=== PATIENT | male | born 1935 | race Caucasian/White ===

== ENCOUNTER → 2017-09-08 08:18 | Outpatient (CLI) | payer MEDICARE, SELFPAY ==
[2017-09-08 10:12] LABS: Anion Gap 6 (5-15); BUN 14 mg/dL (7-18); BUN/Creat Ratio 14.9 RATIO (10-20); Calcium,Total 8.8 mg/dL (8.5-10.1); Chloride 102 mmol/L (98-107); Creatinine, Serum 0.94 mg/dL (0.70-1.30); EST Glomerular Filtration Rate 82 mL/min (>60); Est Glom Filt Rate - Afr Amer 99 mL/min (>60); Glucose 92 mg/dL (74-106); Potassium 4.2 mmol/L (3.5-5.1); Sodium Level 140 mmol/L (136-145)
== END ==
PROVIDERS: Family Provider Family Medicine; PCP Family Medicine; Visit Provider Family Medicine
DX: I10 Essential (primary) hypertension (principal)
CPT/HCPCS: 36415; 80048

== ENCOUNTER → 2019-04-17 08:04 | Outpatient (CLI) | payer MEDICARE, SELFPAY ==
[2019-04-17 10:34] LABS: Anion Gap 5 (5-15); BUN 13 mg/dL (7-18); BUN/Creat Ratio 14.5 RATIO (10-20); Chloride 106 mmol/L (98-107); Cholesterol 188 mg/dL (200); EST Glomerular Filtration Rate 86 mL/min (>60); Est Glom Filt Rate - Afr Amer 104 mL/min (>60); Glucose 98 mg/dL (74-106); High Density Lipoprotein 74 mg/dL; Potassium 4.4 mmol/L (3.5-5.1); Sodium Level 140 mmol/L (136-145); Triglycerides 77 mg/dL; Very Low Density Lipoprotein 15 mg/dL (5-40); Vitamin D,25 Hydroxy 31.4 ng/mL (29.95-100.01)
== END ==
PROVIDERS: Family Provider Family Medicine; PCP Family Medicine; Referring Provider Family Medicine; Visit Provider Family Medicine
DX: E55.9 Vitamin D deficiency, unspecified (principal); I10 Essential (primary) hypertension
CPT/HCPCS: 36415; 80048; 80061; 82306

== ENCOUNTER → 2020-05-07 08:33 | Outpatient (CLI) | payer MEDICARE, SELFPAY ==
[2020-05-07 10:24] LABS: Anion Gap 3 (5-15); BUN 13 mg/dL (7-18); BUN/Creat Ratio 13.2 RATIO (10-20); Calcium,Total 9.1 mg/dL (8.5-10.1); Chloride 105 mmol/L (98-107); Cholesterol 182 mg/dL (200); Creatinine, Serum 0.99 mg/dL (0.70-1.30); EST Glomerular Filtration Rate 77 mL/min (>60); Est Glom Filt Rate - Afr Amer 93 mL/min (>60); Glucose 97 mg/dL (74-106); High Density Lipoprotein 72 mg/dL; Potassium 4.1 mmol/L (3.5-5.1); Sodium Level 139 mmol/L (136-145); Triglycerides 117 mg/dL; Very Low Density Lipoprotein 23 mg/dL (5-40)
== END ==
PROVIDERS: PCP Family Medicine; Referring Provider Family Medicine; Visit Provider Family Medicine
DX: I10 Essential (primary) hypertension (principal); E55.9 Vitamin D deficiency, unspecified
CPT/HCPCS: 36415; 80048; 80061; 82306

== ENCOUNTER → 2021-10-12 | Outpatient (CLI) | payer MEDICARE, SELFPAY | END | disposition home or self-care (01) | PROVIDERS: PCP Family Medicine; Visit Provider Family Medicine | DX: U07.1 COVID-19 (principal) | CPT/HCPCS: 87635; U0003; U0005 ==

== ENCOUNTER → 2021-11-10 | Outpatient (CLI) | payer MEDICARE, SELFPAY ==
[2021-11-10 10:21] LABS: Anion Gap 4 (5-15); BUN 17 mg/dL (7-18); BUN/Creat Ratio 17.4 RATIO (10-20); Chloride 106 mmol/L (98-107); Cholesterol 171 mg/dL (200); Creatinine, Serum 0.98 mg/dL (0.70-1.30); EST Glomerular Filtration Rate 77 mL/min (>60); Est Glom Filt Rate - Afr Amer 94 mL/min (>60); Glucose 102 mg/dL (74-106); High Density Lipoprotein 79 mg/dL; Potassium 4.1 mmol/L (3.5-5.1); Sodium Level 140 mmol/L (136-145); Triglycerides 80 mg/dL; Very Low Density Lipoprotein 16 mg/dL (5-40); Vitamin D,25 Hydroxy 43.5 ng/mL
== END | disposition home or self-care (01) ==
LOC: MTLAB 08:41
PROVIDERS: PCP Family Medicine; Referring Provider Family Medicine; Visit Provider Family Medicine
DX: I10 Essential (primary) hypertension (principal); E55.9 Vitamin D deficiency, unspecified
CPT/HCPCS: 36415; 80048; 80061; 82306

== ENCOUNTER → 2021-12-15 | Outpatient (CLI) | payer MEDICARE, SELFPAY ==
[2021-12-15 10:51] LABS: Absolute Lymphocyte Count 1.15 X10^3/uL (0.83-4.51); Absolute Neutrophil Count 3.9 X10^3/uL (2.0-7.7); Basophil# 0.05 X10^3/uL; Basophil% 0.8 % (0-1); Eosinophil# 0.68 X10^3/uL; Eosinophils% 10.5 % (0-5); Hemoglobin 14.3 g/dL (13.0-16.5); Lymphocyte # 1.15 X10^3/ul (0.83-4.51); Lymphocyte % 17.7 % (19-41); Mean Corp Hgb Conc 32.5 g/dL (32-36); Mean Corpuscular Hgb 29.5 pg (27.0-32.0); Mean Corpuscular Volume 90.9 fL (80-94); Mean Platelet Vol. 11.6 fl (6.2-12.0); Monocyte# 0.66 X10^3/uL; Monocyte% 10.2 % (0-10); NRBC Flagged by Analyzer 0 % (0-5); Neutrophil # 3.93 X10^3/uL (2.7-7.7); Neutrophil % 60.3 % (47-70); Platelet Count 212 K/mm3 (150-450); RBC Distribution Width CV 13.7 % (11.6-14.6); RBC Distribution Width SD 46.1 fl (35.1-43.9); Red Blood Count 4.84 M/mm3 (4.6-6.2); White Blood Count 6.5 K/mm3 (4.4-11.0)
[2021-12-15 10:54] LABS: Erythrocyte Sedimentation Rate 14 mm/hr (0-20)
[2021-12-15 11:04] LABS: ALB/GLOB Ratio 1.1 RATIO (0.9-2.4); AST(SGOT) 21 U/L (15-37); Alanine Aminotransfer ALT/SGPT 19 U/L (16-61); Albumin, Serum 3.6 g/dL (3.2-5.0); Alkaline Phosphatase 53 U/L (45-117); Anion Gap 5 (5-15); BUN 13 mg/dL (7-18); BUN/Creat Ratio 14.1 RATIO (10-20); Chloride 108 mmol/L (98-107); Creatinine, Serum 0.92 mg/dL (0.70-1.30); EST Glomerular Filtration Rate 83 mL/min (>60); Est Glom Filt Rate - Afr Amer 100 mL/min (>60); Globulin 3.4 g/dL (2.2-4.2); Glucose 100 mg/dL (74-106); Potassium 4.3 mmol/L (3.5-5.1); Sodium Level 138 mmol/L (136-145)
== END | disposition home or self-care (01) ==
LOC: MFPLAB 08:34
PROVIDERS: PCP Family Medicine; Referring Provider Family Medicine; Visit Provider Family Medicine
DX: R10.13 Epigastric pain (principal)
CPT/HCPCS: 36415; 80053; 85025; 85652

== ENCOUNTER → 2022-01-13 | Outpatient (CLI) | payer MEDICARE, SELFPAY ==
--- NOTE | 2022-01-13 10:32 | RAD_ITS ---
STUDY: X-RAY - ABDOMEN/PELVIS REASON FOR EXAM: Male, 86 years old. Pain. Stomach issues for years. TECHNIQUE: AP supine and upright views of the abdomen and pelvis were obtained on 4 images. COMPARISON: 12/17/2016. FINDINGS: Normal visualized lung bases. There is an unremarkable bowel gas pattern with air seen to the rectum. There is no demonstrated free abdominal air. The visualized liver, spleen and kidneys are grossly normal in size and morphology. Normal soft tissue structures. Normal visualized osseous structures. RAD/Abd Inc Decub and/or Erect IMPRESSION: No acute abnormality of the lower chest, abdomen or pelvis. Electronically Signed: Real Plata, at 11:03 EDT ,
[2022-01-13 12:14] LABS: Absolute Lymphocyte Count 1.02 X10^3/uL (0.83-4.51); Absolute Neutrophil Count 3.2 X10^3/uL (2.0-7.7); Basophil# 0.06 X10^3/uL; Basophil% 1.1 % (0-1); Eosinophil# 0.56 X10^3/uL; Eosinophils% 10.4 % (0-5); Hematocrit 46.8 % (40-54); Lymphocyte # 1.02 X10^3/ul (0.83-4.51); Mean Corp Hgb Conc 32.1 g/dL (32-36); Mean Corpuscular Hgb 29.7 pg (27.0-32.0); Mean Corpuscular Volume 92.7 fL (80-94); Mean Platelet Vol. 11.5 fl (6.2-12.0); Monocyte% 9.3 % (0-10); NRBC Flagged by Analyzer 0 % (0-5); Neutrophil # 3.21 X10^3/uL (2.7-7.7); Neutrophil % 59.8 % (47-70); Platelet Count 243 K/mm3 (150-450); RBC Distribution Width CV 13.5 % (11.6-14.6); RBC Distribution Width SD 46.2 fl (35.1-43.9); Red Blood Count 5.05 M/mm3 (4.6-6.2); White Blood Count 5.4 K/mm3 (4.4-11.0)
[2022-01-13 12:31] LABS: Vitamin B12 353 pg/mL (211-911)
[2022-01-13 12:37] LABS: Amylase 75 U/L (25-115); Lipase 137 U/L (73-393)
[2022-01-14 15:08] LABS: Endomysial Antibody IgA Negative (Negative)
[2022-01-14 16:41] LABS: Immunoglobulin A 129 mg/dL (61-437); t-Transglutaminase IgA <2 U/mL (0-3)
== END | disposition home or self-care (01) ==
PROVIDERS: PCP Family Medicine; Referring Provider Family Medicine; Visit Provider Family Medicine
DX: R19.5 Other fecal abnormalities (principal); R10.13 Epigastric pain
CPT/HCPCS: 74019; 82150; 82607; 82784; 83516; 83690; 84443; 85025; 86255

== ENCOUNTER → 2022-06-08 | Outpatient (CLI) | payer MEDICARE, SELFPAY ==
--- NOTE | 2022-06-08 10:17 | LES_PTH ---
PATIENT: ONEAL ROGERS LOC: [facility] U#:[id number] AGE/SX: 87/M ROOM: RE06/08/[address]: Dr. Jared Londono MD : 1935 BED: DIS: 06/08/2022 SPEC #: [id number] RECD: 06/08/22 12:05 STATUS: JEANE JOHN #: [id number] GARRETT: 06/08/22 10:[address]: Jared Londono DEPT: SURGICAL PATHOLOGY RECD BY: Yaquelin Wise Tissues: Skin of face, NOS Procedures: Surgery Specimen Level IV HEADER OPERATION: Shave biopsy PRE-OP DIAGNOSIS: Forehead lesion, rule out SCC TISSUE SUBMITTED: Forehead lesion MICROSCOPIC DIAGNOSIS Skin lesion, forehead, shave biopsy: Inflamed verrucous keratosis with moderate to severe atypia. Solar elastosis. See comment. EDUARDO:nay 06/09/2022 COMMENT Complete excision of the lesion is suggested if clinically indicated. Case has been reviewed in consultation with Dr. Ley who concurs with the above diagnosis. IDC:AM MICROSCOPIC DESCRIPTION Slides are reviewed. GROSS DESCRIPTION Received is one container labeled with the patient's name and not further designated. The specimen consists of a light romo shaved biopsy of skin measuring 6 x 5 x <0.1 cm. The specimen is bisected and totally submitted in one cassette. / AM:nay 06/08/2022 TC:5 CPT: 16955
== END | disposition home or self-care (01) ==
LOC: LABSPEC 11:05
PROVIDERS: PCP Family Medicine; Referring Provider Family Medicine; Visit Provider Family Medicine
DX: L98.9 Disorder of the skin and subcutaneous tissue, unspecified (principal)
CPT/HCPCS: 88305

== ENCOUNTER → 2022-07-12 | Outpatient (CLI) | payer MEDICARE, SELFPAY ==
[2022-07-12 15:32] LABS: Hematocrit 47.1 % (40-54); Hemoglobin 15.6 g/dL (13.0-16.5); Mean Corp Hgb Conc 33.1 g/dL (32-36); Mean Corpuscular Hgb 30.3 pg (27.0-32.0); Mean Corpuscular Volume 91.5 fL (80-94); Mean Platelet Vol. 11.4 fl (6.2-12.0); Platelet Count 221 K/mm3 (150-450); RBC Distribution Width CV 13.2 % (11.6-14.6); RBC Distribution Width SD 44.6 fl (35.1-43.9); Red Blood Count 5.15 M/mm3 (4.6-6.2); White Blood Count 6.4 K/mm3 (4.4-11.0)
[2022-07-12 15:35] LABS: Erythrocyte Sedimentation Rate 16 mm/hr (0-20)
[2022-07-12 16:02] LABS: Vitamin B12 418 pg/mL (211-911); Vitamin D,25 Hydroxy 54.4 ng/mL
[2022-07-12 16:05] LABS: ALB/GLOB Ratio 1.1 RATIO (0.9-2.4); AST(SGOT) 26 U/L (15-37); Alanine Aminotransfer ALT/SGPT 19 U/L (16-61); Albumin, Serum 3.8 g/dL (3.2-5.0); Alkaline Phosphatase 57 U/L (45-117); Anion Gap 8 (5-15); BUN 14 mg/dL (7-18); BUN/Creat Ratio 16.8 RATIO (10-20); Calcium,Total 9.3 mg/dL (8.5-10.1); Chloride 107 mmol/L (98-107); Creatinine, Serum 0.84 mg/dL (0.70-1.30); EST Glomerular Filtration Rate 93 mL/min (>60); Est Glom Filt Rate - Afr Amer 112 mL/min (>60); Globulin 3.5 g/dL (2.2-4.2); Glucose 79 mg/dL (74-106); Potassium 4.3 mmol/L (3.5-5.1); Protein, Total 7.3 g/dL (6.4-8.2); Sodium Level 139 mmol/L (136-145); Thyroid Stim Hormone (TSH) 1.02 uIU/mL (0.358-3.74)
== END | disposition home or self-care (01) ==
LOC: MFPLAB 11:54
PROVIDERS: PCP Family Medicine; Referring Provider Family Medicine; Visit Provider Family Medicine
DX: E55.9 Vitamin D deficiency, unspecified (principal); E53.8 Deficiency of other specified B group vitamins; G31.84 Mild cognitive impairment of uncertain or unknown etiology
CPT/HCPCS: 36415; 80053; 82306; 82607; 84443; 85027; 85652

== ENCOUNTER 2022-12-21 08:43 | Emergency (ER) | payer MEDICARE, SELFPAY ==
[2022-12-21 08:44] VITALS: BP 155/89; PULSE 48; RESP 16; TEMP 36.6; O2SAT 98; BMI 20.6
--- NOTE | 2022-12-21 09:20 | CT_ITS ---
STUDY: CT ABDOMEN AND PELVIS WITH CONTRAST - URINARY TRACT REASON FOR EXAM: Male, 87 years old. Abd Pain, Mid Epi Gastric RADIATION DOSAGE (If Supplied By Facility): CTDIvol = ( 4.92 ) mGy, DLP = ( 369.32 ) mGycm TECHNIQUE: IV 100mL Isovue-300 was administered. Transaxial images were obtained from the dome of the diaphragm to the symphysis pubis in the arterial, nephrographic and excretory phases. Multiplanar coronal and sagittal images were reformatted. Individualized Dose Optimization Techniques Were Used For This CT. COMPARISON: AP supine and upright plain film views of the abdomen and pelvis January 13, 2022 FINDINGS: The visualized lung bases are unremarkable. The visualized portions of the heart are within normal limits. Well-defined 8.5 mm hypodensity consistent with a cyst is seen in the left lobe of the liver. The patent portal vein diameter is 14.5 mm. Normal gallbladder and extrahepatic biliary system. Normal spleen. 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 The pancreatic duct measures up to 3.5 mm diameter. Normal bilateral adrenal glands. Normal visualized stomach. Normal small intestine. There is sigmoid diverticulosis. The appendix is not clearly visualized. There is atherosclerotic calcification of the aorta at the level of the celiac takeoff, as well as mild calcific plaquing of the infrarenal aorta. No retroperitoneal adenopathy. Well-defined 5.55 x 1.95 x 2.1 cm hypodensity interposed between the medial right lobe of the liver and upper pole right kidney is thought to be a simple appearing subcapsular renal cyst area just medial to the inferior aspect of this cyst is a second 9 mm diameter hypodense cortical cyst, and a 4.5 mm subcapsular cortical cyst is seen in the medial right lower pole. Normal left kidney. No hydronephrosis. Numerous calcified stones measuring up to 7 mm diameter are seen within the otherwise unremarkable urinary bladder. The prostate gland is enlarged, containing clusters of microcalcifications. The central lobe elevates and indents the floor of the bladder. Normal abdominal wall. There are multilevel degenerative changes of the lumbar spine. Incompletely defined 2.6 x 2.0 x 1.7 cm area of relative lucency with trabecular coarsening in the right side of the L1 vertebra is consistent with hemangioma. A more defined 1.4 x 0.75 x 1.55 cm lucency just deep to the inferior L2 vertebral endplate may be a second hemangioma or Schmorl''s node. CT/Abdomen/Pelvis W IV Cont ONLY IMPRESSION: 1. No clearly demonstrated source for the patient''s new epigastric pain. 2. Enlarged, partially calcified prostate gland. 3. There are calcified urinary bladder stones. No hydronephrosis. 4. Sigmoid diverticulosis without acute diverticulitis. 5. Atherosclerotic calcifications present, as described. 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 6. Benign-appearing cysts seen in the left lobe of the liver and in the right kidney, as noted. 7. Multilevel degenerative changes of the lumbar spine. Electronically Signed: Jose De Jesus Butcher MD at 11:01 EDT Reading Location ID and State: [id number] / Unknown , Service support ,
[2022-12-21] MEDS: 0.9% Normal Saline 1,000 ML 1000 ML IV (09:29)
[2022-12-21] MEDS: Ondansetron 4 MG/2 ML Vial IV (09:29)
[2022-12-21] MEDS: Dicyclomine 10 MG Capsule 20 MG PO (09:30)
[2022-12-21 09:36] LABS: Absolute Lymphocyte Count 0.92 X10^3/uL (0.83-4.51); Absolute Neutrophil Count 3.9 X10^3/uL (2.0-7.7); Basophil# 0.05 X10^3/uL; Basophil% 0.9 % (0-1); Eosinophil# 0.39 X10^3/uL; Eosinophils% 6.8 % (0-5); Hematocrit 43.9 % (40-54); Hemoglobin 14.5 g/dL (13.0-16.5); Lymphocyte # 0.92 X10^3/ul (0.83-4.51); Mean Corpuscular Hgb 30.2 pg (27.0-32.0); Mean Corpuscular Volume 91.5 fL (80-94); Mean Platelet Vol. 10.5 fl (6.2-12.0); Monocyte# 0.44 X10^3/uL; Monocyte% 7.6 % (0-10); NRBC Flagged by Analyzer 0 % (0-5); Neutrophil # 3.94 X10^3/uL (2.7-7.7); Neutrophil % 68.4 % (47-70); Platelet Count 212 K/mm3 (150-450); RBC Distribution Width CV 13.3 % (11.6-14.6); RBC Distribution Width SD 45.2 fl (35.1-43.9); White Blood Count 5.8 K/mm3 (4.4-11.0)
[2022-12-21 09:56] LABS: ALB/GLOB Ratio 0.9 RATIO (0.9-2.4); AST(SGOT) 17 U/L (15-37); Alanine Aminotransfer ALT/SGPT 17 U/L (16-61); Albumin, Serum 3.3 g/dL (3.2-5.0); Alkaline Phosphatase 54 U/L (45-117); Anion Gap 4 (5-15); BUN 10 mg/dL (7-18); BUN/Creat Ratio 10.7 RATIO (10-20); Calcium,Total 8.9 mg/dL (8.5-10.1); Chloride 107 mmol/L (98-107); Creatinine, Serum 0.93 mg/dL (0.70-1.30); EST Glomerular Filtration Rate 82 mL/min (>60); Est Glom Filt Rate - Afr Amer 99 mL/min (>60); Estimated Creatinine Clearance 54.14 ml/min; Globulin 3.5 g/dL (2.2-4.2); Glucose 109 mg/dL (74-106); Lipase 35 U/L (13-75); Potassium 4.3 mmol/L (3.5-5.1); Protein, Total 6.8 g/dL (6.4-8.2); Sodium Level 139 mmol/L (136-145); Troponin-I HS 8 pg/mL (3.0-78.0)
[2022-12-21 10:08] LABS: Bacteria 0 SEEN /hpf (None Seen); Mucous, Urine 0 SEEN /hpf (<or=2+); Red Blood Cells-Urine 0 SEEN /hpf (0-5); Squamous Epithelial Cells - UA 0 SEEN /hpf (0-5)
[2022-12-21 10:26] LABS: Color, Urine Yellow (Yellow); Glucose, Dipstick Normal (Normal); Ketone-Dipstick Negative (Negative); Leukocyte Esterase-Dipstick 500 /ul (Negative); Nitrite-Dipstick Negative (Negative); Occult Blood-Urine 25 /ul (Negative); Protein-Dipstick Negative (Negative); Specific Gravity, Urine 1.015 (1.002-1.030); Urine Bilirubin Dipstick Negative (Negative); Urine Clarity Sl. Cloudy (Clear); Urine Urobilinogen Normal (Normal)
[2022-12-21 10:35] LABS: Amorphous Sediment 1+; White Blood Cells 0-5 SEEN /hpf (0-5)
[2022-12-21 10:43] VITALS: BP 158/79; PULSE 58; RESP 14; O2SAT 97
--- NOTE | 2022-12-21 11:33 | EDS_ITS ---
HPI History of Present Illness Chief Complaint: Abd Pain Narrative Narrative: Patient is a 87-year-old male who is presenting to the ER with chronic complaints of midepigastric pain, hiccuping at nighttime, waking up at nighttime with midepigastric discomfort. Patient has multiple tests ordered as an outpatient to be done on by his PCP. Patient was home with his . Patient came into the ER today because he did not want to wait till for outpatient testing. Patient has no headache, no fever or chills. No chest pain or shortness of breath. Patient does have positive abdominal pain acute on chronic, more focused to the midepigastric area. Patient has no urinary frequency urgency or burning. No bowel or bladder changes. Patient however does state that he does have a bowel movement daily, but they are small harder balls. We had discussed the possibility of patient being constipated. Patient has no abdominal bloating. No back pain. No other acute complaints at this time. Patient has no melena, no hematochezia, no emesis. No nausea vomiting. Patient states that he wakes up in the middle the night with his gnawing midepigastric pain that has been going on for 1 to 2 weeks so he came in for evaluation today. No other acute complaints. [facility] Medical History (Updated 12/21/22 @ 11:[address] Yayo Mauro DO) Hypertension Home Medications Ranitidine [Zantac] 300 mg PO BID PRN Dyspnea ##60 09/07/14 [Rx Last Taken Unknown] lisinopril 10 mg-hydrochlorothiazide 12.5 mg tablet (Zestoretic) 10 mg PO DAILY 09/07/14 [History Last Taken Unknown] Allergy/AdvReac Type Severity Reaction Status Date / Time Sulfa (Sulfonamide Allergy Mild Rash Verified 12/21/22 08:47 Antibiotics) amoxicillin Allergy Unknown Verified 12/21/22 08:47 Social History Smoking Status: Never smoker ROS ROS ED ROS Narrative REVIEW OF SYSTEMS: Unless otherwise stated in this report the patient's positive and negative responses for review of systems for constitutional, eyes, ENT, cardiovascular, respiratory, gastrointestinal, neurological, , musculoskeletal, and integument systems and related systems to the presenting problem are either stated in the history of present illness or were not pertinent or were negative for the symptoms and/or complaints related to the presenting medical problem. EXAM Physical Exam Narrative Exam Narrative: Vital signs reviewed and patient is not hypoxic. Patient is very pleasant, drove himself to the ER. General: The patient appears well and in no apparent distress. Patient is resting comfortably on cart. Not toxic, lethargic, or listless. Skin: Warm, dry, no pallor noted. There is no rash noted. Head: Normocephalic, atraumatic Eye: Normal conjunctiva, no drainage, EOMI. PERRL. Ears, Nose, Mouth, and Throat: oral mucosa is slightly dry. Nares patent. Mouth without vesicles. Cardiovascular: Regular Rate and Rhythm, no murmurs, gallops, or rubs Respiratory: Patient is in no distress, no accessory muscle use, lungs are clear to auscultation, no wheezing, rales or rhonchi Back: non-tender, no CVA tenderness bilaterally to percussion. NO CTLS midline or paraspinal tenderness to palpation. GI: Soft, mild midepigastric tenderness palpation, patient states the pain is not present at this time like it is in the middle the night. No tenderness to palpation, no masses appreciated. No rebound, guarding, or rigidity noted. Musculoskeletal: The patient has full range of motion of all extremities and joints with no difficulty. Patient has no motor, no sensory deficits. Neurological: A&O x4, normal speech, no focal neurological deficits. Psychiatric: Cooperative Const Vital Signs: 12/21/22 08:44 12/21/22 10:43 12/21/22 11:36 Temperature 97.9 F Temperature Source Temporal Pulse Rate 48 L 58 L 61 Respiratory Rate 16 14 14 Blood Pressure 155/89 H 158/79 H 160/78 H Blood Pressure Mean 111 105 Pulse Ox 98 97 97 Oxygen Delivery Method Room Air Room Air MDM MDM MDM Narrative Medical decision making narrative: Patient's CT of the abdomen pelvis showed multiple nonspecific findings. Patient has no elevation white blood cell count, patient has no acute findings on lab work. Patient does have leuk esterase in his urine, urine culture is pending. Patient has no urinary symptoms. Patient will increase fluids at home. Patient will start taking daily antacid medication; along with using either Maalox or Mylanta at bedtime to see if that helps with his pain. Patient will continue to follow-up with PCP for additional outpatient testing. Patient will follow-up with GI physician as well if needed. Patient is aware of an EGD and what that is entailed. No questions at discharge. Patient looks well. Patient does feel better after IV fluids Lab Data Labs: Laboratory Results - last 24 hr 12/21/22 12/21/22 09:30 10:00 WBC 5.8 RBC 4.80 Hgb 14.5 Hct 43.9 MCV 91.5 MCH 30.2 MCHC 33.0 RDW Std Deviation 45.2 H RDW Coeff of Suri 13.3 Plt Count 212 MPV 10.5 Immature Gran % (Auto) 0.300 Neut % (Auto) 68.4 Lymph % (Auto) 16.0 L [place] % (Auto) 7.6 Eos % (Auto) 6.8 H Baso % (Auto) 0.9 Absolute Neuts (auto) 3.9 Absolute Lymphs (auto) 0.92 Nucleated RBC % 0 Sodium 139 Potassium 4.3 Chloride 107 Carbon Dioxide 28.0 Anion Gap 4 L BUN 10 Creatinine 0.93 Estim Creat Clear Calc 54.14 Est GFR (MDRD) Af Amer 99 Est GFR (MDRD) Non-Af 82 BUN/Creatinine Ratio 10.7 Glucose 109 H Calcium 8.9 Total Bilirubin 0.50 AST 17 ALT 17 Alkaline Phosphatase 54 Troponin I High Sens 8 Total Protein 6.8 Albumin 3.3 Globulin 3.5 Albumin/Globulin Ratio 0.9 Lipase 35 Urine Color Yellow Urine Clarity Sl. Cloudy Urine pH 8.0 Ur Specific [place] 1.015 Urine Protein Negative Urine Glucose (UA) Normal Urine Ketones Negative Urine Occult Blood 25 H Urine Nitrite Negative Urine Bilirubin Negative Urine Urobilinogen Normal Ur Leukocyte Esterase 500 H Urine RBC 0 SEEN Urine WBC 0-5 SEEN Ur Squamous Epith Cells 0 SEEN Amorphous Sediment 1+ Urine Bacteria 0 SEEN Urine Mucus 0 SEEN Radiography Diagnostic Testing: Clinical Impression(s) from Imaging Studies Abdomen/Pelvis CT 12/21/22 09:20 IMPRESSION: 1. No clearly demonstrated source for the patient''s new epigastric pain. 2. Enlarged, partially calcified prostate gland. 3. There are calcified urinary bladder stones. No hydronephrosis. 4. Sigmoid diverticulosis without acute diverticulitis. 5. Atherosclerotic calcifications present, as described. 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 6. Benign-appearing cysts seen in the left lobe of the liver and in the right kidney, as noted. 7. Multilevel degenerative changes of the lumbar spine. Electronically Signed: Jose De Jesus Butcher MD at 11:01 EDT Reading Location ID and State: [id number] / Unknown , Service support , EKG Initial EKG: Attestation: I personally reviewed and interpreted this EKG as follows: Comments: EKG interpretation. Normal sinus rhythm at 63 beats a minute. Normal axis deviation. No acute ST elevation, no acute ectopy. QTc of 409. Artifact seen. Compared to old EKG on September 07, 2014, no significant EKG changes today Treatment and Re-Evaluation :: Patient feels better after IV fluids. Patient will follow-up with PCP. No questions at discharge. See MDM. Discharge Plan Triage Chief Complaint: Abd Pain ED Provider: Yayo Muaro Dx/Rx/DC Orders Clinical Impression: GERD, Dehydration, mild, Abdominal pain, Constipation Instructions: Abdominal Pain, Treating Constipation, ED Dehydration (Adult) Prescriptions: No Action lisinopril-hydrochlorothiazide [Zestoretic] 1 TABLET tablet 10 mg PO DAILY Patient Comments: BLOOD PRESSURE Ranitidine [Zantac] 300 MG tablet 300 mg PO BID PRN (Reason: Dyspnea) Qty: 60 0RF Primary Care Provider: Jeremy Londono Referrals: Jeremy Londono MD [Primary Care Provider] - Activity Restrictions/Additional Instructions: Increase fluids at home, Gatorade, Powerade or water. Use apple juice for prune juice. Use [id number] MiraLAX to help with stool softener. Continue to follow-up with PCP for additional testing. Drink Maalox or Mylanta at bedtime to see if it would help with pain in the middle of the night. Also use antacid medication [id number] if needed like daily Pepcid, Nexium, Prilosec, or Zantac. Disposition Disposition: Home, Self Care
[2022-12-21 11:36] VITALS: BP 160/78; PULSE 61; RESP 14; O2SAT 97
--- NOTE | 2022-12-21 11:37 | CM.ED ---
Social Work SW met with patient and introduced herself and role as [facility] [place] [employer]. Patient seated on hospital bed, alert and oriented and agreeable to speak with SW. SW inquired about patient's completion of AD documents. Initially patient reports having LW and HCPOA, however, upon further education of those documents, patient reports he has not completed them. Patient declines to complete them at this time. SW encouraged patient to contact vice president of consulting services at [facility] to schedule an appointment or complete documents in the community with kacey. Patient reports understanding and voices no other needs at this time. Marcela Mac MSW, MISSAEL
== END 2022-12-21 11:41 | disposition home or self-care (01) ==
PROVIDERS: Emergency Provider Emergency Medicine; PCP Family Medicine; Visit Provider Emergency Medicine
DX: R10.9 Unspecified abdominal pain (principal); E86.0 Dehydration; I10 Essential (primary) hypertension; K21.9 Gastro-esophageal reflux disease without esophagitis; K59.00 Constipation, unspecified; Z79.899 Other long term (current) drug therapy
CPT/HCPCS: 74177; 80053; 81001; 83690; 84484; 85025; 87086; 87088; 93005; 96361; 96374; 99283; J7030; Q9967; A4216; J2405

== ENCOUNTER → 2022-12-30 | Outpatient (CLI) | payer MEDICARE, SELFPAY ==
[2022-12-30 18:42] LABS: Prealbumin 23.4 mg/dL (20.0-40.0)
[2023-01-04 10:08] LABS: Beef <0.10 kU/L (Class 0); Chocolate <0.10 kU/L (Class 0); Corn <0.10 kU/L (Class 0); Egg, Whole <0.10 kU/L (Class 0); Milk (Cow) <0.10 kU/L (Class 0); Peanut <0.10 kU/L (Class 0); Pork <0.10 kU/L (Class 0); Soybean <0.10 kU/L (Class 0); Wheat <0.10 kU/L (Class 0)
== END | disposition home or self-care (01) ==
LOC: MFPLAB 15:47
PROVIDERS: PCP Family Medicine; Visit Provider Family Medicine
DX: R19.5 Other fecal abnormalities (principal); R10.9 Unspecified abdominal pain; J30.9 Allergic rhinitis, unspecified
CPT/HCPCS: 36415; 84134; 86003; 86005

== ENCOUNTER → 2022-12-31 | Outpatient (CLI) | payer MEDICARE, SELFPAY | END | disposition home or self-care (01) | LOC: LABSPEC 11:13 | PROVIDERS: PCP Family Medicine; Visit Provider Family Medicine | DX: R19.5 Other fecal abnormalities (principal) | CPT/HCPCS: 82271; 82274 ==

== ENCOUNTER → 2023-01-28 | Outpatient (CLI) | payer MEDICARE, SELFPAY ==
--- NOTE | 2023-01-28 08:45 | RAD_ITS ---
EXAMINATION: Fluoroscopic esophagram INDICATION: DYSPHAGIA EXAMINATION/TECHNIQUE: Thick and thin barium oral contrast , barium tablet, and gas bubbles were administered to the patient. Total Fluoroscopic Time: 13 seconds AND number of Fluoroscopic Images: 6 spot images and 2 cine clips. Radiation dosage index: 13.9 mGy COMPARISON: CT abdomen and pelvis with contrast from 12/21/2022. FINDINGS: No masses or strictures are identified. There is no hiatal hernia. Normal mucosal pattern. Normal passage of the barium pill. Normal motility. Trace gastroesophageal reflux. Some pooling of contrast is noted in the vallecula and oropharynx. This is cleared normally without evidence for aspiration. RAD/Esophagus Dual Contrast IMPRESSION: 1. Trace gastroesophageal reflux. 2. Some pooling of contrast is noted in the valleculae and oropharynx. This is cleared normally without evidence for aspiration. However, patient may benefit from speech pathology fluoroscopic swallow study for further assessment. Electronically Signed: Burt Marino DO at 11:48 EDT ,
== END | disposition home or self-care (01) ==
LOC: RAD 08:32
PROVIDERS: PCP Family Medicine; Referring Provider Family Medicine; Visit Provider Family Medicine
DX: R10.9 Unspecified abdominal pain (principal)
CPT/HCPCS: 74221

== ENCOUNTER → 2023-07-04 | Outpatient (CLI) | payer MEDICARE, SELFPAY ==
--- OUTSIDE RECORDS SUMMARY | 2023-07-04 13:04 | XMS RPT_ITS | CCD ---
Author Name Unknown Address [address] [place] [address] Organization [facility] Care Team Providers Care Caustic Operator Name Role Phone Jared Londono MD Primary Care Provider Results Test Name Value Interpretation Reference Range Facil ity Encounters Encounter Date Encounter Type Care Provider Facility Start: 06-30-2022 Telephone encounter Sonia Rico Work Phone: Neurology Plan of Treatment Date Care Activity Detail Author Start: 06-06-2022 ADVANCE DIRECTIVE DISCUSSION ADVANCE DIRECTIVE DISCUSSION [facility] Start: 06-06-2022 DEPRESSION ASSESSMENT DEPRESSION ASS ESSMENT [facility] Start: 02-04-2022 Influenza vaccination INFLUENZA (#1) [facility] Start: 2001 PNEUMOCOCCAL: 65+ (1 - PCV) PNEUMOCOCCAL: 65+ (1 - PCV) [facility] Start: 1986 SHINGRIX VACCINE (1 of 2) SRINIVASAN GRIX VACCINE (1 of 2) [facility] Start: 1981 DIABETES SCREEN DIABETES SCREEN [facility] Start: 1955 Urine microalbumin profile DTAP,TDAP ,TD (1 - Tdap) [facility] Start: 1935 COVID-19 VACCINE (#1) COVID-19 VACCI NE (#1) [facility] Payers Date Payer Category Payer Unknown [employer] S AND BLUE SHIELD [employer] HMO [id number] 2021-Present [phone] [address] [place] [address] HMO [id number] Social History Date Type Detail Facility [facility] Start: 1935 Sex Assigned At Not on file C [facility] Note 06-30-2022 Telephone Encounter - Roshni Yeboah - 06/30/2022 11:44 AM EST Note Date & Type Note Facility 06-30-2022 Miscellaneous Notes Formattin g of this note might be different from the original. Received referral from patient's PCP/[facility] to get patient scheduled with Dr. Verdin for cognitive impairment. Called number on file-no answer. Left voicemail requesting a call back to our office to schedule appointment. Referral in scanned docs. Please fax cover sheet with appt information back to PCP's office after appointment is scheduled. Roshni Yeboah documented in this encounter [facility] Summary Purpose Family History No Family History Records Found Advance Directives No Advanced Directives Records Found Additional Source Comments Source Comments (unrecognize d section and content) In the event this informatio n is protected by the Federal Confidentiality of Alcohol and Drug Abuse Patient Records regulations: The Federal rules restrict any use of the information to criminally investigate or prosecute any alcohol or drug abuse patient.[facility] Reason for Visit (unrecogniz ed section and content) Care Teams (unrecognized sec tion and content) (unrecognized sect ion and content) No Status Records Found INFORMATION SOURCE (unrecogn ized section and content) FOR RECORDS PERTAINING TO PATIENTS WHO ARE OR HAVE BEEN ENROLLED IN A CHEMICAL DEPENDENCY/SUBSTANCEABUSE PROGRAM, SOME INFORMATION MAY BE OMITTED. This clinical summary was aggregated from multiple sources. Caution should be exercised in using it in the provision of clinical care. This summary normalizes information from multiple sources, and as a consequence, information in this document may materially change the coding, format and clinical context of patient data. In addition, data may be omitted in some cases. CLINICAL DECISIONS SHOULD BE BASED ON THE PRIMARY CLINICAL RECORDS. [employer] provides no warranty or guarantee of the accuracy or completeness of information in this document.
[2023-07-04 15:18] LABS: Vitamin B12 491 pg/mL (211-911)
[2023-07-04 15:40] LABS: ALB/GLOB Ratio 1.1 RATIO (0.9-2.4); AST(SGOT) 25 U/L (15-37); Alanine Aminotransfer ALT/SGPT 22 U/L (16-61); Albumin, Serum 3.9 g/dL (3.2-5.0); Alkaline Phosphatase 63 U/L (45-117); Anion Gap 5 (5-15); BUN 11 mg/dL (7-18); BUN/Creat Ratio 12.8 RATIO (10-20); Calcium,Total 9.2 mg/dL (8.5-10.1); Chloride 102 mmol/L (98-107); Creatinine, Serum 0.86 mg/dL (0.70-1.30); EST Glomerular Filtration Rate 89 mL/min (>60); Est Glom Filt Rate - Afr Amer 108 mL/min (>60); Globulin 3.4 g/dL (2.2-4.2); Glucose 93 mg/dL (74-106); Protein, Total 7.3 g/dL (6.4-8.2); Sodium Level 136 mmol/L (136-145); Thyroid Stim Hormone (TSH) 1.13 uIU/mL (0.358-3.74)
[2023-07-04 17:35] LABS: Absolute Neutrophil Count 4.1 X10^3/uL (2.0-7.7); Basophil# 0.08 X10^3/uL; Basophil% 1.3 % (0-1); Eosinophil# 0.53 X10^3/uL; Eosinophils% 8.4 % (0-5); Hematocrit 47.3 % (40-54); Lymphocyte % 15.9 % (19-41); Mean Corp Hgb Conc 31.7 g/dL (32-36); Mean Corpuscular Hgb 29.4 pg (27.0-32.0); Mean Corpuscular Volume 92.6 fL (80-94); Mean Platelet Vol. 11.4 fl (6.2-12.0); Monocyte# 0.53 X10^3/uL; Monocyte% 8.4 % (0-10); NRBC Flagged by Analyzer 0 % (0-5); Neutrophil # 4.13 X10^3/uL (2.7-7.7); Neutrophil % 65.8 % (47-70); Platelet Count 245 K/mm3 (150-450); RBC Distribution Width SD 44.5 fl (35.1-43.9); Red Blood Count 5.11 M/mm3 (4.6-6.2); White Blood Count 6.3 K/mm3 (4.4-11.0)
== END | disposition home or self-care (01) ==
LOC: MTLAB 12:38
PROVIDERS: PCP Family Medicine; Referring Provider Family Medicine; Visit Provider Family Medicine
DX: I10 Essential (primary) hypertension (principal); E53.8 Deficiency of other specified B group vitamins; G31.84 Mild cognitive impairment of uncertain or unknown etiology
CPT/HCPCS: 36415; 80053; 82607; 84443; 85025

== ENCOUNTER → 2024-03-05 | Outpatient (CLI) | payer MEDICARE, SELFPAY ==
[2024-03-05 15:49] LABS: Vitamin B12 398 pg/mL (211-911); Vitamin D,25 Hydroxy 61.6 ng/mL
[2024-03-05 15:57] LABS: Anion Gap 8 (5-15); BUN 11 mg/dL (7-18); BUN/Creat Ratio 11.5 RATIO (10-20); Calcium,Total 9.4 mg/dL (8.5-10.1); Chloride 105 mmol/L (98-107); Creatinine, Serum 0.96 mg/dL (0.70-1.30); EST Glomerular Filtration Rate 79 mL/min (>60); Est Glom Filt Rate - Afr Amer 96 mL/min (>60); Glucose 87 mg/dL (74-106); Potassium 4.2 mmol/L (3.5-5.1); Sodium Level 139 mmol/L (136-145)
== END | disposition home or self-care (01) ==
LOC: MFPLAB 11:01
PROVIDERS: PCP Family Medicine; Visit Provider Family Medicine
DX: E55.9 Vitamin D deficiency, unspecified (principal); R79.89 Other specified abnormal findings of blood chemistry; I10 Essential (primary) hypertension
CPT/HCPCS: 36415; 80048; 82306; 82607

== ENCOUNTER → 2024-04-11 | Outpatient (CLI) | payer MEDICARE, SELFPAY ==
[2024-04-11 12:09] LABS: Hematocrit 43.6 % (40-54); Mean Corp Hgb Conc 32.1 g/dL (32-36); Mean Corpuscular Hgb 29.1 pg (27.0-32.0); Mean Corpuscular Volume 90.6 fL (80-94); Mean Platelet Vol. 11.2 fl (6.2-12.0); Platelet Count 207 K/mm3 (150-450); RBC Distribution Width CV 13.1 % (11.6-14.6); RBC Distribution Width SD 43.4 fl (35.1-43.9); Red Blood Count 4.81 M/mm3 (4.6-6.2); White Blood Count 4.8 K/mm3 (4.4-11.0)
[2024-04-11 15:35] LABS: ALB/GLOB Ratio 1.2 RATIO (0.9-2.4); AST(SGOT) 23 U/L (15-37); Alanine Aminotransfer ALT/SGPT 17 U/L (16-61); Albumin, Serum 3.7 g/dL (3.2-5.0); Alkaline Phosphatase 57 U/L (45-117); Anion Gap 5 (5-15); BUN 13 mg/dL (7-18); BUN/Creat Ratio 13.1 RATIO (10-20); Calcium,Total 9.2 mg/dL (8.5-10.1); Chloride 107 mmol/L (98-107); Creatinine, Serum 0.99 mg/dL (0.70-1.30); EST Glomerular Filtration Rate 76 mL/min (>60); Est Glom Filt Rate - Afr Amer 92 mL/min (>60); Globulin 3.2 g/dL (2.2-4.2); Glucose 112 mg/dL (74-106); Lipase 33 U/L (13-75); Potassium 4.1 mmol/L (3.5-5.1); Protein, Total 6.9 g/dL (6.4-8.2); Sodium Level 140 mmol/L (136-145)
== END | disposition home or self-care (01) ==
LOC: MFPLAB 11:03
PROVIDERS: PCP Family Medicine; Referring Provider Family Medicine; Visit Provider Family Medicine
DX: R10.9 Unspecified abdominal pain (principal)
CPT/HCPCS: 36415; 80053; 83690; 85027

== ENCOUNTER → 2024-09-27 | Outpatient (CLI) | payer MEDICARE, SELFPAY ==
--- NOTE | 2024-09-27 16:19 | RAD_ITS ---
PROCEDURE: ABDOMEN SINGLE VIEW 09/27/2024 REASON FOR EXAM: ABDOMINAL PAIN TECHNIQUE: Single view abdomen. FINDINGS: Bowel gas: Bowel gas pattern is normal. No evidence of bowel obstruction. Calcifications: No suspicious calcifications. Bones: The bones are unremarkable. Other: RAD/Abdomen Single View IMPRESSION: NEGATIVE KUB. Reading Location: [id number]
[2024-09-27 17:55] LABS: Absolute Lymphocyte Count 1.08 X10^3/uL (0.83-4.51); Basophil# 0.08 X10^3/uL; Basophil% 1.3 % (0-1); Eosinophil# 0.51 X10^3/uL; Hematocrit 44.4 % (40-54); Hemoglobin 14.8 g/dL (13.0-16.5); Lymphocyte # 1.08 X10^3/ul (0.83-4.51); Mean Corp Hgb Conc 33.3 g/dL (32-36); Mean Corpuscular Hgb 30.7 pg (27.0-32.0); Mean Corpuscular Volume 92.1 fL (80-94); Mean Platelet Vol. 11.4 fl (6.2-12.0); Monocyte# 0.65 X10^3/uL; Monocyte% 10.2 % (0-10); NRBC Flagged by Analyzer 0 % (0-5); Neutrophil # 4.01 X10^3/uL (2.7-7.7); Neutrophil % 63.2 % (47-70); Platelet Count 229 K/mm3 (150-450); RBC Distribution Width CV 13.3 % (11.6-14.6); RBC Distribution Width SD 45.7 fl (35.1-43.9); Red Blood Count 4.82 M/mm3 (4.6-6.2); White Blood Count 6.4 K/mm3 (4.4-11.0)
[2024-09-27 18:14] LABS: Erythrocyte Sedimentation Rate 2 mm/hr (0-20)
[2024-09-27 18:31] LABS: ALB/GLOB Ratio 1.6 RATIO (0.9-2.4); AST(SGOT) 25 U/L (<=37); Alanine Aminotransfer ALT/SGPT 15 U/L (<=46); Albumin, Serum 4.4 g/dL (3.4-4.8); Alkaline Phosphatase 56 U/L (40-129); Anion Gap 10 (5-15); BUN 15 mg/dL (4-19); BUN/Creat Ratio 16.2 RATIO (10-20); Calcium,Total 9.7 mg/dL (7.6-11.0); Carbon Dioxide 28.9 mmol/L (21.0-32.0); Chloride 103 mmol/L (98-108); Creatinine, Serum 0.94 mg/dL (0.70-1.20); EST Glomerular Filtration Rate 78 (>60); Globulin 2.7 g/dL (2.2-4.2); Glucose 105 mg/dL (70-99); Potassium 4.6 mmol/L (3.3-5.1); Protein, Total 7.1 g/dL (5.9-8.4); Sodium Level 141 mmol/L (133-145); Total Bilirubin 0.38 mg/dL (0.00-1.30)
[2024-09-29 05:07] LABS: Prealbumin 26 mg/dL (9-32)
== END | disposition home or self-care (01) ==
LOC: MTLAB 16:17
PROVIDERS: PCP Family Medicine; Referring Provider Family Medicine; Visit Provider Family Medicine
DX: R10.9 Unspecified abdominal pain (principal); R63.4 Abnormal weight loss
CPT/HCPCS: 36415; 74018; 80053; 84134; 84443; 85025; 85652

== ENCOUNTER 2024-11-02 12:06 | Emergency (ER) | payer MEDICARE, SELFPAY ==
[2024-11-02 12:06] VITALS: BP 155/83; PULSE 51; RESP 17; TEMP 36.2; O2SAT 98; BMI 16.5
--- NOTE | 2024-11-02 12:53 | ED.VIS.GI ---
HPI HPI - GI History of Present Illness Chief Complaint: Abd Pain Informant: patient and family Narrative Narrative: 89-year-old male presenting to the emergency room with a chief complaint of abdominal pain/bloating. The symptoms have been ongoing for months if not longer. Son is at his dad has been here for about 2 weeks. He notes that they have tried cutting certain things out of his diet which has not really seem to help. Patient denies any changes in his bowel movements. He notes that he is lost weight since July of this year. He vomiting nausea. He has not visited with his primary care doctor regarding this but states that he has come to the emergency room several times for this and his doctor has seen the reports. He states has not had a colonoscopy. He denies prior abdominal surgeries but later notes an appendectomy. Son states that his dad was more doubled over holding his abdomen earlier today and that is why they came to the emergency room. [facility] Medical History Hypertension Home Medications ?Medication ?Instructions ?Recorded ?Last Taken ?Type lansoprazole 30 mg capsule,delayed 30 mg PO DAILY PRN 02/14/23 Unknown History release (Prevacid) lisinopril 10 mg tablet (Zestril) 10 mg PO QDAY 10/11/24 Unknown History dicyclomine 10 mg capsule 10 mg PO TID PRN abdominal pain 10/16/24 Unknown Rx #60 caps docusate sodium 100 mg capsule 100 mg PO DAILY #30 caps 11/02/24 Unknown Rx (Colace) Allergy/AdvReac Type Severity Reaction Status Date / Time amoxicillin Allergy Intermediate Rash Verified 11/02/24 12:09 Sulfa (Sulfonamide Allergy Mild Rash Verified 11/02/24 12:09 Antibiotics) Family History Other Colon cancer Heart disease Surgical History Hx of appendectomy Social History Smoking Status: Never smoker ROS ROS ED Constitutional Constitutional ED: Reports weight loss; Denies chills or fever(s) Eyes Eyes: Denies change in vision or diplopia ENT ENT ED: Denies ear pain, rhinorrhea or sore throat Cardiovascular Cardiovascular: Denies chest pain, orthopnea, palpitations or racing heartbeat Respiratory/Chest Respiratory/Chest: Denies cough, dyspnea or orthopnea Gastrointestinal Gastrointestinal: Reports abdominal pain; Denies constipation, diarrhea, nausea or vomiting Genitourinary Genitourinary ED: Denies dysuria, hematuria or urinary frequency Musculoskeletal Musculoskeletal: Denies arthralgias or myalgias Integumentary Denies abscess or rash Neurologic Neurologic: Denies headache(s) or weakness Psychiatric Psychiatric: Denies anxiety, depression, suicidal ideation or suicidal thoughts Endocrine Endocrinology: Denies polydipsia, polyphagia or polyuria Allergic/Immunologic Allergic/Immunologic ED: Denies mouth swelling, tongue swelling or urticaria EXAM Physical Exam Const Vital Signs: 11/02/24 12:06 11/02/24 14:06 Temperature 97.2 F L Temperature Source Temporal Pulse Rate 51 L 119 H Respiratory Rate 17 16 Blood Pressure 155/83 H 151/80 H Blood Pressure Mean 107 103 Pulse Ox 98 100 Oxygen Delivery Method Room Air Room Air Positive well nourished and well developed General Appearance ED: well developed and NAD HEENT Reports normocephalic, head/scalp atraumatic and moist mucous membranes Eyes PERRL and EOMs intact bilaterally Neck no lymphadenopathy, supple and no JVD Resp normal respiratory effort and clear to auscultation bilaterally Cardio regular rate, regular rhythm and no murmurs GI normal to inspection, nondistended, normoactive bowel sounds and non-tender Inspection: Negative for abdominal distention Auscultation: normoactive bowel sounds Palpation: soft; Negative for tender, guarding or pulsatile mass Back/Spine no CVA tenderness and normal ROM Extremity normal to inspection General Extremety ED: Negative for edema General Extremity: Negative for edema Neuro oriented x3 and CN's II-XII intact bilaterally Sensorium / Orientation: alert Motor Exam: strength 5/5 throughout Psych mental status grossly normal Mood & Affect: Negative for depressed or tearful Skin no rashes or lesions noted and no wounds MDM MDM MDM Narrative Medical decision making narrative: Differential diagnosis includes but not limited to biliary colic pancreatitis peptic ulcer disease bowel obstruction diverticulitis colitis Food allergy Basic blood work is essentially negative glucose noted to be 91 creatinine 0.95 white count of 5 normal amylase lipase and LFTs. CT of the abdomen pelvis with IV and oral contrast was ordered. Patient refuses to drink the oral contrast. The CT with IV contrast was then read by radiology reviewed by myself. This shows some moderate stool burden and gas but no obstruction no inflammatory process no obvious masses. I spoke with the patient who is anxious to leave. Hospital spoke with his son later when he came back. Things reasonable we started him on a stool softener and have him follow-up with primary care or with gastroenterology. I would encourage him to do so as this has been an ongoing issue. Son notes that he was on it appears to be a stool softener decades ago from his prior primary care doctor for similar symptoms per the patient. Patient states that while on that medicine he had less symptomology and he was able to gain weight. So this could be more of a IBS constipation picture. History & Record Review Discussion w/independent historian: Patient and Family Lab Data Attestation: I reviewed the patient's lab results. Labs: Laboratory Results - last 24 hr 11/02/24 13:00 WBC 5.0 RBC 4.99 Hgb 15.4 Hct 44.9 MCV 90.0 MCH 30.9 MCHC 34.3 RDW Std Deviation 43.7 RDW Coeff of Suri 13.2 Plt Count 189 MPV 10.7 Immature Gran % (Auto) 0.400 Neut % (Auto) 76.8 H Lymph % (Auto) 12.3 L [place] % (Auto) 8.9 Eos % (Auto) 0.8 Baso % (Auto) 0.8 Absolute Neuts (auto) 3.9 Absolute Lymphs (auto) 0.62 L Nucleated RBC % 0 Sodium 137 Potassium 4.2 Chloride 101 Carbon Dioxide 26.7 Anion Gap 10 BUN 18 Creatinine 0.95 Estim Creat Clear Calc 40.69 L Est GFR (MDRD) Non-Af 77 BUN/Creatinine Ratio 18.8 Glucose 91 Calcium 9.3 Total Bilirubin 0.80 Direct Bilirubin 0.35 H AST 27 ALT 16 Alkaline Phosphatase 40 Total Protein 6.4 Albumin 4.1 Globulin 2.3 Amylase 85 Lipase 44 Radiography Diagnostic Testing: Clinical Impression(s) from Imaging Studies Abdomen/Pelvis CT 11/02/24 13:55 IMPRESSION: 1. The prostate gland is enlarged. Correlation with PSA values may be helpful if not previously performed. 2. Hepatomegaly with fatty infiltration. 3. No obstructive uropathy. 4. Fecal retention in the colon consistent with constipation. 5. Multiple urinary bladder calculi. Reading Location: [facility] Discharge Plan Triage Chief Complaint: Abd Pain ED Provider: Guilherme Lopez Dx/Rx/DC Orders Clinical Impression: Abdominal pain Instructions: Abdominal Pain, ED Constipation (Adult) Prescriptions: New docusate sodium [Colace] 100 mg capsule 100 mg PO DAILY Qty: 30 0RF No Action lisinopril [Zestril] 10 mg tablet 10 mg PO QDAY dicyclomine 10 mg capsule 10 mg PO TID PRN (Reason: abdominal pain) Qty: 60 0RF Primary Care Provider: Jared Londono Referrals: Jared Londono MD [Primary Care Provider] - Activity Restrictions/Additional Instructions: I would strongly recommend you following up with your primary care doctor to discuss your symptoms. You may also wish to see a nursing program coordinator there is often a wait though to see them. There was a moderate amount of stool noted on your CAT scan today as well as gas. I would recommend taking a stool softener which I have prescribed Print Language: [place] Disposition Disposition: Home, Self Care
[2024-11-02 13:15] LABS: Absolute Lymphocyte Count 0.62 X10^3/uL (0.83-4.51); Absolute Neutrophil Count 3.9 X10^3/uL (2.0-7.7); Basophil# 0.04 X10^3/uL; Basophil% 0.8 % (0-1); Eosinophil# 0.04 X10^3/uL; Eosinophils% 0.8 % (0-5); Hematocrit 44.9 % (40-54); Hemoglobin 15.4 g/dL (13.0-16.5); Lymphocyte # 0.62 X10^3/ul (0.83-4.51); Lymphocyte % 12.3 % (19-41); Mean Corp Hgb Conc 34.3 g/dL (32-36); Mean Corpuscular Hgb 30.9 pg (27.0-32.0); Mean Platelet Vol. 10.7 fl (6.2-12.0); Monocyte# 0.45 X10^3/uL; Monocyte% 8.9 % (0-10); NRBC Flagged by Analyzer 0 % (0-5); Neutrophil # 3.86 X10^3/uL (2.7-7.7); Neutrophil % 76.8 % (47-70); Platelet Count 189 K/mm3 (150-450); RBC Distribution Width CV 13.2 % (11.6-14.6); RBC Distribution Width SD 43.7 fl (35.1-43.9); Red Blood Count 4.99 M/mm3 (4.6-6.2)
[2024-11-02 13:36] LABS: AST(SGOT) 27 U/L (<=37); Alanine Aminotransfer ALT/SGPT 16 U/L (<=46); Albumin, Serum 4.1 g/dL (3.4-4.8); Alkaline Phosphatase 40 U/L (40-129); Amylase 85 U/L (28-100); Anion Gap 10 (5-15); BUN 18 mg/dL (4-19); BUN/Creat Ratio 18.8 RATIO (10-20); Bilirubin, Direct 0.35 mg/dL (0.00-0.30); Calcium,Total 9.3 mg/dL (7.6-11.0); Carbon Dioxide 26.7 mmol/L (21.0-32.0); Chloride 101 mmol/L (98-108); Creatinine, Serum 0.95 mg/dL (0.70-1.20); EST Glomerular Filtration Rate 77 (>60); Estimated Creatinine Clearance 40.69 ml/min (50-250); Globulin 2.3 g/dL (2.2-4.2); Glucose 91 mg/dL (70-99); Lipase 44 U/L (13-75); Potassium 4.2 mmol/L (3.3-5.1); Protein, Total 6.4 g/dL (5.9-8.4); Sodium Level 137 mmol/L (133-145)
--- NOTE | 2024-11-02 13:55 | CT_ITS ---
EXAM: CT Abdomen and Pelvis With Intravenous Contrast CLINICAL INDICATION: ABDOMINAL PAIN AND WEIGHT LOSS TECHNIQUE: Axial computed tomography images of the abdomen and pelvis with intravenous contrast. This CT exam was performed using one or more of the following dose reduction techniques: automated exposure control, adjustment of the mA and/or kV according to patient size, and/or use of iterative reconstruction technique. COMPARISON: CT Abdomen Pelvis dated 12/21/2022 FINDINGS: ARTIFACTS: Motion artifact. LUNG BASES: Unremarkable. No mass. No consolidation. ABDOMEN: LIVER: Hepatomegaly with fatty infiltration. Stable cysts in the right hepatic lobe and in the right kidney. GALLBLADDER AND BILE DUCTS: Unremarkable. No calcified stones. No ductal dilation. PANCREAS: Unremarkable. No mass. No ductal dilation. SPLEEN: Unremarkable. No splenomegaly. ADRENALS: Unremarkable. No mass. KIDNEYS AND URETERS: No stones within either kidney. No hydronephrosis. STOMACH AND BOWEL: Fecal retention in the colon consistent with constipation. No obstruction. No mucosal thickening. PELVIS: APPENDIX: No findings to suggest acute appendicitis. BLADDER: Multiple urinary bladder calculi. REPRODUCTIVE: The prostate gland is enlarged measuring 5.9 cm in maximum dimension. ABDOMEN and PELVIS: INTRAPERITONEAL SPACE: Unremarkable. No free air. No significant fluid collection. 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 No acute fracture. No dislocation. SOFT TISSUES: Unremarkable. VASCULATURE: Unremarkable. No abdominal aortic aneurysm. LYMPH NODES: Unremarkable. No enlarged lymph nodes. CT/Abdomen/Pelvis W IV Cont ONLY IMPRESSION: 1. The prostate gland is enlarged. Correlation with PSA values may be helpful if not previously performed. 2. Hepatomegaly with fatty infiltration. 3. No obstructive uropathy. 4. Fecal retention in the colon consistent with constipation. 5. Multiple urinary bladder calculi. Reading Location: [facility]
[2024-11-02 14:06] VITALS: BP 151/80; PULSE 119; RESP 16; O2SAT 100
[2024-11-02 15:26] VITALS: BP 145/71; PULSE 80; RESP 14; TEMP 36.8; O2SAT 100
== END 2024-11-02 15:27 | disposition home or self-care (01) ==
PROVIDERS: Emergency Provider Emergency Medicine; PCP Family Medicine; Referring Provider Emergency Medicine; Visit Provider Emergency Medicine
DX: R10.9 Unspecified abdominal pain (principal); R11.2 Nausea with vomiting, unspecified; I10 Essential (primary) hypertension; Z90.79 Acquired absence of other genital organ(s)
CPT/HCPCS: 74177; 80048; 80076; 82150; 83690; 85025; 99282; Q9967

== ENCOUNTER 2024-11-08 11:08 | Emergency (ER) | payer MEDICARE, SELFPAY ==
[2024-11-08] VITALS (8 sets, daily range): BP systolic 137–175; BP diastolic 66–80; PULSE 40–70; RESP 14–19; TEMP 36.6–37.1; O2SAT 98–100; BMI 16.7
--- NOTE | 2024-11-08 11:27 | US_ITS ---
PROCEDURE: TESTICULAR WITH ARTERIAL FLOW 11/08/2024 REASON FOR EXAM: RIGHT TESTICULAR TENDERNESS TECHNIQUE: Yang scale imaging of the scrotal contents. COMPARISON: None FINDINGS: RIGHT testicle: 4.7 x 2.8 x 2.8 cm Normal homogenous echotexture. Right epididymis: 1.3 x 1.1 x 0.9 cm. 1.1 x 0.8 x 0.6 cm epididymal cyst noted. LEFT testicle: 3.8 x 2.7 x 2.3 cm Normal homogenous echotexture. Subcentimeter tiny cyst within the testicle. Left epididymis: 1.3 x 1.3 x 0.8 cm Other findings: No hydrocele or large varicocele. US/Testicular with Arterial Flow IMPRESSION: No acute testicular torsion. Reading Location: [id number]
--- NOTE | 2024-11-08 11:29 | CT_ITS ---
EXAM: CT Abdomen and Pelvis With Intravenous Contrast CLINICAL INDICATION: ABDOMINAL PAIN TECHNIQUE: Axial computed tomography images of the abdomen and pelvis with intravenous contrast. This CT exam was performed using one or more of the following dose reduction techniques: automated exposure control, adjustment of the mA and/or kV according to patient size, and/or use of iterative reconstruction technique. COMPARISON: CT Abdomen Pelvis dated 11/02/2024 FINDINGS: LUNG BASES: Unremarkable. No mass. No consolidation. ABDOMEN: LIVER: Stable hepatic cysts. Hepatomegaly with fatty infiltration. GALLBLADDER AND BILE DUCTS: Unremarkable. No calcified stones. No ductal dilation. PANCREAS: Unremarkable. No mass. No ductal dilation. SPLEEN: Unremarkable. No splenomegaly. ADRENALS: Unremarkable. No mass. KIDNEYS AND URETERS: Unremarkable. No solid mass. No hydronephrosis. STOMACH AND BOWEL: Constipation with suggestion of fecal impaction of the rectum. Colonic diverticulosis without acute diverticulitis. No obstruction. PELVIS: APPENDIX: No findings to suggest acute appendicitis. BLADDER: Bladder wall thickening which may be due to the decompressed state of the bladder or due to cystitis. Urinary bladder calculi. REPRODUCTIVE: The prostate gland is enlarged measuring 5.9 cm in maximum dimension. ABDOMEN and PELVIS: INTRAPERITONEAL SPACE: Unremarkable. No free air. No significant fluid collection. BONES/JOINTS: No acute fracture. No dislocation. SOFT TISSUES: Unremarkable. VASCULATURE: Unremarkable. No abdominal aortic aneurysm. LYMPH NODES: Unremarkable. No enlarged lymph nodes. CT/Abdomen/Pelvis WITH Contrast IMPRESSION: 1. Constipation with suggestion of fecal impaction of the rectum. 2. The prostate gland is enlarged. Correlation with PSA values may be helpful if not previously performed. 3. Bladder wall thickening which may be due to the decompressed state of the b ladder or due to cystitis. 4. Hepatomegaly with fatty infiltration. 5. Urinary bladder calculi. 6. Colonic diverticulosis without acute diverticulitis. Reading [facility]
[2024-11-08] MEDS: 0.9% Normal Saline (1000mL) 1,000 ML 1000 ML IV (11:49)
[2024-11-08 12:03] LABS: Absolute Lymphocyte Count 0.68 X10^3/uL (0.83-4.51); Absolute Neutrophil Count 3.6 X10^3/uL (2.0-7.7); Basophil# 0.04 X10^3/uL; Basophil% 0.8 % (0-1); Eosinophil# 0.06 X10^3/uL; Eosinophils% 1.2 % (0-5); Hematocrit 44.3 % (40-54); Hemoglobin 14.9 g/dL (13.0-16.5); Lymphocyte # 0.68 X10^3/ul (0.83-4.51); Lymphocyte % 13.8 % (19-41); Mean Corp Hgb Conc 33.6 g/dL (32-36); Mean Corpuscular Hgb 30.8 pg (27.0-32.0); Mean Corpuscular Volume 91.7 fL (80-94); Mean Platelet Vol. 10.9 fl (6.2-12.0); Monocyte# 0.48 X10^3/uL; Monocyte% 9.8 % (0-10); NRBC Flagged by Analyzer 0 % (0-5); Neutrophil # 3.64 X10^3/uL (2.7-7.7); Platelet Count 209 K/mm3 (150-450); RBC Distribution Width CV 13.2 % (11.6-14.6); RBC Distribution Width SD 44.7 fl (35.1-43.9); Red Blood Count 4.83 M/mm3 (4.6-6.2); White Blood Count 4.9 K/mm3 (4.4-11.0)
[2024-11-08 12:21] LABS: ALB/GLOB Ratio 1.7 RATIO (0.9-2.4); AST(SGOT) 24 U/L (<=37); Alanine Aminotransfer ALT/SGPT 17 U/L (<=46); Albumin, Serum 3.9 g/dL (3.4-4.8); Alkaline Phosphatase 39 U/L (40-129); Anion Gap 10 (5-15); BUN 17 mg/dL (4-19); BUN/Creat Ratio 16.3 RATIO (10-20); Calcium,Total 8.9 mg/dL (7.6-11.0); Carbon Dioxide 28.9 mmol/L (21.0-32.0); Chloride 101 mmol/L (98-108); Creatinine, Serum 1.02 mg/dL (0.70-1.20); EST Glomerular Filtration Rate 71 (>60); Estimated Creatinine Clearance 37.46 ml/min (50-250); Globulin 2.4 g/dL (2.2-4.2); Glucose 90 mg/dL (70-99); Lipase 34 U/L (13-75); Potassium 4.1 mmol/L (3.3-5.1); Protein, Total 6.3 g/dL (5.9-8.4); Sodium Level 140 mmol/L (133-145); Total Bilirubin 0.66 mg/dL (0.00-1.30)
--- NOTE | 2024-11-08 12:23 | EDS_ITS ---
HPI History of Present Illness Chief Complaint: Abd Pain Narrative Narrative: Chief complaint and HPI: Early satiety, weight loss, abdominal pain/bloating. 89-year-old male with past medical history of dementia presents for evaluation of early satiety, weight loss, abdominal pain/bloating. History taken by patient, son, medical record. Patient was just seen on for same complaint. At that time had laboratory workup that was unremarkable, had CT abdomen pelvis that showed prostate enlargement and constipation. Patient was discharged home on Colace and told to follow-up with PCP. Patient has not followed up with PCP. He refuses to take the Colace per son. Patient states that his symptoms have been ongoing since July. Denies any significant change. Denies any fever, chills, shortness of breath, chest pain, vomiting, diarrhea, dysuria. Does endorse to constipation but states his last bowel movement was today to states they are hard. Son is asking to speak with social work for his dementia. Review of systems: See HPI Medications: As listed on the chart Allergies: As listed on the chart PFSH: Per chart Vital signs: As listed on the chart. Reviewed. Physical exam: Gen: A&O x3, NAD Head: Normocephalic, atraumatic Eyes: No sclera icterus, conjunctiva clear ENT: Moist mucous membranes Neck: Trachea midline, No JVD CV: RRR, no murmurs, no peripheral edema Resp: Lungs CTA BL, no w/r/c GI: Abd soft, non-distended, non-tender, no r/r/g : No CVA tenderness. Uncircumcised penis. No penile tenderness or discharge. No penile or testicular swelling. Normal lie and position of the testicles. Right testicle tender to palpation without masses or skin changes. Cremasteric reflexes intact and equal bilaterally. Musc: Full ROM, no deformity Skin: Warm, dry Neuro: Alert, oriented, grossly intact, sensation intact Psych: Cooperative, appropriate mood and affect [facility] Medical History Frequent headaches Cataracts, bilateral Hearing problem Abdominal bloating Low vitamin B12 level MCI (mild cognitive impairment) Dyspepsia Prostatic hypertrophy Stomachache Vitamin D deficiency Dehydration Hypertension Home Medications ?Medication ?Instructions ?Recorded ?Last Taken ?Type lisinopril 5 mg tablet 5 mg PO DAILY 11/08/24 Unkno wn History mirtazapine 7.5 mg tablet 7.5 mg PO QHS 11/08/24 Unkno wn History polyethylene glycol 3350 17 17 g PO DAILY 30 days #510 grams 11/08/24 Unknown Rx gram/dose oral powder (Miralax) sennosides 8.6 mg-docusate sodium 1 tab-cap PO BID 14 days #28 tabs 11/08/24 Unknown Rx 50 mg tablet (Senna with Docusate Sodium) Allergy/AdvReac Type Severity Reaction Status Date / Time amoxicillin Allergy Intermediate Rash Verified 11/08/24 11:08 Sulfa (Sulfonamide Allergy Mild Rash Verified 11/08/24 11:08 Antibiotics) chlorthalidone AdvReac Severe dizziness Verified 11/08/24 11:08 and stomachache Penicillins (PCN) AdvReac Intermediate unknown Verified 11/08/24 11:08 amlodipine AdvReac Mild dizziness Verified 11/08/24 11:08 guaifenesin (From Mucinex) AdvReac Mild GI upset Verified 11/08/24 11:08 Family History Sister Hypertension Multiple sclerosis Diabetes Mother Colon cancer Father Myocardial infarction Brother Cancer prostate Other Heart disease Surgical History Hx of appendectomy Social History Smoking Status: Never smoker alcohol intake: never substance use type: does not use frequency: other details: has been inactive until recently EXAM Physical Exam Const Vital Signs: 11/08/24 11:08 11/08/24 11:08 11/08/24 11:56 Temperature 98.7 F Temperature Source Temporal Pulse Rate 52 L 40 L 70 Respiratory Rate 14 19 H Blood Pressure 137/66 H Blood Pressure Mean 89 Pulse Ox 98 98 Oxygen Delivery Method Room Air 11/08/24 12:00 11/08/24 12:30 11/08/24 13:00 Temperature Temperature Source Pulse Rate 59 L 68 63 Respiratory Rate 18 16 14 Blood Pressure 154/75 H 160/78 H 175/71 H Blood Pressure Mean 97 101 103 Pulse Ox 99 99 99 Oxygen Delivery Method 11/08/24 13:30 06/05/25 15:00 Temperature Temperature Source Pulse Rate 58 L 61 Respiratory Rate 15 18 Blood Pressure 141/80 H 138/78 H Blood Pressure Mean 98 98 Pulse Ox 100 99 Oxygen Delivery Method MDM MDM MDM Narrative Medical decision making narrative: 89-year-old male with past medical history of dementia presents for evaluation of early satiety, weight loss, abdominal pain/bloating. History taken by patient, son, medical record. Patient was just seen on 11/02 for same complaint. At that time had laboratory workup that was unremarkable, had CT abdomen pelvis that showed prostate enlargement and constipation. Patient was discharged home on Colace and told to follow-up with PCP. Patient has not followed up with PCP. He refuses to take the Colace per son. Denies any significant change as symptoms have been ongoing since July. Differential diagnosis includes but is not limited to constipation, gastritis, gastroparesis, PUD, biliary pathology, inguinal hernia, testicular mass, UTI. Suspect less likely diverticulitis or urolithiasis. Laboratory workup ordered including CT abdomen pelvis and ultrasound of the testicle. Social work was consulted as send would like to talk to them about patient's dementia. On arrival, patient is no acute distress. Mildly hypertensive. He has bradycardia however on chart review has a history of bradycardia. Not endorsing any chest pain or shortness of breath. CBC without leukocytosis or anemia. Platelets unremarkable. CMP unremarkable without JESSICA, electrolyte abnormality, transaminitis. Lipase unremarkable. Ultrasound of the testicle negative for torsion. Patient does have a right epididymal cyst and subcentimeter tiny cyst within the testicle on the left. UA is negative for UTI. However patient does have some WBCs therefore will send for culture. CT abdomen pelvis shows constipation with fecal impaction of the rectum. Patient states he still having bowel movements. States his last 1 was yesterday. Prostate gland is enlarged. He needs to follow-up with urology. Bladder wall thickening which may be due to decompressed state of bladder or due to cystitis. UA is not consistent with cystitis. Patient not endorsing any dysuria or hematuria. Hepatomegaly with fatty infiltration. Urinary bladder calculi. Colonic diverticulosis without diverticulitis. Patient's symptoms are likely secondary to his constipation. Him and his son were updated of all results. Patient agreed to have an enema. Patient was explained that he needs to take regular stool softeners at home or his symptoms will not improve until the constipation is improved. He states he confirms understanding. Soapsuds enema ordered. Patient later declined enema. Son had a discussion with me privately and would like the patient admitted. Despite patient being constipated he is passing bowel movements however this was offered to the patient and he declined. Patient will be discharged home. He was given education on constipation diet such as increasing fluids, drinking pear juice, high-fiber diet. Was educated on staying away from cheese and dairy. Will switch his stool softener to senna with docusate twice daily x 14 days. Daily MiraLAX. Follow-up with GI and PCP. They were informed that they need to follow-up with her PCP for enlarged prostate as well. They confirmed understand the plan. Patient stable to discharge home. Impression: 1. Constipation 2. Enlarged prostate Lab Data Labs: Laboratory Results - last 24 hr 11/08/24 11/08/24 11:44 12:55 WBC 4.9 RBC 4.83 Hgb 14.9 Hct 44.3 MCV 91.7 MCH 30.8 MCHC 33.6 RDW Std Deviation 44.7 H RDW Coeff of Suri 13.2 Plt Count 209 MPV 10.9 Immature Gran % (Auto) 0.400 Neut % (Auto) 74.0 H Lymph % (Auto) 13.8 L [place] % (Auto) 9.8 Eos % (Auto) 1.2 Baso % (Auto) 0.8 Absolute Neuts (auto) 3.6 Absolute Lymphs (auto) 0.68 L Nucleated RBC % 0 Sodium 140 Potassium 4.1 Chloride 101 Carbon Dioxide 28.9 Anion Gap 10 BUN 17 Creatinine 1.02 Estim Creat Clear Calc 37.46 L Est GFR (MDRD) Non-Af 71 BUN/Creatinine Ratio 16.3 Glucose 90 Calcium 8.9 Total Bilirubin 0.66 AST 24 ALT 17 Alkaline Phosphatase 39 L Total Protein 6.3 Albumin 3.9 Globulin 2.4 Albumin/Globulin Ratio 1.7 Lipase 34 Urine Color Yellow Urine Clarity Clear Urine pH 6.5 Ur Specific [place] 1.015 Urine Protein 15 H Urine Glucose (UA) Normal Urine Ketones Negative Urine Occult Blood 10 H Urine Nitrite Negative Urine Bilirubin Negative Urine Urobilinogen Normal Ur Leukocyte Esterase 500 H Urine RBC 0 SEEN Urine WBC 5-10 SEEN Ur Squamous Epith Cells 0 SEEN Urine Bacteria 0 SEEN Urine Mucus 0 SEEN Radiography Diagnostic Testing: Clinical Impression(s) from Imaging Studies Testicular Ultrasound 11/08/24 11:27 IMPRESSION: No acute testicular torsion. Reading Location: [facility] Abdomen/Pelvis CT 11/08/24 11:29 IMPRESSION: 1. Constipation with suggestion of fecal impaction of the rectum. 2. The prostate gland is enlarged. Correlation with PSA values may be helpful if not previously performed. 3. Bladder wall thickening which may be due to the decompressed state of the bladder or due to cystitis. 4. Hepatomegaly with fatty infiltration. 5. Urinary bladder calculi. 6. Colonic diverticulosis without acute diverticulitis. Reading Location: [facility] Discharge Plan Triage Chief Complaint: Abd Pain ED Provider: Kendall Bashir Dx/Rx/DC Orders Clinical Impression: Constipation Instructions: Treating Constipation, High Fiber Diet Dc, How the Colon Works, ED Constipation (Adult) Prescriptions: New polyethylene glycol 3350 [Miralax] 17 gram/dose powder 17 g PO DAILY 30 Days Qty: 510 0RF sennosides-docusate sodium [Senna with Docusate Sodium] 8.6-50 mg tablet 1 tab-cap PO BID 14 Days Qty: 28 0RF Discontinued docusate sodium 100 mg capsule 100 mg PO DAILY Patient Comments: PT TAKES SOMETIMES No Action lisinopril 5 mg tablet 5 mg PO DAILY mirtazapine 7.5 mg tablet 7.5 mg PO QHS Primary Care Provider: Jared Londono Referrals: Jared Londono MD [Primary Care Provider] - 3-5 Days Han Schmitz DO [Med Staff - Active Staff] - 3-5 Days Activity Restrictions/Additional Instructions: Drink plenty of fluids. Daily MiraLAX. I switched your stool softener, begin taking it today. Follow-up with your primary care physician and GI. Your prostate is enlarged in which you need to follow-up with your primary care p hysician. Drink plenty of fluids. Recommend pear juice. Print Language: Guamanian Disposition Disposition: Home, Self Care
[2024-11-08 13:05] LABS: Bacteria 0 SEEN /hpf (None Seen); Mucous, Urine 0 SEEN /hpf (<or=2+); Red Blood Cells-Urine 0 SEEN /hpf (0-5); Squamous Epithelial Cells - UA 0 SEEN /hpf (0-5)
[2024-11-08 13:07] LABS: Color, Urine Yellow (Yellow); Glucose, Dipstick Normal (Normal); Ketone-Dipstick Negative (Negative); Leukocyte Esterase-Dipstick 500 /ul (Negative); Nitrite-Dipstick Negative (Negative); Occult Blood-Urine 10 /ul (Negative); Protein-Dipstick 15 mg/dl (Negative); Specific Gravity, Urine 1.015 (1.002-1.030); Urine Bilirubin Dipstick Negative (Negative); Urine Clarity Clear (Clear); Urine Urobilinogen Normal (Normal); Urine pH 6.5 (5.0 - 8.0)
[2024-11-08 13:16] LABS: White Blood Cells 5-10 SEEN /hpf (0-5)
--- NOTE | 2024-11-08 16:04 | ED.RN ---
Pt adamantly refused soap suds enema
--- NOTE | 2024-11-08 17:58 | CM.ED ---
Social Work SW met with patients son per sons request. 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 Due to this, patients son has come back to [place] temporarily to stay with his father. Son states during this time, he has noticed mild decline with his dads cognition and what son describes as paranoia related to eating and medications. Son states that patient has been resistant to taking his medications and has not been feeling well, which is leading to a decrease in appetite and a weight loss. Son stated that patient is still active and is able to physically care for his own ADLs. Son states that [facility] and [facility] for 9 hours a week of in house support for patient. Emotional support provided to son and education related to dementia progression and signs to watch regarding cognitive decline that may cause patient to become unsafe. Son appreciative of conversation. No further needs identified at this time. Tierra Thacker, [employer]ICE [employer]GEANT, [employer]ING AND [employer]ER
--- OUTSIDE RECORDS SUMMARY | 2024-11-08 20:57 | XMS RPT_ITS | CCD ---
Author Organization [facility] Care Team Providers Care Director Of Integrated Marketing Name Role Phone Melodie Londono MD Primary Care Provider MINDI FERRO Attending Unavailable MINDI FERRO Referring Unavailable MELODIE LONDONO Primary Care UnavailMINDI Lindsay Attending Unavailable MELODIE LONDONO Primary Care Unavailglen Londono MD, Dr. Coleman Primary Care Provider Dr. Melodie Londono MD Attending Provider [phone] Dr. Melodie Londono MD Referring Provider [phone] Chen Cantrell Attending Provider [phone] Dr. Guilherme Lopez DO Referring Provider Dr. Guilherme Lopez DO Emergency Provider [phone] Chen Lazo Attending Unavailable Melodie Londono Referring Unavailable Bry, Melodie Primary Care Unavailable Chen Lazo Attending Unavailable Chen Lazo Referring Unavailable Melodie Londono Primary Care Unavailable Kendall Bashir Attending UnavailMelodie Martin Primary Care Unavailable Senait Kuhn Attending Unavailable Melodie Londono Referring Unavailable Bry, Christbasia Primary Care Unavailable Melodie Londono Attending Unavailable Bry, Christbasia Primary Care Unavailable Melodie Londono Attending Unavailable Melodie Londono Referring Unavailable Ranlissett, Christophevens Primary Care Unavailable Melodie Londono Attending Unavailable Bry, Melodie Referring Unavailable Bry, Christopher Primary Care Unavailable Guilherme Lopez Attending Unavailable Guilherme Lopez Referring Unavailable Melodie Londono Primary Care Unavailable Allergies Allergy Classification Reported Allergen(s) Allergy Type Date of Onset Reaction(s) Facility (11 sources) Amoxicillin Drug Allergy 5 Unknown, Rash [facility] (12 sources) Sulfonamides (Antibiotic); Translations: [Sulfa (Sulfonamide Antibiotics)] Allergy to substance 5 [facility] (1 source) amLODIPine Drug Allergy 5 [facility] (1 source) Amoxicillin Drug Allergy 5 [facility] (1 source) Chlorthalidone Drug Allergy 5 [facility] (1 source) guaiFENesin Drug Allergy 5 [facility] (1 source) Penicillins Drug allergy (disorder) 5 [facility] Medications Current Medications Medication Drug Class(es) Dates Sig (Normalized) Sig (Original) dicyclomine hydrochloride 10 mg oral capsule (2 sources) Anticholinergic Start: 10-16-2024 take 1 capsule by mouth three times daily as needed for pain Dicyclomine 10 mg capsule Active 10 mg PO THREE TIMES A DAY as needed for abdominal pain October 16, 2024 12:00am docusate sodium 100 mg oral capsule (1 source) Start: 11-02-2024 take 1 capsule by mouth once daily Docusate Sodium (Colace) 100 mg capsule Active 100 mg PO DAILY November 02, 2024 12:00am lisinopril 10 mg oral tablet (4 sources) Angiotensin Converting Enzyme Inhibitor Start: 10-11-2024 take 1 tablet by mouth once daily Lisinopril (Zestril) 10 mg tablet Active 10 mg PO daily October 11, 2024 12:00am Start: 06-29-2017 lisinopril (ZE STRIL) 10 mg tablet Take 1 tablet by mouth every 48 hours. 06/29/2017 Active Comment on above: Take 1 tablet by mitchel every 48 hours. LORazepam 0.5 mg oral tablet (1 source) Benzodiazepine Start: 4 End: 4 take 1 tablet by mouth every 30 days as needed for anxiety LORazepam (ATIVAN) 0.5 mg Indications: Memory changes Take 1 tablet by mouth as needed (for anxiety prior to MRI) for up to 30 days. 2 tablet 0 08/29/2023 09/28/2023 Active Comment on above: Take 1 tablet by mitchel th as needed (for anxiety prior to MRI) for up to 30 days. Completed/Discontinued Medications Medication Drug Class(es) Dates Sig (Normalized) Sig (Original) hydroCHLOROthiazide 12.5 mg / lisinopril 10 mg oral tablet (11 sources) Thiazide Diuretic, Angiotensin Converting Enzyme Inhibitor Start: 09-07-2014 End: 10-11-2024 take 1 tablet by mouth once daily Lisinopril-Hydroc hlorothiazide (Zestoretic) 1 TABLET tablet Discontinued 10 mg PO DAILY September 07, 2014 2:06am October 11, 2024 5:04pm lansoprazole 30 mg delayed release oral capsule (4 sources) Proton Pump Inhibitor Start: 02-14-2023 take 1 capsule by mouth once daily as needed Lansoprazole (Prevacid) 30 mg capsule,delayed release(DR/EC) Discontinued 30 mg PO DAILY as needed February 14, 2023 12:00am C-Lansoprazole 3mg per ml raNITIdine 300 mg oral tablet (11 sources) Histamine-2 Receptor Antagonist Start: 09-07-2014 take 1 tablet by mouth twice daily Ranitidine (Zantac) 300 MG tablet Active 300 MG PO TWICE A DAY 60 September 07, 2014 11:22am Start: 09-07-2014 End: 10-16-2024 take 1 tablet by mouth twice daily as needed for dyspnea Ranitidine (Zantac) 300 MG tablet Discontinued 300 mg PO TWICE A DAY as needed for Dyspnea 60 September 07, 2014 12:22pm October 16, 2024 3:32pm Problems Problem Classification Problem Date Documented Da te Episodic/Chronic Abdominal pain (9 sources) Abdominal pain; Translations: [Unspecified abdominal pain] Onset: 5 12-21-2022 Episodic Aortic; peripheral; and visceral artery aneurysms (4 sources) Aneurysm of splenic artery; 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-14-2023 Chronic Comment on above: CT- images reviewed, 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 Delirium, dementia, and amnestic and other cognitive disorders (1 source) Unspecified dementia without behavioral disturbance; Translations: [Unspecified dementia, unspecified severity, without behavioral disturbance, psychotic disturbance, mood disturbance, and anxiety] Onset: Chronic Esophageal disorders (13 sources) Gastroesophageal reflux disease 09-07-2014 Chronic Essential hypertension (11 sources) Hypertensive disorder 09-07-2014 Chronic Fluid and electrolyte disorders (6 sources) Mild dehydration; Translations: [Dehydration] 12-21-2022 Episodic Nutritional deficiencies (1 source) Vitamin D deficiency, unspecified; Translations: [Vitamin D deficiency, unspecified] Onset: 4 Chronic Other ear and sense organ disorders (1 source) Bilateral hearing loss; Translations: [Unspecified hearing loss, bilateral] 08-29-2023 Chronic Other gastrointestinal disorders (6 sources) Constipation; Translations: [Constipation, unspecified] 12-21-2022 Episodic Other gastrointestinal disorders (1 source) Constipation, unspecified; Translations: [Constipation, unspecified] Onset: 5 Episodic Other hereditary and degenerative nervous system conditions (1 source) Impaired cognition; Translations: [Mild cognitive impairment, so stated] 04-25-2024 Chronic Other nutritional; endocrine; and metabolic disorders (4 sources) Unintentional weight loss; Translations: [Abnormal weight loss] 10-16-2024 Episodic Other nutritional; endocrine; and metabolic disorders (2 sources) Abnormal weight loss; Translations: [Abnormal weight loss] Onset: 5 Episodic Residual codes; unclassified (1 source) Memory impairment; Translations: [Other amnesia] 08-29-2023 Episodic Unclassified (4 sources) Unintended weight loss; Translations: [R63.4 - Abnormal weight loss] Unclassified (2 sources) R63.4 - Abnormal weight loss Results Test Name Value Interpretation Reference Range Facility CBC W/Diff, Automatedon Absolute Lymph 0.68 X10 3/uL Low 0.83-4.51 [facility] Comment on above: Performed By: #### L 100.0100 ####[facility] [address] [facility] [place], [address] Absolute Neut 3.6 X10 3/uL Normal 2.0-7.7 [facility] Comment on above: Performed By: #### L 100.0100 ####[facility] [address] [facility] [place], [address] Basophils/100 WBC (Bld) 0.8 % Normal 0-1 [facility] Comment on above: Performed By: #### L 100.0100 ####[facility] [address] [place], [address] Eosinophils/100 WBC (Bld) 1.2 % Normal 0-5 [facility] Comment on above: Performed By: #### L 100.0100 ####[facility] [address] [place], [address] Erythrocyte distribution width (RBC) [Ratio] 13.2 % Normal 11.6-14.6 [facility] Comment on above: Performed By: #### L 100.0100 ####[facility] [address] [place], [address] Hematocrit (Bld) [Volume fraction] 44.3 % Normal 40-54 [facility] Comment on above: Performed By: #### L 100.0100 ####[facility] [address] [place], [address] Hemoglobin (Bld) [Mass/Vol] 14.9 g/dL Normal 13.0-16.5 [facility] Comment on above: Performed By: #### L 100.0100 ####[facility] [address] [place], [address] IG% 0.400 Normal 0.0-0.9 [facility] Comment on above: Result Comment: IG% - Immature Granulocytes (promyelocytes, myelocytes and metamyelocytes) > 1% indicates that a LEFT SHIFT is Present. Performed By: #### L 100.0100 ####[facility] [address] [place], [address] Lymphocytes/100 WBC (Bld) 13.8 % Low 19-41 [facility] Comment on above: Performed By: #### L 100.0100 ####[facility] [address] [place], [address] MCH (RBC) [Entitic mass] 30.8 pg Normal 27.0-32.0 [facility] Comment on above: Performed By: #### L 100.0100 ####[facility] [address] [place], [address] MCHC (RBC) [Mass/Vol] 33.6 g/dL Normal 32-36 [facility] Comment on above: Performed By: #### L 100.0100 ####[facility] [address] [place], [address] MCV (RBC) [Entitic vol] 91.7 fL Normal 80-94 [facility] Comment on above: Performed By: #### L 100.0100 ####[facility] [address] [place], [address] Monocytes/100 WBC (Bld) 9.8 % Normal 0-10 [facility] Comment on above: Performed By: #### L 100.0100 ####[facility] [address] [place], [address] Neutrophils/100 WBC (Bld) 74.0 % High 47-70 [facility] Comment on above: Performed By: #### L 100.0100 ####[facility] [address] [place], [address] Nucleated RBC (Bld) [#/Vol] 0 10*3/uL Normal 0-5 [facility] Comment on above: Performed By: #### L 100.0100 ####[facility] [address] [place], [address] Platelet mean volume (Bld) [Entitic vol] 10.9 fL Normal 6.2-12.0 [facility] Comment on above: Performed By: #### L 100.0100 ####[facility] [address] [place], [address] Platelets (Bld) [#/Vol] 209 10*3/uL Normal 150-450 [facility] Comment on above: Performed By: #### L 100.0100 ####[facility] [address] [place], [address] RBC (Bld) [#/Vol] 4.83 10*6/uL Normal 4.6-6.2 [facility] Comment on above: Performed By: #### L 100.0100 ####[facility] [address] [place], [address] RDW SD 44.7 fl High 35.1-43.9 [facility] Comment on above: Performed By: #### L 100.0100 ####[facility] [address] [place], [address] WBC (Bld) [#/Vol] 4.9 10*3/uL Normal 4.4-11.0 [facility] Comment on above: Performed By: #### L 100.0100 ####[facility] [address] [place], [address] Gastroenterology Visit Repor ton 11-07-2024 Gastroenterology Visit Report [facility] [address] [place] [address] OFFICE VISIT Date of Service: 11/07/24 MR#: [id number] Acct: [id number] Name: ONEAL PAGE Rep #: [id number] : 1935 Provider: AMBAR dominguez Age/Sex: 89/M Location: [facility] Status: Signed Intake Vital Signs 11/02/24 12:06 11/07/24 11:24 Height 5 ft 11 in 5 ft 11 in Weight: 117 lb 2 oz BMI 16.3 BP 137/68 H Respiration 18 Pulse 85 Pulse Oximetry (%) 96 Oxygen Delivery Method room air Intake Visit Reasons: ABDOMINAL PAIN WEIGHT LOSS Chief Complaint: consult Fern Gatherer Required: No Accompanied by: Son Is patient in pain?: No Allergies amoxicillin Allergy (Intermediate, Verified 11/07/24 11:25) Rash Sulfa (Sulfonamide Antibiotics) Allergy (Mild, Verified 11/07/24 11:25) Rash chlorthalidone Adverse Reaction (Severe, Verified 11/07/24 11:25) dizziness and stomachache Penicillins (PCN) Adverse Reaction (Intermediate, Verified 11/07/24 11:25) unknown amlodipine Adverse Reaction (Mild, Verified 11/07/24 11:25) dizziness guaifenesin (From Mucinex) Adverse Reaction (Mild, Verified 11/07/24 11:25) GI upset Have you fallen in the past year?: Yes Nurse's Note: Patient is in as follow up from ER visit on 11/02/24. He was last in the office and saw one of our LEAD BURNER HELPER's in 10/16/24. His son is staying with him currently while his is away and is here with him at this appointment. The son states that he is not taking any medications currently and the patient doesn't always understand questions so you have to ask the question a couple of times to know for sure if he understands. [facility] Medical History Frequent headaches Cataracts, bilateral Hearing problem Abdominal bloating Low vitamin B12 level MCI (mild cognitive impairment) Dyspepsia Prostatic hypertrophy Stomachache Vitamin D deficiency Dehydration Hypertension Surgical History Hx of appendectomy Family History Sister Hypertension Multiple sclerosis Diabetes Mother Colon cancer Father Myocardial infarction Brother Cancer prostate Other Heart disease Social History Smoking Status: Never smoker alcohol intake: never substance use type: does not use frequency: other details: has been inactive until recently HPI HPI Chief Complaint: consult Details: ONEAL PAGE, is a 89 M who presents to the office today for OV with Chen 10/17/2024 ONEAL PAGE, is a 89 M who presents to the office today for establishment with [facility] for concerns of unintended weight loss and reduced appetite. Differential diagnoses include: age-related decline and cancer. Discussed differentials with him and he feels that cancer is very unlikely, but is agreeable to imaging. I recommended protein supplemented nutrition drinks, various cheeses and leaner meats for consumption. * consult codifier for guided food selection * CT chest/abd/pelvis * dicyclomine PRN in the event of abdominal spasms from cheeses without diarrhea or constipation * office FU 1month and PRN Abdomen/Pelvis CT 11/02/24 13:55 IMPRESSION: 1. The prostate gland is enlarged. Correlation with PSA values may be helpful if not previously performed. - Discussed with patient and son this should be followed up with PCP 2. Hepatomegaly with fatty infiltration. 3. No obstructive uropathy. 4. Fecal retention in the colon consistent with constipation. 5. Multiple urinary bladder calculi. ER 11/02/2024 89-year-old male presenting to the emergency room with a chief complaint of abdominal pain/bloating. The symptoms have been ongoing for months if not longer. Son is at his dad has been here for about 2 weeks. He notes that they have tried cutting certain things out of his diet which has not really seem to help. Patient denies any changes in his bowel movements. He notes that he is lost weight since July of this year. He vomiting nausea. He has not visited with his primary care doctor regarding this but states that he has come to the emergency room several times for this and his doctor has seen the reports. He states has not had a colonoscopy. He denies prior abdominal surgeries but later notes an appendectomy. Son states that his dad was more doubled over holding his abdomen earlier today and that is why they came to the emergency room. - He is not taking any medications - weight loss of 138lbs to 117lbs - son is with patient today - reports he was getting along great for a long time and then his stomach started hurting - uneasy stomach - having a BM every day - son reports this is not the case (more content not included)... Normal [facility] Abdomen/Pelvis W IV Cont ONL Yon 11-02-2024 Abdomen/Pelvis W IV Cont ONLY [facility] Imaging Services [address] [place] [address] Abdomen/Pelvis W IV Cont ONLY MR#: [id number] Acct: [id number] Name: ONEAL PAGE Rep #: [id number] : 1935 M 89 From: Bao Malcolm MD PCP: Dr. Melodie Londono MD Status: REG ER Study: Abdomen/Pelvis W IV Cont ONLY Date of Exam: Exam# [id number] Ordering Dr: Guilherme Lopez DO EXAM: CT Abdomen and Pelvis With Intravenous Contrast CLINICAL INDICATION: ABDOMINAL PAIN AND WEIGHT LOSS TECHNIQUE: Axial computed tomography images of the abdomen and pelvis with intravenous contrast. This CT exam was performed using one or more of the following dose reduction techniques: automated exposure control, adjustment of the mA and/or kV according to patient size, and/or use of iterative reconstruction technique. COMPARISON: CT Abdomen Pelvis dated 12/21/2022 FINDINGS: ARTIFACTS: Motion artifact. LUNG BASES: Unremarkable. No mass. No consolidation. ABDOMEN: LIVER: Hepatomegaly with fatty infiltration. Stable cysts in the right hepatic lobe and in the right kidney. GALLBLADDER AND BILE DUCTS: Unremarkable. No calcified stones. No ductal dilation. PANCREAS: Unremarkable. No mass. No ductal dilation. SPLEEN: Unremarkable. No splenomegaly. ADRENALS: Unremarkable. No mass. KIDNEYS AND URETERS: No stones within either kidney. No hydronephrosis. STOMACH AND BOWEL: Fecal retention in the colon consistent with constipation. No obstruction. No mucosal thickening. PELVIS: APPENDIX: No findings to suggest acute appendicitis. BLADDER: Multiple urinary bladder calculi. REPRODUCTIVE: The prostate gland is enlarged measuring 5.9 cm in maximum dimension. ABDOMEN and PELVIS: INTRAPERITONEAL SPACE: Unremarkable. No free air. No significant fluid collection. 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 No acute fracture. No dislocation. SOFT TISSUES: Unremarkable. VASCULATURE: Unremarkable. No abdominal aortic aneurysm. LYMPH NODES: Unremarkable. No enlarged lymph nodes. CT/Abdomen/Pelvis W IV Cont ONLY IMPRESSION: 1. The prostate gland is enlarged. Correlation with PSA values may be helpful if not previously performed. 2. Hepatomegaly with fatty infiltration. 3. No obstructive uropathy. 4. Fecal retention in the colon consistent with constipation. 5. Multiple urinary bladder calculi. Reading Location: [facility] CC: Dr. Melodie Londono MD; Dr. Guilherme Lopez DO Air Intercept Controller Supervisor: Signed Normal [facility] Absolute lymphocyte countOrd ered By: Guilherme Lopez on 11-02-2024 Lymphocytes Auto (Unsp spec) [#/Vol] 0.62 10*3/uL Low 0.83-4.51 [facility] Absolute neutrophil countOrd ered By: Guilherme Jessica on 11-02-2024 Neutrophils (Bld) [#/Vol] 3.9 10*3/uL 2.0-7.7 [facility] Amylaseon 11-02-2024 MARIAM 85 U/L Normal 28-100 [facility] Comment on above: Performed By: #### L 501.2450, L500.2500, L500.3400, L501.2400, L100.0100 #### [facility] [address] [place], [place], [id number] Anion gap in Serum or Plasma Ordered By: Guilherme Lopez on 11-02-2024 Anion gap [Moles/Vol] 10 mmol/L 5-15 [facility] Automated blood erythrocyte countOrdered By: Guilherme Lopez on 11-02-2024 RBC (Bld) [#/Vol] 4.99 10*6/uL Normal 4.6-6.2 [facility] Comment on above: Performed By: #### L 501.2450, L500.2500, L500.3400, L501.2400, L100.0100 #### [facility] [address] [place], [place], [address] Automated blood hematocrit ( percentage)Ordered By: Guilherme Lopez on 11-02-2024 Hematocrit (Bld) [Volume fraction] 44.9 % Normal 40-54 [facility] Comment on above: Performed By: #### L 501.2450, L500.2500, L500.3400, L501.2400, L100.0100 #### [facility] [address] [place], [place], [id number] Automated lymphocyte count a s percentage of total leukocytesOrdered By: Guilherme Lopez on 11-02-2024 Lymphocytes/100 WBC Auto (Unsp spec) 12.3 % Low 19-41 [facility] BUN/creatinine ratioOrdered By: Guilherme Lopez on 11-02-2024 Urea nitrogen/Creatinine [Mass ratio] 18.8 mg/mg 10-20 [facility] Basic Metabolic Profile (BMP )on 11-02-2024 BUN/CRE 18.8 RATIO Normal 10-20 [facility] Comment on above: Performed By: #### L 501.2450, L500.2500, L500.3400, L501.2400, L100.0100 #### [facility] [address] [place], [address] ECRCL 40.69 ml/min Low 50-250 [facility] Comment on above: Performed By: #### L 501.2450, L500.2500, L500.3400, L501.2400, L100.0100 #### [facility] [address] [place], [address] GAP 10 Normal 5-15 [facility] Comment on above: Performed By: #### L 501.2450, L500.2500, L500.3400, L501.2400, L100.0100 #### [facility] [address] [place], [address] Potassium [Moles/Vol] 4.2 mmol/L Normal 3.3-5.1 [facility] Comment on above: Performed By: #### L 501.2450, L500.2500, L500.3400, L501.2400, L100.0100 #### [facility] [address] [place], [address] Basophil percentageOrdered B y: Guilherme Lopez on 11-02-2024 Basophils/100 WBC (Bld) 0.8 % Normal 0-1 [facility] Comment on above: Performed By: #### L 501.2450, L500.2500, L500.3400, L501.2400, L100.0100 #### [facility] [address] [place], [address] Bilirubin directOrdered By: Guilherme Lopez on 11-02-2024 Bilirubin.direct [Mass/Vol] 0.35 mg/dL High 0.00-0.30 [facility] Comment on above: Performed By: #### L 501.2450, L500.2500, L500.3400, L501.2400, L100.0100 #### [facility] [address] [place], [address] Bilirubin, totalOrdered By: Guilherme Lopez on 11-02-2024 Bilirubin [Mass/Vol] 0.80 mg/dL Normal 0.00-1.30 [facility] Comment on above: Performed By: #### L 501.2450, L500.2500, L500.3400, L501.2400, L100.0100 #### [facility] [address] [place], [address] CBC W/Diff, Automatedon 10-06 Absolute Lymph 0.62 X10 3/uL Low 0.83-4.51 [facility] Comment on above: Performed By: #### L 501.2450, L500.2500, L500.3400, L501.2400, L100.0100 #### [facility] [address] [place], [address] Absolute Neut 3.9 X10 3/uL Normal 2.0-7.7 [facility] Comment on above: Performed By: #### L 501.2450, L500.2500, L500.3400, L501.2400, L100.0100 #### [facility] [address] [place], [address] IG% 0.400 Normal 0.0-0.9 [facility] Comment on above: Result Comment: IG% - Immature Granulocytes (promyelocytes, myelocytes and metamyelocytes) > 1% indicates that a LEFT SHIFT is Present. Performed By: #### L 501.2450, L500.2500, L500.3400, L501.2400, L100.0100 #### [facility] [address] [place], [address] Lymphocytes/100 WBC (Bld) 12.3 % Low 19-41 [facility] Comment on above: Performed By: #### L 501.2450, L500.2500, L500.3400, L501.2400, L100.0100 #### [facility] [address] [place], [address] Nucleated RBC (Bld) [#/Vol] 0 10*3/uL Normal 0-5 [facility] Comment on above: Performed By: #### L 501.2450, L500.2500, L500.3400, L501.2400, L100.0100 #### [facility] [address] [place], [address] RDW SD 43.7 fl Normal 35.1-43.9 [facility] Comment on above: Performed By: #### L 501.2450, L500.2500, L500.3400, L501.2400, L100.0100 #### [facility] [address] [place], [address] Carbon dioxide, total [Moles /volume] in Central venous bloodOrdered By: Guilherme Lopez on 11-02-2024 CO2 [Moles/Vol] 26.7 mmol/L Normal 21.0-32.0 [facility] Comment on above: Performed By: #### L 501.2450, L500.2500, L500.3400, L501.2400, L100.0100 #### [facility] [address] [place], [address] Chloride assayOrdered By: Anthony Lopez on 11-02-2024 Chloride [Moles/Vol] 101 mmol/L Normal 98-108 [facility] Comment on above: Performed By: #### L 501.2450, L500.2500, L500.3400, L501.2400, L100.0100 #### [facility] [address] [place], [address] Emergency Department Summary on 11-02-2024 Emergency Department Summary [facility] Medical Records Department [address] [place] [address] Emergency Department Summary 11/02/24 MR#: [id number] Acct: [id number] Name: ONEAL PAGE Rep #: [id number] : 1935 89 From: Guilherme Lopez DO PCP: Dr. Melodie Lnodono MD Status:DEP ER Location: ED HPI HPI - GI History of Present Illness Chief Complaint: Abd Pain Informant: patient and family Narrative Narrative: 89-year-old male presenting to the emergency room with a chief complaint of abdominal pain/bloating. The symptoms have been ongoing for months if not longer. Son is at his dad has been here for about 2 weeks. He notes that they have tried cutting certain things out of his diet which has not really seem to help. Patient denies any changes in his bowel movements. He notes that he is lost weight since July of this year. He vomiting nausea. He has not visited with his primary care doctor regarding this but states that he has come to the emergency room several times for this and his doctor has seen the reports. He states has not had a colonoscopy. He denies prior abdominal surgeries but later notes an appendectomy. Son states that his dad was more doubled over holding his abdomen earlier today and that is why they came to the emergency room. [facility] Medical History Hypertension Home Medications ???Medication ???Instructions ???Recorded ???Last Taken ???Type lansoprazole 30 mg capsule,delayed 30 mg PO DAILY PRN 02/14/23 Unkn own History release (Prevacid) lisinopril 10 mg tablet (Zestril) 10 mg PO QDAY 10/11/24 Unknown Hi story dicyclomine 10 mg capsule 10 mg PO TID PRN abdominal pain Unknown Rx #60 caps docusate sodium 100 mg capsule 100 mg PO DAILY #30 caps 11/02/24 Unknown Rx (Colace) Allergy/AdvReac Type Severity Reaction Status Date / Time amoxicillin Allergy Intermediate Rash Verified 11/02/24 12:09 Sulfa (Sulfonamide Allergy Mild Rash Verified 11/02/24 12:09 Antibiotics) Family History Other Colon cancer Heart disease Surgical History Hx of appendectomy Social History Smoking Status: Never smoker ROS ROS ED Constitutional Constitutional ED: Reports weight loss; Denies chills or fever(s) Eyes Eyes: Denies change in vision or diplopia ENT ENT ED: Denies ear pain, rhinorrhea or sore throat Cardiovascular Cardiovascular: Denies chest pain, orthopnea, palpitations or racing heartbeat Respiratory/Chest Respiratory/Chest: Denies cough, dyspnea or orthopnea Gastrointestinal Gastrointestinal: Reports abdominal pain; Denies constipation, diarrhea, nausea or vomiting Genitourinary Genitourinary ED: Denies dysuria, hematuria or urinary frequency Musculoskeletal Musculoskeletal: Denies arthralgias or myalgias Integumentary Denies abscess or rash Neurologic Neurologic: Denies headache(s) or weakness Psychiatric Psychiatric: Denies anxiety, depression, suicidal ideation or suicidal thoughts Endocrine Endocrinology: Denies polydipsia, polyphagia or polyuria Allergic/Immunologic Allergic/Immunologic ED: Denies mouth swelling, tongue swelling or urticaria EXAM Physical Exam Const Vital Signs: 11/02/24 12:06 11/02/24 14:06 Temperature 97.2 F L Temperature Source Temporal Pulse Rate 51 L 119 H Respiratory Rate 17 16 Blood Pressure 155/83 H 151/80 H Blood Pressure Mean 107 103 Pulse Ox 98 100 Oxygen Delivery Method Room Air Room Air Positive well nourished and well developed General Appearance ED: well developed and NAD HEENT Reports normocephalic, head/scalp atraumatic and moist mucous membranes Eyes PERRL and EOMs intact bilaterally Neck no lymphadenopathy, supple and no JVD Resp normal respiratory effort and clear to auscultation bilaterally Cardio regular rate, regular rhythm and no murmurs GI normal to inspection, nondistended, normoactive bowel sounds and non-tender Inspection: Negative for abdominal distention Auscultation: normoactive bowel sounds Palpation: soft; Negative for tender, guarding or pulsatile mass Back/Spine no CVA tenderness and normal ROM Extremity normal to inspection General Extremety ED: Negative for edema General Extremity: Negative for edema Neuro oriented x3 and CN's II-XII intact bilaterally Sensorium / Orientation: alert Motor Exam: strength 5/5 throughout Psych mental status grossly normal Mood Affect: Negative for depressed or tearful Skin no rashes or lesions noted and no wounds MDM MDM MDM Narrative Medical decision making narrative: Differential diagnosis i (more content not included)... Normal [facility] Eosinophil percentageOrdered By: Guilherme Lopez on 11-02-2024 Eosinophils/100 WBC (Bld) 0.8 % Normal 0-5 [facility] Comment on above: Performed By: #### L 501.2450, L500.2500, L500.3400, L501.2400, L100.0100 #### [facility] [address], [place], [id number] Erythrocyte distribution wid th ratioOrdered By: Guilherme Lopez on 11-02-2024 Erythrocyte distribution width (RBC) [Ratio] 13.2 % Normal 11.6-14.6 [facility] Comment on above: Performed By: #### L 501.2450, L500.2500, L500.3400, L501.2400, L100.0100 #### [facility] [address], [place], [id number] Erythrocyte distribution wid th standard deviationOrdered By: Guilherme Lopez on 11-02-2024 Erythrocyte distribution width (RBC) [Ratio] 43.7 fl 35.1-43.9 [facility] Glomerular filtration rate ( GFR) estimation/1.73 sq m using serum, plasma, or whole bOrdered By: Guilherme Lopez on 11-02-2024 GFR/1.73 sq M.predicted among non-blacks MDRD (S/P/Bld) [Vol rate/Area] 77 mL/min/{1.73_m2} Normal >60 [facility] Comment on above: mL/min/1.73m2 CKD-EP I Creatinine Equation (2020) Result Comment: mL/m in/1.73m2 CKD-EPI Creatinine Equation (2020) Performed By: #### L 501.2450, L500.2500, L500.3400, L501.2400, L100.0100 #### [facility] [address] [place], [address] Hemoglobin measurementOrdere d By: Guilherme Lopez on 11-02-2024 Hemoglobin (Bld) [Mass/Vol] 15.4 g/dL Normal 13.0-16.5 [facility] Comment on above: Performed By: #### L 501.2450, L500.2500, L500.3400, L501.2400, L100.0100 #### [facility] [address] [place], [place], [id number] Immature granulocytes/100 WB C Auto (Bld)Ordered By: Guilherme Lopez on 11-02-2024 Immature granulocytes/100 WBC (Bld) 0.400 % 0.0-0.9 [facility] Comment on above: IG% - Immature Granu locytes (promyelocytes, myelocytes and metamyelocytes) > 1% indicates that a LEFT SHIFT is Present. Lipase measurementOrdered By : Guilherme Lopez on 11-02-2024 Lipase [Catalytic activity/Vol] 44 U/L Normal 13-75 [facility] Comment on above: Please note:LIPASE r evised reference range effective 22. New Lipase methodology. Expected to produce lower values than the previous assay method. NEW Reference Range: 13 - 75 U/L Result Comment: Plea note: LIPASE revised reference range effective 22. New Lipase methodology. Expected to produce lower values than the previous assay method. NEW Reference Range: 13 - 75 U/L Performed By: #### L 501.2450, L500.2500, L500.3400, L501.2400, L100.0100 #### [facility] [address] [place], [address] Liver Profileon 11-02-2024 ALK PHOS 40 U/L Normal 40-129 [facility] Comment on above: Performed By: #### L 501.2450, L500.2500, L500.3400, L501.2400, L100.0100 #### [facility] [address] [place], [address] T PROT 6.4 g/dL Normal 5.9-8.4 [facility] Comment on above: Performed By: #### L 501.2450, L500.2500, L500.3400, L501.2400, L100.0100 #### [facility] [address] [place], [address] Liver ProfileOrdered By: Christopher Lopez on 11-02-2024 AST [Catalytic activity/Vol] 27 U/L Normal <=37 [facility] Comment on above: Performed By: #### L 501.2450, L500.2500, L500.3400, L501.2400, L100.0100 #### [facility] [address] [place], [address] MCV (mean corpuscular volume ) determinationOrdered By: Guilherme Lopez on 11-02-2024 MCV (RBC) [Entitic vol] 90.0 fL Normal 80-94 [facility] Comment on above: Performed By: #### L 501.2450, L500.2500, L500.3400, L501.2400, L100.0100 #### [facility] [address] [place], [address] Mean corpuscular hemoglobin (MCH) determinationOrdered By: Guilherme Lopez on 11-02-2024 MCH (RBC) [Entitic mass] 30.9 pg Normal 27.0-32.0 [facility] Comment on above: Performed By: #### L 501.2450, L500.2500, L500.3400, L501.2400, L100.0100 #### [facility] [address] [place], [address] Mean corpuscular hemoglobin concentration (MCHC) determinationOrdered By: Guilherme Lopez on 11-02-2024 MCHC (RBC) [Mass/Vol] 34.3 g/dL Normal 32-36 [facility] Comment on above: Performed By: #### L 501.2450, L500.2500, L500.3400, L501.2400, L100.0100 #### [facility] [address] [place], [address] Mean platelet volume determi nationOrdered By: Guilherme Lopez on 11-02-2024 Platelet mean volume (Bld) [Entitic vol] 10.7 fL Normal 6.2-12.0 [facility] Comment on above: Performed By: #### L 501.2450, L500.2500, L500.3400, L501.2400, L100.0100 #### [facility] [address], [address] Monocyte percentageOrdered B y: Guilherme Lopez on 11-02-2024 Monocytes/100 WBC (Bld) 8.9 % Normal 0-10 [facility] Comment on above: Performed By: #### L 501.2450, L500.2500, L500.3400, L501.2400, L100.0100 #### [facility] [address] [place], [address] Neutrophil percentageOrdered By: Guilherme Lopez on 11-02-2024 Neutrophils/100 WBC (Bld) 76.8 % High 47-70 [facility] Comment on above: Performed By: #### L 501.2450, L500.2500, L500.3400, L501.2400, L100.0100 #### [facility] [address] [place], [address] Nucleated red blood cell per centageOrdered By: Guilherme Lopez on 11-02-2024 Nucleated RBC/100 WBC (Bld) [Ratio] 0 % 0-5 [facility] Platelet countOrdered By: Anthony Lopez on 11-02-2024 Platelets (Bld) [#/Vol] 189 10*3/uL Normal 150-450 [facility] Comment on above: Performed By: #### L 501.2450, L500.2500, L500.3400, L501.2400, L100.0100 #### [facility] [address] [place], [address] Potassium measurement (mass/ volume)Ordered By: Guilherme Lopez on 11-02-2024 Potassium (Unsp spec) [Mass/Vol] 4.2 mmol/L 3.3-5.1 [facility] Serum creatinine measurement (mass/volume)Ordered By: Guilherme Lopez on 11-02-2024 Creatinine [Mass/Vol] 0.95 mg/dL Normal 0.70-1.20 [facility] Comment on above: Performed By: #### L 501.2450, L500.2500, L500.3400, L501.2400, L100.0100 #### [facility] [address] [facility] [place], [address] Serum globulin measurementOr dered By: Guilherme Lopez on 11-02-2024 Globulin (S) [Mass/Vol] 2.3 g/dL Normal 2.2-4.2 [facility] Comment on above: Performed By: #### L 501.2450, L500.2500, L500.3400, L501.2400, L100.0100 #### [facility] [address] [facility] [place], [address] Serum glucose measurement (m ass/volume)Ordered By: Guilherme Lopez on 11-02-2024 Glucose [Mass/Vol] 91 mg/dL Normal 70-99 [facility] Comment on above: Performed By: #### L 501.2450, L500.2500, L500.3400, L501.2400, L100.0100 #### [facility] [address] [place], [place], [id number] Serum or plasma alanine schroeder otransferase (ALT) measurementOrdered By: Guilherme Lopez on 11-02-2024 ALT [Catalytic activity/Vol] 16 U/L Normal <=46 [facility] Comment on above: Performed By: #### L 501.2450, L500.2500, L500.3400, L501.2400, L100.0100 #### [facility] [address] [place], [address] Serum or plasma albumin dax urement (mass/volume)Ordered By: Guilherme Lopez on 11-02-2024 Albumin [Mass/Vol] 4.1 g/dL Normal 3.4-4.8 [facility] Comment on above: Performed By: #### L 501.2450, L500.2500, L500.3400, L501.2400, L100.0100 #### [facility] [address] [place], [address] Serum or plasma alkaline claribel sphatase measurementOrdered By: Guilherme Lopez on 11-02-2024 ALP [Catalytic activity/Vol] 40 U/L 40-129 [facility] Serum or plasma amylase dax urement (enzymatic activity/volume)Ordered By: Guilherme Lopez on 11-02-2024 Amylase [Catalytic activity/Vol] 85 U/L 28-100 [facility] Serum or plasma calcium dax urement (mass/volume)Ordered By: Guilherme Lopez on 11-02-2024 Calcium [Mass/Vol] 9.3 mg/dL Normal 7.6-11.0 [facility] Comment on above: Performed By: #### L 501.2450, L500.2500, L500.3400, L501.2400, L100.0100 #### [facility] [address] [place], [place], [id number] Serum or plasma urea nitroge n measurement (mass/volume)Ordered By: Guilherme Lopez on 11-02-2024 Urea nitrogen [Mass/Vol] 18 mg/dL Normal 4-19 [facility] Comment on above: Performed By: #### L 501.2450, L500.2500, L500.3400, L501.2400, L100.0100 #### [facility] [address] [place], [place], [id number] Sodium levelOrdered By: Pastor Lopez on 11-02-2024 Sodium [Moles/Vol] 137 mmol/L Normal 133-145 [facility] Comment on above: Performed By: #### L 501.2450, L500.2500, L500.3400, L501.2400, L100.0100 #### [facility] [address] [place], [place], [id number] Total proteinOrdered By: Christopher Lopez on 11-02-2024 Protein [Mass/Vol] 6.4 g/dL 5.9-8.4 [facility] White blood cell (WBC) count Ordered By: Guilherme Lopez on 11-02-2024 WBC (Bld) [#/Vol] 5.0 10*3/uL Normal 4.4-11.0 [facility] Comment on above: Performed By: #### L 501.2450, L500.2500, L500.3400, L501.2400, L100.0100 #### [facility] [address] 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-C Chen Ev ans Age/Sex: 89/M Location[facility] Status: Signed Intake Vital Signs 12/21/22 08:44 Height 5 ft 11 in Intake Visit Reasons: stomach issues Allergies amoxicillin Allergy (Intermediate, Verified 10/16/24 15:04) Rash Sulfa (Sulfonamide Antibiotics) Allergy (Mild, Verified 10/16/24 15:04) Rash Medications ???Medication ???Instructions ???Recorded ???Confirmed ???Type lansoprazole 30 mg capsule,delayed 30 mg PO DAILY PRN 02/14/2302/04 History release (Prevacid) lisinopril 10 mg tablet (Zestril) 10 mg PO QDAY 10/11/24 10/11/24 H istory dicyclomine 10 mg capsule 10 mg PO TID PRN abdominal pain 10/16/24 Rx #60 caps Have you fallen in the past year?: No PFSH Medical History Hypertension Surgical History Hx of appendectomy Family History Other Colon cancer Heart disease Social History Smoking Status: Never smoker HPI HPI Details: ONEAL PAGE, is a 89 M who presents to the office today for establishment with [facility] for concerns of unintended weight loss and reduced appetite. From records provided by PCP, Ed had an OV with them for complaints of abdominal pain that he had resolved with Pepto-Bismol. He did not report a change in bowel pattern. Ed reports [facility] 2x/[facility] at [facility], but has noticed a continual slow drop in weight and energy levels. He states, I know I'm not young, but my grandma lived until she was 89. I have longevity in my genes. He denies difficulty chewing and swallowing, heartburn, reflux, nausea, emesis, abdominal bloating, constipation, diarrhea, hematochezia, and melena. He reports having a slightly reduced appetite and just needs to know what are the best foods to eat in order to gain weight. He does report sensitivity to some dairy, like ice cream and cottage cheese, states it just tears me up repetitively when asked for symptoms. ROS Const Constitutional: Positive for weight change (loss) and change in appetite; No chills, fatigue or fever(s) Eyes Eyes: No change in vision ENT ENT: Positive for abnormal hearing; No difficulty swallowing Resp Respiratory: No cough Gastro GI: Positive for heartburn and feeling full early; No abdominal pain, belching, bloating, change in bowel habits, change in stool character, coffee ground emesis, constipation, cramping, diarrhea, difficulty swallowing, excessive flatus, incontinent of stools, Vomiting blood/hematemesis, Blood in stool, loose stools, Black,tarry stools, nausea/dyspepsia, pain with swallowing, vomiting or other Skin Skin: No yellowing of the eye or itchy eyes Neuro Neurology: Positive for abnormal hearing Psych Psychiatric: Positive for change in appetite Endo Endocrine: Positive for cold intolerance and weight change (loss); No fatigue or heat intolerance Aller/Imm Allergy/Immunologic: Positive for food intolerance (ice cream and cottage cheese); No itchy eyes Trip/Lymp Hematologic/Lymphatic: Positive for easy bruising; No easy bleeding Exam Const General: cooperative, comfortable, no acute distress, well groomed and frail appearing Nutritional Appearance: underweight Orientation: alert and oriented x3 HENMT Head: normal to inspection Ears: hearing grossly impaired bilaterally (use of hearing aids) Eyes General: appearance normal, both eyes and all related structures Sclera: sclerae normal Neck Neck: normal visual inspection and full ROM Chest Chest palpation inspection: abnormal inspection of the chest funnel chest (Pectus excavatum) Resp Effort Inspection: normal respiratory effort, able to speak in complete sentences and symmetric chest movement GI Inspection: normal to inspection Palpation: soft and no hepatosplenomegaly Skin General: ecchymosis (scattered areas noted to bruce hands and forearms) Neuro General: patient alert, patient oriented x3 and moves all extremities Cognition: normal cognition Speech: speech normal Gait: normal gait Extrem General: full ROM Psych Appearance: well kempt Mental Status: mental status grossly normal Mood: congruent mood Judgment: judgment good Assessment and Plan Assessment and Plan (1) Weight loss, non-intentional: Status: Acute (2) GERD: Status: Chronic Orders: Orders CT Chest, Abd, Pel w/Contrast Today R63.4 - Abnormal weight loss Referrals Nutriti (more content not included)... Normal [facility] Prealbumin [id number] Prealbumin [Mass/Vol] 26 mg/dL Normal [facility] Comment on above: Result Comment: Perf ormed at: CB - [facility] [address] [id number] Dry Dip Worker: Rajiv Rosales PhD, Phone: [phone] Performed By: #### L 3304.6400 ####[facility] [address] [facility] [place], [place], [address] Abdomen Single Viewon 2024 Abdomen Single View [facility] Services [address] [place], [place] [id number] Abdomen Single View MR#: [id number] Acct: [id number] Name: ONEAL PAGE Rep #: [id number] : 1935 M 89 From: Garret Means MD PCP: Dr. Melodie Londono MD Status: REG CLI Study: Abdomen Single View Date of Exam: 09/27/24 Exam# [id number] Ordering Dr: Melodie Londono PROCEDURE: ABDOMEN SINGLE VIEW 09/27/2024 REASON FOR EXAM: ABDOMINAL PAIN TECHNIQUE: Single view abdomen. FINDINGS: Bowel gas: Bowel gas pattern is normal. No evidence of bowel obstruction. Calcifications: No suspicious calcifications. Bones: The bones are unremarkable. Other: RAD/Abdomen Single View IMPRESSION: NEGATIVE KUB. Reading Location: [id number] CC: Dr. Melodie Londono MD Air Intercept Controller Supervisor: Signed Normal [facility] Absolute lymphocyte countOrd ered By: Melodie Londono on 09-27-2024 Lymphocytes Auto (Unsp spec) [#/Vol] 1.08 10*3/uL 0.83-4.51 [facility] Absolute neutrophil countOrd ered By: Melodie Londono on 09-27-2024 Neutrophils (Bld) [#/Vol] 4.0 10*3/uL 2.0-7.7 [facility] Anion gap in Serum or Plasma Ordered By: Melodie Londono on 09-27-2024 Anion gap [Moles/Vol] 10 mmol/L 5-15 [facility] Automated lymphocyte count a s percentage of total leukocytesOrdered By: Melodie Londono on 09-27-2024 Lymphocytes/100 WBC Auto (Unsp spec) 17.0 % Low 19-41 [facility] BUN/creatinine ratioOrdered By: Melodie Londono on 09-27-2024 Urea nitrogen/Creatinine [Mass ratio] 16.2 mg/mg 10-20 [facility] Basophil percentageOrdered B y: Melodie Londono on 09-27-2024 Basophils/100 WBC (Bld) 1.3 % High 0-1 [facility] Bilirubin, totalOrdered By: Melodie Londono on 09-27-2024 Bilirubin [Mass/Vol] 0.38 mg/dL 0.00-1.30 [facility] CBC W/Diff, Automatedon 09-05 Absolute Lymph 1.08 X10 3/uL Normal 0.83-4.51 [facility] Comment on above: Order Comment: Order Date: 09/27/24Order Info: [id number] - CBCDOrder Info: [id number] - SED Performed By: #### L 500.4050, L501.9520, L100.0100, L101.9900 ####[facility] [address] [place], [address] Absolute Neut 4.0 X10 3/uL Normal 2.0-7.7 [facility] Comment on above: Order Comment: Order Date: 09/27/24Order Info: [id number] - CBCDOrder Info: [id number] - SED Performed By: #### L 500.4050, L501.9520, L100.0100, L101.9900 ####[facility] [address] [place], [address] Basophils/100 WBC (Bld) 1.3 % High 0-1 [facility] Comment on above: Order Comment: Order Date: 09/27/24Order Info: 183- - CBCDOrder Info: [id number] - SED Performed By: #### L 500.4050, L501.9520, L100.0100, L101.9900 ####[facility] [address] [place], [address] Eosinophils/100 WBC (Bld) 8.0 % High 0-5 [facility] Comment on above: Order Comment: Order Date: 09/27/24Order Info: 183- - CBCDOrder Info: [id number] - SED Performed By: #### L 500.4050, L501.9520, L100.0100, L101.9900 ####[facility] [address] [place], [address] Erythrocyte distribution width (RBC) [Ratio] 13.3 % Normal 11.6-14.6 [facility] Comment on above: Order Comment: Order Date: 09/27/24Order Info: [id number] - CBCDOrder Info: [id number] - SED Performed By: #### L 500.4050, L501.9520, L100.0100, L101.9900 ####[facility] [address] [place], [address] Hematocrit (Bld) [Volume fraction] 44.4 % Normal 40-54 [facility] Comment on above: Order Comment: Order Date: 09/27/24Order Info: [id number] - CBCDOrder Info: [id number] - SED Performed By: #### L 500.4050, L501.9520, L100.0100, L101.9900 ####[facility] [address] [place], [address] Hemoglobin (Bld) [Mass/Vol] 14.8 g/dL Normal 13.0-16.5 [facility] Comment on above: Order Comment: Order Date: 09/27/24Order Info: [id number] - CBCDOrder Info: [id number] - SED Performed By: #### L 500.4050, L501.9520, L100.0100, L101.9900 ####[facility] [address] [place], [address] IG% 0.300 Normal 0.0-0.9 [facility] Comment on above: Order Comment: Order Date: 09/27/24Order Info: 183- - CBCDOrder Info: [id number] - SED Result Comment: IG% - Immature Granulocytes (promyelocytes, myelocytes and metamyelocytes) > 1% indicates that a LEFT SHIFT is Present. Performed By: #### L 500.4050, L501.9520, L100.0100, L101.9900 ####[facility] [address] [place], [address] Lymphocytes/100 WBC (Bld) 17.0 % Low 19-41 [facility] Comment on above: Order Comment: Order Date: 09/27/24Order Info: [id number] - CBCDOrder Info: [id number] - SED Performed By: #### L 500.4050, L501.9520, L100.0100, L101.9900 ####[facility] [address] [place], [address] MCH (RBC) [Entitic mass] 30.7 pg Normal 27.0-32.0 [facility] Comment on above: Order Comment: Order Date: 09/27/24Order Info: 018- - CBCDOrder Info: [id number] - SED Performed By: #### L 500.4050, L501.9520, L100.0100, L101.9900 ####[facility] [address] [place], [address] MCHC (RBC) [Mass/Vol] 33.3 g/dL Normal 32-36 [facility] Comment on above: Order Comment: Order Date: 09/27/24Order Info: 183- - CBCDOrder Info: [id number] - SED Performed By: #### L 500.4050, L501.9520, L100.0100, L101.9900 ####[facility] [address] [place], [address] MCV (RBC) [Entitic vol] 92.1 fL Normal 80-94 [facility] Comment on above: Order Comment: Order Date: 09/27/24Order Info: 183-06 - CBCDOrder Info: [id number] - SED Performed By: #### L 500.4050, L501.9520, L100.0100, L101.9900 ####[facility] [address] [place], [address] Monocytes/100 WBC (Bld) 10.2 % High 0-10 [facility] Comment on above: Order Comment: Order Date: 09/27/24Order Info: [id number] - CBCDOrder Info: [id number] - SED Performed By: #### L 500.4050, L501.9520, L100.0100, L101.9900 ####[facility] [address] [place], [address] Neutrophils/100 WBC (Bld) 63.2 % Normal 47-70 [facility] Comment on above: Order Comment: Order Date: 09/27/24Order Info: 183-06 - CBCDOrder Info: [id number] - SED Performed By: #### L 500.4050, L501.9520, L100.0100, L101.9900 ####[facility] [address] [place], [address] Nucleated RBC (Bld) [#/Vol] 0 10*3/uL Normal 0-5 [facility] Comment on above: Order Comment: Order Date: 09/27/24Order Info: 183- - CBCDOrder Info: [id number] - SED Performed By: #### L 500.4050, L501.9520, L100.0100, L101.9900 ####[facility] [address] [place], [address] Platelet mean volume (Bld) [Entitic vol] 11.4 fL Normal 6.2-12.0 [facility] Comment on above: Order Comment: Order Date: 09/27/24Order Info: 183-06 - CBCDOrder Info: [id number] - SED Performed By: #### L 500.4050, L501.9520, L100.0100, L101.9900 ####[facility] [address] [place], [address] Platelets (Bld) [#/Vol] 229 10*3/uL Normal 150-450 [facility] Comment on above: Order Comment: Order Date: 09/27/24Order Info: 183-06 - CBCDOrder Info: [id number] - SED Performed By: #### L 500.4050, L501.9520, L100.0100, L101.9900 ####[facility] [address] [place], [address] RBC (Bld) [#/Vol] 4.82 10*6/uL Normal 4.6-6.2 [facility] Comment on above: Order Comment: Order Date: 09/27/24Order Info: 183-06 - CBCDOrder Info: [id number] - SED Performed By: #### L 500.4050, L501.9520, L100.0100, L101.9900 ####[facility] [address] [place], [address] RDW SD 45.7 fl High 35.1-43.9 [facility] Comment on above: Order Comment: Order Date: 09/27/24Order Info: 183-06 - CBCDOrder Info: [id number] - SED Performed By: #### L 500.4050, L501.9520, L100.0100, L101.9900 ####[facility] [address] [place], [address] WBC (Bld) [#/Vol] 6.4 10*3/uL Normal 4.4-11.0 [facility] Comment on above: Order Comment: Order Date: 09/27/24Order Info: 0184-1 - CBCDOrder Info: [id number] - SED Performed By: #### L 500.4050, L501.9520, L100.0100, L101.9900 ####[facility] [address] [place], [address] Carbon dioxide, total [Moles /volume] in Central venous bloodOrdered By: Melodie Londono on 09-27-2024 CO2 [Moles/Vol] 28.9 mmol/L 21.0-32.0 [facility] Chloride assayOrdered By: Natasha Londono on 09-27-2024 Chloride [Moles/Vol] 103 mmol/L 98-108 [facility] Comprehensive Metabolic Prof ilon 09-27-2024 Albumin [Mass/Vol] 4.4 g/dL Normal 3.4-4.8 [facility] Comment on above: Order Comment: Order Date: 09/27/24Order Info: 0786-1 - CMPOrder Info: 3016-3 - TSH Performed By: #### L 500.4050, L501.9520, L100.0100, L101.9900 ####[facility] [address] [place], [address] Albumin/Globulin [Mass ratio] 1.6 {ratio} Normal 0.9-2.4 [facility] Comment on above: Order Comment: Order Date: 09/27/24Order Info: 0786-1 - CMPOrder Info: 3016-3 - TSH Performed By: #### L 500.4050, L501.9520, L100.0100, L101.9900 ####[facility] [address] [place], [address] ALK PHOS 56 U/L Normal 40-129 [facility] Comment on above: Order Comment: Order Date: 09/27/24Order Info: 0786-1 - CMPOrder Info: 3016-3 - TSH Performed By: #### L 500.4050, L501.9520, L100.0100, L101.9900 ####[facility] [address] [place], [address] ALT [Catalytic activity/Vol] 15 U/L Normal <=46 [facility] Comment on above: Order Comment: Order Date: 09/27/24Order Info: 0786-1 - CMPOrder Info: 6-3 - TSH Performed By: #### L 500.4050, L501.9520, L100.0100, L101.9900 ####[facility] [address] [place], [address] AST [Catalytic activity/Vol] 25 U/L Normal <=37 [facility] Comment on above: Order Comment: Order Date: 09/27/24Order Info: 0786- - CMPOrder Info: [id number] - TSH Performed By: #### L 500.4050, L501.9520, L100.0100, L101.9900 ####[facility] [address] [place], [address] Bilirubin [Mass/Vol] 0.38 mg/dL Normal 0.00-1.30 [facility] Comment on above: Order Comment: Order Date: 09/27/24Order Info: 0786- - CMPOrder Info: [id number] - TSH Performed By: #### L 500.4050, L501.9520, L100.0100, L101.9900 ####[facility] [address] [place], [address] BUN/CRE 16.2 RATIO Normal 10-20 [facility] Comment on above: Order Comment: Order Date: 09/27/24Order Info: 0786-1 - CMPOrder Info: 6-3 - TSH Performed By: #### L 500.4050, L501.9520, L100.0100, L101.9900 ####[facility] [address] [place], [address] Calcium [Mass/Vol] 9.7 mg/dL Normal 7.6-11.0 [facility] Comment on above: Order Comment: Order Date: 09/27/24Order Info: 07- - CMPOrder Info: [id number] - TSH Performed By: #### L 500.4050, L501.9520, L100.0100, L101.9900 ####[facility] [address] [place], [address] Chloride [Moles/Vol] 103 mmol/L Normal 98-108 [facility] Comment on above: Order Comment: Order Date: 09/27/24Order Info: 07 - CMPOrder Info: [id number] - TSH Performed By: #### L 500.4050, L501.9520, L100.0100, L101.9900 ####[facility] [address] [place], [address] CO2 [Moles/Vol] 28.9 mmol/L Normal 21.0-32.0 [facility] Comment on above: Order Comment: Order Date: 09/27/24Order Info: 0786 - CMPOrder Info: 3015-08 - TSH Performed By: #### L 500.4050, L501.9520, L100.0100, L101.9900 ####[facility] [address] [place], [address] Creatinine [Mass/Vol] 0.94 mg/dL Normal 0.70-1.20 [facility] Comment on above: Order Comment: Order Date: 09/27/24Order Info: 0786- - CMPOrder Info: 3015-08 - TSH Performed By: #### L 500.4050, L501.9520, L100.0100, L101.9900 ####[facility] [address] [place], [address] GAP 10 Normal 5-15 [facility] Comment on above: Order Comment: Order Date: 09/27/24Order Info: 0786-1 - CMPOrder Info: 3015-08 - TSH Performed By: #### L 500.4050, L501.9520, L100.0100, L101.9900 ####[facility] [address] [place], [address] GFR/1.73 sq M.predicted among non-blacks MDRD (S/P/Bld) [Vol rate/Area] 78 mL/min/{1.73_m2} Normal >60 [facility] Comment on above: Order Comment: Order Date: 09/27/24Order Info: 0786-1 - CMPOrder Info: 3015-08 - TSH Result Comment: mL/m in/1.73m2 CKD-EPI Creatinine Equation (2020) Performed By: #### L 500.4050, L501.9520, L100.0100, L101.9900 ####[facility] [address] [place], [address] Globulin (S) [Mass/Vol] 2.7 g/dL Normal 2.2-4.2 [facility] Comment on above: Order Comment: Order Date: 09/27/24Order Info: 0786-1 - CMPOrder Info: 3015-08 - TSH Performed By: #### L 500.4050, L501.9520, L100.0100, L101.9900 ####[facility] [address] [place], [address] Glucose [Mass/Vol] 105 mg/dL High 70-99 [facility] Comment on above: Order Comment: Order Date: 09/27/24Order Info: 0786-1 - CMPOrder Info: 3015-08 - TSH Performed By: #### L 500.4050, L501.9520, L100.0100, L101.9900 ####[facility] [address] [place], [address] Potassium [Moles/Vol] 4.6 mmol/L Normal 3.3-5.1 [facility] Comment on above: Order Comment: Order Date: 09/27/24Order Info: 0786-1 - CMPOrder Info: 3 - TSH Performed By: #### L 500.4050, L501.9520, L100.0100, L101.9900 ####[facility] [address] [place], [address] Sodium [Moles/Vol] 141 mmol/L Normal 133-145 [facility] Comment on above: Order Comment: Order Date: 09/27/24Order Info: 07 - CMPOrder Info: 3 - TSH Performed By: #### L 500.4050, L501.9520, L100.0100, L101.9900 ####[facility] [address] [place], [address] T PROT 7.1 g/dL Normal 5.9-8.4 [facility] Comment on above: Order Comment: Order Date: 09/27/24Order Info: 0786- - CMPOrder Info: 3 - TSH Performed By: #### L 500.4050, L501.9520, L100.0100, L101.9900 ####[facility] [address] [place], [address] Urea nitrogen [Mass/Vol] 15 mg/dL Normal 4-19 [facility] Comment on above: Order Comment: Order Date: 09/27/24Order Info: 0786- - CMPOrder Info: 3 - TSH Performed By: #### L 500.4050, L501.9520, L100.0100, L101.9900 ####[facility] [address] [place], [address] Eosinophil percentageOrdered By: Melodie Londono on 09-27-2024 Eosinophils/100 WBC (Bld) 8.0 % High 0-5 [facility] Erythrocyte Sed Rateon 09-27 SED RATE 2 mm/hr Normal 0-20 [facility] Comment on above: Order Comment: Order Date: 09/27/24Order Info: 0184-1 - CBCDOrder Info: [id number] - SED Performed By: #### L 500.4050, L501.9520, L100.0100, L101.9900 ####[facility] [address] [place], [address] Erythrocyte distribution wid th (RBC) [Ratio]Ordered By: Melodie Londono on 09-27-2024 Erythrocyte distribution width (RBC) [Entitic vol] 45.7 fL High 35.1-43.9 [facility] Erythrocyte distribution wid th ratioOrdered By: Melodie Londono on 09-27-2024 Erythrocyte distribution width (RBC) [Ratio] 13.3 % 11.6-14.6 [facility] Erythrocyte distribution wid th standard deviationOrdered By: Melodie Londono on 09-27-2024 Erythrocyte distribution width (RBC) [Ratio] 45.7 fl High 35.1-43.9 [facility] Erythrocyte sedimentation ra teOrdered By: Melodie Londono on 09-27-2024 ESR (Bld) [Velocity] 2 mm/h 0-20 [facility] GFR/1.73 sq M.predicted nishi g non-blacks MDRD (S/P/Bld) [Vol rate/Area]Ordered By: Melodie Londono on 09-27-2024 Estimated GFR (MDRD) Non-Af Amer 78 >60 [facility] Comment on above: mL/min/1.73m2 CKD-EP I Creatinine Equation (2020) Glomerular filtration rate ( GFR) estimation/1.73 sq m using serum, plasma, or whole bOrdered By: Melodie Londono on 09-27-2024 GFR/1.73 sq M.predicted among non-blacks MDRD (S/P/Bld) [Vol rate/Area] 78 mL/min/{1.73_m2} >60 [facility] Comment on above: mL/min/1.73m2 CKD-EP I Creatinine Equation (2020) Hematocrit Auto (Bld) [Volum e fraction]Ordered By: Melodie Londono on 09-27-2024 Hematocrit (Bld) [Volume fraction] 44.4 % 40-54 [facility] Hemoglobin measurementOrdere d By: Melodie Londono on 09-27-2024 Hemoglobin (Bld) [Mass/Vol] 14.8 g/dL 13.0-16.5 [facility] Immature granulocytes/100 WB C Auto (Bld)Ordered By: Melodie Londono on 09-27-2024 Immature granulocytes/100 WBC (Bld) 0.300 % 0.0-0.9 [facility] Comment on above: IG% - Immature Granu locytes (promyelocytes, myelocytes and metamyelocytes) > 1% indicates that a LEFT SHIFT is Present. Laboratory - Chemistry and C hemistry - challengeOrdered By: Melodie Londono on 09-27-2024 AST [Catalytic activity/Vol] 25 U/L <38 [facility] Lymphocytes Auto (Unsp spec) [#/Vol]Ordered By: [facility] Londono on 09-27-2024 Lymphocytes (Bld) [#/Vol] 1.08 10*3/uL 0.83-4.51 [facility] Lymphocytes/100 WBC Auto (Un sp spec)Ordered By: Melodie Londono on 09-27-2024 Lymphocytes/100 WBC (Bld) 17.0 % Low 19-41 [facility] MCV (mean corpuscular volume ) determinationOrdered By: Melodie Londono on 09-27-2024 MCV (RBC) [Entitic vol] 92.1 fL 80-94 [facility] Mean corpuscular hemoglobin (MCH) determinationOrdered By: Melodie Londono on 09-27-2024 MCH (RBC) [Entitic mass] 30.7 pg 27.0-32.0 [facility] Mean corpuscular hemoglobin concentration (MCHC) determinationOrdered By: Melodie Londono on 09-27-2024 MCHC (RBC) [Mass/Vol] 33.3 g/dL 32-36 [facility] Mean platelet volume determi nationOrdered By: Melodie Londono on 09-27-2024 Platelet mean volume (Bld) [Entitic vol] 11.4 fL 6.2-12.0 [facility] Monocyte percentageOrdered B y: Melodie Londono on 09-27-2024 Monocytes/100 WBC (Bld) 10.2 % High 0-10 [facility] Neutrophil percentageOrdered By: Melodie Londono on 09-27-2024 Neutrophils/100 WBC (Bld) 63.2 % 47-70 [facility] Nucleated red blood cell per centageOrdered By: Melodie Londono on 09-27-2024 Nucleated RBC/100 WBC (Bld) [Ratio] 0 % 0-5 [facility] Platelet countOrdered By: Natasha Londono on 09-27-2024 Platelets (Bld) [#/Vol] 229 10*3/uL 150-450 [facility] Potassium (Unsp spec) [Mass/ Vol]Ordered By: Melodie Londono on 09-27-2024 Potassium [Moles/Vol] 4.6 mmol/L 3.3-5.1 [facility] Potassium measurement (mass/ volume)Ordered By: Melodie Londono on 09-27-2024 Potassium (Unsp spec) [Mass/Vol] 4.6 mmol/L 3.3-5.1 [facility] RBC Auto (Bld) [#/Vol]Ordere d By: Melodie Londono on 09-27-2024 RBC (Bld) [#/Vol] 4.82 10*6/uL 4.6-6.2 [facility] Serum creatinine measurement (mass/volume)Ordered By: Melodie Londono on 09-27-2024 Creatinine [Mass/Vol] 0.94 mg/dL 0.70-1.20 [facility] Serum globulin measurementOr dered By: Melodie Londono on 09-27-2024 Globulin (S) [Mass/Vol] 2.7 g/dL 2.2-4.2 [facility] Serum glucose measurement (m ass/volume)Ordered By: Melodie Londono on 09-27-2024 Glucose [Mass/Vol] 105 mg/dL High 70-99 [facility] Serum or plasma alanine schroeder otransferase (ALT) measurementOrdered By: Melodie Londono on 09-27-2024 ALT [Catalytic activity/Vol] 15 U/L <47 [facility] Serum or plasma albumin dax urement (mass/volume)Ordered By: Melodie Londono on 09-27-2024 Albumin [Mass/Vol] 4.4 g/dL 3.4-4.8 [facility] Serum or plasma albumin/glob ulin mass ratioOrdered By: Melodie Londono on 09-27-2024 Albumin/Globulin [Mass ratio] 1.6 {ratio} 0.9-2.4 [facility] Serum or plasma alkaline claribel sphatase measurementOrdered By: Melodie Londono on 09-27-2024 ALP [Catalytic activity/Vol] 56 U/L 40-129 [facility] Serum or plasma calcium dax urement (mass/volume)Ordered By: Melodie Londono on 09-27-2024 Calcium [Mass/Vol] 9.7 mg/dL 7.6-11.0 [facility] Serum or plasma urea nitroge n measurement (mass/volume)Ordered By: Melodie Londono on 09-27-2024 Urea nitrogen [Mass/Vol] 15 mg/dL 4-19 [facility] Serum prealbumin measurement by immunoassayOrdered By: Melodie Londono on 09-27-2024 Prealbumin [Mass/Vol] 26 mg/dL 9-32 [facility] Comment on above: Performed at: [place] [id number] Director: Rajiv Rosales PhD, Phone: [phone] Sodium levelOrdered By: Dolores Londono on 09-27-2024 Sodium [Moles/Vol] 141 mmol/L 133-145 [facility] TSH DL <= 0.005 mIU/L QnOrde red By: Melodie Londono on 09-27-2024 Thyroid Stimulating Hormone (TSH) 1.590 uIU/mL 0.300-4.200 [facility] TSH Qn 1.590 uIU/mL 0.300-4.200 [facility] Thyroid Stim Hormone (TSH)on 09-27-2024 TSH 1.590 uIU/mL Normal 0.300-4.200 [facility] Comment on above: Order Comment: Order Date: 09/27/24Order Info: 0786-1 - CMPOrder Info: 3016-3 - TSH Performed By: #### L 500.4050, L501.9520, L100.0100, L101.9900 ####[facility] [address] [place], [address] Total proteinOrdered By: Yoandy Londono on 09-27-2024 Protein [Mass/Vol] 7.1 g/dL 5.9-8.4 [facility] White blood cell (WBC) count Ordered By: Melodie Londono on 09-27-2024 WBC (Bld) [#/Vol] 6.4 10*3/uL 4.4-11.0 [facility] CNOVon 04-25-2024 CNOV Office Visit (NEIND4 ) ONEAL PAGE ([id number]) 1935 M Date Time Provider Department 04/25/24 4:30 PM MINDI FERRO NEIND4 During your visit today, we recorded the following information about you: Pulse Blood pressure Weight Height 71/minute 158/69 61.1 kg 1.778 m Mindi Ferro MD 04/25/2024 5:52 PM Signed [facility] - f/u visit Date: April 25, 2024 Patient Name: Oneal Page Referring physician: Mindi Ferro [address] [facility] [address] Primary physician: Melodie Londono ([facility]) [address] [place] [address] Reason for Evaluation: memory f/u Previously seen 08/29/2023 for memory changes. MOCA but confounded by profound hearing loss. Plan for MRI brain wo and driving restriction to loca places only Accompanied by family (daughter, son-in-law, ) Interval History: Memory stable Remains physically active, recently got first place in a 5k Independent with ADLs Only driving to local places, no issues Having abdominal pain, being evaluated by PCP. Dairy seems to be a trigger. Starting some digestive enzymes from daughter OUTPATIENT MEDICATIONS Current Outpatient Medications on File Prior to Visit Medication Sig lisinopril (ZESTRIL) 10 mg tablet Take 1 tablet by mouth every 48 hours. No current facility-administered medications on file prior to visit. MEDICAL HISTORY No past medical history on file. SURGICAL HISTORY No past surgical history on file. SOCIAL HISTORY Social History Tobacco Use Smoking status: Never Smokeless tobacco: Never FAMILY HISTORY FAMILY HISTORY Problem Relation Age of Onset Colon Cancer Mother Heart disease Father Multiple Sclerosis Sister Hypertension Sister Diabetes Sister Prostate Cancer Brother ALLERGIES ALLERGIES No Known Allergies REVIEW OF SYSTEMS: No fevers, chills No CP No SOB +abdominal pain, see HPI No insomnia No imbalance No falls PHYSICAL EXAM: BP 158/69 Pulse 71 Ht 177.8 cm (5' 10) Wt 61.1 kg (134 lb 11.2 oz) BMI 19.33 kg/m? General appearance: Well appearing, alert, in no acute distress Neurological exam: Mental Status: MOCA: 917+1) Visuospastial/executiv e: 3/5 (correct clock) Namin/3 Attention: 5/6 Language: 1/3 (12 words) Abstraction: 0/2 Delayed recall: 0/5 (recalled 4 with choices) Orientation: 6 (missed month, stated Oct) 18-25 =mild cognitive impairment, 10-17 = moderate cognitive impairment, <10 = severe cognitive impairment Cranial Nerves: visual costa intact to confrontation, extraocular movements intact, facial sensation intact, face symmetric, no facial droop or ptosis, hearing intact to finger rub bilaterally, no dysarthria, palate elevate symmetrically, tongue protrudes midline, and shoulder shrug intact and symmetric. Motor: Right Upper: Left Upper: Deltoid: 5 Deltoid: 5 Triceps: 5 Triceps: 5 Biceps: 5 Biceps: 5 Dry Kiln Burner: 5 Dry Kiln Burner: 5 Right Lower: Left Lower: Iliopsoas: 5 Iliopsoas: 5 Knee flexor: 5 Knee flexor: 5 Knee extensor: 5 Knee extensor: 5 Motor Tone: Right Upper: Normal tone Left Upper: Normal tone Reflexes: 2/4 biceps, brachioradialis, patellars Sensation: intact BUE to touch, proprioception, vibration Coordination: Finger-to- nose-finger intact bilaterally and Ztxk-vj-abvc intact bilaterally. Gait: normal-based ASSESSMENT: 88 year old male with a history of HTN, GERD, hearing loss who presents for follow-up of cognitive changes. MOCA mild range abnormality, no worsening. Suspect MCI, continue monitoring given clinical stabliity PLAN: - trial probiotic with digestive enzymes - review OSH labs when available - f/u 6mo I spent a total of 40 minutes on the date of the service which included preparing to see the patient, [id number]-[id number] patient care, completing clinical documentation, obtaining and/or reviewing separately obtained history, performing a medically appropriate examination, counseling and educating the patient/family/caregiv er, ordering medications, tests, or procedures, independently interpreting results (not separately reported), communicating results to the patient/family/caregiv er, and care coordination (not separately reported). Mindi Ferro MD Staff, General Neurology Pager: [phone] CC: Referring Physician: Mindi Ferro [address] [facility] [address] PCP: Melodie Londono ([facility]) [address] [place] [address] Mindi Ferro MD 04/25/2024 5:21 PM Signed You're going to; - eat smaller meals, more often - stay away from spicy food, fatty food, fried food - see if any of your medicines might contain lactose - try probiotic in addition to digestive enzymes - see if we can figure out what the stomach pill you take is Keep up the (more content not included)... Normal [facility] CBC-Complete Blood Cnt No Di ffon 04-11-2024 Erythrocyte distribution width (RBC) [Ratio] 13.1 % Normal 11.6-14.6 [facility] Comment on above: Performed By: #### L 501.4210, L100.0500, L500.4050 ####[facility] [address] [place], [address] Hematocrit (Bld) [Volume fraction] 43.6 % Normal 40-54 [facility] Comment on above: Performed By: #### L 501.2450, L100.0500, L500.4050 ####[facility] [address] [place], [address] Hemoglobin (Bld) [Mass/Vol] 14.0 g/dL Normal 13.0-16.5 [facility] Comment on above: Performed By: #### L 501.2450, L100.0500, L500.4050 ####[facility] [address] [place], [address] MCH (RBC) [Entitic mass] 29.1 pg Normal 27.0-32.0 [facility] Comment on above: Performed By: #### L 501.2450, L100.0500, L500.4050 ####[facility] [address] [place], [address] MCHC (RBC) [Mass/Vol] 32.1 g/dL Normal 32-36 [facility] Comment on above: Performed By: #### L 501.2450, L100.0500, L500.4050 ####[facility] [address] [place], [address] MCV (RBC) [Entitic vol] 90.6 fL Normal 80-94 [facility] Comment on above: Performed By: #### L 501.2450, L100.0500, L500.4050 ####[facility] [address] [place], [address] Platelet mean volume (Bld) [Entitic vol] 11.2 fL Normal 6.2-12.0 [facility] Comment on above: Performed By: #### L 501.2450, L100.0500, L500.4050 ####[facility] [address] [place], [address] Platelets (Bld) [#/Vol] 207 10*3/uL Normal 150-450 [facility] Comment on above: Performed By: #### L 501.2450, L100.0500, L500.4050 ####[facility] [address] [place], [address] RBC (Bld) [#/Vol] 4.81 10*6/uL Normal 4.6-6.2 [facility] Comment on above: Performed By: #### L 501.2450, L100.0500, L500.4050 ####[facility] [address] [place], [address] RDW SD 43.4 fl Normal 35.1-43.9 [facility] Comment on above: Performed By: #### L 501.2450, L100.0500, L500.4050 ####[facility] [address] [place], [address] WBC (Bld) [#/Vol] 4.8 10*3/uL Normal 4.4-11.0 [facility] Comment on above: Performed By: #### L 501.2450, L100.0500, L500.4050 ####[facility] [address] [place], [address] Comprehensive Metabolic Prof [facility] 04-11-2024 Albumin [Mass/Vol] 3.7 g/dL Normal 3.2-5.0 [facility] Comment on above: Performed By: #### L 501.2450, L100.0500, L500.4050 ####[facility] [address] [place], [address] Albumin/Globulin [Mass ratio] 1.2 {ratio} Normal 0.9-2.4 [facility] Comment on above: Performed By: #### L 501.2450, L100.0500, L500.4050 ####[facility] [address] [place], [address] ALK P 57 U/L Normal 45-117 [facility] Comment on above: Performed By: #### L 501.2450, L100.0500, L500.4050 ####[facility] [address] [place], [address] ALT [Catalytic activity/Vol] 17 U/L Normal 16-61 [facility] Comment on above: Performed By: #### L 501.2450, L100.0500, L500.4050 ####[facility] [address] [place], [address] AST [Catalytic activity/Vol] 23 U/L Normal 15-37 [facility] Comment on above: Performed By: #### L 501.2450, L100.0500, L500.4050 ####[facility] [address] [place], [address] Bilirubin [Mass/Vol] 0.50 mg/dL Normal 0.20-1.00 [facility] Comment on above: Result Comment: For patients on eltrombopag therapy, use of Dimension Sunshine TBIL is not recommended. Performed By: #### L 501.2450, L100.0500, L500.4050 ####[facility] [address] [place], [address] BUN/CRE 13.1 RATIO Normal 10-20 [facility] Comment on above: Performed By: #### L 501.2450, L100.0500, L500.4050 ####[facility] [address] [place], [address] CA,Total 9.2 mg/dL Normal 8.5-10.1 [facility] Comment on above: Performed By: #### L 501.2450, L100.0500, L500.4050 ####[facility] [address] [place], [address] Chloride [Moles/Vol] 107 mmol/L Normal 98-107 [facility] Comment on above: Performed By: #### L 501.2450, L100.0500, L500.4050 ####[facility] [address] [place], [address] CO2 [Moles/Vol] 28.0 mmol/L Normal 21.0-32.0 [facility] Comment on above: Performed By: #### L 501.2450, L100.0500, L500.4050 ####[facility] [address] [place], [address] Creatinine [Mass/Vol] 0.99 mg/dL Normal 0.70-1.30 [facility] Comment on above: Result Comment: The validity of the calculated GFR GFRAA in patients over 70 years has not been determined. Clinical correlation is essential. Performed By: #### L 501.2450, L100.0500, L500.4050 ####[facility] [address] [place], [address] EST GFR - AA 92 mL/min Normal >60 [facility] Comment on above: Result Comment: Afri can [place] GFR Calc Performed By: #### L 501.2450, L100.0500, L500.4050 ####[facility] [address] [place], [address] GAP 5 Normal 5-15 [facility] Comment on above: Performed By: #### L 501.2450, L100.0500, L500.4050 ####[facility] [address] [place], [address] GFR/1.73 sq M.predicted among non-blacks MDRD (S/P/Bld) [Vol rate/Area] 76 mL/min/{1.73_m2} Normal >60 [facility] Comment on above: Result Comment: Non- GFR Calc Performed By: #### L 501.2450, L100.0500, L500.4050 ####[facility] [address] [place], [address] Globulin (S) [Mass/Vol] 3.2 g/dL Normal 2.2-4.2 [facility] Comment on above: Performed By: #### L 501.2450, L100.0500, L500.4050 ####[facility] [address] [place], [address] Glucose [Mass/Vol] 112 mg/dL High 74-106 [facility] Comment on above: Result Comment: Fast ing Glucose result from 100 to 125 mg/dL suggests IMPAIRED HOMEOSTASIS per A.D.A. criteria. Performed By: #### L 501.2450, L100.0500, L500.4050 ####[facility] [address] [place], [address] Potassium [Moles/Vol] 4.1 mmol/L Normal 3.5-5.1 [facility] Comment on above: Performed By: #### L 501.2450, L100.0500, L500.4050 ####[facility] [address] [place], [address] Sodium [Moles/Vol] 140 mmol/L Normal 136-145 [facility] Comment on above: Performed By: #### L 501.2450, L100.0500, L500.4050 ####[facility] [address] [place], [address] T PROT 6.9 g/dL Normal 6.4-8.2 [facility] Comment on above: Performed By: #### L 501.2450, L100.0500, L500.4050 ####[facility] [address] [place], [address] Urea nitrogen [Mass/Vol] 13 mg/dL Normal 7-18 [facility] Comment on above: Performed By: #### L 501.2450, L100.0500, L500.4050 ####[facility] [address] [place], [address] Lipaseon 04-11-2024 Lipase [Catalytic activity/Vol] 33 U/L Normal 13-75 [facility] Comment on above: Result Comment: Nancy garcia note: LIPASE revised reference range effective 22. New Lipase methodology. Expected to produce lower values than the previous assay method. NEW Reference Range: 13 - 75 U/L Performed By: #### L 501.2450, L100.0500, L500.4050 ####[facility] [address] [place], [address] Basic Metabolic Profile (BMP )on 03-05-2024 BUN/CRE 11.5 RATIO Normal 10-20 [facility] Comment on above: Order Comment: Order Date: 01/09/24Order Info: 0667-1 - BMP Performed By: #### L 500.2500, L503.0105, L506.1000 ####[facility] [address] [place], [address] CA,Total 9.4 mg/dL Normal 8.5-10.1 [facility] Comment on above: Order Comment: Order Date: 01/09/24Order Info: 0667-1 - BMP Performed By: #### L 500.2500, L503.0105, L506.1000 ####[facility] [address] [place], [address] Chloride [Moles/Vol] 105 mmol/L Normal 98-107 [facility] Comment on above: Order Comment: Order Date: 01/09/24Order Info: 0667-1 - BMP Performed By: #### L 500.2500, L503.0105, L506.1000 ####[facility] [address] [place], [address] CO2 [Moles/Vol] 27.0 mmol/L Normal 21.0-32.0 [facility] Comment on above: Order Comment: Order Date: 01/09/24Order Info: 0667- - BMP Performed By: #### L 500.2500, L503.0105, L506.1000 ####[facility] [address] [place], [address] Creatinine [Mass/Vol] 0.96 mg/dL Normal 0.70-1.30 [facility] Comment on above: Order Comment: Order Date: 01/09/24Order Info: 0667- - BMP Result Comment: The validity of the calculated GFR GFRAA in patients over 70 years has not been determined. Clinical correlation is essential. Performed By: #### L 500.2500, L503.0105, L506.1000 ####[facility] [address] [place], [address] EST GFR - AA 96 mL/min Normal >60 [facility] Comment on above: Order Comment: Order Date: 01/09/24Order Info: 0667- - BMP Result Comment: Afri can [place] GFR Calc Performed By: #### L 500.2500, L503.0105, L506.1000 ####[facility] [address] [place], [address] GAP 8 Normal 5-15 [facility] Comment on above: Order Comment: Order Date: 01/09/24Order Info: 0667- - BMP Performed By: #### L 500.2500, L503.0105, L506.1000 ####[facility] [address] [place], [address] GFR/1.73 sq M.predicted among non-blacks MDRD (S/P/Bld) [Vol rate/Area] 79 mL/min/{1.73_m2} Normal >60 [facility] Comment on above: Order Comment: Order Date: 01/09/24Order Info: 0667- - BMP Result Comment: Non- GFR Calc Performed By: #### L 500.2500, L503.0105, L506.1000 ####[facility] [address] [place], [address] Glucose [Mass/Vol] 87 mg/dL Normal 74-106 [facility] Comment on above: Order Comment: Order Date: 01/09/24Order Info: 06-1 - BMP Performed By: #### L 500.2500, L503.0105, L506.1000 ####[facility] [address] [place], [address] Potassium [Moles/Vol] 4.2 mmol/L Normal 3.5-5.1 [facility] Comment on above: Order Comment: Order Date: 01/09/24Order Info: 06- - BMP Performed By: #### L 500.2500, L503.0105, L506.1000 ####[facility] [address] [place], [address] Sodium [Moles/Vol] 139 mmol/L Normal 136-145 [facility] Comment on above: Order Comment: Order Date: 01/09/24Order Info: 06- - BMP Performed By: #### L 500.2500, L503.0105, L506.1000 ####[facility] [address] [place], [address] Urea nitrogen [Mass/Vol] 11 mg/dL Normal 7-18 [facility] Comment on above: Order Comment: Order Date: 01/09/24Order Info: 0667-1 - BMP Performed By: #### L 500.2500, L503.0105, L506.1000 ####[facility] [address] [place], [address] Vitamin B12on 03-05-2024 Cobalamin (Vitamin B12) [Mass/Vol] 398 pg/mL Normal 211-911 [facility] Comment on above: Order Comment: Order Date: 01/09/24Order Info: 2132-9 - X06Kfuie Info: 28051-1 - VITD25 Performed By: #### L 500.2500, L503.0105, L506.1000 ####[facility] [address] [place], [address] Vitamin D,25 Hydroxyon 03-05 Vitamin D 25-OH 61.6 ng/mL Normal [facility] Comment on above: Order Comment: Order Date: 01/09/24Order Info: 2132-9 - G69Nkxdf Info: 65353-3 - VITD25 Result Comment: Malinda min D 25(OH) Status Range Deficiency <20 ng/mL (50nmol/L) Insufficiency 20 - 30 ng/mL (50 - 75 nmol/L) Sufficiency 30 - 100 ng/mL (75 - 250 nmol/L) Toxicity >100 ng/mL (>250 nmol/L) Performed By: #### L 500.2500, L503.0105, L506.1000 ####[facility] [address] [place], [address] CNOVon 08-29-2023 CNOV Office Visit (NEURMM ) KENONEAL Velarde ([id number]) 1935 M Date Time Provider Department 08/29/23 1:00 PM MINDI FERRO NEURMM During your visit today, we recorded the following information about you: Pulse Respiration Blood pressure Weight 68/minute 18/minute 147/101 65.2 kg Mindi Ferro MD 08/29/2023 3:59 PM Signed [facility] - new patient evaluation Date: August 29, 2023 Patient Name: Oneal Page Referring physician: No referring provider defined for this encounter. Primary physician: Melodie Londono (Lorene) [address] [place] [id number] Reason for Evaluation: memory HPI The pt is a 88yo Left handed male with hx of - HTN - GERD - hearing loss Referred by PCP at [facility] for neurological consultation regarding MCI. My opinions and recommendations will be shared with consulting team via electronic medical record Accompanied by his , daughter, and son-in-law. Per EMR (scanned docs): patient saw PCP 07/04/2023. Does wear hearing aid. For MCI, plan for CMP, TSH, MRI brain wo. Per patient, he feels his memory is doing well overall. He completed high school and then served in the [employer]. He came back and started working. He has had hearing loss for many years and does wear his hearing aids regularly except at night. He is independent with ADLs. He denies making mistakes with medicines or finances. He still drives, now mostly locally, and denies getting lost or getting into accidents. He's not concerned about his memory. There is no personal hx of learning disorder nor family hx of dementia. He keeps physically active and works out 2x/week in addition to walking regularly Per family, patient did get lost about a year ago driving somewhere he wasn't familiar. 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 They never got the basket and the patient spent about 2 hours wandering in the car. They also notice some more repetitions in speech but it's uncertain how much is related to extreme hearing loss. They agree that patient is overall independent with ADLs otherwise. He did have to have MRI for something else years ago and had a lot of anxiety with it and couldn't complete it. OUTPATIENT MEDICATIONS Current Outpatient Medications on File Prior to Visit Medication Sig lisinopril (ZESTRIL) 10 mg tablet Take 1 tablet by mouth every 48 hours. No current facility-administered medications on file prior to visit. MEDICAL HISTORY No past medical history on file. SURGICAL HISTORY No past surgical history on file. SOCIAL HISTORY FAMILY HISTORY FAMILY HISTORY Problem Relation Age of Onset Colon Cancer Mother Heart disease Father Multiple Sclerosis Sister Hypertension Sister Diabetes Sister Prostate Cancer Brother ALLERGIES ALLERGIES No Known Allergies REVIEW OF SYSTEMS: No fevers, chills No chest pain No SOB +hearing loss No abdominal pain PHYSICAL EXAM: BP 147/101 (BP Site: Left Arm, BP Position: Sitting, BP Cuff Size: Regular Adult) Pulse 68 Resp 18 Wt 65.2 kg (143 lb 11.8 oz) SpO2 96% General appearance: Well appearing, alert, in no acute distress Neurological exam: Mental Status: MOCA: 15 (14 +1 for HS education) Visuospastial/executiv e: 2/5 (correct clock contour and numbers) Namin/3 (stated hippo instead of rhino) Attention: 2/6 (unable to perform serial 7s, but able to spell 4/6 letters correct for world backwards) Language: 0/3 (7 words) Abstraction: 2/2 Delayed recall: 0/5 (recalled 3 with choices) Orientation: 4/6 (missed date and city) 18-25 =mild cognitive impairment, 10-17 = moderate cognitive impairment, <10 = severe cognitive impairment Cranial Nerves: visual costa intact to confrontation, extraocular movements intact, facial sensation intact, face symmetric, no facial droop or ptosis, reduced hearing bilaterally, no dysarthria, palate elevate symmetrically, tongue protrudes midline, and shoulder shrug intact and symmetric. Motor: Right Upper: Left Upper: Deltoid: 5 Deltoid: 5 Triceps: 5 Triceps: 5 Biceps: 5 Biceps: 5 Dry Kiln Burner: 5 Dry Kiln Burner: 5 Right Lower: Left Lower: Iliopsoas: 5 Iliopsoas: 5 Knee flexor: 5 Knee flexor: 5 Knee extensor: 5 Knee extensor: 5 Motor Tone: Right Upper: Normal tone Left Upper: Normal tone Reflexes: 2/4 biceps, brachioradialis, patellars Sensation: intact BUE to touch, proprioception, vibration Coordination: Finger-to- nose-finger intact bilaterally and Ygrq-pd-ofgr intact bilaterally. Gait: normal-based. LABS/DATA: 07/04/2023 OSH labs Hemoglobin 15 LFTs wnl SCr 0.86 GFR >60 TSH 1.13 Vit B12 491 ASSESSMENT: The pt is a 88 year old male with a history of HTN, GERD, hearing loss who presents with some cognitive changes. His neurologic (more content not included)... Normal [facility] [place] 08-29-2023 [facility] Telephone ([facility]) ONEAL PAGE ([id number]) 1935 M Date Time Provider Department 08/29/23 MINDI FERRO During your visit today, we recorded the following information about you: Senait Sunshine MA 08/29/2023 1:07 PM Signed Called pt name in waiting room, no answer Allergies As of Date: 08/29/2023 (No Known Allergies) Date Reviewed: Never Reviewed Reason for Visit: Appointment [186] Prescriptions as of 08/31/2023 - lisinopril (ZESTRIL) 10 mg tablet Take 1 tablet by mouth every 48 hours. - LORazepam (ATIVAN) 0.5 mg Take 1 tablet by mouth as needed (for anxiety prior to MRI) for up to 30 days. Problem List As Of Date: 08/29/2023 (None) Encounter Status:Closed by SENAIT SUNSHINE on 08/31/23 [facility] [place] 07-20-2023 CNPN Telephone (NEURMM) ONEAL PAGE ([id number]) 1935 M Date Time Provider Department 07/20/23 MINDI FERRO During your visit today, we recorded the following information about you: Roshni Yeboah 07/20/2023 2:31 PM Signed PCP's office faxed over referral again. Face sheet now specifies to contact the patient's daughter, Mariya, to schedule this appointment. Called Mariya- no answer. Left voicemail requesting [facility]. Roshni Watson 07/21/2023 4:17 PM Signed Per appt desk, Patient is scheduled for 08/29/2023 Roshni Yeboah Allergies As of Date: 07/20/2023 (Not on File) Date Reviewed: Never Reviewed Reason for Visit: Appointment [186] Cmt: Referral to Neurology Problem List As Of Date: 07/20/2023 (None) Encounter Status:Closed by ROSHNI YEBOAH on 07/21/23 Normal [facility] Absolute lymphocyte countOrd ered By: Jeremy Ranney on 07-04-2023 Lymphocytes Auto (Unsp spec) [#/Vol] 1.00 10*3/uL 0.83-4.51 [facility] Automated lymphocyte count a s percentage of total leukocytesOrdered By: Jeremy Londono on 07-04-2023 Lymphocytes/100 WBC Auto (Unsp spec) 15.9 % 19-41 [facility] Basophil percentageOrdered B y: Jeremy Londono on 07-04-2023 Basophils/100 WBC (Bld) 1.3 % 0-1 [facility] Bilirubin [Mass/Vol] 0.60 mg/dL 0.20-1.00 [facility] Comment on above: For patients on eltr ombopag therapy, use of Dimension Sunshine TBIL is not recommended. Chloride [Moles/Vol] 102 mmol/L 98-107 [facility] Eosinophils/100 WBC (Bld) 8.4 % 0-5 [facility] Glucose [Mass/Vol] 93 mg/dL 74-106 [facility] Hemoglobin (Bld) [Mass/Vol] 15.0 g/dL 13.0-16.5 [facility] Monocytes/100 WBC (Bld) 8.4 % 0-10 [facility] Neutrophils (Bld) [#/Vol] 4.1 10*3/uL 2.0-7.7 [facility] Neutrophils/100 WBC (Bld) 65.8 % 47-70 [facility] Potassium [Moles/Vol] 4.0 mmol/L 3.5-5.1 [facility] Protein [Mass/Vol] 7.3 g/dL 6.4-8.2 [facility] Sodium [Moles/Vol] 136 mmol/L 136-145 [facility] WBC (Bld) [#/Vol] 6.3 10*3/uL 4.4-11.0 [facility] Determination of erythrocyte mean corpuscular volume (MCV)Ordered By: Jeremy Londono on 07-04-2023 MCV (RBC) [Entitic vol] 92.6 fL 80-94 [facility] Erythrocyte distribution wid th ratioOrdered By: Jeremy Londono on 07-04-2023 Erythrocyte distribution width (RBC) [Ratio] 13.0 % 11.6-14.6 [facility] Erythrocyte distribution wid th standard deviationOrdered By: Jeremy Londono on 07-04-2023 Erythrocyte distribution width (RBC) [Entitic vol] 44.5 fL 35.1-43.9 [facility] Hematocrit Auto (Bld) [Volum e fraction]Ordered By: Jeremy Londono on 07-04-2023 Hematocrit (Bld) [Volume fraction] 47.3 % 40-54 [facility] Immature granulocytes/100 WB C Auto (Bld)Ordered By: Jeremy Londono on 07-04-2023 Immature granulocytes/100 WBC (Bld) 0.200 % 0.0-0.9 [facility] Comment on above: IG% - Immature Granu locytes (promyelocytes, myelocytes and metamyelocytes) > 1% indicates that a LEFT SHIFT is Present. Laboratory - Chemistry and C hemistry - challengeOrdered By: Jeremy Londono on 07-04-2023 Albumin/Globulin [Mass ratio] 1.1 {ratio} 0.9-2.4 [facility] ALP [Catalytic activity/Vol] 63 U/L 45-117 [facility] ALT [Catalytic activity/Vol] 22 U/L 16-61 [facility] CO2 [Moles/Vol] 29.0 mmol/L 21.0-32.0 [facility] Cobalamin (Vitamin B12) [Mass/Vol] 491 pg/mL 211-911 [facility] Globulin (S) [Mass/Vol] 3.4 g/dL 2.2-4.2 [facility] Urea nitrogen/Creatinine [Mass ratio] 12.8 mg/mg 10-20 [facility] Laboratory - Hematology and Cell countsOrdered By: Jeremy Londono on 07-04-2023 MCH (RBC) [Entitic mass] 29.4 pg 27.0-32.0 [facility] MCHC (RBC) [Mass/Vol] 31.7 g/dL 32-36 [facility] Nucleated RBC/100 WBC (Bld) [Ratio] 0 % 0-5 [facility] Platelets (Bld) [#/Vol] 245 10*3/uL 150-450 [facility] No Panel InformationOrdered By: Jeremy Londono on 07-04-2023 Estimated GFR (MDRD) Amer 108 mL/min >60 [facility] Comment on above: GFR Calc Estimated GFR (MDRD) Non-Af Amer 89 mL/min >60 [facility] Comment on above: Non- GFR Calc Platelet mean volume Ben-Ec ker (Bld) [Entitic vol]Ordered By: Jeremy Londono on 07-04-2023 Platelet mean volume (Bld) [Entitic vol] 11.4 fL 6.2-12.0 [facility] RBC Auto (Bld) [#/Vol]Ordere d By: Jeremy Londono on 07-04-2023 RBC (Bld) [#/Vol] 5.11 10*6/uL 4.6-6.2 [facility] Serum or plasma calcium dax urement (mass/volume)Ordered By: Jeremy Londono on 07-04-2023 Calcium [Mass/Vol] 9.2 mg/dL 8.5-10.1 [facility] Serum or plasma creatinine m easurement (mass/volume)Ordered By: Jeremy Londono on 07-04-2023 Creatinine [Mass/Vol] 0.86 mg/dL 0.70-1.30 [facility] Comment on above: The validity of the calculated GFR & GFRAA in patients over 70 years has not been determined. Clinical correlation is essential. Serum or plasma thyroid stim ulating hormone (TSH) measurement (units/volume)Ordered By: Jeremy Londono on 07-04-2023 TSH Qn 1.13 uIU/mL 0.358-3.74 [facility] Serum or plasma urea nitroge n measurement (mass/volume)Ordered By: Jeremy Londono on 07-04-2023 Urea nitrogen [Mass/Vol] 11 mg/dL 7-18 [facility] Thin prep Papanicolaou smear with manual screeningOrdered By: Jeremy Londono on 07-04-2023 Thin prep Papanicolaou smear with manual screening 3.9 g/dL 3.2-5.0 [facility] Thin prep Papanicolaou smear with manual screening 25 U/L 15-37 [facility] Thin prep Papanicolaou smear with manual screening 5 5-15 [facility] Stool gastrointestinal hemog lobin detection by immunologic methodOrdered By: Jeremy Londono on 12-31-2022 Lower GI hemoglobin IA Ql (Stl) [facility] Chocolate RASTOrdered By: Natasha Londono on 12-30-2022 Chocolate IgE Qn (S) <0.10 kU/L Class 0 [facility] Comment on above: Performed at: [address] [id number] Director: Margie Huynh MD, Phone: [phone] Laboratory - Miscellaneous t estsOrdered By: Jeremy Londono on 12-30-2022 Service comment (Unsp spec) [Interp] Comment . [facility] Comment on above: Levels of Specific I gE Class Description of Class ----- < 0.10 0 Negative 0.10 - 0.31 0/I Equivocal/Low 0.32 - 0.55 I Low 0.56 - 1.40 II Moderate 1.41 - 3.90 III High 3.91 - 19.00 IV Very High 19.01 - 100.00 V Very High >100.00 Very High No Panel InformationOrdered By: Jeremy Londono on 12-30-2022 [employer] Allergens (RAST) Negative . [facility] Comment on above: Allergens in this mi x are: Blue mussel Fish [place] Shrimp Tuna Serum beef IgE antibody assa y (units/volume)Ordered By: Jeremy Londono on 12-30-2022 Beef IgE Qn (S) <0.10 kU/L Class 0 [facility] Serum corn IgE antibody assa y (units/volume)Ordered By: Jeremy Londono on 12-30-2022 Stanton IgE Qn (S) <0.10 kU/L Class 0 [facility] Serum cow milk IgE antibody assay (units/volume)Ordered By: Jeremy Londono on 12-30-2022 Cow milk IgE Qn (S) <0.10 kU/L Class 0 [facility] Serum or plasma transthyreti n measurement (mass/volume)Ordered By: Jeremy Londono on 12-30-2022 Prealbumin [Mass/Vol] 23.4 mg/dL 20.0-40.0 [facility] Serum peanut IgE antibody as say (units/volume)Ordered By: Jeremy Londono on 12-30-2022 Peanut IgE Qn (S) <0.10 kU/L Class 0 [facility] Serum pork IgE antibody assa y (units/volume)Ordered By: Jeremy Londono on 12-30-2022 Pork IgE Qn (S) <0.10 kU/L Class 0 [facility] Serum soybean IgE antibody a ssay (units/volume)Ordered By: Jeremy Londono on 12-30-2022 Soybean IgE Qn (S) <0.10 kU/L Class 0 [facility] Serum wheat IgE antibody ass ay (units/volume)Ordered By: Jeremy Londono on 12-30-2022 Wheat IgE Qn (S) <0.10 kU/L Class 0 [facility] Serum whole egg IgE antibody assay (units/volume)Ordered By: Jeremy Londono on 12-30-2022 Whole Egg IgE Qn (S) <0.10 kU/L Class 0 [facility] Absolute lymphocyte countOrd ered By: Yayo Mauro on 12-21-2022 Lymphocytes Auto (Unsp spec) [#/Vol] 0.92 10*3/uL 0.83-4.51 [facility] Amorphous sediment detection in urine sediment by light microscopyOrdered By: Yayo Mauro on 12-21-2022 Amorphous sediment LM Ql (Urine sed) 1+ [facility] Basophil percentageOrdered B y: Yayo Mauro on 12-21-2022 Basophil percentage 0-5 SEEN /hpf 0-5 [facility] Basophils/100 WBC (Bld) 0.9 % 0-1 [facility] Bilirubin [Mass/Vol] 0.50 mg/dL 0.20-1.00 [facility] Comment on above: For patients on eltr ombopag therapy, use of Dimension Sunshine TBIL is not recommended. Chloride [Moles/Vol] 107 mmol/L 98-107 [facility] Eosinophils/100 WBC (Bld) 6.8 % 0-5 [facility] Glucose [Mass/Vol] 109 mg/dL 74-106 [facility] Comment on above: Fasting Glucose resu lt from 100 to 125 mg/dL suggests IMPAIRED HOMEOSTASIS per A.D.A. criteria. Neutrophils (Bld) [#/Vol] 3.9 10*3/uL 2.0-7.7 [facility] Neutrophils/100 WBC (Bld) 68.4 % 47-70 [facility] Potassium [Moles/Vol] 4.3 mmol/L 3.5-5.1 [facility] Protein [Mass/Vol] 6.8 g/dL 6.4-8.2 [facility] Sodium [Moles/Vol] 139 mmol/L 136-145 [facility] WBC (Bld) [#/Vol] 5.8 10*3/uL 4.4-11.0 [facility] Bilirubin Test strip Ql (U)O rdered By: Yayo Mauro on 12-21-2022 Bilirubin Ql (U) Negative Negative [facility] Blood erythrocytes count (nu mber/volume)Ordered By: Yayo Mauro on 12-21-2022 RBC (Bld) [#/Vol] 4.80 10*6/uL 4.6-6.2 [facility] Blood hemoglobin measurement (mass/volume)Ordered By: Yayo Mauro on 12-21-2022 Hemoglobin (Bld) [Mass/Vol] 14.5 g/dL 13.0-16.5 [facility] Blood lymphocytes/100 leukoc ytesOrdered By: Yayo Mauro on 12-21-2022 Lymphocytes/100 WBC (Bld) 16.0 % 19-41 [facility] Blood monocytes/100 leukocyt esOrdered By: Yayo Mauro on 12-21-2022 Monocytes/100 WBC (Bld) 7.6 % 0-10 [facility] Blood platelet mean volumeOr dered By: Yayo Mauro on 12-21-2022 Platelet mean volume (Bld) [Entitic vol] 10.5 fL 6.2-12.0 [facility] Culture, urineOrdered By: Tuan Mauro on 12-21-2022 Bacteria identified Cx Nom (U) Mixed Gram Pos & Gram Neg Org [facility] Determination of erythrocyte mean corpuscular volume (MCV)Ordered By: Yayo Mauro on 12-21-2022 MCV (RBC) [Entitic vol] 91.5 fL 80-94 [facility] Hematocrit Auto (Bld) [Volum e fraction]Ordered By: Yayo Mauro on 12-21-2022 Hematocrit (Bld) [Volume fraction] 43.9 % 40-54 [facility] Ketones Test strip Ql (U)Ord ered By: Yayo Mauro on 12-21-2022 Ketones Ql (U) Negative Negative [facility] Laboratory - Chemistry and C hemistry - challengeOrdered By: Yayo Mauro on 12-21-2022 ALP [Catalytic activity/Vol] 54 U/L 45-117 [facility] ALT [Catalytic activity/Vol] 17 U/L 16-61 [facility] CO2 [Moles/Vol] 28.0 mmol/L 21.0-32.0 [facility] Globulin (S) [Mass/Vol] 3.5 g/dL 2.2-4.2 [facility] Lipase [Catalytic activity/Vol] 35 U/L 13-75 [facility] Comment on above: Please note:LIPASE r evised reference range effective 22. New Lipase methodology. Expected to produce lower values than the previous assay method. NEW Reference Range: 13 - 75 U/L Urea nitrogen/Creatinine [Mass ratio] 10.7 mg/mg 10-20 [facility] Laboratory - Hematology and Cell countsOrdered By: Yayo Mauro on 12-21-2022 Erythrocyte distribution width (RBC) [Entitic vol] 45.2 fL 35.1-43.9 [facility] Erythrocyte distribution width (RBC) [Ratio] 13.3 % 11.6-14.6 [facility] Immature granulocytes/100 WBC (Bld) 0.300 % 0.0-0.9 [facility] Comment on above: IG% - Immature Granu locytes (promyelocytes, myelocytes and metamyelocytes) > 1% indicates that a LEFT SHIFT is Present. MCH (RBC) [Entitic mass] 30.2 pg 27.0-32.0 [facility] Nucleated RBC/100 WBC (Bld) [Ratio] 0 % 0-5 [facility] MCHC Auto (RBC) [Mass/Vol]Or dered By: Yayo Mauro on 12-21-2022 MCHC (RBC) [Mass/Vol] 33.0 g/dL 32-36 [facility] Mucus LM Ql (Urine sed)Order ed By: Yayo Mauro on 12-21-2022 Mucus Ql (Urine sed) 0 SEEN /hpf [facility] Nitrite Test strip Ql (U)Ord ered By: Yayo Mauro on 12-21-2022 Nitrite Ql (U) Negative Negative [facility] No Panel InformationOrdered By: Yayo Mauro on 12-21-2022 Estimated Creatinine Clearance Calc 54.14 ml/min [facility] Estimated GFR (MDRD) Amer 99 mL/min >60 [facility] Comment on above: GFR Calc Estimated GFR (MDRD) Non-Af Amer 82 mL/min >60 [facility] Comment on above: Non- GFR Calc Troponin I High Sensitivity 8 pg/mL 3.0-78.0 [facility] Comment on above: Please Note: New Delmi t Units and Gender Specific Reference Ranges. For more information see Policy Stat Procedure Sunshine High Sensitivity Troponin (TNIH) and attachments. Platelets bldOrdered By: Chaitanya Mauro on 12-21-2022 Platelets (Bld) [#/Vol] 212 10*3/uL 150-450 [facility] Protein Test strip Ql (U)Ord ered By: Yayo Mauro on 12-21-2022 Protein Ql (U) Negative Negative [facility] Serum or plasma albumin dax urement (mass/volume)Ordered By: Yayo Mauro on 12-21-2022 Albumin [Mass/Vol] 3.3 g/dL 3.2-5.0 [facility] Serum or plasma albumin/glob ulin mass ratioOrdered By: Yayo Mauro on 12-21-2022 Albumin/Globulin [Mass ratio] 0.9 {ratio} 0.9-2.4 [facility] Serum or plasma calcium dax urement (mass/volume)Ordered By: Yayo Mauro on 12-21-2022 Calcium [Mass/Vol] 8.9 mg/dL 8.5-10.1 [facility] Serum or plasma creatinine m easurement (mass/volume)Ordered By: Yayo Mauro on 12-21-2022 Creatinine [Mass/Vol] 0.93 mg/dL 0.70-1.30 [facility] Comment on above: The validity of the calculated GFR & GFRAA in patients over 70 years has not been determined. Clinical correlation is essential. Serum or plasma urea nitroge n measurement (mass/volume)Ordered By: Yayo Mauro on 12-21-2022 Urea nitrogen [Mass/Vol] 10 mg/dL 7- [facility] Squamous epithelial cells de tection in urine sediment by light microscopyOrdered By: Yayo Mauro on 12-21-2022 Epithelial cells.squamous LM Ql (Urine sed) 0 SEEN /hpf 0-5 [facility] Thin prep Papanicolaou smear with manual screeningOrdered By: Yayo Mauro on 12-21-2022 Thin prep Papanicolaou smear with manual screening 17 U/L 15-37 [facility] Thin prep Papanicolaou smear with manual screening 4 5-15 [facility] Urine blood detectionOrdered By: Yayo Mauro on 12-21-2022 RBC Ql (U) 25 /ul Negative [facility] RBC Ql (U) 0 SEEN /hpf 0-5 [facility] Urine clarityOrdered By: Chaitanya Mauro on 12-21-2022 Clarity (U) Sl. Cloudy Clear [facility] Urine color determinationOrd ered By: Yayo Mauro on 12-21-2022 Color (U) Yellow Yellow [facility] Urine glucose detectionOrder ed By: Yayo Mauro on 12-21-2022 Glucose Ql (U) Normal mg/dl Normal [facility] Urine leukocyte esterase det ection by dipstickOrdered By: Yayo Mauro on 12-21-2022 Leukocyte esterase Test strip Ql (U) 500 /ul Negative [facility] Urine pHOrdered By: Yayo Mauro on 12-21-2022 pH (U) 8.0 [pH] 5.0 - 8.0 [facility] Urine sediment bacteria coun t by microscopy (number/high power field)Ordered By: Yayo Mauro on 12-21-2022 Bacteria LM.HPF (Urine sed) [#/Area] 0 /[HPF] None Seen [facility] Urine specific gravity measu rementOrdered By: Yayo Mauro on 12-21-2022 Specific gravity (U) [Rel density] 1.015 1.002-1.030 [facility] Urobilinogen Auto test strip Ql (U)Ordered By: Yayo Mauro on 12-21-2022 Urobilinogen Ql (U) Normal mg/dl Normal [facility] Basophil percentageOrdered B y: Dr. Londono on 07-12-2022 Bilirubin [Mass/Vol] 0.60 mg/dL 0.20-1.00 [facility] Comment on above: For patients on eltr ombopag therapy, use of Dimension Sunshine TBIL is not recommended. Chloride [Moles/Vol] 107 mmol/L 98-107 [facility] Glucose [Mass/Vol] 79 mg/dL 74-106 [facility] Potassium [Moles/Vol] 4.3 mmol/L 3.5-5.1 [facility] Protein [Mass/Vol] 7.3 g/dL 6.4-8.2 [facility] Sodium [Moles/Vol] 139 mmol/L 136-145 [facility] WBC (Bld) [#/Vol] 6.4 10*3/uL 4.4-11.0 [facility] Blood erythrocytes count (nu mber/volume)Ordered By: Dr. Londono on 07-12-2022 RBC (Bld) [#/Vol] 5.15 10*6/uL 4.6-6.2 [facility] Blood hemoglobin measurement (mass/volume)Ordered By: Dr. Londono on 07-12-2022 Hemoglobin (Bld) [Mass/Vol] 15.6 g/dL 13.0-16.5 [facility] Blood platelet mean volumeOr dered By: Dr. Londono on 07-12-2022 Platelet mean volume (Bld) [Entitic vol] 11.4 fL 6.2-12.0 [facility] Determination of erythrocyte mean corpuscular volume (MCV)Ordered By: Dr. Lonodno on 07-12-2022 MCV (RBC) [Entitic vol] 91.5 fL 80-94 [facility] Erythrocyte sedimentation ra teOrdered By: Dr. Londono on 07-12-2022 ESR (Bld) [Velocity] 16 mm/h 0-20 [facility] Hematocrit Auto (Bld) [Volum e fraction]Ordered By: Dr. Londono on 07-12-2022 Hematocrit (Bld) [Volume fraction] 47.1 % 40-54 [facility] Laboratory - Chemistry and C hemistry - challengeOrdered By: Dr. Londono on 07-12-2022 ALP [Catalytic activity/Vol] 57 U/L 45-117 [facility] ALT [Catalytic activity/Vol] 19 U/L 16-61 [facility] CO2 [Moles/Vol] 24.0 mmol/L 21.0-32.0 [facility] Cobalamin (Vitamin B12) [Mass/Vol] 418 pg/mL 211-911 [facility] Globulin (S) [Mass/Vol] 3.5 g/dL 2.2-4.2 [facility] Urea nitrogen/Creatinine [Mass ratio] 16.8 mg/mg 10-20 [facility] Laboratory - Hematology and Cell countsOrdered By: Dr. Londono on 07-12-2022 Erythrocyte distribution width (RBC) [Entitic vol] 44.6 fL 35.1-43.9 [facility] Erythrocyte distribution width (RBC) [Ratio] 13.2 % 11.6-14.6 [facility] MCH (RBC) [Entitic mass] 30.3 pg 27.0-32.0 [facility] MCHC Auto (RBC) [Mass/Vol]Or dered By: Dr. Londono on 07-12-2022 MCHC (RBC) [Mass/Vol] 33.1 g/dL 32-36 [facility] No Panel InformationOrdered By: Dr. Londono on 07-12-2022 Estimated GFR (MDRD) Amer 112 mL/min >60 [facility] Comment on above: GFR Calc Estimated GFR (MDRD) Non-Af Amer 93 mL/min >60 [facility] Comment on above: Non- GFR Calc Thyroid Stimulating Hormone (TSH) 1.02 uIU/mL 0.358-3.74 [facility] Vitamin D 25-Hydroxy 54.4 ng/mL [facility] Comment on above: Vitamin D 25(OH) Sta tus Range Deficiency <20 ng/mL (50nmol/L) Insufficiency 20 - 30 ng/mL (50 - 75 nmol/L) Sufficiency 30 - 100 ng/mL (75 - 250 nmol/L) Toxicity >100 ng/mL (>250 nmol/L) Platelets bldOrdered By: Dr. Londono on 07-12-2022 Platelets (Bld) [#/Vol] 221 10*3/uL 150-450 [facility] Serum or plasma albumin dax urement (mass/volume)Ordered By: Dr. Londono on 07-12-2022 Albumin [Mass/Vol] 3.8 g/dL 3.2-5.0 [facility] Serum or plasma albumin/glob ulin mass ratioOrdered By: Dr. Londono on 07-12-2022 Albumin/Globulin [Mass ratio] 1.1 {ratio} 0.9-2.4 [facility] Serum or plasma calcium dax urement (mass/volume)Ordered By: Dr. Londono on 07-12-2022 Calcium [Mass/Vol] 9.3 mg/dL 8.5-10.1 [facility] Serum or plasma creatinine m easurement (mass/volume)Ordered By: Dr. Londono on 07-12-2022 Creatinine [Mass/Vol] 0.84 mg/dL 0.70-1.30 [facility] Comment on above: The validity of the calculated GFR & GFRAA in patients over 70 years has not been determined. Clinical correlation is essential. Serum or plasma urea nitroge n measurement (mass/volume)Ordered By: Dr. Londono on 07-12-2022 Urea nitrogen [Mass/Vol] 14 mg/dL 7-18 [facility] Thin prep Papanicolaou smear with manual screeningOrdered By: Dr. Londono on 07-12-2022 Thin prep Papanicolaou smear with manual screening 26 U/L 15-37 [facility] Thin prep Papanicolaou smear with manual screening 8 5-15 [facility] Absolute lymphocyte counton 01-13-2022 Lymphocytes Auto (Unsp spec) [#/Vol] 1.02 10*3/uL 0.83-4.51 [facility] Work Phone: Basophil percentageon 2021 Amylase [Catalytic activity/Vol] 75 U/L 25-115 [facility] Work Phone: Basophils/100 WBC (Bld) 1.1 % 0-1 [facility] Work Phone: Eosinophils/100 WBC (Bld) 10.4 % 0-5 [facility] Work Phone: Neutrophils (Bld) [#/Vol] 3.2 10*3/uL 2.0-7.7 [facility] Work Phone: Neutrophils/100 WBC (Bld) 59.8 % 47-70 [facility] Work Phone: WBC (Bld) [#/Vol] 5.4 10*3/uL 4.4-11.0 [facility] Work Phone: Blood erythrocytes count (nu mber/volume)on 01-13-2022 RBC (Bld) [#/Vol] 5.05 10*6/uL 4.6-6.2 [facility] Work Phone: Blood hemoglobin measurement (mass/volume)on 01-13-2022 Hemoglobin (Bld) [Mass/Vol] 15.0 g/dL 13.0-16.5 [facility] Work Phone: Blood lymphocytes/100 leukoc yteson 01-13-2022 Lymphocytes/100 WBC (Bld) 19.0 % 19-41 [facility] Work Phone: Blood monocytes/100 leukocyt eson 01-13-2022 Monocytes/100 WBC (Bld) 9.3 % 0-10 [facility] Work Phone: Blood platelet mean volumeon 01-13-2022 Platelet mean volume (Bld) [Entitic vol] 11.5 fL 6.2-12.0 [facility] Work Phone: [phone] Determination of erythrocyte mean corpuscular volume (MCV)on 01-13-2022 MCV (RBC) [Entitic vol] 92.7 fL 80-94 [facility] Work Phone: [phone] Hematocrit Auto (Bld) [Volum e fraction]on 01-13-2022 Hematocrit (Bld) [Volume fraction] 46.8 % 40-54 [facility] Work Phone: [phone] Laboratory - Chemistry and C hemistry - challengeon 01-13-2022 Lipase [Catalytic activity/Vol] 137 U/L 73-393 [facility] Work Phone: [phone] Cobalamin (Vitamin B12) [Mass/Vol] 353 pg/mL 211-911 [facility] Work Phone: [phone] Laboratory - Hematology and Cell countson 01-13-2022 Erythrocyte distribution width (RBC) [Entitic vol] 46.2 fL 35.1-43.9 [facility] Work Phone: [phone] Erythrocyte distribution width (RBC) [Ratio] 13.5 % 11.6-14.6 [facility] Work Phone: [phone] Immature granulocytes/100 WBC (Bld) 0.400 % 0.0-0.9 [facility] Work Phone: [phone] Comment on above: IG% - Immature Granu locytes (promyelocytes, myelocytes and metamyelocytes) > 1% indicates that a LEFT SHIFT is Present. MCH (RBC) [Entitic mass] 29.7 pg 27.0-32.0 [facility] Work Phone: [phone] Nucleated RBC/100 WBC (Bld) [Ratio] 0 % 0-5 [facility] Work Phone: [phone] MCHC Auto (RBC) [Mass/Vol]on 01-13-2022 MCHC (RBC) [Mass/Vol] 32.1 g/dL 32-36 [facility] Work Phone: [phone] No Panel Informationon 01-13 Endomysial IgA Antibody Negative Negative [facility] Work Phone: [phone] Thyroid Stimulating Hormone (TSH) 1.00 uIU/mL 0.358-3.74 [facility] Work Phone: [phone] Platelets bldon 01-13-2022 Platelets (Bld) [#/Vol] 243 10*3/uL 150-450 [facility] Work Phone: [phone] Serum IgA measurement (units /volume)on 01-13-2022 IgA Qn (S) 129 mg/dL 61-437 [facility] Work Phone: [phone] Comment on above: Performed at: [place] [id number] Director: Rajiv Rosales PhD, Phone: [phone] Serum tissue transglutaminas e IgA antibody assay (units/volume)on 01-13-2022 tTG IgA Qn (S) <2 U/mL 0-3 [facility] Work Phone: [phone] Comment on above: Negative 0 - 3 Weak Positive 4 - 10 Positive >10 Tissue Transglutaminase (tTG) has been identified as the endomysial antigen. Studies have demonstr- ated that endomysial IgA antibodies have over 99% specificity for gluten sensitive enteropathy. Absolute lymphocyte counton 12-15-2021 Lymphocytes Auto (Unsp spec) [#/Vol] 1.15 10*3/uL 0.83-4.51 [facility] Work Phone: [phone] Basophil percentageon 2021 Basophils/100 WBC (Bld) 0.8 % 0-1 [facility] Work Phone: [phone] Bilirubin [Mass/Vol] 0.50 mg/dL 0.20-1.00 [facility] Work Phone: [phone] Comment on above: For patients on eltr ombopag therapy, use of Dimension Sunshine TBIL is not recommended. Chloride [Moles/Vol] 108 mmol/L 98-107 [facility] Work Phone: [phone] Eosinophils/100 WBC (Bld) 10.5 % 0-5 [facility] Work Phone: Glucose [Mass/Vol] 100 mg/dL 74-106 [facility] Work Phone: Comment on above: Fasting Glucose resu lt from 100 to 125 mg/dL suggests IMPAIRED HOMEOSTASIS per A.D.A. criteria. Neutrophils (Bld) [#/Vol] 3.9 10*3/uL 2.0-7.7 [facility] Work Phone: Neutrophils/100 WBC (Bld) 60.3 % 47-70 [facility] Work Phone: Potassium [Moles/Vol] 4.3 mmol/L 3.5-5.1 [facility] Work Phone: Protein [Mass/Vol] 7.0 g/dL 6.4-8.2 [facility] Work Phone: Sodium [Moles/Vol] 138 mmol/L 136-145 [facility] Work Phone: WBC (Bld) [#/Vol] 6.5 10*3/uL 4.4-11.0 [facility] Work Phone: Blood erythrocytes count (nu mber/volume)on 12-15-2021 RBC (Bld) [#/Vol] 4.84 10*6/uL 4.6-6.2 [facility] Work Phone: Blood hemoglobin measurement (mass/volume)on 12-15-2021 Hemoglobin (Bld) [Mass/Vol] 14.3 g/dL 13.0-16.5 [facility] Work Phone: Blood lymphocytes/100 leukoc yteson 12-15-2021 Lymphocytes/100 WBC (Bld) 17.7 % 19-41 [facility] Work Phone: Blood monocytes/100 leukocyt eson 12-15-2021 Monocytes/100 WBC (Bld) 10.2 % 0-10 [facility] Work Phone: Blood platelet mean volumeon 12-15-2021 Platelet mean volume (Bld) [Entitic vol] 11.6 fL 6.2-12.0 [facility] Work Phone: Determination of erythrocyte mean corpuscular volume (MCV)on 12-15-2021 MCV (RBC) [Entitic vol] 90.9 fL 80-94 [facility] Work Phone: [phone] Erythrocyte sedimentation ra sybil 12-15-2021 ESR (Bld) [Velocity] 14 mm[facility]h [facility]: Hematocrit Auto (Bld) [Volum e fraction]on 12-15-2021 Hematocrit (Bld) [Volume fraction] 44.0 % 40-54 [facility] Work Phone: Laboratory - Chemistry and C hemistry - challengeon 12-15-2021 ALP [Catalytic activity/Vol] 53 U/L 45-117 [facility] Work Phone: ALT [Catalytic activity/Vol] 19 U/L 16-61 [facility] Work Phone: [phone] CO2 [Moles/Vol] 25.0 mmol/L 21.0-32.0 [facility] Work Phone: [phone] Globulin (S) [Mass/Vol] 3.4 g/dL 2.2-4.2 [facility] Work Phone: [phone] Urea nitrogen/Creatinine [Mass ratio] 14.1 mg/mg 10-20 [facility] Work Phone: [phone] Laboratory - Hematology and Cell countson 12-15-2021 Erythrocyte distribution width (RBC) [Entitic vol] 46.1 fL 35.1-43.9 [facility] Work Phone: [phone] Erythrocyte distribution width (RBC) [Ratio] 13.7 % 11.6-14.6 [facility] Work Phone: [phone] Immature granulocytes/100 WBC (Bld) 0.500 % 0.0-0.9 [facility] Work Phone: Comment on above: IG% - Immature Granu locytes (promyelocytes, myelocytes and metamyelocytes) > 1% indicates that a LEFT SHIFT is Present. MCH (RBC) [Entitic mass] 29.5 pg 27.0-32.0 [facility] Work Phone: Nucleated RBC/100 WBC (Bld) [Ratio] 0 % 0-5 [facility] Work Phone: MCHC Auto (RBC) [Mass/Vol]on 12-15-2021 MCHC (RBC) [Mass/Vol] 32.5 g/dL 32-36 [facility] Work Phone: No Panel Informationon 12-15 Estimated GFR (MDRD) Amer 100 mL/min >60 [facility] Work Phone: Comment on above: GFR Calc Estimated GFR (MDRD) Non-Af Amer 83 mL/min >60 [facility] Work Phone: Comment on above: Non- GFR Calc Platelets bldon 12-15-2021 Platelets (Bld) [#/Vol] 212 10*3/uL 150-450 [facility] Work Phone: Serum or plasma albumin dax urement (mass/volume)on 12-15-2021 Albumin [Mass/Vol] 3.6 g/dL 3.2-5.0 [facility] Work Phone: Serum or plasma albumin/glob ulin mass ratioon 12-15-2021 Albumin/Globulin [Mass ratio] 1.1 {ratio} 0.9-2.4 [facility] Work Phone: [phone] Serum or plasma calcium dax urement (mass/volume)on 12-15-2021 Calcium [Mass/Vol] 9.0 mg/dL 8.5-10.1 [facility] Work Phone: [phone] Serum or plasma creatinine m easurement (mass/volume)on 12-15-2021 Creatinine [Mass/Vol] 0.92 mg/dL 0.70-1.30 [facility] Work Phone: Comment on above: The validity of the calculated GFR & GFRAA in patients over 70 years has not been determined. Clinical correlation is essential. Serum or plasma urea nitroge n measurement (mass/volume)on 12-15-2021 Urea nitrogen [Mass/Vol] 13 mg/dL 7-18 [facility] Work Phone: Thin prep Papanicolaou smear with manual screeningon 12-15-2021 Thin prep Papanicolaou smear with manual screening 21 U/L 15-37 [facility] Work Phone: Thin prep Papanicolaou smear with manual screening 5 5-15 [facility] Work Phone: Basophil percentageon 2021 Chloride [Moles/Vol] 106 mmol/L 98-107 [facility] Work Phone: Cholesterol [Mass/Vol] 171 mg/dL <200 [facility] Work Phone: Comment on above: <200 mg/dL Desirable 200-240 mg/dL Borderline >240 mg/dL High Risk Glucose [Mass/Vol] 102 mg/dL 74-106 [facility] Work Phone: Comment on above: Fasting Glucose resu lt from 100 to 125 mg/dL suggests IMPAIRED HOMEOSTASIS per A.D.A. criteria. Potassium [Moles/Vol] 4.1 mmol/L 3.5-5.1 [facility] Work Phone: Sodium [Moles/Vol] 140 mmol/L 136-145 [facility] Work Phone: Triglyceride [Mass/Vol] 80 mg/dL <199 [facility] Work Phone: Comment on above: The drugs N-Acetylcy steine and Metamizole may falsely depress this assay.Serum Triglycerides Reference Interval Normal <150 mg/dL Borderline high 150 - 199 mg/dL High 200 - 499 mg/dL Very High > or = 500 mg/dL Laboratory - Chemistry and C hemistry - challengeon 11-10-2021 CO2 [Moles/Vol] 30.0 mmol/L 21.0-32.0 [facility] Work Phone: Urea nitrogen/Creatinine [Mass ratio] 17.4 mg/mg 10-20 [facility] Work Phone: No Panel Informationon 11-10 Estimated GFR (MDRD) Amer 94 mL/min >60 [facility] Work Phone: Comment on above: GFR Calc Estimated GFR (MDRD) Non-Af Amer 77 mL/min >60 [facility] Work Phone: Comment on above: Non- GFR Calc Vitamin D 25-Hydroxy 43.5 ng/mL [facility] Work Phone: Comment on above: Vitamin D 25(OH) Sta tus Range Deficiency <20 ng/mL (50nmol/L) Insufficiency 20 - 30 ng/mL (50 - 75 nmol/L) Sufficiency 30 - 100 ng/mL (75 - 250 nmol/L) Toxicity >100 ng/mL (>250 nmol/L) Serum or plasma calcium dax urement (mass/volume)on 11-10-2021 Calcium [Mass/Vol] 9.0 mg/dL 8.5-10.1 [facility] Work Phone: Serum or plasma cholesterol in HDL measurement (mass/volume)on 11-10-2021 Cholesterol in HDL [Mass/Vol] 79 mg/dL >40 [facility] Work Phone: Comment on above: The drugs N-Acetylcy steine and Metamizole may falsely depress this assay. Reference Range HDL <40 mg/dL Low HDL Cholesterol HDL >or= 60 mg/dL High HDL Cholesterol Serum or plasma cholesterol in VLDL measurement (mass/volume)on 11-10-2021 Cholesterol in VLDL [Mass/Vol] 16 mg/dL 5-40 [facility] Work Phone: Serum or plasma creatinine m easurement (mass/volume)on 11-10-2021 Creatinine [Mass/Vol] 0.98 mg/dL 0.70-1.30 [facility] Work Phone: Comment on above: The validity of the calculated GFR & GFRAA in patients over 70 years has not been determined. Clinical correlation is essential. Serum or plasma low density lipoprotein (LDL) cholesterol measurement (mass/volume)on 11-10-2021 Cholesterol in LDL [Mass/Vol] 76 mg/dL 0-130 [facility] Work Phone: Serum or plasma urea nitroge n measurement (mass/volume)on 11-10-2021 Urea nitrogen [Mass/Vol] 17 mg/dL 7-18 [facility] Work Phone: Thin prep Papanicolaou smear with manual screeningon 11-10-2021 Thin prep Papanicolaou smear with manual screening 4 5-15 [facility] Work Phone: Laboratory - Microbiology an d Antimicrobial susceptibilityon 10-12-2021 SARS-CoV-2 (COVID-19) RNA AURY+probe Ql (Unsp spec) Detected Not Detect [facility] Work Phone: Comment on above: Normal Reference Ran ge: Not DetectedMethod:(RT-PCR) real-time reverse transcriptase PCRLuminex Platfora Instrument*The Food and Drug Administration (FDA) has issued an Emergency Use Authorization (EAU) for the Platfora SARS-CoV-2 Assay for the rapid detection of the virus that causes COVID-19. This test has been validated, but the FDAs independent review of this validation is pending.*Negative results do not preclude infection and should not be used as the sole basis for treatment or patient management. Optimum specimen types and timing for peak viral levels during infections caused by SARS-CoV-2 have not been determined. Collection of multiple specimens from the same patient may be necessary to detect the virus. The possibility of a false negative result should be considered if the patient has clinical presentation or has had recent exposure. Vital Signs Date Time Vital Sign Value Performing Clinician Ivani aleena 11-02-2024 15:26-0400 Body temperature 98.2 [degF] Dr. Melodie Londono MD Work Phone: [facility] 11-02-2024 15:26-0400 Diastolic blood pressure 71 mm[Hg] Dr. Melodie Londono MD Work Phone: [facility] 11-02-2024 15:26-0400 Heart rate 80 /min Dr. Melodie Londono MD Work Phone: [facility] 11-02-2024 15:26-0400 Respiratory rate 14 /min Dr. Melodie Londono MD Work Phone: [facility] 11-02-2024 15:26-0400 SaO2% (BldA) [Mass fraction] 100 % Dr. Melodie Londono MD Work Phone: [facility] 11-02-2024 15:26-0400 Systolic blood pressure 145 mm[Hg] Dr. Melodie Londono MD Work Phone: [facility] 11-02-2024 12:06-0400 Body height 180.[address] Melodie Londono MD Work Phone: [facility] 11-02-2024 12:06-0400 Body mass index (BMI) [Ratio] 16.5 kg/m2 Dr. Melodie Londono MD Work Phone: [facility] 11-02-2024 12:06-0400 Body weight 53.[address] Melodie Londono MD Work Phone: [facility] 04-25-2024 15:56-0500 Body height 177.8 cm Mindi Ferro MD Work Phone: [facility] 04-25-2024 15:56-0500 Body mass index (BMI) [Ratio] 19.33 kg/m2 Mindi Ferro MD Work Phone: [facility] 04-25-2024 15:56-0500 Body weight 61.1 kg Mindi Ferro MD Work Phone: [facility] 04-25-2024 15:56-0500 Diastolic blood pressure 69 mm[Hg] Mindi Ferro MD Work Phone: [facility] 04-25-2024 15:56-0500 Heart rate 71 /min Mindi Ferro MD Work Phone: [facility] 04-25-2024 15:56-0500 Systolic blood pressure 158 mm[Hg] Mindi Ferro MD Work Phone: [facility] 08-29-2023 13:36-0400 Body weight 65.2 kg Mindi Ferro MD Work Phone: [facility] 08-29-2023 13:36-0400 Diastolic blood pressure 101 mm[Hg] Mindi Ferro MD Work Phone: [facility] 08-29-2023 13:36-0400 Heart rate 68 /min Mindi Ferro MD Work Phone: [facility] 08-29-2023 13:36-0400 Respiratory rate 18 /min Mindi Ferro MD Work Phone: [facility] 08-29-2023 13:36-0400 SaO2% (BldA) [Mass fraction] 96 % Mindi Ferro MD Work Phone: [facility] 08-29-2023 13:36-0400 Systolic blood pressure 147 mm[Hg] Mindi Ferro MD Work Phone: [facility] 12-21-2022 11:36-0400 Diastolic blood pressure 78 mm[Hg] [facility] 12-21-2022 11:36-0400 Heart rate 61 /min [facility] 12-21-2022 11:36-0400 Respiratory rate 14 /min [facility] 12-21-2022 11:36-0400 SaO2% (BldA) [Mass fraction] 97 % [facility] 12-21-2022 11:36-0400 Systolic blood pressure 160 mm[Hg] [facility] 12-21-2022 08:44-0400 Body height 180.34 cm [facility] 12-21-2022 08:44-0400 Body mass index (BMI) [Ratio] 20.6 kg/m2 [facility] 12-21-2022 08:44-0400 Body temperature 97.9 [degF] [facility] 12-21-2022 08:44-0400 Body weight 67.13 kg [facility] Encounters Encounter Date Encounter Type Care Provider Facility Start: 11-08-2024 Emergency department patient visit Kendall Bashir Facility:[facility] Start: 11-07-2024 End: 11-07-2024 ambulatory Senait Kuhn [facility] Start: 11-02-2024 End: 11-02-2024 Emergency department patient visit Dr. 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 Melodie Londono MD Work Phone: [facility] Work Phone: Start: 09-27-2024 End: 09-27-[address] Melodie Londono MD Work Phone: [facility] Work Phone: Start: 09-27-2024 End: 09-27-[address] Melodie Londono MD -[facility] Work Phone: Start: 09-27-2024 End: 09-27-2024 ambulatory Melodie Londono Facility:[facility] Start: 04-25-2024 End: 04-25-2024 ambulatory MINDI FERRO Facility:[facility] Start: 04-25-2024 End: 04-25-2024 Patient encounter procedure Mindi Ferro MD Work Phone: Neurology Comment on above: MCI (mild cognitive impairment) (Primary Dx) Start: 04-11-2024 End: 04-11-2024 ambulatory [facility] Facility:[facility] Start: 03-05-2024 End: 03-05-2024 ambulatory [facility] Facility:[facility] Start: 08-29-2023 End: 08-29-2023 ambulatory MINDI FERRO Facility:[facility] Start: 08-29-2023 End: 08-29-2023 Patient encounter procedure Mindi Ferro MD Work Phone: Neurology Comment on above: Memory changes (Prim dariana Dx); Bilateral hearing loss, unspecified hearing loss type Start: 07-20-2023 Telephone encounter Scott Lambert M D Work Phone: Neurology Comment on above: Appointment (Referra l to Neurology ) Start: 07-04-2023 End: 07-04-2023 ambulatory [facility] Work Phone: Start: 07-04-2023 End: 07-04-[address] [facility] Work Phone: Start: 12-31-2022 End: 12-31-2022 ambulatory [facility] Work Phone: Start: 12-31-2022 End: 12-31-2022 Patient encounter procedure [facility], Specimen Work Phone: Start: 12-30-2022 End: 12-30-2022 Patient encounter procedure [facility] Start: 12-21-2022 End: 12-21-2022 Emergency department patient visit [facility]-Emergency Department Work Phone: Start: 07-12-2022 End: 07-12-2022 ambulatory [facility] Work Phone: Start: 07-12-2022 End: 07-12-2022 Patient encounter procedure [facility] Start: 06-30-2022 Telephone encounter Mindi Rico Work Phone: Neurology Comment on above: Appointment (Referra l to Neurology ) Start: 06-08-2022 End: 06-08-2022 Patient encounter procedure [facility], Specimen Start: 01-13-2022 End: 01-13-[address] [facility] Start: 12-15-2021 End: 12-15-2021 Patient encounter procedure [facility] Start: 11-10-2021 End: 11-10-[address] [facility] Start: 10-12-2021 End: 10-12-2021 [facility] Date Procedure Procedure Detail Performing Clinician Start: 11-02-2024 Computed tomography of abdomen and pelvis with intravenous contrast Dr. Melodie Londono MD Work Phone: Start: 11-02-[address] Melodie Londono MD Work Phone: Start: 09-27-2024 Plain X-ray abdomen Dr. Melodie Londono MD Work Phone: Start: 12-31-2022 Gastric Occult Blood Start: 12-31-2022 Measurement of occul t blood in stool specimen using immunoassay Start: 12-21-2022 Urine culture Start: 12-21-2022 Computed tomography of abdomen and pelvis with intravenous contrast Start: 01-13-2022 Diagnostic radiograp hy of abdomen, decubitus and erect Plan of Treatment Date Care Activity Detail Author Start: 07-04-2033 Urine microalbumin profile DTaP,Tdap,Td Vaccine (3 - Td or Tdap) [facility] Start: 11-02-2024 [facility] Start: 10-31-2024 End: 10-31-2024 Patient encounter procedure 10/31/2024 4:30 PM EDT Office Visit Neurology [address] [id number] Mindi Ferro MD [address] [place], [place] [id number] MCI f/u Neurology Comment on above: MCI f/u Start: 10-16-2024 Patient referral [facility] Work Phone: Start: 02-05-2024 Covid-19 Vaccine ( season) Covid-19 Vaccine ( season) [facility] Start: 06-06-2023 Advance Directive Discussion Advance Directive Discussion [facility] Start: 06-06-2023 Depression Assessment Depression Ass essment [facility] Start: 02-04-2023 Covid-19 Vaccine ( season) Covid-19 Vaccine ( season) [facility] Start: 02-04-2023 Influenza vaccination Influenza Vacc ine (#1) [facility] Start: 12-21-2022 Bacteria identified in Urine by Culture Urine Culture [facility] Start: 12-21-2022 [facility] Start: 06-06-2022 ADVANCE DIRECTIVE DISCUSSION ADVANCE DIRECTIVE DISCUSSION [facility] Start: 06-06-2022 DEPRESSION ASSESSMENT DEPRESSION ASS ESSMENT [facility] Start: 02-04-2022 Influenza vaccination INFLUENZA (#1) [facility] Start: 08-28-2019 Shingrix Vaccine (2 of 2) Shingrix Vaccine (2 of 2) [facility] Start: 2011 RSV Vaccine (1 - 1-d ose 75+ series) RSV Vaccine (1 - 1-dose 75+ series) [facility] Start: 2001 Pneumococcal Vaccine : 65+ (1 of 1 - PCV) Pneumococcal Vaccine: 65+ (1 of 1 - PCV) [facility] Start: 2001 PNEUMOCOCCAL: 65+ (1 - PCV) PNEUMOCOCCAL: 65+ (1 - PCV) [facility] Start: 1996 RSV Vaccine (1 - 1-d ose 60+ series) RSV Vaccine (1 - 1-dose 60+ series) [facility] Start: 1986 SHINGRIX VACCINE (1 of 2) SHINGRIX VACCINE (1 of 2) [facility] Start: 1981 DIABETES SCREEN DIABETES SCREEN [facility] Start: 1981 Diabetes Screening Diabetes Screenin g [facility] Start: 1955 Urine microalbumin profile [facility] Start: 1954 Anxiety Screening Anxiety Screening [facility] Start: 1954 Depression Screening Depression Scre ening [facility] Start: 1936 COVID-19 VACCINE (#1) COVID-19 VACCI NE (#1) [facility] CT Abdomen and Pelvi s W contrast IV [facility] End: 09-27-2024 MR Brain WO contrast MRI BRAIN WO IVCON Radiology Routine Memory changes 1 Occurrences starting 08/29/2023 until 09/27/2024 [facility] Work Phone: Comment on above: 1 Occurrences starti ng 08/29/2023 until 09/27/2024 End: 09-27-2024 MR Unspecified body region 3D post processing MRI 3D POST PROCESSING Radiology Routine Memory changes 1 Occurrences starting 08/29/2023 until 09/27/2024 [facility] Work Phone: Comment on above: 1 Occurrences starti ng 08/29/2023 until 09/27/2024 [facility] Work [facility]: [facility] Immunizations Immunization Date Immunization Notes Care Provider Fa cili 03-09-2019 influenza virus vaccine, unspecified formulation Mindi Ferro MD Work Phone: [facility] 03-15-2014 Pneumococcal Vaccine [facility] Work Phone: 03-15-2014 pneumococcal vaccine , unspecified formulation [facility] Payers Date Payer Category Payer Self-pay [id number] 2021 Unknown [id number] 2012 Medicare [id number] Medicare [id number] Self-pay SELF PAY BY PATIENT REQUEST [id number] Unknown [id number] Unknown [id number] Unknown [id number] Unknown [id number] Unknown [id number] Unknown [id number] Unknown [id number] Unknown [id number] Social History Date Type Detail Facility Tobacco smoking status NHIS Unknown if ever smoked [facility] Work Phone: Start: 1935 Sex Assigned At Male [facility] Start: 09-07-2014 End: 02-14-2023 Tobacco smoking status NHIS Unknown if ever smoked [facility] Start: 09-07-2014 None [facility] Start: 05-23-2013 Spouse/ Signif icant Other [facility] Start: 1935 Sex Assigned At Not on file [facility] Start: 08-29-2023 End: 04-25-2024 Gender identity Not on file [facility] Start: 08-29-2023 End: 04-25-2024 History of Social function [facility] National Score (1-100), lower number is lower risk 80 [facility] Start: 04-25-2024 End: 11-02-2024 Tobacco smoking status NHIS Never smoked tobacco [facility] Start: 04-25-2024 Tobacco use and exposure Smokeless tobacco non-user [facility] Start: 10-02-2024 Sex Male (finding) [facility] Clinical Notes 06-30-2022 to 11-02-2024 Note Date & Type Note Facility 11-02-2024 Radiology Diagnostic study note [facility] Imaging Services [address] [place] [address] Abdomen/Pelvis W IV Cont ONLY MR#: [id number] Acct: [id number] Name: ONEAL PAGE Rep #: [id number] : 1935 M 89 From: Kim Malcolm MD PCP: Dr. Melodie Londono MD Status: REG ER Study:Abdomen/Pelvis W IV Cont ONLY Date of E xam: 11/02/24 Exam# [id number] Ordering Dr: Trisha Lopez DO EXAM: CT Abdomen and Pelvis With Intravenous Contrast CLINICAL INDICATION: ABDOMINAL PAIN AND WEIGHT LOSS TECHNIQUE: Axial computed tomography images of the abdomen and pelvis with intravenous contrast. This CT exam was performed using one or more of the following dose reduction techniques: automated exposure control, adjustment of the mA and/or kV according to patient size, and/or use of iterative reconstruction technique. COMPARISON: CT Abdomen Pelvis dated 12/21/2022 FINDINGS: ARTIFACTS: Motion artifact. LUNG BASES: Unremarkable. No mass. No consolidation. ABDOMEN: LIVER: Hepatomegaly with fatty infiltration. Stable cysts in the right hepaticlobe and in the right kidney. GALLBLADDER AND BILE DUCTS: Unremarkable. No calcified stones. No ductal dilation. PANCREAS: Unremarkable. No mass. No ductal dilation. SPLEEN: Unremarkable. No splenomegaly. ADRENALS: Unremarkable. No mass. KIDNEYS AND URETERS: No stones within either kidney. No hydronephrosis. STOMACH AND BOWEL: Fecal retention in the colon consistent with constipation. No obstruction. No mucosal thickening. PELVIS: APPENDIX: No findings to suggest acute appendicitis. BLADDER: Multiple urinary bladder calculi. REPRODUCTIVE: The prostate gland is enlarged measuring 5.9 cm in maximum dimension. ABDOMEN and PELVIS: INTRAPERITONEAL SPACE: Unremarkable. No free air. No significant fluid collection. 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 No acute fracture. No dislocation. SOFT TISSUES: Unremarkable. VASCULATURE: Unremarkable. No abdominal aortic aneurysm. LYMPH NODES: Unremarkable. No enlarged lymph nodes. CT/Abdomen/Pelvis W IV Cont ONLY IMPRESSION: 1. The prostate gland is enlarged. Correlation with PSA values may be helpful if not previously performed. 2. Hepatomegaly with fatty infiltration. 3. No obstructive uropathy. 4. Fecal retention in the colon consistent with constipation. 5. Multiple urinary bladder calculi. Reading [facility] CC: Dr. Melodie Londono MD; Dr. Guilherme Lopez DO ~ Air Intercept Controller Supervisor: Signed [facility] 10-16-2024 Evaluation note Diagnosis Onset Date Resolution Weight loss, non-intentional acute October 16, 2024 2 :42pm GERD chronic October 16, 2024 2:42pm [facility] Work Phone: 1(126) 988-356504-24-2025 Radiology Diagnostic study note [facility] Imaging Services [address] [place] [address] Abdomen Single View MR#: [id number] Acct: [id number] Name: ONEAL PAGE Rep #: [id number] : 1935 M 89 From: Ian Means MD PCP: Dr. Melodie Londono MD Status: REG CLI Study:Abdomen Single View Date of Exam: 09/27/24 Exam# [id number] Ordering Dr: Lorene Londono MD PROCEDURE: ABDOMEN SINGLE VIEW 09/27/2024 REASON FOR EXAM: ABDOMINAL PAIN TECHNIQUE: Single view abdomen. FINDINGS: Bowel gas: Bowel gas pattern is normal. No evidence of bowel obstruction. Calcifications: No suspicious calcifications. Bones: The bones are unremarkable. Other: RAD/Abdomen Single View IMPRESSION: NEGATIVE KUB. Reading Location: [id number] CC: Dr. Melodie Londono MD ~ Air Intercept Controller Supervisor: Signed [facility]11-20-2024 Instructions* Patient Instructions* Mindi Ferro MD - 04/25/2024 5:21 PM EST You're going to; - eat smaller meals, more often - stay away from spicy food, fatty food, fried food - see if any of your medicines might contain lactose - try probiotic in addition to digestive enzymes - see if we can figure out what the stomach pill you take is Keep up the exercise ONLY drive in places you've already been. Do NOT drive to new places [facility] History of Present illness Narrative* Mindi Ferro MD - 04/25/2024 4:30 PM EST Images from the original note were not included. General Neurology Outpatient Clinic - f/u visit Date: April 25, 2024 Patient Name: Oneal Page Referring physician: Mindi Ferro [address] [facility] [address] Primary physician: Melodie Londono (Lorene) [address] [place] [address] Reason for Evaluation: memory f/u Previously seen 08/29/2023 for memory changes. MOCA but confounded by profound hearing loss. Plan for MRI brain wo and driving restriction to loca places only Accompanied by family (daughter, son-in-law, ) Interval History: Memory stable Remains physically active, recently got first place in a 5k Independent with ADLs Only driving to local places, no issues Having abdominal pain, being evaluated by PCP. Dairy seems to be a trigger. Starting some digestiveenzymes from daughter OUTPATIENT MEDICATIONS Current Outpatient Medications on File Prior to Visit Medication Sig lisinopril (ZESTRIL) 10 mg tablet Take 1 tablet by mouth every 48 hours. No current facility-administered medications on file prior to visit. MEDICAL HISTORY No past medical history on file. SURGICAL HISTORY No past surgical history on file. SOCIAL HISTORY Social History Tobacco Use Smoking status: Never Smokeless tobacco: Never FAMILY HISTORY FAMILY HISTORY Problem Relation Age of Onset Colon Cancer Mother Heart disease Father Multiple Sclerosis Sister Hypertension Sister Diabetes Sister Prostate Cancer Brother ALLERGIES ALLERGIES No Known Allergies REVIEW OF SYSTEMS: No fevers, chills No CP No SOB +abdominal pain, see HPI No insomnia No imbalance No falls PHYSICAL EXAM: BP 158/69 Pulse 71 Ht 177.8 cm (5' 10) Wt 61.1 kg (134 lb 11.2 oz) BMI 19.33 kg/m General appearance: Well appearing, alert, in no acute distress Neurological exam: Mental Status: MOCA: 917+1) Visuospastial/executive: 3/5 (correct clock) Namin/3 Attention: 5/6 Language: 1/3 (12 words) Abstraction: 0/2 Delayed recall: 0/5 (recalled 4 with choices) Orientation: 5/6 (missed month, stated Oct) 18-25 =mild cognitive impairment, 10-17 = moderate cognitive impairment, <10 = severe cognitive impairment Cranial Nerves: visual costa intact to confrontation, extraocular movements intact, facial sensation intact, face symmetric, no facial droop or ptosis, hearing intact to finger rub bilaterally, no dysarthria, palate elevate symmetrically, tongue protrudes midline, and shoulder shrug intact and symm etric. Motor: Right Upper: Left Upper: Deltoid: 5 Deltoid: 5 Triceps: 5 Triceps: 5 Biceps: 5 Biceps: 5 Dry Kiln Burner: 5 Dry Kiln Burner: 5 Right Lower: Left Lower: Iliopsoas: 5 Iliopsoas: 5 Knee flexor: 5 Knee flexor: 5 Knee extensor: 5 Knee extensor: 5 Motor Tone: Right Upper: Normal tone Left Upper: Normal tone Reflexes: 2/4 biceps, brachioradialis, patellars Sensation: intact BUE to touch, proprioception, vibration Coordination: Finger-to- nose-finger intact bilaterally and Keag-ux-aebm intact bilaterally. Gait: normal-based ASSESSMENT: 88 year old male with a history of HTN, GERD, hearing loss who presents for follow-up of cognitive changes. MOCA mild range abnormality, no worsening. Suspect MCI, continue monitoring given clinical stabliity PLAN: - trial probiotic with digestive enzymes - review OSH labs when available - f/u 6mo I spent a total of 40 minutes on the date of the service which included preparing to see the patient, [id number] patient care, completing clinical documentation, obtaining and/or reviewing separately obtained history, performing a medically appropriate examination, counseling and educating the pat ient/family/caregiver, ordering medications, tests, or procedures, independently interpreting results (not separately reported), communicating results to the patient/family/caregiver, and care coordination (not separately reported). Mindi Ferro MD Staff, General Neurology Pager: [phone] CC: Referring Physician: Mindi Steele[address] [place] [address] PCP: Melodie Londono (Raul) [address] [place] [address] documented in [facility] NoteHNO ID: [id number] Author: MINDI FERRO MD Service: ? Author Type: Physician Type: Progress Notes Filed: 04/25/2024 17:52 Note Text: General Neurology Outpatient Clinic - f/u visit Date: April 25, 2024 Patient Name: Oneal Page Referring physician: Mindi [address] [address] Primary physician: Melodie Londono ([place]) [address] [place] [address] Reason for Evaluation: memory f/u Previously seen 08/29/2023 for memory changes. MOCA but confounded by profound hearing loss. Plan for MRI brain wo and driving restriction to loca places only Accompanied by family (daughter, son-in-law, ) Interval History: Memory stable Remains physically active, recently got first place in a 5k Independent with ADLs Only driving to local places, no issues Having abdominal pain, being evaluated by PCP. Dairy seems to be a trigger. Starting some digestive enzymes from daughter OUTPATIENT MEDICATIONS Current Outpatient Medications on File Prior to Visit Medication Sig lisinopril (ZESTRIL) 10 mg tablet Take 1 tablet by mouth every 48 hours. No current facility-administered medications on file prior to visit. MEDICAL HISTORY No past medical history on file. SURGICAL HISTORY No past surgical history on file. SOCIAL HISTORY Social History Tobacco Use Smoking status: Never Smokeless tobacco: Never FAMILY HISTORY FAMILY HISTORY Problem Relation Age of Onset Colon Cancer Mother Heart disease Father Multiple Sclerosis Sister Hypertension Sister Diabetes Sister Prostate Cancer Brother ALLERGIES ALLERGIES No Known Allergies REVIEW OF SYSTEMS: No fevers, chills No CP No SOB +abdominal pain, see HPI No insomnia No imbalance No falls PHYSICAL EXAM: BP 158/69 Pulse 71 Ht 177.8 cm (5' 10) Wt 61.1 kg (134 lb 11.2 oz) BMI 19.33 kg/m? General appearance: Well appearing, alert, in no acute distress Neurological exam: Mental Status: MOCA: 917+1) Visuospastial/executive: 3/5 (correct clock) Namin/3 Attention: 5/6 Language: 1/3 (12 words) Abstraction: 0/2 Delayed recall: 0/5 (recalled 4 with choices) Orientation: 5/6 (missed month, stated Oct) 18-25 =mild cognitive impairment, 10-17 = moderate cognitive impairment, <10 = severe cognitive impairment Cranial Nerves: visual costa intact to confrontation, extraocular movements intact, facial sensation intact, face symmetric, no facial droop or ptosis, hearing intact to finger rub bilaterally, no dysarthria, palate elevate symmetrically, tongue protrudes midline, and shoulder shrug intact and symmetric. Motor: Right Upper: Left Upper: Deltoid: 5 Deltoid: 5 Triceps: 5 Triceps: 5 Biceps: 5 Biceps: 5 Dry Kiln Burner: 5 Dry Kiln Burner: 5 Right Lower: Left Lower: Iliopsoas: 5 Iliopsoas: 5 Knee flexor: 5 Knee flexor: 5 Knee extensor: 5 Knee extensor: 5 Motor Tone: Right Upper: Normal tone Left Upper: Normal tone Reflexes: 2/4 biceps, brachioradialis, patellars Sensation: intact BUE to touch, proprioception, vibration Coordination: Finger-to- nose-finger intact bilaterally and Itle-ub-lgck intact bilaterally. Gait: normal-based ASSESSMENT: 88 year old male with a history of HTN, GERD, hearing loss who presents for follow-up of cognitive changes. MOCA mild range abnormality, no worsening. Suspect MCI, continue monitoring given clinical stabliity PLAN: - trial probiotic with digestive enzymes - review OSH labs when available - f/u 6mo I spent a total of 40 minutes on the date of the service which included preparing to see the patient, [id number] patient care, completing clinical documentation, obtaining and/or reviewing separately obtained history, performing a medically appropriate examination, counseling and educating the patient/family/caregiver, ordering medications, tests, or procedures, independently interpreting results (not separately reported), communicating results to the patient/family/caregiver, and care coordination (not separately reported). Mindi Ferro MD Staff, General Neurology Pager: [phone] CC: Referring Physician: Mindi Ferro [id number] [facility] [id number] PCP: Melodie Londono ([facility]) [address] [id number] [facility] Instructions* Patient Instructions* Mindi Ferro MD - 08/29/2023 2:51 PM EDT Your memory test is moderately abnormal but I do think the hearing loss is playing a role. We're going to try to get a MRI to get more information about how worried we should be about your memory. Because your memory is NOT normal on the test today, please only drive locally for now. Don't drivenew places by yourself. documented in this encounterAultman [facility]03-25-[facility] History of Present illness Narrative* Mindi Ferro MD - 08/29/2023 1:00 PM EDT Images from the original note were not included. General Neurology Outpatient Clinic - new patient evaluation Date: August 29, 2023 Patient Name: Oneal Page Referring physician: No referring provider defined for this encounter. Primary physician: Melodie Londono ([facility]) [address] [place] [address] Reason for Evaluation: memory HPI The pt is a 88yo Left handed male with hx of - HTN - GERD - hearing loss Referred by PCP at [facility] for neurological consultation regarding MCI. My opinions and recommendations will be shared with consulting team via electronic medical record Accompanied by his , daughter, and son-in-law. Per EMR (scanned docs): patient saw PCP 07/04/2023. Does wear hearing aid. For MCI, plan for CMP, TSH, MRI brain wo. Per patient, he feels his memory is doing well overall. He completed high school and then [employer]. He came back and started working. He has had hearing loss for many years and does wear his hearing aids regularly except at night. He is independent with ADLs. He denies making mistakes with medicines or finances. He still drives, now mostly locally, and denies getting lost or gettin g into accidents. He's not concerned about his memory. There is no personal hx of learning disordernor family hx of dementia. He keeps physically active and works out 2x/week in addition to walking regularly Per family, patient did get lost about a year ago driving somewhere he wasn't familiar. 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 They never got the basket and the patient spent about 2 hours wandering in the car. They also notice some more repetitions in speech but it's uncertain how much is related to extreme hearing loss. They agree that patient is overall independentwith ADLs otherwise. He did have to have MRI for something else years ago and had a lot of anxiety with it and couldn't complete it. OUTPATIENT MEDICATIONS Current Outpatient Medications on File Prior to Visit Medication Sig lisinopril (ZESTRIL) 10 mg tablet Take 1 tablet by mouth every 48 hours. No current facility-administered medications on file prior to visit. MEDICAL HISTORY No past medical history on file. SURGICAL HISTORY No past surgical history on file. SOCIAL HISTORY FAMILY HISTORY FAMILY HISTORY Problem Relation Age of Onset Colon Cancer Mother Heart disease Father Multiple Sclerosis Sister Hypertension Sister Diabetes Sister Prostate Cancer Brother ALLERGIES ALLERGIES No Known Allergies REVIEW OF SYSTEMS: No fevers, chills No chest pain No SOB +hearing loss No abdominal pain PHYSICAL EXAM: BP 147/101 (BP Site: Left Arm, BP Position: Sitting, BP Cuff Size: Regular Adult) Pulse 68 Resp18 Wt 65.2 kg (143 lb 11.8 oz) SpO2 96% General appearance: Well appearing, alert, in no acute distress Neurological exam: Mental Status: MOCA: 15 (14 +1 for HS education) Visuospastial/executive: 2/5 (correct clock contour and numbers) Namin/3 (stated hippo instead of rhino) Attention: 2/6 (unable to perform serial 7s, but able to spell 4/6 letters correct for world backwards) Language: 0/3 (7 words) Abstraction: 2/2 Delayed recall: 0/5 (recalled 3 with choices) Orientation: 4/6 (missed date and city) 18-25 =mild cognitive impairment, 10-17 = moderate cognitive impairment, <10 = severe cognitive impairment Cranial Nerves: visual costa intact to confrontation, extraocular movements intact, facial sensation intact, face symmetric, no facial droop or ptosis, reduced hearing bilaterally, no dysarthria, palate elevate symmetrically, tongue protrudes midline, and shoulder shrug intact and symmetric. Motor: Right Upper: Left Upper: Deltoid: 5 Deltoid: 5 Triceps: 5 Triceps: 5 Biceps: 5 Biceps: 5 Dry Kiln Burner: 5 Dry Kiln Burner: 5 Right Lower: Left Lower: Iliopsoas: 5 Iliopsoas: 5 Knee flexor: 5 Knee flexor: 5 Knee extensor: 5 Knee extensor: 5 Motor Tone: Right Upper: Normal tone Left Upper: Normal tone Reflexes: 2/4 biceps, brachioradialis, patellars Sensation: intact BUE to touch, proprioception, vibration Coordination: Finger-to- nose-finger intact bilaterally and Ekqf-gw-qjnb intact bilaterally. Gait: normal-based. LABS/DATA: 07/04/2023 OSH labs Hemoglobin 15 LFTs wnl SCr 0.86 GFR >60 TSH 1.13 Vit B12 491 ASSESSMENT: The pt is a 88 year old male with a history of HTN, GERD, hearing loss who presents with some cognitive changes. His neurological examination shows moderate range cognitive impairment but is severelyconfounded by hearing loss. Nonetheless, would like to r/o neurodegenerative process. Recent labs with normal B12 and TSH PLAN: - MRI brain wo, volumetry with ativan prior to scan (family will drive him) - recommend only driving locally - continue physical activity - f/u 3mo to review results I spent a total of 50 minutes on the date of the service which included preparing to see the patient, jfjr-or-olvt patient care, completing clinical documentation, obtaining and/or reviewing separately obtained history, performing a medically appropriate examination, counseling and educating the pat ient/family/caregiver, ordering medications, tests, or procedures, independently interpreting results (not separately reported), and communicating results to the patient/family/caregiver. Mindi Ferro MD Staff, General Neurology Pager: [phone] CC: Referring Physician: No referring provider defined for this encounter. PCP: Melodie Londono ([facility]) [address] [place] [address] documented in this encounterAultman [facility]rville [facility]03-25-2024 NoteHNO ID: [id number] Author: MINDI FERRO MD Service: ? Author Type: Physician Type: Progress Notes Filed: 08/29/2023 15:59 Note Text: General Neurology Outpatient Clinic - new patient evaluation Date: August 29, 2023 Patient Name: Oneal Page Referring physician: No referring provider defined for this encounter. Primary physician: Melodie Londono ([facility]) [address] [place] [address] Reason for Evaluation: memory HPI The pt is a 88yo Left handed male with hx of - HTN - GERD - hearing loss Referred by PCP at [facility] for neurological consultation regarding MCI. My opinions and recommendations will be shared with consulting team via electronic medical record Accompanied by his , daughter, and son-in-law. Per EMR (scanned docs): patient saw PCP 07/04/2023. Does wear hearing aid. For MCI, plan for CMP, TSH, MRI brain wo. Per patient, he feels his memory is doing well overall. He completed high school and then served in the [email or web address]. He came back and started working. He has had hearing loss for many years and does wear his hearing aids regularly except at night. He is independent with ADLs. He denies making mistakes with medicines or finances. He still drives, now mostly locally, and denies getting lost or getting into accidents. He's not concerned about his memory. There is no personal hx of learning disorder nor family hx of dementia. He keeps physically active and works out 2x/week in addition to walking regularly Per family, patient did get lost about a year ago driving somewhere he wasn't familiar. 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 They never got the basket and the patient spent about 2 hours wandering in the car. They also notice some more repetitions in speech but it's uncertain how much is related to extreme hearing loss. They agree that patient is overall independent with ADLs otherwise. He did have to have MRI for something else years ago and had a lot of anxiety with it and couldn't complete it. OUTPATIENT MEDICATIONS Current Outpatient Medications on File Prior to Visit Medication Sig lisinopril (ZESTRIL) 10 mg tablet Take 1 tablet by mouth every 48 hours. No current facility-administered medications on file prior to visit. MEDICAL HISTORY No past medical history on file. SURGICAL HISTORY No past surgical history on file. SOCIAL HISTORY FAMILY HISTORY FAMILY HISTORY Problem Relation Age of Onset Colon Cancer Mother Heart disease Father Multiple Sclerosis Sister Hypertension Sister Diabetes Sister Prostate Cancer Brother ALLERGIES ALLERGIES No Known Allergies REVIEW OF SYSTEMS: No fevers, chills No chest pain No SOB +hearing loss No abdominal pain PHYSICAL EXAM: BP 147/101 (BP Site: Left Arm, BP Position: Sitting, BP Cuff Size: Regular Adult) Pulse 68 Resp 18 Wt 65.2 kg (143 lb 11.8 oz) SpO2 96% General appearance: Well appearing, alert, in no acute distress Neurological exam: Mental Status: MOCA: 15/30 (14 +1 for HS education) Visuospastial/executive: 2/5 (correct clock contour and numbers) Namin/3 (stated hippo instead of rhino) Attention: 2/6 (unable to perform serial 7s, but able to spell 4/6 letters correct for world backwards) Language: 0/3 (7 words) Abstraction: 2/2 Delayed recall: 0/5 (recalled 3 with choices) Orientation: 4/6 (missed date and city) 18-25 =mild cognitive impairment, 10-17 = moderate cognitive impairment, <10 = severe cognitive impairment Cranial Nerves: visual cotsa intact to confrontation, extraocular movements intact, facial sensation intact, face symmetric, no facial droop or ptosis, reduced hearing bilaterally, no dysarthria, palate elevate symmetrically, tongue protrudes midline, and shoulder shrug intact and symmetric. Motor: Right Upper: Left Upper: Deltoid: 5 Deltoid: 5 Triceps: 5 Triceps: 5 Biceps: 5 Biceps: 5 Dry Kiln Burner: 5 Dry Kiln Burner: 5 Right Lower: Left Lower: Iliopsoas: 5 Iliopsoas: 5 Knee flexor: 5 Knee flexor: 5 Knee extensor: 5 Knee extensor: 5 Motor Tone: Right Upper: Normal tone Left Upper: Normal tone Reflexes: 2/4 biceps, brachioradialis, patellars Sensation: intact BUE to touch, proprioception, vibration Coordination: Finger-to- nose-finger intact bilaterally and Ojsr-li-omay intact bilaterally. Gait: normal-based. LABS/DATA: 07/04/2023 OSH labs Hemoglobin 15 LFTs wnl SCr 0.86 GFR >60 TSH 1.13 Vit B12 491 ASSESSMENT: The pt is a 88 year old male with a history of HTN, GERD, hearing loss who presents with some cognitive changes. His neurological examination shows moderate range cognitive impairment but is severely confounded by hearing loss. Nonetheless, would like to r/o neurodegenerative process. Recent labs with normal B12 and TSH PLAN: - MRI brain wo, volumetry with ativan prior to scan (fami (more content not included)...[facility]02-15-[facility] Miscellaneous Notes* Telephone Encounter - Roshni Yeboah - 07/21/2023 4:17 PM EST Per appt desk, Patient is scheduled for 08/29/2023 Roshni Yeboah * Telephone Encounter - Roshni Yeboah - 07/20/2023 2:29 PM EST PCP's office faxed over referral again. Face sheet now specifies to contact the patient's daughter,Mariya, to schedule this appointment. Called Mariya- no answer. Left voicemail requesting [facility]. Roshni Yeboah documented in this encounterAultman [facility]01-25-2023 Miscellaneous Notes* Telephone Encounter - Roshni Yeboah - 06/30/2022 11:44 AM EST Received referral from patient's PCP/[facility] to get patient scheduled with Dr. Ferro for cognitive impairment. Called number on file-no answer. Left voicemail requesting a call back to our office to schedule appointment. Referral in scanned docs. Please fax cover sheet with appt information back to PCP's office after appointment is scheduled. Roshni Yeboah documented in this encounterAultman Orrville HospitalDischarge summary Author Yayo Mauro [facility] December 21, 2022 11:40am Note Date/Time December 21, 2022 11:4 0am [facility] Medical Records Department [address] [place] [address] Emergency Department Summary 12/21/22 MR#: [id number] Acct: [id number] Name: ONEAL PAGE Rep #:[id number] : [id number] From: Yayo Maruo DO PCP: Dr. Jeremy Londono MD Status: REG ER Location: ED HPI History of Present Illness Chief Complaint: Abd Pain Narrative Narrative: Patient is a 87-year-old male who is presenting to the ER with chronic complaints of midepigastric pain, hiccuping at nighttime, waking up at nighttimewith midepigastric discomfort. Patient has multiple tests ordered as an outpatient to be done on by his PCP. Patient was home with his . Patient came into the ER today because he did not want to wait till foroutpatient testing. Patient has no headache, no fever or chills. No chest painor shortness of breath. Patient does have positive abdominal pain acute on chronic, more focused to the midepigastric area. Patient has no urinary frequency urgency or burning. No bowel or bladder changes. Patient however does state that he does have a bowel movement daily, but they are small harder balls. We had discussed the possibility of patient being constipated. Patient has no abdominal bloating. No back pain. No other acute complaints at this time. Patient has no melena, no hematochezia, no emesis. No nausea vomiting. Patient states that he wakes up in the middle the night with his gnawing midepigastric pain that has been going on for 1 to 2 weeks so he came in for evaluation today. No other acute complaints. [facility] Medical History (Updated 12/21/22 @ 11:[address] Yayo Mauro, DO) Hypertension Home Medications Ranitidine [Zantac] 300 mg PO BID PRN Dyspnea ##60 09/07/14 [Rx Last Taken Unknown] lisinopril 10 mg-hydrochlorothiazide 12.5 mg tablet (Zestoretic) 10 mg PO DAILY 09/07/14 [History Last Taken Unknown] Allergy/AdvReac Type Severity Reaction Status Date / Time Sulfa (Sulfonamide Allergy Mild Rash Verified 12/21/22 08:47 Antibiotics) amoxicillin Allergy Unknown Verified 12/21/22 08:47 Social History Smoking Status: Never smoker ROS ROS ED ROS Narrative REVIEW OF SYSTEMS: Unless otherwise stated in this report the patient's positiveand negative responses for review of systems for constitutional, eyes, ENT, cardiovascular, respiratory, gastrointestinal, neurological, , musculoskeletal, and integument systems and related systems to the presenting problem are either stated in the history of present illness or were not pertinent or were negative for the symptoms and/or complaints related to the presenting medical problem. EXAM Physical Exam Narrative Exam Narrative: Vital signs reviewed and patient is not hypoxic. Patient is very pleasant, drove himself to the ER. General: The patient appears well and in no apparent distress. Patient is resting comfortably on cart. Not toxic, lethargic, or listless. Skin: Warm, dry, no pallor noted. There is no rash noted. Head: Normocephalic, atraumatic Eye: Normal conjunctiva, no drainage, EOMI. PERRL. Ears, Nose, Mouth, and Throat: oral mucosa is slightly dry. Nares patent. Mouth without vesicles. Cardiovascular: Regular Rate and Rhythm, no murmurs, gallops, or rubs Respiratory: Patient is in no distress, no accessory muscle use, lungs are clearto auscultation, no wheezing, rales or rhonchi Back: non-tender, no CVA tenderness bilaterally to percussion. NO CTLS midline or paraspinal tenderness to palpation. GI: Soft, mild midepigastric tenderness palpation, patient states the pain is not present at this time like it is in the middle the night. No tenderness topalpation, no masses appreciated. No rebound, guarding, or rigidity noted. Musculoskeletal: The patient has full range of motion of all extremities and joints with no difficulty. Patient has no motor, no sensory deficits. Neurological: A&O x4, normal speech, no focal neurological deficits. Psychiatric: Cooperative Const Vital Signs: 12/21/22 08:44 12/21/22 10:43 12/21/22 11:36 Temperature 97.9 F Temperature Source Temporal Pulse Rate 48 L 58 L 61 Respiratory Rate 16 14 14 Blood Pressure 155/89 H 158/79 H 160/78 H Blood Pressure Mean 111 105 Pulse Ox 98 97 97 Oxygen Delivery Method Room Air Room Air MDM MDM MDM Narrative Medical decision making narrative: Patient's CT of the abdomen pelvis showed multiple nonspecific findings. Patient has no elevation white blood cell count, patient has no acute findings on lab work. Patient does have leuk esterase in his urine, urine culture is pending. Patient has no urinary symptoms. Patient will increase fluids at home. Patient will start taking daily antacid medication; along with using either Maalox or Mylanta at bedtime to see if that helps with his pain. Patientwill continue to follow-up with PCP for additional outpatient testing. Patient will follow-up with GI physician as well if needed. Patient is aware of an EGD and what that is entailed. No questions at discharge. Patient looks well. Patient does feel better after IV fluids Lab Data Labs: Laboratory Results - last 24 hr 12/21/22 12/21/22 09:30 10:00 WBC 5.8 RBC 4.80 Hgb 14.5 Hct 43.9 MCV 91.5 MCH 30.2 MCHC 33.0 RDW Std Deviation 45.2 H RDW Coeff of Suri 13.3 Plt Count 212 MPV 10.5 Immature Gran % (Auto) 0.300 Neut % (Auto) 68.4 Lymph % (Auto) 16.0 L [place] % (Auto) 7.6 Eos % (Auto) 6.8 H Baso % (Auto) 0.9 Absolute Neuts (auto) 3.9 Absolute Lymphs (auto) 0.92 Nucleated RBC % 0 Sodium 139 Potassium 4.3 Chloride 107 Carbon Dioxide 28.0 Anion Gap 4 L BUN 10 Creatinine 0.93 Estim Creat Clear Calc 54.14 Est GFR (MDRD) Af Amer 99 Est GFR (MDRD) Non-Af 82 BUN/Creatinine Ratio 10.7 Glucose 109 H Calcium 8.9 Total Bilirubin 0.50 AST 17 ALT 17 Alkaline Phosphatase 54 Troponin I High Sens 8 Total Protein 6.8 Albumin 3.3 Globulin 3.5 Albumin/Globulin Ratio 0.9 Lipase 35 Urine Color Yellow Urine Clarity Sl. Cloudy Urine pH 8.0 Ur Specific [place] 1.015 Urine Protein Negative Urine Glucose (UA) Normal Urine Ketones Negative Urine Occult Blood 25 H Urine Nitrite Negative Urine Bilirubin Negative Urine Urobilinogen Normal Ur Leukocyte Esterase 500 H Urine RBC 0 SEEN Urine WBC 0-5 SEEN Ur Squamous Epith Cells 0 SEEN Amorphous Sediment 1+ Urine Bacteria 0 SEEN Urine Mucus 0 SEEN Radiography Diagnostic Testing: Clinical Impression(s) from Imaging Studies Abdomen/Pelvis CT 12/21/22 09:20 IMPRESSION: 1. No clearly demonstrated source for the patient''s new epigastric pain. 2. Enlarged, partially calcified prostate gland. 3. There are calcified urinary bladder stones. No hydronephrosis. 4. Sigmoid diverticulosis without acute diverticulitis. 5. Atherosclerotic calcifications present, as described. 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 6. Benign-appearing cysts seen in the left lobe of the liver and in the right kidney, as noted. 7. Multilevel degenerative changes of the lumbar spine. Electronically Signed: Jose De Jesus Butcher MD at 11:01 EDT Reading Location ID and State: [id number] / Unknown , Service support , EKG Initial EKG: Attestation: I personally reviewed and interpreted this EKG as follows: Comments: EKG interpretation. Normal sinus rhythm at 63 beats a minute. Normal axis deviation. No acute ST elevation, no acute ectopy. QTc of 409. Artifact seen. Compared to old EKG on September 07, 2014, no significant EKG changestoday Treatment and Re-Evaluation :: Patient feels better after IV fluids. Patient will follow-up with PCP. No questions at discharge. See MDM. Discharge Plan Triage Chief Complaint: Abd Pain ED Provider: Yayo Mauro Dx/Rx/DC Orders Clinical Impression: GERD, Dehydration, mild, Abdominal pain, Constipation Instructions: Abdominal Pain, Treating Constipation, ED Dehydration (Adult) Prescriptions: No Action lisinopril-hydrochlorothiazide [Zestoretic] 1 TABLET tablet 10 mg PO DAILY Patient Comments: BLOOD PRESSURE Ranitidine [Zantac] 300 MG tablet 300 mg PO BID PRN (Reason: Dyspnea) Qty: 60 0RF Primary Care Provider: Jeremy Londono Referrals: Jeremy Londono MD [Primary Care Provider] - Activity Restrictions/Additional Instructions: Increase fluids at home, Gatorade, Powerade or water. Use apple juice for prunejuice. Use qzio-zcf-wrjcscx MiraLAX to help with stool softener. Continue to follow-up with PCP for additional testing. Drink Maalox or Mylanta at bedtime to see if it would help with pain in the middle of the night. Also use antacid medication [id number]-[id number] if needed like daily Pepcid, Nexium, Prilosec, or Zantac. Disposition Disposition: Home, Self Care What to do if you have Problems For any increased pain, shortness of breath, bleeding, nausea or vomiting, chestpain, or any unexpected problems, contact your Primary Care Provider. Call [facility] ([phone]) or report to the closest Emergency Room. Call 911 if necessary. 12/21/22 1140 <Electronically signed by Yayo Mauro DO> Cosigner Signature (if applicable): CC: Dr. Jeremy Londono MD ~ Signed [facility] Work Phone: Evaluation noteNo assessment information available [facility] Work Phone: Evaluation note* Diagnosis Memory changes- Primary Memory loss Bilateral hearing loss, unspecified hearing loss type documented in this encounter [facility] Diagnosis MCI (mild cognitive impairment)- Primary Mild cognitive impairment, so stated documented in this encounter [facility] note* Diagnosis Onset Date Resolution Status Admit Date Weight loss, non-intentional acute October 16, 2024 2:42pm GERD chronic October 16, 2024 2:42pm [facility] Work Phone: Hospital Discharge instructions Additional Instructions Increase fluids at home, Gatorade, Powerade or water. Use apple juice for prune juice. Use xvtc-dar-bwuvbft MiraLAX to help with stool softener. Continue to follow-up with PCP for additional testing. Drink Maalox or Mylanta at bedtime to see if it would help with pain in the middle of the night. Also use antacid medication uoif-jof-xlwocwb if needed like daily Pepcid, Nexium, Prilosec, or Zantac.[facility] Work Phone: Hospital Discharge instructionsAmbulatory Orders* Nutrition Referral Location: None Selected [facility] Work Phone: Hospital Discharge instructions Additional Instructions I would strongly recommend you following up with your primary care doctor to discuss your symptoms. You may also wish to see a dietary assistant there is often a wait though to see them. There was a moderate amount of stool noted on your CAT scan today as well as gas. I would recommend taking a stool softener which I have [facility]WS[facility] Work Phone: Reason for referral (narrative)No reason for referral information availableWSumma Health Work Phone: Chief Complaint and Reason for Visit Chief Complaint EORDER Chief Complaint ABD PAIN Chief Complaint NEED ORDER Chief Complaint Admit Date E-ORDER September 27, 2024 4:1 6pm Chief Complaint Admit Date E-ORDER September 27, 2024 4:1 6pm stomach issues October 16, 2024 2:42p m Reason for Visit Admit Date Weight loss, non-intentional October 16, 2 025 2:42pm GERD October 16, 2024 2:42p m Chief Complaint Admit Date E-ORDER September 27, 2024 4:1 6pm stomach issues October 16, 2024 2:42p m ABD PAIN November 02, 2024 12:06 pm Family History No Family History Records Found Relationship Condition Age at Onset Recorded Date/T matt Unknown Family History?No pertinent history Unkno wn September 07, 2014 3:45am Family History?No pertinent history Unkno wn September 07, 2014 3:45am Relationship Condition Age at Onset Recorded Date/T matt Unknown Family History?No pertinent history Unkno wn September 07, 2014 2:45am Family History?No pertinent history Unkno wn September 07, 2014 2:45am Relationship Condition Age at Onset Recorded Date/T matt Not Specified Malignant neoplasm of colon Unknown Cardiac disease Unknown Advance Directives No Advanced Directives Records Found Advance Directive Response Recorded Date/ Time Advance Directives Yes September 07 3:36am Living Will Yes September 07, 2014 3:36am Power of Silk Trimmer Yes September 07 3:36am Advance Directive Response Recorded Date/ Time Advance Directives Yes September 07 2:36am Living Will Yes September 07, 2014 2:36am Power of Silk Trimmer Yes September 07 2:36am Advance Directive Response Recorded Date/ Time Advance Directives Yes September 07 3:36am Living Will Yes December 21, 2022 8:54am Power of Silk Trimmer Yes December 21 8:54am Name of Medical Power of Silk Trimmer ? December 21, 2022 8:54am Advance Directive Response Recorded Date/ Time Advance Directives Yes September 07 2:36am Living Will Yes December 21, 2022 7:54am Power of Silk Trimmer Yes December 21 7:54am Advance Directive Response Recorded Date/ Time Advance Directives Yes September 07 3:36am Reason for Referral Specialty Diagnoses / Procedures Referred By Sylvia butt Referred To Contact MR IMAGING Diagnoses Memory changes Procedures MRI 3D POST PROCESSING 3D RENDERING W/INTERP&POSTPROC DIFF WORK STATION Mindi Ferro MD [address] [place] [id number] [place] [address] Referral ID Status Reason Start Date Expiration Date Visits Requested Visits Authorized [id number] Authorized Auto-Generat ed Referral 08/29/2023 09/27/2024 1 1 Specialty Diagnoses / Procedures Referred By Sylvia butt Referred To Contact MR IMAGING Diagnoses Memory changes Procedures MRI BRAIN WO IVCON MRI BRAIN BRAIN STEM W/O CONTRAST MATERIAL Mindi Ferro MD [address] [place] [address] [place] [address] Referral ID Status Reason Start Date Expiration Date Visits Requested Visits Authorized [id number] Authorized Auto-Generat ed Referral 08/29/2023 09/27/2024 1 1 Specialty Diagnoses / Procedures Referred By Sylvia butt Referred To Contact Diagnoses MCI (mild cognitive impairment) Procedures PROVIDER ORDERED FOLLOW UP OFFICE/OUTPATIENT [facility] 60 MINUTES Mindi Ferro MD [address] [place] [address] Referral ID Status Reason Start Date Expiration Date Visits Requested Visits Authorized [id number] Authorized PCP Requested Referral 10/23/2024 04/25/2025 1 1 Summary Purpose Additional Source Comments Goals (unrecognized section and content) Goals may be documented in a n alternate sectionGoals may be documented in an alternate sectionGoals may be documented in an alternate sectionGoals may be documented in an alternate sectionGoals may be documented in an alternate sectionGoals may be documented in an alternate sectionGoals may be documented in an alternate sectionGoals may be documented in an alternate sectionGoals may be documented in an alternate sectionGoals may be documented in an alternate sectionGoals may be documented in an alternate section Source Comments (unrecognize d section and content) In the event this informatio n is protected by the Federal Confidentiality of Alcohol and Drug Abuse Patient Records regulations: The Federal rules restrict any use of the information to criminally investigate or prosecute any alcohol or drug abuse patient.[facility] the event this information is protected by the Federal Confidentiality of Alcohol and Drug Abuse Patient Records regulations: The Federal rules restrict any use of the information to criminally investigate or prosecute any alcohol or drug abuse patient.[facility] the event this information is protected by the Federal Confidentiality of Alcohol and Drug Abuse Patient Records regulations: The Federal rules restrict any use of the information to criminally investigate or prosecute any alcohol or drug abuse patient.[facility] the event this information is protected by the Federal Confidentiality of Alcohol and Drug Abuse Patient Records regulations: The Federal rules restrict any use of the information to criminally investigate or prosecute any alcohol or drug abuse patient.[facility] Reason for Visit (unrecogniz ed section and content) Reason Comments Appointment Referral to Neurolog y Reason Comments Consult Reason Comments Established Patient Follow Up Care Teams (unrecognized sec tion and content) Director Of Integrated Marketing Relationship Specialty Start Date End Date Melodie Londono MD [address] [place] [id number] PCP - General Family Medicine 09/14/10 Team Status: Active Member Role Status Dates Dr. Jeremy Londono MD Family Provider Active Dr. Jeremy Londono MD Primary Care Provider Activ e Team Status: Inactive Member Role Status Dates Dr. Jeremy Londono MD Primary Care Provider, Attending Provider, Referring Provider Active Team Status: Inactive Member Role Status Dates Dr. Jeremy Londono MD Primary Care Provider Activ e Dr. Yayo Mauro DO Emergency Provider Active Team Status: Inactive Member Role Status Dates Dr. Jeremy Londono MD Primary Care Provider Activ e Dr. Yayo Mauro DO Attending Provider, Emergency Pro vider Active Team Status: Inactive Member Role Status Dates Dr. eJremy Londono MD Primary Care Provider, Atte nding Provider Active Director Of Integrated Marketing Relationship Specialty Start Date End Date Melodie Londono MD [address] [place] [address] PCP - General Family Medicine 09/14/10 Director Of Integrated Marketing Relationship Specialty Start Date End Date Melodie Londono MD [address] [place] [address] PCP - General Family Medicine 09/14/10 Director Of Integrated Marketing Relationship Specialty Start Date End Date Melodie Londono MD [address] [place] [address] PCP - General Family Medicine 09/14/10 Team Status: Active Member Role Status Dates Dr. Melodie Londono MD Family Provider Active Dr. Melodie Londono MD Primary Care Provider Acti ve Team Status: Inactive Member Role Status Dates Dr. Melodie Londono MD Primary Care Provider Acti ve Start: September 27, 2024 End: September 27, 2024 Dr. Melodie Londono MD Attending Provider Active Start: September 27, 2024 End: September 27, 2024 Dr. Melodie Londono MD Referring Provider Active Start: September 27, 2024 End: September 27, 2024 Team Status: Inactive Member Role Status Dates Dr. Melodie Londono MD Primary Care Provider Acti ve Start: October 16, 2024 End: October 16, 2024 Dr. Melodie Londono MD Referring Provider Active Start: October 16, 2024 End: October 16, 2024 AMBAR Duke Attending Provider Active S tart: October 16, 2024 End: October 16, 2024 Team Status: Active Member Role Status Dates Dr. Melodie Londono MD Primary Care Provider Acti ve Team Status: Inactive Member Role Status Dates Dr. Melodie Londono MD Primary Care Provider Acti ve Start: November 02, 2024 End: November 02, 2024 Dr. Guilherme Lopez DO Referring Provider Active Start: November 02, 2024 End: November 02, 2024 Dr. Guilherme Lopez DO Emergency Provider Active Start: November 02, 2024 End: November 02, 2024 (unrecognized sect ion and content) No Status Records FoundNo Status Records Found INFORMATION SOURCE (unrecogn ized section and content) DATE CREATED AUTHOR 04/28/2024 [facility] DATE CREATED AUTHOR AUTHOR'S ORGANIZ ATION 11/08/2024 [facility] FOR RECORDS PERTAINING TO PATIENTS WHO ARE [...] BE BASED ON THE PRIMARY CLINICAL RECORDS. [facility]. provides no warranty or guarantee of the accuracy or completeness of information in this document.
== END 2024-11-08 16:07 | disposition home or self-care (01) ==
PROVIDERS: Emergency Provider Surgery; PCP Family Medicine; Visit Provider Surgery
DX: K59.00 Constipation, unspecified (principal); F03.90 Unspecified dementia, unspecified severity, without behavioral disturbance, psychotic disturbance, mood disturbance, and anxiety; N40.0 Benign prostatic hyperplasia without lower urinary tract symptoms; R10.9 Unspecified abdominal pain; I10 Essential (primary) hypertension
CPT/HCPCS: 74177; 76870; 80053; 81001; 83690; 85025; 87086; 87088; 93976; 96360; 96361; 99284; Q9967; A4216

== ENCOUNTER → 2024-11-15 | Outpatient (CLI) | payer MEDICARE, SELFPAY ==
--- NOTE | 2024-11-15 12:46 | RAD_ITS ---
PROCEDURE: ABD INC DECUB AND/OR ERECT 11/15/2024 REASON FOR EXAM: CONSTIPATION, DISCOMFORT TECHNIQUE: Single view abdomen. COMPARISON: KUB, 09/23/2024. FINDINGS: There is a nonobstructive bowel gas pattern. There are vascular calcifications. Calcifications within the seminal vesicles and prostate gland. 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 RAD/Abd Inc Decub and/or Erect IMPRESSION: No evidence of acute abdominal pathology. Reading Location: [place] [address]
== END | disposition home or self-care (01) ==
LOC: MTRAD 12:45
PROVIDERS: PCP Family Medicine; Referring Provider Family Medicine; Visit Provider Family Medicine
DX: K59.00 Constipation, unspecified (principal)
CPT/HCPCS: 74019

== ENCOUNTER 2024-11-16 09:10 | Emergency (ER) | payer MEDICARE, SELFPAY ==
[2024-11-16 09:10] VITALS: BP 116/87; PULSE 74; RESP 18; TEMP 36.3; O2SAT 96; BMI 16.3
--- NOTE | 2024-11-16 09:26 | ED.RN ---
PT DESCRIBES HE HAS ABD PAIN. HAS BEEN SEEN HERE AT THE ED WELL HIS PCP. PT BROUGHT ALONG NEW RX OF MIRTAZAPINE AND SENNA. PT STATES HE HAS NOT TAKING THESE NEW MEDS REASON BEING IS HE DOESN'T WANT TO END UP HERE! IN REFERENCE TO THE ED. ALTHOUGH PT BROUGHT HIMSELF HERE TODAY.
--- NOTE | 2024-11-16 09:33 | RAD_ITS ---
EXAM: XR Abdomen, 1 View CLINICAL INDICATION: PAIN TECHNIQUE: Frontal supine view of the abdomen/pelvis. COMPARISON: No relevant prior studies available. FINDINGS: GASTROINTESTINAL TRACT: Fecal retention in the colon consistent with constipation. No dilation. BONES/JOINTS: Unremarkable. No acute fracture. RAD/Acute Abdomen Inc Chest IMPRESSION: Fecal retention in the colon consistent with constipation. Reading [facility]
--- NOTE | 2024-11-16 09:43 | EX.ED.DYSGE1 ---
HPI History of Present Illness Chief Complaint: Nausea/Vomiting Informant: patient Narrative Narrative: Patient is an 89-year-old male with history of dementia, hypertension and recent issues with epigastric abdominal discomfort and diagnosed with constipation. Patient states he is continue to have the symptoms. He states he gets a severe discomfort in his epigastric region. He describes it more as a stomach is upset. Denies any associated vomiting. Does have associated nausea. Denies any associated chest pain or difficulty breathing. Denies any other abdominal pains and states he has had good bowel movements. He states he does not have abdominal this morning which is unusual for him since he usually goes every day quite regularly. He went yesterday and states it was normal. Denies any black in the stool. When asked specifics about stool such as volume and consistency he just states that it is normal. He denies any radiation of the symptoms. States his symptoms are worse at night. Does not report any change with eating or drinking. Notes that he has been prescribed medications but is afraid to take them because he is afraid he will get diarrhea so he came to the ER instead. Chart review shows the patient has had 2 ER visits, PCP follow-up and a GI visit in the last 2 weeks for the same symptom. He has had blood work on both 11/02 and 11/08 including CBC, CMP and lipase which have all been normal. He had a CT on both 11/02 and 11/08 which were most consistent with constipation with suggestions of fecal impaction of the rectum and enlarged prostate/bladder wall thickening. He had an abdominal x-ray on 11/15/2024 which did not show any acute abnormalities. GI note on 11/28 reviewed which gives of roughly the same HPI. He was started on pantoprazole 40 mg daily and MiraLAX daily. Patient did not bring these medications in and actually brought in mirtazapine and docusate. Does not seem that he started any of these medications. There are concerns about 20 pound unintentional weight loss this year however patient has poor oral intake. [facility] Medical History Frequent headaches Cataracts, bilateral Hearing problem Abdominal bloating Low vitamin B12 level MCI (mild cognitive impairment) Dyspepsia Prostatic hypertrophy Stomachache Vitamin D deficiency Dehydration Hypertension Home Medications ?Medication ?Instructions ?Recorded ?Last Taken ?Type lisinopril 5 mg tablet 5 mg PO DAILY 11/08/24 Unknown History mirtazapine 7.5 mg tablet 7.5 mg PO QHS 11/08/24 Unknown History sennosides 8.6 mg-docusate sodium 1 tab-cap PO BID 14 days #28 tabs 11/08/24 Unknown Rx 50 mg tablet (Senna with Docusate Sodium) polyethylene glycol 3350 17 17 g PO DAILY 30 days #510 grams 11/16/24 Unknown Rx gram/dose oral powder (Miralax) Allergy/AdvReac Type Severity Reaction Status Date / Time amoxicillin Allergy Intermediate Rash Verified 11/16/24 09:14 Sulfa (Sulfonamide Allergy Mild Rash Verified 11/16/24 09:14 Antibiotics) chlorthalidone AdvReac Severe dizziness Verified 11/16/24 09:14 and stomachache Penicillins (PCN) AdvReac Intermediate unknown Verified 11/16/24 09:14 amlodipine AdvReac Mild dizziness Verified 11/16/24 09:14 guaifenesin (From Mucinex) AdvReac Mild GI upset Verified 11/16/24 09:14 Family History Sister Hypertension Multiple sclerosis Diabetes Mother Colon cancer Father Myocardial infarction Brother Cancer prostate Other Heart disease Surgical History Hx of appendectomy Social History Smoking Status: Never smoker alcohol intake: never substance use type: does not use frequency: other details: has been inactive until recently ROS ROS ED Constitutional Constitutional ED: Denies chills or fever(s) Cardiovascular Cardiovascular: Denies chest pain Respiratory/Chest Respiratory/Chest: Denies cough or dyspnea Gastrointestinal Gastrointestinal: Reports abdominal pain and nausea; Denies constipation, diarrhea, melena or vomiting Genitourinary Genitourinary ED: Denies dysuria or urinary frequency Musculoskeletal Musculoskeletal: Denies arthralgias or myalgias Neurologic Neurologic: Denies weakness Psychiatric Psychiatric: Denies anxiety Hematologic/Lymphatic Hematologic/Lymphatic: Denies easy bleeding or easy bruising EXAM Physical Exam Const Vital Signs: 11/16/24 09:10 11/16/24 12:09 Temperature 97.4 F L 98 F Temperature Source Oral Pulse Rate 74 78 Respiratory Rate 18 16 Blood Pressure 116/87 H 154/92 H Blood Pressure Mean 96 112 Pulse Ox 96 96 Oxygen Delivery Method Room Air Positive well developed Constitutional Narrative: Thin General Appearance ED: well developed and NAD; Negative for pallor Eyes PERRL General Eye ED: Negative for scleral icterus Neck supple Chest Wall inspection of chest normal and palpation of chest normal Resp normal respiratory effort and clear to auscultation bilaterally Cardio regular rate, regular rhythm and no murmurs GI non-tender and non-distended GI Narrative: Patient points to his epigastric region as his area of pain however palpation does not reproduce any discomfort. Negative Null sign. Palpation: soft; Negative for tender, guarding, mass or rebound tenderness present Extremity normal to inspection General Extremety ED: Negative for edema General Extremity: Negative for edema Neuro Neuro Narrative: Patient does seem to have difficulty recalling specifics of his last few ER visits. Does have a history of dementia and interaction with the patient is consistent with someone with dementia. Sensorium / Orientation: alert Motor Exam: Negative for general weakness Skin no rashes or lesions noted and no wounds General Skin Exam: Negative for jaundice or pallor MDM MDM MDM Narrative Medical decision making narrative: Patient evaluated for ongoing epigastric abdominal discomfort. He has been seen multiple times in the ER and by GI as well as his primary care doctor for this. Is been diagnosed with constipation and started on medications but has been too nervous to take any of them. He is quite well-appearing today. Vital signs are normal. Abdominal exam is benign. Differential includes continued constipation, gastritis, GERD, colon mass, small bowel obstruction, diverticulitis. Workup including CBC and CMP as well as lipase is obtained which is largely normal. No findings of JESSICA, electrolyte abnormality, transaminitis, pancreatitis or acute anemia. White blood cell count is normal low suspicion for acute intra-abdominal infection. Abdominal series shows fecal retention of the colon consistent with constipation?this is reviewed by myself as well as radiology. Given that his epigastric abdominal pain did obtain EKG to ensure this is not referred cardiac pain. EKG is normal I do not think he requires troponins. I do not think this is cardiac. Patient is given an enema in the ER with some results. Counseled extensively that he needs to take the bowel medicine to have regular bowel movements in order to start to feel better. He did verbalize understanding of this. I did have case management evaluate the patient as well to ensure that he has appropriate outpatient resources. She also spoke to the patient's son. Patient is amatory in the ER and is actually able to drive himself home. Lab Data Attestation: I reviewed the patient's lab results. Labs: Laboratory Results - last 24 hr 11/16/24 09:40 WBC 5.1 RBC 5.00 Hgb 15.1 Hct 45.0 MCV 90.0 MCH 30.2 MCHC 33.6 RDW Std Deviation 44.0 H RDW Coeff of Suri 13.3 Plt Count 216 MPV 11.0 Immature Gran % (Auto) 0.400 Neut % (Auto) 76.2 H Lymph % (Auto) 10.4 L Randolph % (Auto) 10.2 H Eos % (Auto) 1.8 Baso % (Auto) 1.0 Absolute Neuts (auto) 3.9 Absolute Lymphs (auto) 0.53 L Nucleated RBC % 0 Sodium 137 Potassium 3.9 Chloride 100 Carbon Dioxide 24.8 Anion Gap 12 BUN 20 H Creatinine 1.10 Estim Creat Clear Calc 33.99 L Est GFR (MDRD) Non-Af 65 BUN/Creatinine Ratio 18.5 Glucose 109 H Calcium 9.4 Total Bilirubin 0.95 Direct Bilirubin 0.42 H AST 28 ALT 17 Alkaline Phosphatase 43 Total Protein 6.5 Albumin 4.1 Globulin 2.4 Lipase 46 Radiography Diagnostic Testing: Clinical Impression(s) from Imaging Studies Acute Abdomen Series 11/16/24 09:33 IMPRESSION: Fecal retention in the colon consistent with constipation. 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 (Spoke with son, ensure that [facility] Discharge Plan Triage Chief Complaint: Nausea/Vomiting ED Provider: Lashon Ly Dx/Rx/DC Orders Clinical Impression: Epigastric pain, Constipation Instructions: ED Constipation (Adult), ED Epigastric Pain Uncertain Cause Prescriptions: Continued polyethylene glycol 3350 [Miralax] 17 gram/dose powder 17 g PO DAILY 30 Days Qty: 510 0RF No Action lisinopril 5 mg tablet 5 mg PO DAILY mirtazapine 7.5 mg tablet 7.5 mg PO QHS sennosides-docusate sodium [Senna with Docusate Sodium] 8.6-50 mg tablet 1 tab-cap PO BID 14 Days Qty: 28 0RF Primary Care Provider: Jared Londono Referrals: Jared Londono MD [Primary Care Provider] - Activity Restrictions/Additional Instructions: Please continue to follow-up with gastroenterology as well as your family doctor. Your x-ray does show significant constipation. You are given an enema. It is very important that you take either daily stool softener or MiraLAX. I have represcribed the MiraLAX that GI recommended you take. Take a spoonful of this mixed in 4 to 8 ounces of any beverage every morning. In addition you are also sent in an antiacid. The antacid will not worsen your constipation or cause diarrhea and I do recommend you start to take it. Print Language: Danish Disposition Disposition: Home, Self Care Discharge Date/Time: 11/16/24 12:10
[2024-11-16 09:54] LABS: Absolute Lymphocyte Count 0.53 X10^3/uL (0.83-4.51); Absolute Neutrophil Count 3.9 X10^3/uL (2.0-7.7); Basophil# 0.05 X10^3/uL; Eosinophil# 0.09 X10^3/uL; Eosinophils% 1.8 % (0-5); Hemoglobin 15.1 g/dL (13.0-16.5); Lymphocyte # 0.53 X10^3/ul (0.83-4.51); Lymphocyte % 10.4 % (19-41); Mean Corp Hgb Conc 33.6 g/dL (32-36); Mean Corpuscular Hgb 30.2 pg (27.0-32.0); Monocyte# 0.52 X10^3/uL; Monocyte% 10.2 % (0-10); NRBC Flagged by Analyzer 0 % (0-5); Neutrophil # 3.89 X10^3/uL (2.7-7.7); Neutrophil % 76.2 % (47-70); POSITIVE DIFFERENTIAL YES; Platelet Count 216 K/mm3 (150-450); RBC Distribution Width CV 13.3 % (11.6-14.6); White Blood Count 5.1 K/mm3 (4.4-11.0)
[2024-11-16 10:07] LABS: AST(SGOT) 28 U/L (<=37); Alanine Aminotransfer ALT/SGPT 17 U/L (<=46); Albumin, Serum 4.1 g/dL (3.4-4.8); Alkaline Phosphatase 43 U/L (40-129); Anion Gap 12 (5-15); BUN 20 mg/dL (4-19); BUN/Creat Ratio 18.5 RATIO (10-20); Bilirubin, Direct 0.42 mg/dL (0.00-0.30); Calcium,Total 9.4 mg/dL (7.6-11.0); Carbon Dioxide 24.8 mmol/L (21.0-32.0); Chloride 100 mmol/L (98-108); EST Glomerular Filtration Rate 65 (>60); Estimated Creatinine Clearance 33.99 ml/min (50-250); Globulin 2.4 g/dL (2.2-4.2); Glucose 109 mg/dL (70-99); Lipase 46 U/L (13-75); Potassium 3.9 mmol/L (3.3-5.1); Protein, Total 6.5 g/dL (5.9-8.4); Sodium Level 137 mmol/L (133-145); Total Bilirubin 0.95 mg/dL (0.00-1.30)
[2024-11-16 12:09] VITALS: BP 154/92; PULSE 78; RESP 16; TEMP 36.6; O2SAT 96
--- NOTE | 2024-11-16 12:18 | CM.ED ---
Social Work SW spoke with patient this morning. Patient told SW that he is living alone because his has gone to live in a snf. Patient was unable to recall name of the facility. Patient states he brought himself to the ER because he had stomach pains in the middle of the night. Patient states he had been feeling better and had not been taking his medications. Patient stated he was worried about taking the medications that have been prescribed to him because he is concerned they will make him feel bad. SW encouraged patient to follow doctors recommendations. Patient gave SW permission to call son. SW spoke with son who stated that he has taken his father to several doctors and now feels that his fathers complaints are more attention seeking or behavioral. Son told SW that he has HH through [facility] starting today, that they will be coming out 5 days a week, 2 hours a day. Son stated that he is hopeful they can assist in ensuring patient takes his medications. Patient is also receiving meals 5 days a week. Son stated he is planning to stay in town for another week or two to make sure that his father has enough support with the HH aides. No further needs identified at this time. Tierra Thacker, STOCK CONTROLLER, DETAIL SUPERVISOR
== END 2024-11-16 12:10 | disposition home or self-care (01) ==
PROVIDERS: Emergency Provider Emergency Medicine; PCP Family Medicine; Visit Provider Emergency Medicine
DX: R10.13 Epigastric pain (principal); F03.90 Unspecified dementia, unspecified severity, without behavioral disturbance, psychotic disturbance, mood disturbance, and anxiety; K59.00 Constipation, unspecified; I10 Essential (primary) hypertension; Z79.899 Other long term (current) drug therapy
CPT/HCPCS: 74022; 80048; 80076; 83690; 85025; 93005; 99285; A4216

== ENCOUNTER 2024-11-25 12:21 | Emergency (ER) | payer MEDICARE, SELFPAY ==
[2024-11-25 12:22] VITALS: BP 132/101; PULSE 86; RESP 16; TEMP 36.5; O2SAT 98; BMI 15.9
--- OUTSIDE RECORDS SUMMARY | 2024-11-25 13:07 | XMS RPT_ITS | CCD ---
Author Organization [facility] Care Team Providers Care Retail And Restaurant Associate Name Role Phone Melodie Londono MD Primary Care Provider MINDI FERRO Attending Unavailable MINDI FERRO Referring Unavailable MELODIE LONDONO Primary Care UnavailMINDI Lindsay Attending Unavailable MELODIE LONDONO Primary Care Unavailglen Londono MD, Dr. Coleman Primary Care Provider Dr. Melodie Londono MD Attending Provider Dr. Melodie Londono MD Referring Provider Chen Cantrell Attending Provider Dr. Guilherme Lopez DO Referring Provider Dr. Guilherme Lopez DO Emergency Provider Dr. Guilherme Lopez DO Attending Provider Bam SKATESMANSenait Bauman Attending Provider Dr. Kendall Bashir DO Emergency Provider Melodie Londono MD Primary Care Provider Dr. Kendall Bashir DO Attending Provider Dr. Lashon Ly DO Emergency Provider Dr. Lashon Ly DO Attending Provider Chen Lazo Attending Unavailable Chen Lazo Referring Unavailable Melodie Londono Primary Care Unavailable Melodie Londono Primary Care Unavailable Melodie Londono Attending Unavailable Melodie Londono Referring Unavailable Bry, Melodie Primary Care Unavailable Melodie Londono Attending Unavailable Melodie Londono Referring Unavailable [facility] Primary Care Unavailable TirsodudleyMelodie Attending Unavailable Kendall Bashir [facility] Unavailable [facility] Primary [facility] Unavailable Lashon Ly Attending Unavailable [facility] Unavailable Guilherme Lopez Attending Unavailable Guilherme Lopez Referring Unavailable [facility] Primary Care Unavailable Melodie Londono [facility]erring Unavailable [facility] Referring Unavailable Chen Lazo Attending Unavailable [facility] Primary Care Unavailable [facility] Referring Unavailable Senait Kuhn Attending Unavailable [facility] Unavailable Allergies Allergy Classification Reported Allergen(s) Allergy Type Date of Onset Reaction(s) Facility (15 sources) Amoxicillin Drug Allergy 09-08-19 15 Unknown, [facility] (16 sources) Sulfonamides (Antibiotic); Translations: [Sulfa (Sulfonamide Antibiotics)] Allergy to substance 09-08-19 15 Rash [facility] (4 sources) amLODIPine Drug Allergy 11-08-19 25 dizziness [facility] (4 sources) Chlorthalidone Drug Allergy 11-08-19 25 dizziness and stomachache [facility] (4 sources) guaiFENesin Drug Allergy 11-08-19 25 GI upset [facility] (4 sources) Penicillins Propensity to adverse reactions 11-08-19 25 unknown [facility] (1 source) amLODIPine Drug Allergy 11-17-19 25 [facility]ository (1 source) Amoxicillin Drug Allergy 11-17-19 25 [facility] (1 source) Chlorthalidone Drug Allergy 11-17-19 25 [facility] (1 source) guaiFENesin Drug Allergy 11-17-19 25 [facility] (1 source) Penicillins Drug allergy (disorder) 11-17-19 25 [facility] Medications Current Medications Medication Drug Class(es) Dates Sig (Normalized) Sig (Original) docusate sodium 50 mg / sennosides, [facility] 8.6 mg oral tablet (3 sources) Start: 11-08-2024 Sennosides-Docusa te Sodium (Senna With Docusate Sodium) 8.6-50 mg tablet Active 1 NMA PO TWICE A DAY November 08, 2024 3:45pm lisinopril 5 mg oral tablet (16 sources) Angiotensin Converting Enzyme Inhibitor Start: 11-08-2024 take 1 tablet by mouth once daily Lisinopril 5 mg tablet Active 5 mg PO DAILY November 08, 2024 12:00am Start: 11-06-2024 End: 11-07-2024 take 5 mg by mouth every other day Lisinopril (Zestril) 10 mg tablet Discontinued 5 mg PO .QOD November 06, 2024 12:56pm November 07, 2024 11:26am Start: 10-11-2024 End: 11-06-2024 take 1 tablet by mouth once daily Lisinopril (Zestril) 10 mg tablet Discontinued 10 mg PO daily October 11, 2024 12:00am November 06, 2024 1:00pm Start: 06-29-2017 lisinopril (ZE STRIL) 10 mg tablet Take 1 tablet by mouth every 48 hours. 06/29/2017 Active Comment on above: Take 1 tablet by mitchel th every 48 hours. LORazepam 0.5 mg oral tablet (1 source) Benzodiazepine Start: 08-29-19 End: 09-28-19 take 1 tablet by mouth every 30 days as needed for anxiety LORazepam (ATIVAN) 0.5 mg Indications: Memory changes Take 1 tablet by mouth as needed (for anxiety prior to MRI) for up to 30 days. 2 tablet 0 08/29/2023 09/28/2023 Active Comment on above: Take 1 tablet by mitchel th as needed (for anxiety prior to MRI) for up to 30 days. mirtazapine 7.5 mg oral tablet (3 sources) Start: 11-09-19 take 1 tablet by mouth at bedtime Mirtazapine 7.5 mg tablet Active 7.5 mg PO AT BEDTIME November 08, 2024 12:00am polyethylene glycol 3350 65198 mg powder for oral solution (5 sources) Osmotic Laxative Start: 11-09-19 End: 11-17-19 Polyethylene Glycol 3350 (Miralax) 17 gram/dose powder Active 17 g PO DAILY 510 November 16, 2024 11:15am Completed/Discontinued Medications Medication Drug Class(es) Dates Sig (Normalized) Sig (Original) dicyclomine hydrochloride 10 mg oral capsule (6 sources) Anticholinergic Start: 10-16-2024 End: 11-06-2024 take 1 capsule by mouth three times daily as needed for pain Dicyclomine 10 mg capsule Discontinued 10 mg PO THREE TIMES A DAY as needed for abdominal pain October 16, 2024 12:00am November 06, 2024 12:59pm docusate sodium 100 mg oral capsule (8 sources) Start: 11-08-2024 End: 11-08-2024 take 1 capsule by mouth once daily Docusate Sodium 100 mg capsule Discontinued 100 mg PO DAILY November 08, 2024 12:00am November 08, 2024 3:43pm Start: 11-02-2024 End: 11-06-2024 take 1 capsule by mouth once daily Docusate Sodium (Colace) 100 mg capsule Discontinued 100 mg PO DAILY November 02, 2024 12:00am November 06, 2024 12:59pm hydroCHLOROthiazide 12.5 mg / lisinopril 10 mg oral tablet (15 sources) Thiazide Diuretic, Angiotensin Converting Enzyme Inhibitor Start: 09-07-2014 End: 10-11-2024 take 1 tablet by mouth once daily Lisinopril-Hydrochlorothiazide (Zestoretic) 1 TABLET tablet Discontinued 10 mg PO DAILY September 07, 2014 2:06am October 11, 2024 5:04pm lansoprazole 30 mg delayed release oral capsule (8 sources) Proton Pump Inhibitor Start: 02-14-2023 End: 11-07-2024 take 1 capsule by mouth once daily as needed Lansoprazole (Prevacid) 30 mg capsule,delayed release(DR/EC) Discontinued 30 mg PO DAILY as needed February 14, 2023 12:00am November 07, 2024 11:26am C-Lansoprazole 3mg per ml mecobalamin 1 mg chewable tablet (4 sources) Start: 11-06-2024 End: 11-07-2024 take 1 tablet by mouth once daily Mecobalamin (Vitamin B12) 1,000 mcg tablet,chewable Discontinued 1000 ug PO daily November 06, 2024 12:00am November 07, 2024 11:26am Multivitamin tablet (4 sources) Start: 11-06-2024 End: 11-07-2024 Multivitamin tablet Discontinued 1 {tbl} PO daily November 06, 2024 12:00am November 07, 2024 11:27am pantoprazole 40 mg delayed release oral tablet (4 sources) Proton Pump Inhibitor Start: 11-06-2024 End: 11-07-2024 take 1 tablet by mouth once daily Pantoprazole 40 mg tablet,delayed release (DR/EC) Discontinued 40 mg PO daily November 06, 2024 12:00am November 07, 2024 11:27am raNITIdine 300 mg oral tablet (15 sources) Histamine-2 Receptor Antagonist Start: 09-07-2014 take [...] Date Documented Da te Episodic/Chronic Abdominal pain (20 sources) Abdominal pain; Translations: [Unspecified abdominal pain] Onset: 5 12-21-2022 Episodic Aortic; peripheral; and visceral artery aneurysms (8 sources) Aneurysm of splenic artery; 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-14-2023 Chronic Comment on above: CT- images reviewed, 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 Delirium, dementia, and amnestic and other cognitive disorders (9 sources) Dementia; Translations: [Unspecified dementia without behavioral disturbance] Onset: 5 11-07-2024 Chronic Comment on above: concerning for impai red decision-making capacity Esophageal disorders (20 sources) Gastroesophageal reflux disease 09-07-2014 Chronic Essential hypertension (15 sources) Hypertensive disorder 09-07-2014 Chronic Fluid and electrolyte disorders (10 sources) Mild dehydration; Translations: [Dehydration] 12-21-2022 Episodic Nutritional deficiencies (1 source) Vitamin D deficiency, unspecified; Translations: [Vitamin D deficiency, unspecified] Onset: Chronic Other ear and sense organ disorders (1 source) Bilateral hearing loss; Translations: [Unspecified hearing loss, bilateral] 08-29-2023 Chronic Other gastrointestinal disorders (19 sources) Constipation; Translations: [Constipation, unspecified] 12-21-2022 Episodic Other gastrointestinal disorders (1 source) Constipation, unspecified; Translations: [Constipation, unspecified] Onset: Episodic Other hereditary and degenerative nervous system conditions (1 source) Impaired cognition; Translations: [Mild cognitive impairment, so stated] 04-25-2024 Chronic Other nutritional; endocrine; and metabolic disorders (18 sources) Unintentional weight loss; Translations: [Abnormal weight loss] 10-16-2024 Episodic Other nutritional; endocrine; and metabolic disorders (8 sources) Failure to thrive 11-07-2024 Episodic Comment on above: likely multifactoria l: dementia, poor oral intake, nonadherence Other nutritional; endocrine; and metabolic disorders (2 sources) Adult failure to thrive syndrome; Translations: [Adult failure to thrive] 11-12-2024 Episodic Other nutritional; endocrine; and metabolic disorders (2 sources) Abnormal weight loss; Translations: [Abnormal weight loss] Onset: Episodic Residual codes; unclassified (1 source) Memory impairment; Translations: [Other amnesia] 08-29-2023 Episodic Residual codes; unclassified (4 sources) Insomnia; Translations: [Insomnia, unspecified] 11-06-2024 Episodic Unclassified (8 sources) Unintended weight loss; Translations: [R63.4 - Abnormal weight loss] Unclassified (2 sources) R63.4 - Abnormal weight loss Unclassified (4 sources) F03.90 - Unspecified dementia, unspecified severity, without behavioral disturbance, psychotic disturbance, mood disturbance, and anxiety,R10.13 - Epigastric pain,R63.4 - Abnormal weight loss Unclassified (4 sources) for gastroenterology Results Test Name Value Interpretation Reference Range Facility Absolute lymphocyte countOrd ered By: Lashon Ly on 11-16-2024 Lymphocytes Auto (Unsp spec) [#/Vol] 0.53 10*3/uL Low 0.83-4.51 [facility] Absolute neutrophil countOrd ered By: Lashon Ly on 11-16-2024 Neutrophils (Bld) [#/Vol] 3.9 10*3/uL 2.0-7.7 [facility] Acute Abdomen Inc [facility]on Acute Abdomen Inc [facility] [address] [place] [address] [id number] Acute Abdomen Inc Chest MR#: [id number] Acct: [id number] Name: ONEAL PAGE Rep #: [id number] : 1935 M 89 From: Bao Malcolm MD PCP: Dr. Melodie Londono MD Status: REG ER Study: Acute Abdomen Inc Chest Date of Exam: 11/16/24 Exam# [id number] Ordering Dr: Lashon Ly DO EXAM: XR Abdomen, 1 View CLINICAL INDICATION: PAIN TECHNIQUE: Frontal supine view of the abdomen/pelvis. COMPARISON: No relevant prior studies available. FINDINGS: GASTROINTESTINAL TRACT: Fecal retention in the colon consistent with constipation. No dilation. BONES/JOINTS: Unremarkable. No acute fracture. RAD/Acute Abdomen Inc Chest IMPRESSION: Fecal retention in the colon consistent with constipation. Reading Location: [facility] CC: Dr. Melodie Londono MD; Dr. Lashon Ly DO Drying Machine Operator: Signed Normal [facility] Anion gap in Serum or Plasma Ordered By: Lashon Ly on 11-16-2024 Anion gap [Moles/Vol] 12 mmol/L 5-15 [facility] Automated lymphocyte count a s percentage of total leukocytesOrdered By: Lashon Ly on 11-16-2024 Lymphocytes/100 WBC Auto (Unsp spec) 10.4 % Low 19-41 [facility] BUN/creatinine ratioOrdered By: Lashon Ly on 11-16-2024 Urea nitrogen/Creatinine [Mass ratio] 18.5 mg/mg 10- [facility] Basic Metabolic Profile (BMP )on 11-16-2024 BUN/CRE 18.5 RATIO Normal - [facility] Comment on above: Performed By: #### L 501.2450, L500.3400, L500.2500 #### [facility] [address] [place], [place], [address] Calcium [Mass/Vol] 9.4 mg/dL Normal 7.6-11.0 [facility] Comment on above: Performed By: #### L 501.2450, L500.3400, L500.2500 #### [facility] [address] [place], [address] Chloride [Moles/Vol] 100 mmol/L Normal 98-108 [facility] Comment on above: Performed By: #### L 501.2450, L500.3400, L500.2500 #### [facility] [address] [place], [address] CO2 [Moles/Vol] 24.8 mmol/L Normal 21.0-32.0 [facility] Comment on above: Performed By: #### L 501.2450, L500.3400, L500.2500 #### [facility] [address] [place], [address] Creatinine [Mass/Vol] 1.10 mg/dL Normal 0.70-1.20 [facility] Comment on above: Performed By: #### L 501.2450, L500.3400, L500.2500 #### [facility] [address] [place], [address] ECRCL 33.99 ml/min Low 50-250 [facility] Comment on above: Performed By: #### L 501.2450, L500.3400, L500.2500 #### [facility] [address] [place], [address] GAP 12 Normal 5-15 [facility] Comment on above: Performed By: #### L 501.2450, L500.3400, L500.2500 #### [facility] [address] [place], [address] GFR/1.73 sq M.predicted among non-blacks MDRD (S/P/Bld) [Vol rate/Area] 65 mL/min/{1.73_m2} Normal >60 [facility] Comment on above: Result Comment: mL/m in/1.73m2 CKD-EPI Creatinine Equation (2020) Performed By: #### L 501.2450, L500.3400, L500.2500 #### [facility] [address] [place], [address] Glucose [Mass/Vol] 109 mg/dL High 70-99 [facility] Comment on above: Performed By: #### L 501.2450, L500.3400, L500.2500 #### [facility] [address] [place], [address] Potassium [Moles/Vol] 3.9 mmol/L Normal 3.3-5.1 [facility] Comment on above: Performed By: #### L 501.2450, L500.3400, L500.2500 #### [facility] [address] [place], [address] Sodium [Moles/Vol] 137 mmol/L Normal 133-145 [facility] Comment on above: Performed By: #### L 501.2450, L500.3400, L500.2500 #### [facility] [address] [place], [address] Urea nitrogen [Mass/Vol] 20 mg/dL High 4-19 [facility] Comment on above: Performed By: #### L 501.2450, L500.3400, L500.2500 #### [facility] [address] [place], [address] Basophil percentageOrdered B y: Lashon Ly on 11-16-2024 Basophils/100 WBC (Bld) 1.0 % 0-1 [facility] Bilirubin directOrdered By: Lashon Ly on 11-16-2024 Bilirubin.direct [Mass/Vol] 0.42 mg/dL High 0.00-0.30 [facility] Bilirubin, totalOrdered By: Lashon Ly on 11-16-2024 Bilirubin [Mass/Vol] 0.95 mg/dL 0.00-1.30 [facility] CBC W/Diff, Automatedon 11-045 Absolute Lymph 0.53 X10 3/uL Low 0.83-4.51 [facility] Comment on above: Performed By: #### L 100.0100 #### [facility] [address] [place], [address] Absolute Neut 3.9 X10 3/uL Normal 2.0-7.7 [facility] Comment on above: Performed By: #### L 100.0100 #### [facility] [address] [place], [address] Basophils/100 WBC (Bld) 1.0 % Normal 0-1 [facility] Comment on above: Performed By: #### L 100.0100 #### [facility] [address] [place], [address] Eosinophils/100 WBC (Bld) 1.8 % Normal 0-5 [facility] Comment on above: Performed By: #### L 100.0100 #### [facility] [address] [place], [address] Erythrocyte distribution width (RBC) [Ratio] 13.3 % Normal 11.6-14.6 [facility] Comment on above: Performed By: #### L 100.0100 #### [facility] [address] [place], [address] Hematocrit (Bld) [Volume fraction] 45.0 % Normal 40-54 [facility] Comment on above: Performed By: #### L 100.0100 #### [facility] [address] [place], [address] Hemoglobin (Bld) [Mass/Vol] 15.1 g/dL Normal 13.0-16.5 [facility] Comment on above: Performed By: #### L 100.0100 #### [facility] [address] [place], [address] IG% 0.400 Normal 0.0-0.9 [facility] Comment on above: Result Comment: IG% - Immature Granulocytes (promyelocytes, myelocytes and metamyelocytes) > 1% indicates that a LEFT SHIFT is Present. Performed By: #### L 100.0100 #### [facility] [address] [place], [address] Lymphocytes/100 WBC (Bld) 10.4 % Low 19-41 [facility] Comment on above: Performed By: #### L 100.0100 #### [facility] [address] [place], [address] MCH (RBC) [Entitic mass] 30.2 pg Normal 27.0-32.0 [facility] Comment on above: Performed By: #### L 100.0100 #### [facility] [address] [place], [address] MCHC (RBC) [Mass/Vol] 33.6 g/dL Normal 32-36 [facility] Comment on above: Performed By: #### L 100.0100 #### [facility] [address] [place], [address] MCV (RBC) [Entitic vol] 90.0 fL Normal 80-94 [facility] Comment on above: Performed By: #### L 100.0100 #### [facility] [address] [place], [address] Monocytes/100 WBC (Bld) 10.2 % High 0-10 [facility] Comment on above: Performed By: #### L 100.0100 #### [facility] [address] [place], [address] Neutrophils/100 WBC (Bld) 76.2 % High 47-70 [facility] Comment on above: Performed By: #### L 100.0100 #### [facility] [address] [place], [address] Nucleated RBC (Bld) [#/Vol] 0 10*3/uL Normal 0-5 [facility] Comment on above: Performed By: #### L 100.0100 #### [facility] [address] [place], [id number] Platelet mean volume (Bld) [Entitic vol] 11.0 fL Normal 6.2-12.0 [facility] Comment on above: Performed By: #### L 100.0100 #### [facility] [address] [place], [id number] Platelets (Bld) [#/Vol] 216 10*3/uL Normal 150-450 [facility] Comment on above: Performed By: #### L 100.0100 #### [facility] [address] [place], [id number] RBC (Bld) [#/Vol] 5.00 10*6/uL Normal 4.6-6.2 [facility] Comment on above: Performed By: #### L 100.0100 #### [facility] [address] [place], [id number] RDW SD 44.0 fl High 35.1-43.9 [facility] Comment on above: Performed By: #### L 100.0100 #### [facility] [address] [place], [id number] WBC (Bld) [#/Vol] 5.1 10*3/uL Normal 4.4-11.0 [facility] Comment on above: Performed By: #### L 100.0100 #### [facility] [address] [place], [id number] Carbon dioxide, total [Moles /volume] in Central venous bloodOrdered By: Lashon Ly on 11-16-2024 CO2 [Moles/Vol] 24.8 mmol/L 21.0-32.0 [facility] Chloride assayOrdered By: Raciel Ly on 11-16-2024 Chloride [Moles/Vol] 100 mmol/L 98-108 [facility] Emergency Department Summary on 11-16-2024 Emergency Department Summary [facility] Medical Records Department [address] [place] [address] Emergency Department Summary 11/16/24 MR#: [id number] Acct: [id number] Name: ONEAL PAGE Rep #: [id number] : 1935 [id number] From: Lashon Ly DO PCP: Dr. Melodie Londono MD Status:DEP ER Location: ED HPI History of Present Illness Chief Complaint: Nausea/Vomiting Informant: patient Narrative Narrative: Patient is an 89-year-old male with history of dementia, hypertension and recent issues with epigastric abdominal discomfort and diagnosed with constipation. Patient states he is continue to have the symptoms. He states he gets a severe discomfort in his epigastric region. He describes it more as a stomach is upset. Denies any associated vomiting. Does have associated nausea. Denies any associated chest pain or difficulty breathing. Denies any other abdominal pains and states he has had good bowel movements. He states he does not have abdominal this morning which is unusual for him since he usually goes every day quite regularly. He went yesterday and states it was normal. Denies any black in the stool. When asked specifics about stool such as volume and consistency he just states that it is normal. He denies any radiation of the symptoms. States his symptoms are worse at night. Does not report any change with eating or drinking. Notes that he has been prescribed medications but is afraid to take them because he is afraid he will get diarrhea so he came to the ER instead. Chart review shows the patient has had 2 ER visits, PCP follow-up and a GI visit in the last 2 weeks for the same symptom. He has had blood work on both 11/02 and 11/08 including CBC, CMP and lipase which have all been normal. He had a CT on both 11/02 and 11/08 which were most consistent with constipation with suggestions of fecal impaction of the rectum and enlarged prostate/bladder wall thickening. He had an abdominal x-ray on 11/15/2024 which did not show any acute abnormalities. GI note on 11/28 reviewed which gives of roughly the same HPI. He was started on pantoprazole 40 mg daily and MiraLAX daily. Patient did not bring these medications in and actually brought in mirtazapine and docusate. Does not seem that he started any of these medications. There are concerns about 20 pound unintentional weight loss this year however patient has poor oral intake. [facility] Medical History Frequent headaches Cataracts, bilateral Hearing problem Abdominal bloating Low vitamin B12 level MCI (mild cognitive impairment) Dyspepsia Prostatic hypertrophy Stomachache Vitamin D deficiency Dehydration Hypertension Home Medications ???Medication ???Instructions ???Recorded ???Last Taken ???Type lisinopril 5 mg tablet 5 mg PO DAILY 11/08/24 Unknown His tory mirtazapine 7.5 mg tablet 7.5 mg PO QHS 11/08/24 Unknown His tory sennosides 8.6 mg-docusate sodium 1 tab-cap PO BID 14 days #28 tabs 11/08/24 Unknown Rx 50 mg tablet (Senna with Docusate Sodium) polyethylene glycol 3350 17 17 g PO DAILY 30 days #510 grams 0 11/16/24 Unknown Rx gram/dose oral powder (Miralax) Allergy/AdvReac Type Severity Reaction Status Date / Time amoxicillin Allergy Intermediate Rash Verified 11/16/24 09:14 Sulfa (Sulfonamide Allergy Mild Rash Verified 11/16/24 09:14 Antibiotics) chlorthalidone AdvReac Severe dizziness Verified 11/16/24 09:14 and stomachache Penicillins (PCN) AdvReac Intermediate unknown Verified 11/16/24 09:14 amlodipine AdvReac Mild dizziness Verified 11/16/24 09:14 guaifenesin (From Mucinex) AdvReac Mild GI upset Verified 11/16/24 09:14 Family History Sister Hypertension Multiple sclerosis Diabetes Mother Colon cancer Father Myocardial infarction Brother Cancer prostate Other Heart disease Surgical History Hx of appendectomy Social History Smoking Status: Never smoker alcohol intake: never substance use type: does not use frequency: other details: has been inactive until recently ROS ROS ED Constitutional Constitutional ED: Denies chills or fever(s) Cardiovascular Cardiovascular: Denies chest pain Respiratory/Chest Respiratory/Chest: Denies cough or dyspnea Gastrointestinal Gastrointestinal: Reports abdominal pain and nausea; Denies constipation, diarrhea, melena or vomiting Genitourinary Genitourinary ED: Denies dysuria or urinary frequency Musculoskeletal Musculoskeletal: Denies arthralgias or myalgias Neurologic Neurologic: Denies weakness Psychiatric Psychiatric: Denies anxiety Hematologic/Lymphatic Hematologic/Lymphatic: Waqar (more content not included)... Normal [facility] Eosinophil percentageOrdered By: Lashon Ly on 11-16-2024 Eosinophils/100 WBC (Bld) 1.8 % 0-5 [facility] Erythrocyte distribution wid th ratioOrdered By: Lashon Ly on 11-16-2024 Erythrocyte distribution width (RBC) [Ratio] 13.3 % 11.6-14.6 [facility] Erythrocyte distribution wid th standard deviationOrdered By: Lashon Ly on 11-16-2024 Erythrocyte distribution width (RBC) [Ratio] 44.0 fl High 35.1-43.9 [facility] Glomerular filtration rate ( GFR) estimation/1.73 sq m using serum, plasma, or whole bOrdered By: Lashon Ly on 11-16-2024 GFR/1.73 sq M.predicted among non-blacks MDRD (S/P/Bld) [Vol rate/Area] 65 mL/min/{1.73_m2} >60 [facility] Comment on above: mL/min/1.73m2 CKD-EP I Creatinine Equation (2020) Hematocrit Auto (Bld) [Volum e fraction]Ordered By: Lashon Ly on 11-16-2024 Hematocrit (Bld) [Volume fraction] 45.0 % 40-54 [facility] Hemoglobin measurementOrdere d By: Lashon Ly on 11-16-2024 Hemoglobin (Bld) [Mass/Vol] 15.1 g/dL 13.0-16.5 [facility] Immature granulocytes/100 WB C Auto (Bld)Ordered By: Lashon Ly on 11-16-2024 Immature granulocytes/100 WBC (Bld) 0.400 % 0.0-0.9 [facility] Comment on above: IG% - Immature Granu locytes (promyelocytes, myelocytes and metamyelocytes) > 1% indicates that a LEFT SHIFT is Present. Laboratory - Chemistry and C hemistry - challengeOrdered By: Lashon Ly on 11-16-2024 AST [Catalytic activity/Vol] 28 U/L <38 [facility] Lipaseon 11-16-2024 Lipase [Catalytic activity/Vol] 46 U/L Normal 13-75 [facility] Comment on above: Result Comment: Nancy garcia note: LIPASE revised reference range effective 22. New Lipase methodology. Expected to produce lower values than the previous assay method. NEW Reference Range: 13 - 75 U/L Performed By: #### L 501.2450, L500.3400, L500.2500 #### [facility] [address] [place], [address] Lipase measurementOrdered By : Lashon Ly on 11-16-2024 Lipase [Catalytic activity/Vol] 46 U/L 13-75 [facility] Comment on above: Please note:LIPASE r evised reference range effective 22. New Lipase methodology. Expected to produce lower values than the previous assay method. NEW Reference Range: 13 - 75 U/L Liver Profileon 11-16-2024 Albumin [Mass/Vol] 4.1 g/dL Normal 3.4-4.8 [facility] Comment on above: Performed By: #### L 501.2450, L500.3400, L500.2500 #### [facility] [address] [place], [address] ALK PHOS 43 U/L Normal 40-129 [facility] Comment on above: Performed By: #### L 501.2450, L500.3400, L500.2500 #### [facility] [address] [place], [address] ALT [Catalytic activity/Vol] 17 U/L Normal <=46 [facility] Comment on above: Performed By: #### L 501.2450, L500.3400, L500.2500 #### [facility] [address] [place], [address] AST [Catalytic activity/Vol] 28 U/L Normal <=37 [facility] Comment on above: Performed By: #### L 501.2450, L500.3400, L500.2500 #### [facility] [address] [place], [address] Bilirubin [Mass/Vol] 0.95 mg/dL Normal 0.00-1.30 [facility] Comment on above: Performed By: #### L 501.2450, L500.3400, L500.2500 #### [facility] [address] [place], [address] Bilirubin.direct [Mass/Vol] 0.42 mg/dL High 0.00-0.30 [facility] Comment on above: Performed By: #### L 501.2450, L500.3400, L500.2500 #### [facility] [address] [place], [address] Globulin (S) [Mass/Vol] 2.4 g/dL Normal 2.2-4.2 [facility] Comment on above: Performed By: #### L 501.2450, L500.3400, L500.2500 #### [facility] [address] [place], [address] T PROT 6.5 g/dL Normal 5.9-8.4 [facility] Comment on above: Performed By: #### L 501.2450, L500.3400, L500.2500 #### [facility] [address] [place], [address] MCV (mean corpuscular volume ) determinationOrdered By: Lashon Ly on 11-16-2024 MCV (RBC) [Entitic vol] 90.0 fL 80-94 [facility] Mean corpuscular hemoglobin (MCH) determinationOrdered By: Lashon Ly on 11-16-2024 MCH (RBC) [Entitic mass] 30.2 pg 27.0-32.0 [facility] Mean corpuscular hemoglobin concentration (MCHC) determinationOrdered By: Lashon Ly on 11-16-2024 MCHC (RBC) [Mass/Vol] 33.6 g/dL 32-36 [facility] Mean platelet volume determi nationOrdered By: Lashon Ly on 11-16-2024 Platelet mean volume (Bld) [Entitic vol] 11.0 fL 6.2-12.0 [facility] Monocyte percentageOrdered B y: Lashon Ly on 11-16-2024 Monocytes/100 WBC (Bld) 10.2 % High 0-10 [facility] Neutrophil percentageOrdered By: Lashon Ly on 11-16-2024 Neutrophils/100 WBC (Bld) 76.2 % High 47-70 [facility] Nucleated red blood cell per centageOrdered By: Lashon Ly on 11-16-2024 Nucleated RBC/100 WBC (Bld) [Ratio] 0 % 0-5 [facility] Platelet countOrdered By: Raciel Ly on 11-16-2024 Platelets (Bld) [#/Vol] 216 10*3/uL 150-450 [facility] Potassium measurement (mass/ volume)Ordered By: Lashon Ly on 11-16-2024 Potassium (Unsp spec) [Mass/Vol] 3.9 mmol/L 3.3-5.1 [facility] RBC Auto (Bld) [#/Vol]Ordere d By: Lashon Ly on 11-16-2024 RBC (Bld) [#/Vol] 5.00 10*6/uL 4.6-6.2 [facility] Serum creatinine measurement (mass/volume)Ordered By: Lashon Ly on 11-16-2024 Creatinine [Mass/Vol] 1.10 mg/dL 0.70-1.20 [facility] Serum globulin measurementOr dered By: Lashon Ly on 11-16-2024 Globulin (S) [Mass/Vol] 2.4 g/dL 2.2-4.2 [facility] Serum glucose measurement (m ass/volume)Ordered By: Lashon Ly on 11-16-2024 Glucose [Mass/Vol] 109 mg/dL High 70-99 [facility] Serum or plasma alanine schroeder otransferase (ALT) measurementOrdered By: Lashon Ly on 11-16-2024 ALT [Catalytic activity/Vol] 17 U/L <47 [facility] Serum or plasma albumin dax urement (mass/volume)Ordered By: Lashon Ly on 11-16-2024 Albumin [Mass/Vol] 4.1 g/dL 3.4-4.8 [facility] Serum or plasma alkaline claribel sphatase measurementOrdered By: Lashon Ly on 11-16-2024 ALP [Catalytic activity/Vol] 43 U/L 40-129 [facility] Serum or plasma calcium dax urement (mass/volume)Ordered By: Lashon Ly on 11-16-2024 Calcium [Mass/Vol] 9.4 mg/dL 7.6-11.0 [facility] Serum or plasma urea nitroge n measurement (mass/volume)Ordered By: Lashon Ly on 11-16-2024 Urea nitrogen [Mass/Vol] 20 mg/dL High 4-19 [facility] Sodium levelOrdered By: Raj Ly on 11-16-2024 Sodium [Moles/Vol] 137 mmol/L 133-145 [facility] Total proteinOrdered By: Jana Ly on 11-16-2024 Protein [Mass/Vol] 6.5 g/dL 5.9-8.4 [facility] White blood cell (WBC) count Ordered By: Lashon Ly on 11-16-2024 WBC (Bld) [#/Vol] 5.1 10*3/uL 4.4-11.0 [facility] Abd Inc Decub and/or Erecton 11-15-2024 Abd Inc Decub and/or Erect [facility] [address] [place], [place] [address] Abd Inc Decub and/or Erect MR#: [id number] Acct: [id number] Name: ONEAL PAGE Rep #: [id number] : 1935 M 89 From: Barrett Lorenzo MD PCP: Dr. Melodie Londono MD Status: REG CLI Study: Abd Inc Decub and/or Erect Date of Exam: 11/15 Exam# [id number] Ordering Dr: Meldoie Londono PROCEDURE: ABD INC DECUB AND/OR ERECT 11/15/2024 REASON FOR EXAM: CONSTIPATION, DISCOMFORT TECHNIQUE: Single view abdomen. COMPARISON: KUB, 09/23/2024. FINDINGS: There is a nonobstructive bowel gas pattern. There are vascular calcifications. Calcifications within the seminal vesicles and prostate gland. 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 RAD/Abd Inc Decub and/or Erect IMPRESSION: No evidence of acute abdominal pathology. Reading Location: [place] [address] CC: Dr. Melodie Londono MD Drying Machine Operator: Signed Normal [facility] Urine Cultureon 11-10-2024 URC Below infection leve l. GNR Poss Pseudomonas sp [place] Count 1000-10,000 Normal [facility] Comment on above: Performed By: #### L 501.2450, L500.3400, L500.2500 #### [facility] [address] [place], [address] Abdomen/Pelvis WITH Contrast on 11-08-2024 Abdomen/Pelvis WITH Contrast [facility] [address] [place] [address] Abdomen/Pelvis WITH Contrast MR#: [id number] Acct: [id number] Name: ONEAL PAGE Rep #: [id number] : 1935 M 89 From: Bao Malcolm MD PCP: Dr. Melodie Londono MD Status: REG ER Study: Abdomen/Pelvis WITH Contrast Date of Exam: 10/28 Exam# [id number] Ordering Dr: Kendall Bashir DO EXAM: CT Abdomen and Pelvis With Intravenous Contrast CLINICAL INDICATION: ABDOMINAL PAIN TECHNIQUE: Axial computed tomography images of the abdomen and pelvis with intravenous contrast. This CT exam was performed using one or more of the following dose reduction techniques: automated exposure control, adjustment of the mA and/or kV according to patient size, and/or use of iterative reconstruction technique. COMPARISON: CT Abdomen Pelvis dated 11/02/2024 FINDINGS: LUNG BASES: Unremarkable. No mass. No consolidation. ABDOMEN: LIVER: Stable hepatic cysts. Hepatomegaly with fatty infiltration. GALLBLADDER AND BILE DUCTS: Unremarkable. No calcified stones. No ductal dilation. PANCREAS: Unremarkable. No mass. No ductal dilation. SPLEEN: Unremarkable. No splenomegaly. ADRENALS: Unremarkable. No mass. KIDNEYS AND URETERS: Unremarkable. No solid mass. No hydronephrosis. STOMACH AND BOWEL: Constipation with suggestion of fecal impaction of the rectum. Colonic diverticulosis without acute diverticulitis. No obstruction. PELVIS: APPENDIX: No findings to suggest acute appendicitis. BLADDER: Bladder wall thickening which may be due to the decompressed state of the bladder or due to cystitis. Urinary bladder calculi. REPRODUCTIVE: The prostate gland is enlarged measuring 5.9 cm in maximum dimension. ABDOMEN and PELVIS: INTRAPERITONEAL SPACE: Unremarkable. No free air. No significant fluid collection. BONES/JOINTS: No acute fracture. No dislocation. SOFT TISSUES: Unremarkable. VASCULATURE: Unremarkable. No abdominal aortic aneurysm. LYMPH NODES: Unremarkable. No enlarged lymph nodes. CT/Abdomen/Pelvis WITH Contrast IMPRESSION: 1. Constipation with suggestion of fecal impaction of the rectum. 2. The prostate gland is enlarged. Correlation with PSA values may be helpful if not previously performed. 3. Bladder wall thickening which may be due to the decompressed state of the bladder or due to cystitis. 4. Hepatomegaly with fatty infiltration. 5. Urinary bladder calculi. 6. Colonic diverticulosis without acute diverticulitis. Reading Location: [facility] CC: Dr. Kendall Bashir DO; Dr. Melodie Londono MD Drying Machine Operator: Signed Normal [facility] Absolute lymphocyte countOrd ered By: Kendall Bashir on 11-08-2024 Lymphocytes Auto (Unsp spec) [#/Vol] 0.68 10*3/uL Low 0.83-4.51 [facility] Absolute neutrophil countOrd ered By: Kendall Bashir on 11-08-2024 Neutrophils (Bld) [#/Vol] 3.6 10*3/uL 2.0-7.7 [facility] Anion gap in Serum or Plasma Ordered By: Kendalldiana Bashir on 11-08-2024 Anion gap [Moles/Vol] 10 mmol/L 5-15 [facility] Automated lymphocyte count a s percentage of total leukocytesOrdered By: [place] Krysten on 11-08-2024 Lymphocytes/100 WBC Auto (Unsp spec) 13.8 % Low 19-41 [facility] BUN/creatinine ratioOrdered By: [facility]hel[facility] AngelDonavan on 11-08-2024 Urea nitrogen/Creatinine [Mass ratio] 16.3 mg/mg 10-20 [facility] Basophil percentageOrdered B y: Kendall Bashir on 11-08-2024 Basophils/100 WBC (Bld) 0.8 % 0-1 [facility] Bilirubin Test strip Ql (U)O rdered By: [place] NadiaDonavan on 11-08-2024 Bilirubin Ql (U) Negative Negative [facility] Bilirubin, totalOrdered By: [facility] Health[facility]iguel AngelDonavan on 11-08-2024 Bilirubin [Mass/Vol] 0.66 mg/dL 0.00-1.30 [facility] CBC W/Diff, Automatedon Absolute Lymph 0.68 X10 3/uL Low 0.83-4.51 [facility] Comment on above: Performed By: #### L 500.4050, L100.0100, L501.2450 #### [facility] [address] [place], [address] Absolute Neut 3.6 X10 3/uL Normal 2.0-7.7 [facility] Comment on above: Performed By: #### L 500.4050, L100.0100, L501.2450 #### [facility] [address] [place], [address] Basophils/100 WBC (Bld) 0.8 % Normal 0-1 [facility] Comment on above: Performed By: #### L 500.4050, L100.0100, L501.2450 #### [facility] [address] [place], [address] Eosinophils/100 WBC (Bld) 1.2 % Normal 0-5 [facility] Comment on above: Performed By: #### L 500.4050, L100.0100, L501.2450 #### [facility] [address] [place], [address] Erythrocyte distribution width (RBC) [Ratio] 13.2 % Normal 11.6-14.6 [facility] Comment on above: Performed By: #### L 500.4050, L100.0100, L501.2450 #### [facility] [address] [place], [address] Hematocrit (Bld) [Volume fraction] 44.3 % Normal 40-54 [facility] Comment on above: Performed By: #### L 500.4050, L100.0100, L501.2450 #### [facility] [address] [place], [address] Hemoglobin (Bld) [Mass/Vol] 14.9 g/dL Normal 13.0-16.5 [facility] Comment on above: Performed By: #### L 500.4050, L100.0100, L501.2450 #### [facility] [address] [place], [address] IG% 0.400 Normal 0.0-0.9 [facility] Comment on above: Result Comment: IG% - Immature Granulocytes (promyelocytes, myelocytes and metamyelocytes) > 1% indicates that a LEFT SHIFT is Present. Performed By: #### L 500.4050, L100.0100, L501.2450 #### [facility] [address] [place], [id number] Lymphocytes/100 WBC (Bld) 13.8 % Low 19-41 [facility] Comment on above: Performed By: #### L 500.4050, L100.0100, L501.2450 #### [facility] [address] [place], [id number] MCH (RBC) [Entitic mass] 30.8 pg Normal 27.0-32.0 [facility] Comment on above: Performed By: #### L 500.4050, L100.0100, L501.2450 #### [facility] [address] [place], [address] MCHC (RBC) [Mass/Vol] 33.6 g/dL Normal 32-36 [facility] Comment on above: Performed By: #### L 500.4050, L100.0100, L501.2450 #### [facility] [address] [place], [address] MCV (RBC) [Entitic vol] 91.7 fL Normal 80-94 [facility] Comment on above: Performed By: #### L 500.4050, L100.0100, L501.2450 #### [facility] [address] [place], [address] Monocytes/100 WBC (Bld) 9.8 % Normal 0-10 [facility] Comment on above: Performed By: #### L 500.4050, L100.0100, L501.2450 #### [facility] [address] [place], [address] Neutrophils/100 WBC (Bld) 74.0 % High 47-70 [facility] Comment on above: Performed By: #### L 500.4050, L100.0100, L501.2450 #### [facility] [address] [place], [address] Nucleated RBC (Bld) [#/Vol] 0 10*3/uL Normal 0-5 [facility] Comment on above: Performed By: #### L 500.4050, L100.0100, L501.2450 #### [facility] [address] [place], [address] Platelet mean volume (Bld) [Entitic vol] 10.9 fL Normal 6.2-12.0 [facility] Comment on above: Performed By: #### L 500.4050, L100.0100, L501.2450 #### [facility] [address] [place], [id number] Platelets (Bld) [#/Vol] 209 10*3/uL Normal 150-450 [facility] Comment on above: Performed By: #### L 500.4050, L100.0100, L501.2450 #### [facility] [address] [place], [address] RBC (Bld) [#/Vol] 4.83 10*6/uL Normal 4.6-6.2 [facility] Comment on above: Performed By: #### L 500.4050, L100.0100, L501.2450 #### [facility] [address] [place], [address] RDW SD 44.7 fl High 35.1-43.9 [facility] Comment on above: Performed By: #### L 500.4050, L100.0100, L501.2450 #### [facility] [address] [place], [address] WBC (Bld) [#/Vol] 4.9 10*3/uL Normal 4.4-11.0 [facility] Comment on above: Performed By: #### L 500.4050, L100.0100, L501.2450 #### [facility] [address] [place], [address] Carbon dioxide, total [Moles /volume] in Central venous bloodOrdered By: Kendall Bashir on 11-08-2024 CO2 [Moles/Vol] 28.9 mmol/L 21.0-32.0 [facility] Chloride assayOrdered By: Reed Bashir on 11-08-2024 Chloride [Moles/Vol] 101 mmol/L 98-108 [facility] Comprehensive Metabolic Prof ilon 11-08-2024 Albumin [Mass/Vol] 3.9 g/dL Normal 3.4-4.8 [facility] Comment on above: Performed By: #### L 500.4050, L100.0100, L501.2450 #### [facility] [address] [place], [address] Albumin/Globulin [Mass ratio] 1.7 {ratio} Normal 0.9-2.4 [facility] Comment on above: Performed By: #### L 500.4050, L100.0100, L501.2450 #### [facility] [address] [place], [address] ALK PHOS 39 U/L Low 40-129 [facility] Comment on above: Performed By: #### L 500.4050, L100.0100, L501.2450 #### [facility] [address] [place], [address] ALT [Catalytic activity/Vol] 17 U/L Normal <=46 [facility] Comment on above: Performed By: #### L 500.4050, L100.0100, L501.2450 #### [facility] [address] [place], [address] AST [Catalytic activity/Vol] 24 U/L Normal <=37 [facility] Comment on above: Performed By: #### L 500.4050, L100.0100, L501.2450 #### [facility] [address] [place], [address] Bilirubin [Mass/Vol] 0.66 mg/dL Normal 0.00-1.30 [facility] Comment on above: Performed By: #### L 500.4050, L100.0100, L501.2450 #### [facility] [address] [place], [address] BUN/CRE 16.3 RATIO Normal 10-20 [facility] Comment on above: Performed By: #### L 500.4050, L100.0100, L501.2450 #### [facility] [address] [place], [address] Calcium [Mass/Vol] 8.9 mg/dL Normal 7.6-11.0 [facility] Comment on above: Performed By: #### L 500.4050, L100.0100, L501.2450 #### [facility] [address] [place], [address] Chloride [Moles/Vol] 101 mmol/L Normal 98-108 [facility] Comment on above: Performed By: #### L 500.4050, L100.0100, L501.2450 #### [facility] [address] [place], [address] CO2 [Moles/Vol] 28.9 mmol/L Normal 21.0-32.0 [facility] Comment on above: Performed By: #### L 500.4050, L100.0100, L501.2450 #### [facility] [address] [place], [address] Creatinine [Mass/Vol] 1.02 mg/dL Normal 0.70-1.20 [facility] Comment on above: Performed By: #### L 500.4050, L100.0100, L501.2450 #### [facility] [address] [place], [address] ECRCL 37.46 ml/min Low 50-250 [facility] Comment on above: Performed By: #### L 500.4050, L100.0100, L501.2450 #### [facility] [address] [place], [address] GAP 10 Normal 5-15 [facility] Comment on above: Performed By: #### L 500.4050, L100.0100, L501.2450 #### [facility] [address] [place], [address] GFR/1.73 sq M.predicted among non-blacks MDRD (S/P/Bld) [Vol rate/Area] 71 mL/min/{1.73_m2} Normal >60 [facility] Comment on above: Result Comment: mL/m in/1.73m2 CKD-EPI Creatinine Equation (2020) Performed By: #### L 500.4050, L100.0100, L501.2450 #### [facility] [address] [place], [address] Globulin (S) [Mass/Vol] 2.4 g/dL Normal 2.2-4.2 [facility] Comment on above: Performed By: #### L 500.4050, L100.0100, L501.2450 #### [facility] [address] [place], [address] Glucose [Mass/Vol] 90 mg/dL Normal 70-99 [facility] Comment on above: Performed By: #### L 500.4050, L100.0100, L501.2450 #### [facility] [address] [place], [address] Potassium [Moles/Vol] 4.1 mmol/L Normal 3.3-5.1 [facility] Comment on above: Performed By: #### L 500.4050, L100.0100, L501.2450 #### [facility] [address] [place] [place], [address] Sodium [Moles/Vol] 140 mmol/L Normal 133-145 [facility] Comment on above: Performed By: #### L 500.4050, L100.0100, L501.2450 #### [facility] [address] [place] [place], [address] T PROT 6.3 g/dL Normal 5.9-8.4 [facility] Comment on above: Performed By: #### L 500.4050, L100.0100, L501.2450 #### [facility] [address] [place], [address] Urea nitrogen [Mass/Vol] 17 mg/dL Normal 4-19 [facility] Comment on above: Performed By: #### L 500.4050, L100.0100, L501.2450 #### [facility] [address] [place] [place], [address] Emergency Department Summary on 11-08-2024 Emergency Department Summary [facility] Medical Records Department [address] [place] [address] Emergency Department Summary 11/08/24 MR#: [id number] Acct: [id number] Name: ONEAL PAGE Rep #: [id number] : 1935 89 From: Kendall Bashir DO PCP: Dr. Melodie Londono MD Status:REG ER Location: ED HPI History of Present Illness Chief Complaint: Abd Pain Narrative Narrative: Chief complaint and HPI: Early satiety, weight loss, abdominal pain/bloating. 89-year-old male with past medical history of dementia presents for evaluation of early satiety, weight loss, abdominal pain/bloating. History taken by patient, son, medical record. Patient was just seen on for same complaint. At that time had laboratory workup that was unremarkable, had CT abdomen pelvis that showed prostate enlargement and constipation. Patient was discharged home on Colace and told to follow-up with PCP. Patient has not followed up with PCP. He refuses to take the Colace per son. Patient states that his symptoms have been ongoing since July. Denies any significant change. Denies any fever, chills, shortness of breath, chest pain, vomiting, diarrhea, dysuria. Does endorse to constipation but states his last bowel movement was today to states they are hard. Son is asking to speak with social work for his dementia. Review of systems: See HPI Medications: As listed on the chart Allergies: As listed on the chart PFSH: Per chart Vital signs: As listed on the chart. Reviewed. Physical exam: Gen: A O x3, NAD Head: Normocephalic, atraumatic Eyes: No sclera icterus, conjunctiva clear ENT: Moist mucous membranes Neck: Trachea midline, No JVD CV: RRR, no murmurs, no peripheral edema Resp: Lungs CTA BL, no w/r/c GI: Abd soft, non-distended, non-tender, no r/r/g : No CVA tenderness. Uncircumcised penis. No penile tenderness or discharge. No penile or testicular swelling. Normal lie and position of the testicles. Right testicle tender to palpation without masses or skin changes. Cremasteric reflexes intact and equal bilaterally. Musc: Full ROM, no deformity Skin: Warm, dry Neuro: Alert, oriented, grossly intact, sensation intact Psych: Cooperative, appropriate mood and affect [facility] Medical History Frequent headaches Cataracts, bilateral Hearing problem Abdominal bloating Low vitamin B12 level MCI (mild cognitive impairment) Dyspepsia Prostatic hypertrophy Stomachache Vitamin D deficiency Dehydration Hypertension Home Medications ???Medication ???Instructions ???Recorded ???Last Taken ???Type lisinopril 5 mg tablet 5 mg PO DAILY 11/08/24 Unknown His tory mirtazapine 7.5 mg tablet 7.5 mg PO QHS 11/08/24 Unknown His tory polyethylene glycol 3350 17 17 g PO DAILY 30 days #510 grams 0 11/08/24 Unknown Rx gram/dose oral powder (Miralax) sennosides 8.6 mg-docusate sodium 1 tab-cap PO BID 14 days #28 tabs 11/08/24 Unknown Rx 50 mg tablet (Senna with Docusate Sodium) Allergy/AdvReac Type Severity Reaction Status Date / Time amoxicillin Allergy Intermediate Rash Verified 11/08/24 11:08 Sulfa (Sulfonamide Allergy Mild Rash Verified 11/08/24 11:08 Antibiotics) chlorthalidone AdvReac Severe dizziness Verified 11/08/24 11:08 and stomachache Penicillins (PCN) AdvReac Intermediate unknown Verified 11/08/24 11:08 amlodipine AdvReac Mild dizziness Verified 11/08/24 11:08 guaifenesin (From Mucinex) AdvReac Mild GI upset Verified 11/08/24 11:08 Family History Sister Hypertension Multiple sclerosis Diabetes Mother Colon cancer Father Myocardial infarction Brother Cancer prostate Other Heart disease Surgical History Hx of appendectomy Social History Smoking Status: Never smoker alcohol intake: never substance use type: does not use frequency: other details: has been inactive until recently EXAM Physical Exam Const Vital Signs: 11/08/24 11:08 11/08/24 11:08 11/08/24 11:56 Temperature 98.7 F Temperature Source Temporal Pulse Rate 52 L 40 L 70 Respiratory Rate 14 19 H Blood Pressure 137/66 H Blood Pressure Mean 89 Pulse Ox 98 98 Oxygen Delivery Method Room Air 11/08/24 12:00 11/08/24 12:30 11/08/24 13:00 Temperature Temperature Source Pulse Rate 59 L 68 63 Respiratory Rate 18 16 14 Blood Pressure 154/75 H 160/78 H 175/71 H Blood Pressure Mean 97 101 103 Pulse Ox 99 99 99 Oxygen Delivery Method 11/08/24 13:30 11/08/24 15:00 Temperature Temperature Source Pulse Rate 58 L 61 Respiratory Rate 15 18 (more content not included)... Normal [facility] Eosinophil percentageOrdered By: Kendall Bashir on 11-08-2024 Eosinophils/100 WBC (Bld) 1.2 % 0-5 [facility] Erythrocyte distribution wid th ratioOrdered By: Kendall Bashir on 11-08-2024 Erythrocyte distribution width (RBC) [Ratio] 13.2 % 11.6-14.6 [facility] Erythrocyte distribution wid th standard deviationOrdered By: Kendall Go on 11-08-2024 Erythrocyte distribution width (RBC) [Ratio] 44.7 fl High 35.1-43.9 [facility] Glomerular filtration rate ( GFR) estimation/1.73 sq m using serum, plasma, or whole bOrdered By: Kendall Bashir on 11-08-2024 GFR/1.73 sq M.predicted among non-blacks MDRD (S/P/Bld) [Vol rate/Area] 71 mL/min/{1.73_m2} >60 [facility] Comment on above: mL/min/1.73m2 CKD-EP I Creatinine Equation (2020) Hematocrit Auto (Bld) [Volum e fraction]Ordered By: Kendall Bashir on 11-08-2024 Hematocrit (Bld) [Volume fraction] 44.3 % 40-54 [facility] Hemoglobin measurementOrdere d By: Kendall Bashir on 11-08-2024 Hemoglobin (Bld) [Mass/Vol] 14.9 g/dL 13.0-16.5 [facility] Immature granulocytes/100 WB C Auto (Bld)Ordered By: Kendall Bashir on 11-08-2024 Immature granulocytes/100 WBC (Bld) 0.400 % 0.0-0.9 [facility] Comment on above: IG% - Immature Granu locytes (promyelocytes, myelocytes and metamyelocytes) > 1% indicates that a LEFT SHIFT is Present. Ketones Test strip Ql (U)Ord ered By: Kendall Bashir on 11-08-2024 Ketones Ql (U) Negative Negative [facility] - Chemistry and C hemistry - challengeOrdered By: Kendall Bashir on 11-08-2024 AST [Catalytic activity/Vol] 24 U/L <38 [facility] Lipaseon 11-08-2024 Lipase [Catalytic activity/Vol] 34 U/L Normal 13-75 [facility] Comment on above: Result Comment: Nancy garcia note: LIPASE revised reference range effective 22. New Lipase methodology. Expected to produce lower values than the previous assay method. NEW Reference Range: 13 - 75 U/L Performed By: #### L 500.4050, L100.0100, L501.2450 #### [facility] [place], [address] Lipase measurementOrdered By : Kendall Bashir on 11-08-2024 Lipase [Catalytic activity/Vol] 34 U/L 13-75 [facility] Comment on above: Please note:LIPASE r evised reference range effective 22. New Lipase methodology. Expected to produce lower values than the previous assay method. NEW Reference Range: 13 - 75 U/L MCV (mean corpuscular volume ) determinationOrdered By: Kendall Bashir on 11-08-2024 MCV (RBC) [Entitic vol] 91.7 fL 80-94 [facility] Mean corpuscular hemoglobin (MCH) determinationOrdered By: Kendall Bashir on 11-08-2024 MCH (RBC) [Entitic mass] 30.8 pg 27.0-32.0 [facility] Mean corpuscular hemoglobin concentration (MCHC) determinationOrdered By: Kendall Bashir on 11-08-2024 MCHC (RBC) [Mass/Vol] 33.6 g/dL 32-36 [facility] Mean platelet volume determi nationOrdered By: Kendall Bashir on 11-08-2024 Platelet mean volume (Bld) [Entitic vol] 10.9 fL 6.2-12.0 [facility] Microscopic analysis of urin e for red blood cells (RBC)Ordered By: Kendall Bashir on 11-08-2024 Microscopic analysis of urine for red blood cells (RBC) 0 SEEN /hpf 0-5 [facility] Monocyte percentageOrdered B y: Kendall Bashir on 11-08-2024 Monocytes/100 WBC (Bld) 9.8 % 0-10 [facility] Mucus LM Ql (Urine sed)Order ed By: Kendall Bashir on 11-08-2024 Mucus Ql (Urine sed) 0 SEEN /hpf [facility] Neutrophil percentageOrdered By: Kendall Bashir on 11-08-2024 Neutrophils/100 WBC (Bld) 74.0 % High 47-70 [facility] Nitrite Test strip Ql (U)Ord ered By: Kendall Bashir on 11-08-2024 Nitrite Ql (U) Negative Negative [facility] Nucleated red blood cell per centageOrdered By: Kendall Bashir on 11-08-2024 Nucleated RBC/100 WBC (Bld) [Ratio] 0 % 0-5 [facility] Platelet countOrdered By: Reed Bashir on 11-08-2024 Platelets (Bld) [#/Vol] 209 10*3/uL 150-450 [facility] Potassium measurement (mass/ volume)Ordered By: Kendall Bashir on 11-08-2024 Potassium (Unsp spec) [Mass/Vol] 4.1 mmol/L 3.3-5.1 [facility] Protein Test strip Ql (U)Ord ered By: Kendall Bashir on 11-08-2024 Protein Ql (U) 15 mg/dl High Negative [facility] RBC Auto (Bld) [#/Vol]Ordere d By: Kendall Basihr on 11-08-2024 RBC (Bld) [#/Vol] 4.83 10*6/uL 4.6-6.2 [facility] Serum creatinine measurement (mass/volume)Ordered By: Kendall Bashir on 11-08-2024 Creatinine [Mass/Vol] 1.02 mg/dL 0.70-1.20 [facility] Serum globulin measurementOr dered By: Kendall Bashir on 11-08-2024 Globulin (S) [Mass/Vol] 2.4 g/dL 2.2-4.2 [facility] Serum glucose measurement (m ass/volume)Ordered By: Kendall Bashir on 11-08-2024 Glucose [Mass/Vol] 90 mg/dL 70-99 [facility] Serum or plasma alanine schroeder otransferase (ALT) measurementOrdered By: Kendall Bashir on 11-08-2024 ALT [Catalytic activity/Vol] 17 U/L <47 [facility] Serum or plasma albumin dax urement (mass/volume)Ordered By: Kendall Go on 11-08-2024 Albumin [Mass/Vol] 3.9 g/dL 3.4-4.8 [facility] Serum or plasma albumin/glob ulin mass ratioOrdered By: Kendall Bashir on 11-08-2024 Albumin/Globulin [Mass ratio] 1.7 {ratio} 0.9-2.4 [facility] Serum or plasma alkaline claribel sphatase measurementOrdered By: Kendall Bashir on 11-08-2024 ALP [Catalytic activity/Vol] 39 U/L Low 40-129 [facility] Serum or plasma calcium dax urement (mass/volume)Ordered By: Kendall Go on 11-08-2024 Calcium [Mass/Vol] 8.9 mg/dL 7.6-11.0 [facility] Serum or plasma urea nitroge n measurement (mass/volume)Ordered By: Kendall Bashir on 11-08-2024 Urea nitrogen [Mass/Vol] 17 mg/dL 4-19 [facility] Sodium levelOrdered By: Shiv Bashir on 11-08-2024 Sodium [Moles/Vol] 140 mmol/L 133-145 [facility] Squamous epithelial cells de tection in urine sediment by light microscopyOrdered By: Kendall Bashir on 11-08-2024 Epithelial cells.squamous LM Ql (Urine sed) 0 SEEN /hpf 0-5 [facility] Testicular with Arterial Oni won 11-08-2024 [address] with Ar[address]ial Flow [facility] [address] [place], [place] [id number] Testicular with Arterial Flow MR#: [id number] Acct: [id number] Name: ONEAL PAGE Rep #: [id number] : 1935 M 89 From: Melanie Rico PCP: Dr. Melodie Londono MD Status: REG ER Study: Testicular with Arterial Flow Date of Exam: Exam# [id number] Ordering Dr: Kendall Bashir DO PROCEDURE: TESTICULAR WITH ARTERIAL FLOW 11/08/2024 REASON FOR EXAM: RIGHT TESTICULAR TENDERNESS TECHNIQUE: Yang scale imaging of the scrotal contents. COMPARISON: None FINDINGS: RIGHT testicle: 4.7 x 2.8 x 2.8 cm Normal homogenous echotexture. Right epididymis: 1.3 x 1.1 x 0.9 cm. 1.1 x 0.8 x 0.6 cm epididymal cyst noted. LEFT testicle: 3.8 x 2.7 x 2.3 cm Normal homogenous echotexture. Subcentimeter tiny cyst within the testicle. Left epididymis: 1.3 x 1.3 x 0.8 cm Other findings: No hydrocele or large varicocele. US/Testicular with Arterial Flow IMPRESSION: No acute testicular torsion. Reading Location: [facility] CC: Dr. Kendall Bashir DO; Dr. Melodie Londono MD Drying Machine Operator: Signed Normal [facility] Total proteinOrdered By: Kel Bashir on 11-08-2024 Protein [Mass/Vol] 6.3 g/dL 5.9-8.4 [facility] Urinalysis, Completeon 11-08 WBC 5-10 SEEN Normal 0-5 [facility] Comment on above: Order Comment: CLEAN CATCH Performed By: #### L 400.0001 ####[facility] [address] [place], [place], [phone] BACTERIA 0 SEEN Normal None Seen [facility] Comment on above: Order Comment: CLEAN CATCH Performed By: #### L 400.0001 ####[facility] [address] [place], [place], [id number] EPI,SQUAMOUS 0 SEEN Normal 0-5 [facility] Comment on above: Order Comment: CLEAN CATCH Performed By: #### L 400.0001 ####[facility] [address] [place], [place], [phone] Mucus Ql (Urine sed) 0 SEEN Normal [facility] Comment on above: Order Comment: CLEAN CATCH Performed By: #### L 400.0001 ####[facility] [address] [place], [address] RBC 0 SEEN Normal 0-5 [facility] Comment on above: Order Comment: CLEAN CATCH Performed By: #### L 400.0001 ####[facility] [address] [place], [place], [phone] Urine clarityOrdered By: Kel Bashir on 11-08-2024 Clarity (U) Clear Clear [facility] Urine color determinationOrd ered By: Kendall Bashir on 11-08-2024 Color (U) Yellow Yellow [facility] Urine cultureOrdered By: Kel Bashir on 11-08-2024 Bacteria identified Cx Nom (U) GNR Poss Pseudomonas sp Abnormal [facility] Urine glucose detectionOrder ed By: Kendall Bashir on 11-08-2024 Glucose Ql (U) Normal mg/dl Normal [facility] Urine leukocyte esterase det ection by dipstickOrdered By: Kendall Bashir on 11-08-2024 Leukocyte esterase Test strip Ql (U) 500 /ul High Negative [facility] Urine pHOrdered By: Kendall Bush on 11-08-2024 pH (U) 6.5 [pH] 5.0 - 8.0 [facility] Urine sediment bacteria coun t by microscopy (number/high power field)Ordered By: Kendall Bashir on 11-08-2024 Bacteria LM.HPF (Urine sed) [#/Area] 0 /[HPF] None Seen [facility] Urine specific gravity measu rementOrdered By: Kendall Bashir on 11-08-2024 Specific gravity (U) [Rel density] 1.015 1.002-1.030 [facility] Urine urobilinogen measureme ntOrdered By: Kendall Bashir on 11-08-2024 Urobilinogen Ql (U) Normal mg/dl Normal [facility] White blood cell (WBC) count Ordered By: Kendall Bashir on 11-08-2024 WBC (Bld) [#/Vol] 4.9 10*3/uL 4.4-11.0 [facility] White blood cell countOrdere d By: Kendall Bashir on 11-08-2024 White blood cell count 5-10 SEEN /hpf 0-5 [facility] Gastroenterology Visit Repor ton 11-07-2024 Gastroenterology Visit Report [facility]astroenter[facility] [address] [place] [address] OFFICE VISIT Date of Service: 11/07/24 MR#: [id number] Acct: [id number] Name: ONEAL PAGE Rep #: [id number] : 1935 Provider: AMBAR dominguez Age/Sex: 89/M Location: [facility] [place] Status: Signed Intake Vital Signs 11/02/24 12:06 11/07/24 11:24 Height 5 ft 11 in 5 ft 11 in Weight: 117 lb 2 oz BMI 16.3 BP 137/68 H Respiration 18 Pulse 85 Pulse Oximetry (%) 96 Oxygen Delivery Method room air Intake Visit Reasons: ABDOMINAL PAIN WEIGHT LOSS Chief Complaint: consult Physical Therapy Technician Required: No Accompanied by: Son Is patient [...] the office and saw one of our OUTSIDE ENERGY SALES REPRESENTATIVES's in 10/16/24. His son is staying with him currently while his is away and is here with him at this appointment. The son states that he is not taking any medications currently and the patient doesn't always understand questions so you have to ask the question a couple of times to know for sure if he understands. [facility] Medical History Frequent headaches Cataracts, bilateral Hearing [...] to the office today for establishment with [facility] for concerns of unintended weight loss and reduced appetite. Differential diagnoses include: age-related decline and cancer. Discussed differentials with him and he feels that cancer is very unlikely, but is agreeable to imaging. I recommended protein supplemented nutrition drinks, various cheeses and leaner meats for consumption. * consult graphic arts instructor for guided food selection * CT chest/abd/pelvis [...] the case (more content not included)... Normal [facility] Abdomen/Pelvis W IV Cont ONL Yon 11-02-2024 Abdomen/Pelvis W IV Cont ONLY [facility] Imaging Services [address] [place] [id number] Abdomen/Pelvis W IV Cont ONLY MR#: [id number] Acct: [id number] Name: ONEAL PAGE Rep #: [id number] : 1935 M 89 From: Bao Malcolm MD PCP: Dr. Melodie Londono MD Status: REG ER Study: Abdomen/Pelvis W IV Cont ONLY Date of Exam: Exam# [id number] Ordering Dr: Guilherme Lopez DO EXAM: CT [...] 5. Multiple urinary bladder calculi. Reading Location: [facility] CC: Dr. Melodie Londono MD; Dr. Guilherme Lopez DO Drying Machine Operator: Signed Normal [facility] Absolute lymphocyte countOrd ered By: Guilherme Lopez on 11-02-2024 Lymphocytes Auto (Unsp spec) [#/Vol] 0.62 10*3/uL Low 0.83-4.51 [facility] Absolute neutrophil countOrd ered By: Guilherme Lopez on 11-02-2024 Neutrophils (Bld) [#/Vol] 3.9 10*3/uL 2.0-7.7 [facility] Amylaseon 11-02-2024 MARIAM 85 U/L Normal 28-100 [facility] Comment on above: Performed By: #### L 501.2450, L500.3400, L500.2500 #### [facility] [address] [place], [place], [phone] Anion gap in Serum or Plasma Ordered By: Guilherme Lopez on 11-02-2024 Anion gap [Moles/Vol] 10 mmol/L 5-15 [facility] Automated blood erythrocyte countOrdered By: Guilherme Lopez on 11-02-2024 RBC (Bld) [#/Vol] 4.99 10*6/uL Normal 4.6-6.2 [facility] Comment on above: Performed By: #### L 100.0100, L501.2450, L500.2500, L500.3400, L501.2400 ####[facility] [address] [place], [place], [phone] Automated blood hematocrit ( percentage)Ordered By: Guilherme Lopez on 11-02-2024 Hematocrit (Bld) [Volume fraction] 44.9 % Normal 40-54 [facility] Comment on above: Performed By: #### L 100.0100, L501.2450, L500.2500, L500.3400, L501.2400 ####[facility] [address] [place], [place], [id number] Automated lymphocyte count a s percentage of total leukocytesOrdered By: Guilherme Lopez on 11-02-2024 Lymphocytes/100 WBC Auto (Unsp spec) 12.3 % Low 19-41 [facility] BUN/creatinine ratioOrdered By: Guilherme Lopez on 11-02-2024 Urea nitrogen/Creatinine [Mass ratio] 18.8 mg/mg 10- [facility] Basic Metabolic Profile (BMP )on 11-02-2024 BUN/CRE 18.8 RATIO Normal -20 [facility] Comment on above: Performed By: #### L 100.0100, L501.2450, L500.2500, L500.3400, L501.2400 ####[facility] [address] [place], [address] ECRCL 40.69 ml/min Low 50-250 [facility] Comment on above: Performed By: #### L 100.0100, L501.2450, L500.2500, L500.3400, L501.2400 ####[facility] [address] [place], [address] GAP 10 Normal 5-15 [facility] Comment on above: Performed By: #### L 100.0100, L501.2450, L500.2500, L500.3400, L501.2400 ####[facility] [address] [place], [address] Potassium [Moles/Vol] 4.2 mmol/L Normal 3.3-5.1 [facility] Comment on above: Performed By: #### L 100.0100, L501.2450, L500.2500, L500.3400, L501.2400 ####[facility] [address] [place], [address] Basophil percentageOrdered B y: Guilherme Lopez on 11-02-2024 Basophils/100 WBC (Bld) 0.8 % Normal 0-1 [facility] Comment on above: Performed By: #### L 100.0100, L501.2450, L500.2500, L500.3400, L501.2400 ####[facility] [address] [place], [address] Bilirubin directOrdered By: Guilherme Lopez on 11-02-2024 Bilirubin.direct [Mass/Vol] 0.35 mg/dL High 0.00-0.30 [facility] Comment on above: Performed By: #### L 100.0100, L501.2450, L500.2500, L500.3400, L501.2400 ####[facility] [address] [place], [address] Bilirubin, totalOrdered By: Guilherme Lopez on 11-02-2024 Bilirubin [Mass/Vol] 0.80 mg/dL Normal 0.00-1.30 [facility] Comment on above: Performed By: #### L 100.0100, L501.2450, L500.2500, L500.3400, L501.2400 ####[facility] [address] [place], [address] CBC W/Diff, Automatedon 10-06 Absolute Lymph 0.62 X10 3/uL Low 0.83-4.51 [facility] Comment on above: Performed By: #### L 100.0100, L501.2450, L500.2500, L500.3400, L501.2400 ####[facility] [address] [place], [address] Absolute Neut 3.9 X10 3/uL Normal 2.0-7.7 [facility] Comment on above: Performed By: #### L 100.0100, L501.2450, L500.2500, L500.3400, L501.2400 ####[facility] [address] [place], [address] IG% 0.400 Normal 0.0-0.9 [facility] Comment on above: Result Comment: IG% - Immature Granulocytes (promyelocytes, myelocytes and metamyelocytes) > 1% indicates that a LEFT SHIFT is Present. Performed By: #### L 100.0100, L501.2450, L500.2500, L500.3400, L501.2400 ####[facility] [address] [place], [address] Lymphocytes/100 WBC (Bld) 12.3 % Low 19-41 [facility] Comment on above: Performed By: #### L 100.0100, L501.2450, L500.2500, L500.3400, L501.2400 ####[facility] [address] [place], [address] Nucleated RBC (Bld) [#/Vol] 0 10*3/uL Normal 0-5 [facility] Comment on above: Performed By: #### L 100.0100, L501.2450, L500.2500, L500.3400, L501.2400 ####[facility] [address] [place], [address] RDW SD 43.7 fl Normal 35.1-43.9 [facility] Comment on above: Performed By: #### L 100.0100, L501.2450, L500.2500, L500.3400, L501.2400 ####[facility] [address] [place], [address] Carbon dioxide, total [Moles /volume] in Central venous bloodOrdered By: Guilherme Lopez on 11-02-2024 CO2 [Moles/Vol] 26.7 mmol/L Normal 21.0-32.0 [facility] Comment on above: Performed By: #### L 100.0100, L501.2450, L500.2500, L500.3400, L501.2400 ####[facility] [address] [place], [address] Chloride assayOrdered By: Anthony Lopez on 11-02-2024 Chloride [Moles/Vol] 101 mmol/L Normal 98-108 [facility] Comment on above: Performed By: #### L 100.0100, L501.2450, L500.2500, L500.3400, L501.2400 ####[facility] [address] [place], [address] Emergency Department Summary on 11-02-2024 Emergency Department Summary [facility] Medical Records Department [address] [place] [address] Emergency Department Summary 11/02/24 MR#: [id number] Acct: [id number] Name: ONEAL PAGE Rep #: [id number] : 1935 89 From: Guilherme Lopez DO PCP: Dr. Melodie Londono MD Status:DEP ER Location: ED HPI HPI [...] why they came to the emergency room. [facility] Medical History Hypertension Home Medications ???Medication ???Instructions [...] diagnosis i (more content not included)... Normal [facility] Eosinophil percentageOrdered By: Guilherme Lopez on 11-02-2024 Eosinophils/100 WBC (Bld) 0.8 % Normal 0-5 [facility] Comment on above: Performed By: #### L 100.0100, L501.2450, L500.2500, L500.3400, L501.2400 ####[facility] [address] [place], [place], [phone] Erythrocyte distribution wid th ratioOrdered By: Guilherme Lopez on 11-02-2024 Erythrocyte distribution width (RBC) [Ratio] 13.2 % Normal 11.6-14.6 [facility] Comment on above: Performed By: #### L 100.0100, L501.2450, L500.2500, L500.3400, L501.2400 ####[facility] [address] [place], [place], [phone] Erythrocyte distribution wid th standard deviationOrdered By: Guilherme Lopez on 11-02-2024 Erythrocyte distribution width (RBC) [Ratio] 43.7 fl 35.1-43.9 [facility] Glomerular filtration rate ( GFR) estimation/1.73 sq m using serum, plasma, or whole bOrdered By: Guilherme Lopez on 11-02-2024 GFR/1.73 sq M.predicted among non-blacks MDRD (S/P/Bld) [Vol rate/Area] 77 mL/min/{1.73_m2} Normal >60 [facility] Comment on above: mL/min/1.73m2 CKD-EP I Creatinine Equation (2020) Result Comment: mL/m in/1.73m2 CKD-EPI Creatinine Equation (2020) Performed By: #### L 100.0100, L501.2450, L500.2500, L500.3400, L501.2400 ####[facility] [address] [place], [place], [phone] Hemoglobin measurementOrdere d By: Guilherme Lopez on 11-02-2024 Hemoglobin (Bld) [Mass/Vol] 15.4 g/dL Normal 13.0-16.5 [facility] Comment on above: Performed By: #### L 100.0100, L501.2450, L500.2500, L500.3400, L501.2400 ####[facility] [address] [place], [address] Immature granulocytes/100 WB C Auto (Bld)Ordered By: Guilherme Lopez on 11-02-2024 Immature granulocytes/100 WBC (Bld) 0.400 % 0.0-0.9 [facility] Comment on above: IG% - Immature Granu locytes (promyelocytes, myelocytes and metamyelocytes) > 1% indicates that a LEFT SHIFT is Present. Lipase measurementOrdered By : Guilherme Lopez on 11-02-2024 Lipase [Catalytic activity/Vol] 44 U/L Normal 13-75 [facility] Comment on above: Please note:LIPASE r evised reference range effective 22. New Lipase methodology. Expected to produce lower values than the previous assay method. NEW Reference Range: 13 - 75 U/L Result Comment: Nancy garcia note: LIPASE revised reference range effective 22. New Lipase methodology. Expected to produce lower values than the previous assay method. NEW Reference Range: 13 - 75 U/L Performed By: #### L 501.2450, L500.3400, L500.2500 #### [facility] [address] [place], [address] Liver Profileon 11-02-2024 ALK PHOS 40 U/L Normal 40-129 [facility] Comment on above: Performed By: #### L 100.0100, L501.2450, L500.2500, L500.3400, L501.2400 ####[facility] [address] [place], [address] T PROT 6.4 g/dL Normal 5.9-8.4 [facility] Comment on above: Performed By: #### L 100.0100, L501.2450, L500.2500, L500.3400, L501.2400 ####[facility] [address] [place], [address] Liver ProfileOrdered By: Christopher Lopez on 11-02-2024 AST [Catalytic activity/Vol] 27 U/L Normal <=37 [facility] Comment on above: Performed By: #### L 100.0100, L501.2450, L500.2500, L500.3400, L501.2400 ####[facility] [address] [place], [address] MCV (mean corpuscular volume ) determinationOrdered By: Guilherme Lopez on 11-02-2024 MCV (RBC) [Entitic vol] 90.0 fL Normal 80-94 [facility] Comment on above: Performed By: #### L 100.0100, L501.2450, L500.2500, L500.3400, L501.2400 ####[facility] [address] [place] [place], [address] Mean corpuscular hemoglobin (MCH) determinationOrdered By: Guilherme Lopez on 11-02-2024 MCH (RBC) [Entitic mass] 30.9 pg Normal 27.0-32.0 [facility] Comment on above: Performed By: #### L 100.0100, L501.2450, L500.2500, L500.3400, L501.2400 ####[facility] [address] [place], [address] Mean corpuscular hemoglobin concentration (MCHC) determinationOrdered By: Guilherme Lopez on 11-02-2024 MCHC (RBC) [Mass/Vol] 34.3 g/dL Normal 32-36 [facility] Comment on above: Performed By: #### L 100.0100, L501.2450, L500.2500, L500.3400, L501.2400 ####[facility] [address] [place], [address] Mean platelet volume determi nationOrdered By: Guilherme Lopez on 11-02-2024 Platelet mean volume (Bld) [Entitic vol] 10.7 fL Normal 6.2-12.0 [facility] Comment on above: Performed By: #### L 100.0100, L501.2450, L500.2500, L500.3400, L501.2400 ####[facility] [address] [place], [address] Monocyte percentageOrdered B y: Guilherme Lopez on 11-02-2024 Monocytes/100 WBC (Bld) 8.9 % Normal 0-10 [facility] Comment on above: Performed By: #### L 100.0100, L501.2450, L500.2500, L500.3400, L501.2400 ####[facility] [address] [place], [place], [address] Neutrophil percentageOrdered By: Guilherme Lopez on 11-02-2024 Neutrophils/100 WBC (Bld) 76.8 % High 47-70 [facility] Comment on above: Performed By: #### L 100.0100, L501.2450, L500.2500, L500.3400, L501.2400 ####[facility] [address] [place], [place], [address] Nucleated red blood cell per centageOrdered By: Guilherme Lopez on 11-02-2024 Nucleated RBC/100 WBC (Bld) [Ratio] 0 % 0-5 [facility] Platelet countOrdered By: Anthony Lopez on 11-02-2024 Platelets (Bld) [#/Vol] 189 10*3/uL Normal 150-450 [facility] Comment on above: Performed By: #### L 100.0100, L501.2450, L500.2500, L500.3400, L501.2400 ####[facility] [address] [place], [address] Potassium measurement (mass/ volume)Ordered By: Guilherme Lopez on 11-02-2024 Potassium (Unsp spec) [Mass/Vol] 4.2 mmol/L 3.3-5.1 [facility] Serum creatinine measurement (mass/volume)Ordered By: Guilherme Lopez on 11-02-2024 Creatinine [Mass/Vol] 0.95 mg/dL Normal 0.70-1.20 [facility] Comment on above: Performed By: #### L 100.0100, L501.2450, L500.2500, L500.3400, L501.2400 ####[facility] [address] [place], [address] Serum globulin measurementOr dered By: Guilherme Lopez on 11-02-2024 Globulin (S) [Mass/Vol] 2.3 g/dL Normal 2.2-4.2 [facility] Comment on above: Performed By: #### L 100.0100, L501.2450, L500.2500, L500.3400, L501.2400 ####[facility] [address] [place], [address] Serum glucose measurement (m ass/volume)Ordered By: Guilherme Lopez on 11-02-2024 Glucose [Mass/Vol] 91 mg/dL Normal 70-99 [facility] Comment on above: Performed By: #### L 100.0100, L501.2450, L500.2500, L500.3400, L501.2400 ####[facility] [address] [place], [address] Serum or plasma alanine schroeder otransferase (ALT) measurementOrdered By: Guilherme Lopez on 11-02-2024 ALT [Catalytic activity/Vol] 16 U/L Normal <=46 [facility] Comment on above: Performed By: #### L 100.0100, L501.2450, L500.2500, L500.3400, L501.2400 ####[facility] [address] [place], [place], [id number] Serum or plasma albumin dax urement (mass/volume)Ordered By: Guilherme Lopez on 11-02-2024 Albumin [Mass/Vol] 4.1 g/dL Normal 3.4-4.8 [facility] Comment on above: Performed By: #### L 100.0100, L501.2450, L500.2500, L500.3400, L501.2400 ####[facility] [address] [place], [address] Serum or plasma alkaline claribel sphatase measurementOrdered By: Guilherme Lopez on 11-02-2024 ALP [Catalytic activity/Vol] 40 U/L 40-129 [facility] Serum or plasma amylase dax urement (enzymatic activity/volume)Ordered By: Guilherme Lopez on 11-02-2024 Amylase [Catalytic activity/Vol] 85 U/L 28-100 [facility] Serum or plasma calcium dax urement (mass/volume)Ordered By: Guilherme Lopez on 11-02-2024 Calcium [Mass/Vol] 9.3 mg/dL Normal 7.6-11.0 [facility] Comment on above: Performed By: #### L 100.0100, L501.2450, L500.2500, L500.3400, L501.2400 ####[facility] [address] [place], [place], [phone] Serum or plasma urea nitroge n measurement (mass/volume)Ordered By: Guilherme Lopez on 11-02-2024 Urea nitrogen [Mass/Vol] 18 mg/dL Normal 4-19 [facility] Comment on above: Performed By: #### L 100.0100, L501.2450, L500.2500, L500.3400, L501.2400 ####[facility] [address] [place], [place], [id number] Sodium levelOrdered By: Pastor Lopez on 11-02-2024 Sodium [Moles/Vol] 137 mmol/L Normal 133-145 [facility] Comment on above: Performed By: #### L 100.0100, L501.2450, L500.2500, L500.3400, L501.2400 ####[facility] [address] [place], [address] Total proteinOrdered By: Christopher Lopez on 11-02-2024 Protein [Mass/Vol] 6.4 g/dL 5.9-8.4 [facility] White blood cell (WBC) count Ordered By: Guilherme Lopez on 11-02-2024 WBC (Bld) [#/Vol] 5.0 10*3/uL Normal 4.4-11.0 [facility] Comment on above: Performed By: #### L 100.0100, L501.2450, L500.2500, L500.3400, L501.2400 ####[facility] [address] [place], [address] Gastroenterology Visit Repor ton 10-16-2024 Gastroenterology Visit Report [facility] [address] [place] [address] OFFICE VISIT Date of Service: 10/16/24 MR#: [id number] Acct: [id number] Name: ONEAL PAGE Rep #: [id number] : 1935 Provider: AMBAR coleman Age/Sex: 89/M [place] [facility] [place]: Signed Intake Vital Signs 12/21/22 08:44 [...] to the office today for establishment with [facility] for concerns of unintended weight loss and reduced appetite. From records provided by PCP, Ed had an OV with them for complaints of abdominal pain that he had resolved with Pepto-Bismol. He did not report a change in bowel pattern. Ed reports exercising 2x/week at [facility], but has noticed a continual slow drop [...] Referrals Nutriti (more content not included)... Normal [facility] Prealbumin [id number] Prealbumin [Mass/Vol] 26 mg/dL Normal [facility] Comment on above: Result Comment: Perf ormed at: CB - [facility] [address] [id number] Computer Aided Design Designer: Rajiv Rosales PhD, Phone: [phone] Performed By: #### L 5148.0737 #### [facility] [address] [place], [address] Abdomen Single Viewon [address] [facility] [address] [place] [address] Abdomen Single View MR#: [id number] Acct: [id number] Name: ONEAL PAGE Rep #: [id number] : 1935 M 89 From: Garret Means MD PCP: Dr. Melodie Londono MD Status: REG CLI Study: Abdomen Single View Date of Exam: 09/27/24 Exam# [id number] Ordering Dr: Melodie Londono PROCEDURE: ABDOMEN SINGLE VIEW 09/27/2024 REASON FOR EXAM: ABDOMINAL PAIN TECHNIQUE: Single view abdomen. FINDINGS: Bowel gas: Bowel gas pattern is normal. No evidence of bowel obstruction. Calcifications: No suspicious calcifications. Bones: The bones are unremarkable. Other: RAD/Abdomen Single View IMPRESSION: NEGATIVE KUB. Reading Location: [facility] CC: Dr. Melodie Londono MD Drying Machine Operator: Signed Normal [facility] Absolute lymphocyte countOrd ered By: Melodie Londono on 09-27-2024 Lymphocytes Auto (Unsp spec) [#/Vol] 1.08 10*3/uL 0.83-4.51 [facility] Absolute neutrophil countOrd ered By: Melodie Londono on 09-27-2024 Neutrophils (Bld) [#/Vol] 4.0 10*3/uL 2.0-7.7 [facility] Anion gap in Serum or Plasma Ordered By: Melodie Londoon on 09-27-2024 Anion gap [Moles/Vol] 10 mmol/L 5-15 [facility] Automated lymphocyte count a s percentage of total leukocytesOrdered By: Melodie Londono on 09-27-2024 Lymphocytes/100 WBC Auto (Unsp spec) 17.0 % Low 19-41 [facility] BUN/creatinine ratioOrdered By: Melodie Londono on 09-27-2024 Urea nitrogen/Creatinine [Mass ratio] 16.2 mg/mg 10-20 [facility] Basophil percentageOrdered B y: Melodie Londono on 09-27-2024 Basophils/100 WBC (Bld) 1.3 % High 0-1 [facility] Bilirubin, totalOrdered By: Melodie Lonodno on 09-27-2024 Bilirubin [Mass/Vol] 0.38 mg/dL 0.00-1.30 [facility] CBC W/Diff, Automatedon 09-05 Absolute Lymph 1.08 X10 3/uL Normal 0.83-4.51 [facility] Comment on above: Order Comment: Order Date: 09/27/24Order Info: 018-1 - CBCDOrder Info: [id number] - SED Performed By: #### L 501.2450, L500.3400, L500.2500 #### [facility] [address] [place], [address] Absolute Neut 4.0 X10 3/uL Normal 2.0-7.7 [facility] Comment on above: Order Comment: Order Date: 09/27/24Order Info: 183- - CBCDOrder Info: [id number] - SED Performed By: #### L 501.2450, L500.3400, L500.2500 #### [facility] [address] [place], [address] Basophils/100 WBC (Bld) 1.3 % High 0-1 [facility] Comment on above: Order Comment: Order Date: 09/27/24Order Info: 018- - CBCDOrder Info: [id number] - SED Performed By: #### L 501.2450, L500.3400, L500.2500 #### [facility] [address] [place], [address] Eosinophils/100 WBC (Bld) 8.0 % High 0-5 [facility] Comment on above: Order Comment: Order Date: 09/27/24Order Info: 018-1 - CBCDOrder Info: [id number] - SED Performed By: #### L 501.2450, L500.3400, L500.2500 #### [facility] [address] [place], [address] Erythrocyte distribution width (RBC) [Ratio] 13.3 % Normal 11.6-14.6 [facility] Comment on above: Order Comment: Order Date: 09/27/24Order Info: 018- - CBCDOrder Info: [id number] - SED Performed By: #### L 501.2450, L500.3400, L500.2500 #### [facility] [address] [place], [address] Hematocrit (Bld) [Volume fraction] 44.4 % Normal 40-54 [facility] Comment on above: Order Comment: Order Date: 09/27/24Order Info: 183-06 - CBCDOrder Info: [id number] - SED Performed By: #### L 501.2450, L500.3400, L500.2500 #### [facility] [address] [place], [address] Hemoglobin (Bld) [Mass/Vol] 14.8 g/dL Normal 13.0-16.5 [facility] Comment on above: Order Comment: Order Date: 09/27/24Order Info: 01809-04 - CBCDOrder Info: 10326-0 - SED Performed By: #### L 501.2450, L500.3400, L500.2500 #### [facility] [address] [place], [address] IG% 0.300 Normal 0.0-0.9 [facility] Comment on above: Order Comment: Order Date: 09/27/24Order Info: 018- - CBCDOrder Info: [id number] - SED Result Comment: IG% - Immature Granulocytes (promyelocytes, myelocytes and metamyelocytes) > 1% indicates that a LEFT SHIFT is Present. Performed By: #### L 501.2450, L500.3400, L500.2500 #### [facility] [address] [place], [address] Lymphocytes/100 WBC (Bld) 17.0 % Low 19-41 [facility] Comment on above: Order Comment: Order Date: 09/27/24Order Info: 018- - CBCDOrder Info: [id number] - SED Performed By: #### L 501.2450, L500.3400, L500.2500 #### [facility] [address] [place], [address] MCH (RBC) [Entitic mass] 30.7 pg Normal 27.0-32.0 [facility] Comment on above: Order Comment: Order Date: 09/27/24Order Info: 183-06 - CBCDOrder Info: [id number] - SED Performed By: #### L 501.2450, L500.3400, L500.2500 #### [facility] [address] [place], [address] MCHC (RBC) [Mass/Vol] 33.3 g/dL Normal 32-36 [facility] Comment on above: Order Comment: Order Date: 09/27/24Order Info: 183-06 - CBCDOrder Info: [id number] - SED Performed By: #### L 501.2450, L500.3400, L500.2500 #### [facility] [address] [place], [address] MCV (RBC) [Entitic vol] 92.1 fL Normal 80-94 [facility] Comment on above: Order Comment: Order Date: 09/27/24Order Info: 01809-04 - CBCDOrder Info: [id number] - SED Performed By: #### L 501.2450, L500.3400, L500.2500 #### [facility] [address] [place], [address] Monocytes/100 WBC (Bld) 10.2 % High 0-10 [facility] Comment on above: Order Comment: Order Date: 09/27/24Order Info: 018- - CBCDOrder Info: [id number] - SED Performed By: #### L 501.2450, L500.3400, L500.2500 #### [facility] [address] [place], [address] Neutrophils/100 WBC (Bld) 63.2 % Normal 47-70 [facility] Comment on above: Order Comment: Order Date: 09/27/24Order Info: 183- - CBCDOrder Info: [id number] - SED Performed By: #### L 501.2450, L500.3400, L500.2500 #### [facility] [address] [place], [address] Nucleated RBC (Bld) [#/Vol] 0 10*3/uL Normal 0-5 [facility] Comment on above: Order Comment: Order Date: 09/27/24Order Info: 183-06 - CBCDOrder Info: [id number] - SED Performed By: #### L 501.2450, L500.3400, L500.2500 #### [facility] [address] [place], [address] Platelet mean volume (Bld) [Entitic vol] 11.4 fL Normal 6.2-12.0 [facility] Comment on above: Order Comment: Order Date: 09/27/24Order Info: 183-06 - CBCDOrder Info: [id number] - SED Performed By: #### L 501.2450, L500.3400, L500.2500 #### [facility] [address] [place], [address] Platelets (Bld) [#/Vol] 229 10*3/uL Normal 150-450 [facility] Comment on above: Order Comment: Order Date: 09/27/24Order Info: 183-06 - CBCDOrder Info: [id number] - SED Performed By: #### L 501.2450, L500.3400, L500.2500 #### [facility] [address] [place], [address] RBC (Bld) [#/Vol] 4.82 10*6/uL Normal 4.6-6.2 [facility] Comment on above: Order Comment: Order Date: 09/27/24Order Info: 018-1 - CBCDOrder Info: [id number] - SED Performed By: #### L 501.2450, L500.3400, L500.2500 #### [facility] [address] [place], [address] RDW SD 45.7 fl High 35.1-43.9 [facility] Comment on above: Order Comment: Order Date: 09/27/24Order Info: 018- - CBCDOrder Info: [id number] - SED Performed By: #### L 501.2450, L500.3400, L500.2500 #### [facility] [address] [place], [address] WBC (Bld) [#/Vol] 6.4 10*3/uL Normal 4.4-11.0 [facility] Comment on above: Order Comment: Order Date: 09/27/24Order Info: 0184- - CBCDOrder Info: [id number] - SED Performed By: #### L 501.2450, L500.3400, L500.2500 #### [facility] [address] [place], [address] Carbon dioxide, total [Moles /volume] in Central venous bloodOrdered By: Melodie Londono on 09-27-2024 CO2 [Moles/Vol] 28.9 mmol/L 21.0-32.0 [facility] Chloride assayOrdered By: Natasha Londono on 09-27-2024 Chloride [Moles/Vol] 103 mmol/L 98-108 [facility] Comprehensive Metabolic Prof ilon 09-27-2024 Albumin [Mass/Vol] 4.4 g/dL Normal 3.4-4.8 [facility] Comment on above: Order Comment: Order Date: 09/27/24Order Info: 0786-1 - CMPOrder Info: 3016-3 - TSH Performed By: #### L 501.2450, L500.3400, L500.2500 #### [facility] [address] [place], [address] Albumin/Globulin [Mass ratio] 1.6 {ratio} Normal 0.9-2.4 [facility] Comment on above: Order Comment: Order Date: 09/27/24Order Info: 0786- - CMPOrder Info: 3015-3 - TSH Performed By: #### L 501.2450, L500.3400, L500.2500 #### [facility] [address] [place], [address] ALK PHOS 56 U/L Normal 40-129 [facility] Comment on above: Order Comment: Order Date: 09/27/24Order Info: 0786- - CMPOrder Info: [id number] - TSH Performed By: #### L 501.2450, L500.3400, L500.2500 #### [facility] [address] [place], [address] ALT [Catalytic activity/Vol] 15 U/L Normal <=46 [facility] Comment on above: Order Comment: Order Date: 09/27/24Order Info: 0786-1 - CMPOrder Info: 3015-3 - TSH Performed By: #### L 501.2450, L500.3400, L500.2500 #### [facility] [address] [place], [address] AST [Catalytic activity/Vol] 25 U/L Normal <=37 [facility] Comment on above: Order Comment: Order Date: 09/27/24Order Info: 0786-1 - CMPOrder Info: 3016-3 - TSH Performed By: #### L 501.2450, L500.3400, L500.2500 #### [facility] [address] [place], [address] Bilirubin [Mass/Vol] 0.38 mg/dL Normal 0.00-1.30 [facility] Comment on above: Order Comment: Order Date: 09/27/24Order Info: 0786-1 - CMPOrder Info: 3016-3 - TSH Performed By: #### L 501.2450, L500.3400, L500.2500 #### [facility] [address] [place], [address] BUN/CRE 16.2 RATIO Normal 10-20 [facility] Comment on above: Order Comment: Order Date: 09/27/24Order Info: 0786-1 - CMPOrder Info: 3016-3 - TSH Performed By: #### L 501.2450, L500.3400, L500.2500 #### [facility] [address] [place], [address] Calcium [Mass/Vol] 9.7 mg/dL Normal 7.6-11.0 [facility] Comment on above: Order Comment: Order Date: 09/27/24Order Info: 0786-1 - CMPOrder Info: 3016-3 - TSH Performed By: #### L 501.2450, L500.3400, L500.2500 #### [facility] [address] [place], [address] Chloride [Moles/Vol] 103 mmol/L Normal 98-108 [facility] Comment on above: Order Comment: Order Date: 09/27/24Order Info: 0786-1 - CMPOrder Info: 3016-3 - TSH Performed By: #### L 501.2450, L500.3400, L500.2500 #### [facility] [address] [place], [address] CO2 [Moles/Vol] 28.9 mmol/L Normal 21.0-32.0 [facility] Comment on above: Order Comment: Order Date: 09/27/24Order Info: 0786-1 - CMPOrder Info: 6-3 - TSH Performed By: #### L 501.2450, L500.3400, L500.2500 #### [facility] [address] [place], [address] Creatinine [Mass/Vol] 0.94 mg/dL Normal 0.70-1.20 [facility] Comment on above: Order Comment: Order Date: 09/27/24Order Info: 0786-1 - CMPOrder Info: 3 - TSH Performed By: #### L 501.2450, L500.3400, L500.2500 #### [facility] [address] [place], [address] GAP 10 Normal 5-15 [facility] Comment on above: Order Comment: Order Date: 09/27/24Order Info: 0786 - CMPOrder Info: 3 - TSH Performed By: #### L 501.2450, L500.3400, L500.2500 #### [facility] [address] [place], [address] GFR/1.73 sq M.predicted among non-blacks MDRD (S/P/Bld) [Vol rate/Area] 78 mL/min/{1.73_m2} Normal >60 [facility] Comment on above: Order Comment: Order Date: 09/27/24Order Info: 0786 - CMPOrder Info: 3015-3 - TSH Result Comment: mL/m in/1.73m2 CKD-EPI Creatinine Equation (2020) Performed By: #### L 501.2450, L500.3400, L500.2500 #### [facility] [address] [place], [address] Globulin (S) [Mass/Vol] 2.7 g/dL Normal 2.2-4.2 [facility] Comment on above: Order Comment: Order Date: 09/27/24Order Info: 0786-1 - CMPOrder Info: 3 - TSH Performed By: #### L 501.2450, L500.3400, L500.2500 #### [facility] [address] [place], [address] Glucose [Mass/Vol] 105 mg/dL High 70-99 [facility] Comment on above: Order Comment: Order Date: 09/27/24Order Info: 0786-1 - CMPOrder Info: 3 - TSH Performed By: #### L 501.2450, L500.3400, L500.2500 #### [facility] [address] [place], [address] Potassium [Moles/Vol] 4.6 mmol/L Normal 3.3-5.1 [facility] Comment on above: Order Comment: Order Date: 09/27/24Order Info: 0786- - CMPOrder Info: 3 - TSH Performed By: #### L 501.2450, L500.3400, L500.2500 #### [facility] [address] [place], [address] Sodium [Moles/Vol] 141 mmol/L Normal 133-145 [facility] Comment on above: Order Comment: Order Date: 09/27/24Order Info: 0786- - CMPOrder Info: 3 - TSH Performed By: #### L 501.2450, L500.3400, L500.2500 #### [facility] [address] [place], [address] T PROT 7.1 g/dL Normal 5.9-8.4 [facility] Comment on above: Order Comment: Order Date: 09/27/24Order Info: 0786-1 - CMPOrder Info: 3015-3 - TSH Performed By: #### L 501.2450, L500.3400, L500.2500 #### [facility] [address] [place], [address] Urea nitrogen [Mass/Vol] 15 mg/dL Normal 4-19 [facility] Comment on above: Order Comment: Order Date: 09/27/24Order Info: 0786-1 - CMPOrder Info: 3016-3 - TSH Performed By: #### L 501.2450, L500.3400, L500.2500 #### [facility] [address] [place], [place], [address] Eosinophil percentageOrdered By: Melodie Londono on 09-27-2024 Eosinophils/100 WBC (Bld) 8.0 % High 0-5 [facility] Erythrocyte Sed Rateon 09-27 SED RATE 2 mm/hr Normal 0-20 [facility] Comment on above: Order Comment: Order Date: 09/27/24Order Info: 0184-1 - CBCDOrder Info: 30261-6 - SED Performed By: #### L 501.2450, L500.3400, L500.2500 #### [facility] [address] [place], [place], [address] Erythrocyte distribution wid th (RBC) [Ratio]Ordered By: Melodie Londono on 09-27-2024 Erythrocyte distribution width (RBC) [Entitic vol] 45.7 fL High 35.1-43.9 [facility] Erythrocyte distribution wid th ratioOrdered By: Melodie Londono on 09-27-2024 Erythrocyte distribution width (RBC) [Ratio] 13.3 % 11.6-14.6 [facility] Erythrocyte distribution wid th standard deviationOrdered By: Melodie Londono on 09-27-2024 Erythrocyte distribution width (RBC) [Ratio] 45.7 fl High 35.1-43.9 [facility] Erythrocyte sedimentation ra teOrdered By: Melodie Londono on 09-27-2024 ESR (Bld) [Velocity] 2 mm/h 0-20 [facility] GFR/1.73 sq M.predicted nishi g non-blacks MDRD (S/P/Bld) [Vol rate/Area]Ordered By: Melodie Londono on 09-27-2024 Estimated GFR (MDRD) Non-Af Amer 78 >60 [facility] Comment on above: mL/min/1.73m2 CKD-EP I Creatinine Equation (2020) Glomerular filtration rate ( GFR) estimation/1.73 sq m using serum, plasma, or whole bOrdered By: Melodie Londono on 09-27-2024 GFR/1.73 sq M.predicted among non-blacks MDRD (S/P/Bld) [Vol rate/Area] 78 mL/min/{1.73_m2} >60 [facility] Comment on above: mL/min/1.73m2 CKD-EP I Creatinine Equation (2020) Hematocrit Auto (Bld) [Volum e fraction]Ordered By: Melodie Londono on 09-27-2024 Hematocrit (Bld) [Volume fraction] 44.4 % 40-54 [facility] Hemoglobin measurementOrdere d By: Melodie Londono on 09-27-2024 Hemoglobin (Bld) [Mass/Vol] 14.8 g/dL 13.0-16.5 [facility] Immature granulocytes/100 WB C Auto (Bld)Ordered By: Melodie Londono on 09-27-2024 Immature granulocytes/100 WBC (Bld) 0.300 % 0.0-0.9 [facility] Comment on above: IG% - Immature Granu locytes (promyelocytes, myelocytes and metamyelocytes) > 1% indicates that a LEFT SHIFT is Present. Laboratory - Chemistry and C hemistry - challengeOrdered By: Melodie Londono on 09-27-2024 AST [Catalytic activity/Vol] 25 U/L <38 [facility] Lymphocytes Auto (Unsp spec) [#/Vol]Ordered By: Melodie Londono on 09-27-2024 Lymphocytes (Bld) [#/Vol] 1.08 10*3/uL 0.83-4.51 [facility] Lymphocytes/100 WBC Auto (Un sp spec)Ordered By: Melodie Londono on 09-27-2024 Lymphocytes/100 WBC (Bld) 17.0 % Low 19-41 [facility] MCV (mean corpuscular volume ) determinationOrdered By: Melodie Londono on 09-27-2024 MCV (RBC) [Entitic vol] 92.1 fL 80-94 [facility] Mean corpuscular hemoglobin (MCH) determinationOrdered By: Melodie Londono on 09-27-2024 MCH (RBC) [Entitic mass] 30.7 pg 27.0-32.0 [facility] Mean corpuscular hemoglobin concentration (MCHC) determinationOrdered By: Melodie Londono on 09-27-2024 MCHC (RBC) [Mass/Vol] 33.3 g/dL 32-36 [facility] Mean platelet volume determi nationOrdered By: Melodie Londono on 09-27-2024 Platelet mean volume (Bld) [Entitic vol] 11.4 fL 6.2-12.0 [facility] Monocyte percentageOrdered B y: Melodie Londono on 09-27-2024 Monocytes/100 WBC (Bld) 10.2 % High 0-10 [facility] Neutrophil percentageOrdered By: Melodie Londono on 09-27-2024 Neutrophils/100 WBC (Bld) 63.2 % 47-70 [facility] Nucleated red blood cell per centageOrdered By: Melodie Londono on 09-27-2024 Nucleated RBC/100 WBC (Bld) [Ratio] 0 % 0-5 [facility] Platelet countOrdered By: Natasha Londono on 09-27-2024 Platelets (Bld) [#/Vol] 229 10*3/uL 150-450 [facility] Potassium (Unsp spec) [Mass/ Vol]Ordered By: Melodie Londono on 09-27-2024 Potassium [Moles/Vol] 4.6 mmol/L 3.3-5.1 [facility] Potassium measurement (mass/ volume)Ordered By: Melodie Londono on 09-27-2024 Potassium (Unsp spec) [Mass/Vol] 4.6 mmol/L 3.3-5.1 [facility] RBC Auto (Bld) [#/Vol]Ordere d By: Melodie Londono on 09-27-2024 RBC (Bld) [#/Vol] 4.82 10*6/uL 4.6-6.2 [facility] Serum creatinine measurement (mass/volume)Ordered By: Melodie Londono on 09-27-2024 Creatinine [Mass/Vol] 0.94 mg/dL 0.70-1.20 [facility] Serum globulin measurementOr dered By: Melodie Londono on 09-27-2024 Globulin (S) [Mass/Vol] 2.7 g/dL 2.2-4.2 [facility] Serum glucose measurement (m ass/volume)Ordered By: Melodie Londono on 09-27-2024 Glucose [Mass/Vol] 105 mg/dL High 70-99 [facility] Serum or plasma alanine schroeder otransferase (ALT) measurementOrdered By: Melodie Londono on 09-27-2024 ALT [Catalytic activity/Vol] 15 U/L <47 [facility] Serum or plasma albumin dax urement (mass/volume)Ordered By: Melodie Londono on 09-27-2024 Albumin [Mass/Vol] 4.4 g/dL 3.4-4.8 [facility] Serum or plasma albumin/glob ulin mass ratioOrdered By: Melodie Londono on 09-27-2024 Albumin/Globulin [Mass ratio] 1.6 {ratio} 0.9-2.4 [facility] Serum or plasma alkaline claribel sphatase measurementOrdered By: Melodie Londono on 09-27-2024 ALP [Catalytic activity/Vol] 56 U/L 40-129 [facility] Serum or plasma calcium dax urement (mass/volume)Ordered By: Melodie Londono on 09-27-2024 Calcium [Mass/Vol] 9.7 mg/dL 7.6-11.0 [facility] Serum or plasma urea nitroge n measurement (mass/volume)Ordered By: Melodie Londono on 09-27-2024 Urea nitrogen [Mass/Vol] 15 mg/dL 4-19 [facility] Serum prealbumin measurement by immunoassayOrdered By: Melodie Londono on 09-27-2024 Prealbumin [Mass/Vol] 26 mg/dL 9-32 [facility] Comment on above: Performed at: [facility] [address] [id number] Director: Rajiv Rosales PhD, Phone: [phone] Sodium levelOrdered By: Dolores Londono on 09-27-2024 Sodium [Moles/Vol] 141 mmol/L 133-145 [facility] TSH DL <= 0.005 mIU/L QnOrde red By: Melodie Londono on 09-27-2024 Thyroid Stimulating Hormone (TSH) 1.590 uIU/mL 0.300-4.200 [facility] TSH Qn 1.590 uIU/mL 0.300-4.200 [facility] Thyroid Stim Hormone (TSH)on 09-27-2024 TSH 1.590 uIU/mL Normal 0.300-4.200 [facility] Comment on above: Order Comment: Order Date: 09/27/24Order Info: [id number] - CMPOrder Info: 3016-3 - TSH Performed By: #### L 501.2450, L500.3400, L500.2500 #### [facility] [address] [place], [address] Total proteinOrdered By: Yoandy Londono on 09-27-2024 Protein [Mass/Vol] 7.1 g/dL 5.9-8.4 [facility] White blood cell (WBC) count Ordered By: Melodie Londono on 09-27-2024 WBC (Bld) [#/Vol] 6.4 10*3/uL 4.4-11.0 [facility] CNOVon 04-25-2024 CNOV Office Visit (NEIND4 ) ONEAL PAGE ([id number]) 1935 M Date Time Provider Department 04/25/24 4:30 PM MINDI FERROIND4 During your visit today, we recorded the following information about you: Pulse Blood pressure Weight Height 71/minute 158/69 61.1 kg 1.778 m Mindi Ferro MD 04/25/2024 5:52 PM Signed General Neurology Outpatient Clinic - f/u visit Date: April 25, 2024 Patient Name: Oneal Page Referring physician: Mindi Ferro [address] [facility] [address] Primary physician: Melodie Londono ([facility]) [address] [place] [address] Reason for Evaluation: memory f/u Previously seen [...] with choices) Orientation: 5/6 (missed month, stated Mar) 18-25 =mild cognitive impairment, 10-17 = moderate [...] 5 Triceps: 5 Biceps: 5 Biceps: 5 Lining Finisher: 5 Lining Finisher: 5 Right Lower: Left Lower: Iliopsoas: 5 Iliopsoas: 5 Knee flexor: 5 Knee flexor: 5 Knee extensor: 5 Knee extensor: 5 Motor Tone: Right Upper: Normal tone Left Upper: Normal tone Reflexes: 2/4 biceps, brachioradialis, patellars Sensation: intact BUE to touch, proprioception, vibration Coordination: Finger-to- nose-finger intact bilaterally and Trwk-nz-cstv intact bilaterally. Gait: normal-based ASSESSMENT: 88 year [...] which included preparing to see the patient, dsym-dj-eizl patient care, completing clinical documentation, obtaining and/or reviewing separately obtained history, performing a medically appropriate examination, counseling and educating the patient/family/caregiv er, ordering medications, tests, or procedures, independently interpreting results (not separately reported), communicating results to the patient/family/caregiv er, and care coordination (not separately reported). Mindi Ferro MD Staff, General Neurology Pager: [phone] CC: Referring Physician: Mindi Ferro [address] [facility] [address] PCP: Melodie Londono ([facility]) [address] [place] [address] Mindi Ferro MD 04/25/2024 5:21 PM Signed [...] up the (more content not included)... [facility]-Complete Blood Cnt No Di ffon 04-11-2024 Erythrocyte distribution width (RBC) [Ratio] 13.1 % Normal 11.6-14.6 [facility] Comment on above: Performed By: #### L 500.4050, L501.2450, L100.0500 ####[facility] [address] [place], [address] Hematocrit (Bld) [Volume fraction] 43.6 % Normal 40-54 [facility] Comment on above: Performed By: #### L 500.4050, L501.2450, L100.0500 ####[facility] [address] [place], [address] Hemoglobin (Bld) [Mass/Vol] 14.0 g/dL Normal 13.0-16.5 [facility] Comment on above: Performed By: #### L 500.4050, L501.2450, L100.0500 ####[facility] [address] [place], [address] MCH (RBC) [Entitic mass] 29.1 pg Normal 27.0-32.0 [facility] Comment on above: Performed By: #### L 500.4050, L501.2450, L100.0500 ####[facility] [address] [place], [address] MCHC (RBC) [Mass/Vol] 32.1 g/dL Normal 32-36 [facility] Comment on above: Performed By: #### L 500.4050, L501.2450, L100.0500 ####[facility] [address] [place], [address] MCV (RBC) [Entitic vol] 90.6 fL Normal 80-94 [facility] Comment on above: Performed By: #### L 500.4050, L501.2450, L100.0500 ####[facility] [address] [place], [address] Platelet mean volume (Bld) [Entitic vol] 11.2 fL Normal 6.2-12.0 [facility] Comment on above: Performed By: #### L 500.4050, L501.2450, L100.0500 ####[facility] [address] [place], [id number] Platelets (Bld) [#/Vol] 207 10*3/uL Normal 150-450 [facility] Comment on above: Performed By: #### L 500.4050, L501.2450, L100.0500 ####[facility] [address] [place], [id number] RBC (Bld) [#/Vol] 4.81 10*6/uL Normal 4.6-6.2 [facility] Comment on above: Performed By: #### L 500.4050, L501.2450, L100.0500 ####[facility] [address] [place], [address] RDW SD 43.4 fl Normal 35.1-43.9 [facility] Comment on above: Performed By: #### L 500.4050, L501.2450, L100.0500 ####[facility] [address] [place], [address] WBC (Bld) [#/Vol] 4.8 10*3/uL Normal 4.4-11.0 [facility] Comment on above: Performed By: #### L 500.4050, L501.2450, L100.0500 ####[facility] [address] [place], [id number] Comprehensive Metabolic Prof ilon 04-11-2024 Albumin [Mass/Vol] 3.7 g/dL Normal 3.2-5.0 [facility] Comment on above: Performed By: #### L 500.4050, L501.2450, L100.0500 ####[facility] [address] [place], [address] Albumin/Globulin [Mass ratio] 1.2 {ratio} Normal 0.9-2.4 [facility] Comment on above: Performed By: #### L 500.4050, L501.2450, L100.0500 ####[facility] [address] [place], [address] ALK P 57 U/L Normal 45-117 [facility] Comment on above: Performed By: #### L 500.4050, L501.2450, L100.0500 ####[facility] [address] [place], [address] ALT [Catalytic activity/Vol] 17 U/L Normal 16-61 [facility] Comment on above: Performed By: #### L 500.4050, L501.2450, L100.0500 ####[facility] [address] [place], [address] AST [Catalytic activity/Vol] 23 U/L Normal 15-37 [facility] Comment on above: Performed By: #### L 500.4050, L501.2450, L100.0500 ####[facility] [address] [place], [address] Bilirubin [Mass/Vol] 0.50 mg/dL Normal 0.20-1.00 [facility] Comment on above: Result Comment: For patients on eltrombopag therapy, use of Dimension [place] TBIL is not recommended. Performed By: #### L 500.4050, L501.2450, L100.0500 ####[facility] [address] [place], [address] BUN/CRE 13.1 RATIO Normal 10-20 [facility] Comment on above: Performed By: #### L 500.4050, L501.2450, L100.0500 ####[facility] [address] [place], [address] CA,Total 9.2 mg/dL Normal 8.5-10.1 [facility] Comment on above: Performed By: #### L 500.4050, L501.2450, L100.0500 ####[facility] [address] [place], [address] Chloride [Moles/Vol] 107 mmol/L Normal 98-107 [facility] Comment on above: Performed By: #### L 500.4050, L501.2450, L100.0500 ####[facility] [address] [place], [address] CO2 [Moles/Vol] 28.0 mmol/L Normal 21.0-32.0 [facility] Comment on above: Performed By: #### L 500.4050, L501.2450, L100.0500 ####[facility] [address] [place], [address] Creatinine [Mass/Vol] 0.99 mg/dL Normal 0.70-1.30 [facility] Comment on above: Result Comment: The validity of the calculated GFR GFRAA in patients over 70 years has not been determined. Clinical correlation is essential. Performed By: #### L 500.4050, L501.2450, L100.0500 ####[facility] [address] [place], [address] EST GFR - AA 92 mL/min Normal >60 [facility] Comment on above: Result Comment: Afri can [place] GFR Calc Performed By: #### L 500.4050, L501.2450, L100.0500 ####[facility] [address] [place], [address] GAP 5 Normal 5-15 [facility] Comment on above: Performed By: #### L 500.4050, L501.2450, L100.0500 ####[facility] [address] [place], [address] GFR/1.73 sq M.predicted among non-blacks MDRD (S/P/Bld) [Vol rate/Area] 76 mL/min/{1.73_m2} Normal >60 [facility] Comment on above: Result Comment: Non- GFR Calc Performed By: #### L 500.4050, L501.2450, L100.0500 ####[facility] [address] [place], [address] Globulin (S) [Mass/Vol] 3.2 g/dL Normal 2.2-4.2 [facility] Comment on above: Performed By: #### L 500.4050, L501.2450, L100.0500 ####[facility] [address] [place], [address] Glucose [Mass/Vol] 112 mg/dL High 74-106 [facility] Comment on above: Result Comment: Fast ing Glucose result from 100 to 125 mg/dL suggests IMPAIRED HOMEOSTASIS per A.D.A. criteria. Performed By: #### L 500.4050, L501.2450, L100.0500 ####[facility] [address] [place], [address] Potassium [Moles/Vol] 4.1 mmol/L Normal 3.5-5.1 [facility] Comment on above: Performed By: #### L 500.4050, L501.2450, L100.0500 ####[facility] [address] [place], [address] Sodium [Moles/Vol] 140 mmol/L Normal 136-145 [facility] Comment on above: Performed By: #### L 500.4050, L501.2450, L100.0500 ####[facility] [address] [place], [address] T PROT 6.9 g/dL Normal 6.4-8.2 [facility] Comment on above: Performed By: #### L 500.4050, L501.2450, L100.0500 ####[facility] [address] [place], [id number] Urea nitrogen [Mass/Vol] 13 mg/dL Normal 7-18 [facility] Comment on above: Performed By: #### L 500.4050, L501.2450, L100.0500 ####[facility] [address] [place], [address] Lipaseon 04-11-2024 Lipase [Catalytic activity/Vol] 33 U/L Normal 13-75 [facility] Comment on above: Result Comment: Nancy garcia note: LIPASE revised reference range effective 22. New Lipase methodology. Expected to produce lower values than the previous assay method. NEW Reference Range: 13 - 75 U/L Performed By: #### L 500.4050, L501.2450, L100.0500 ####[facility] [address] [place], [address] Basic Metabolic Profile (BMP )on 03-05-2024 BUN/CRE 11.5 RATIO Normal 10-20 [facility] Comment on above: Order Comment: Order Date: 01/09/24Order Info: 0667-1 - BMP Performed By: #### L 500.2500, L503.0105, L506.1000 ####[facility] [address] [place], [address] CA,Total 9.4 mg/dL Normal 8.5-10.1 [facility] Comment on above: Order Comment: Order Date: 01/09/24Order Info: 0667-1 - BMP Performed By: #### L 500.2500, L503.0105, L506.1000 ####[facility] [address] [place], [id number] Chloride [Moles/Vol] 105 mmol/L Normal 98-107 [facility] Comment on above: Order Comment: Order Date: 01/09/24Order Info: 666-06 - BMP Performed By: #### L 500.2500, L503.0105, L506.1000 ####[facility] [address] [place], [address] CO2 [Moles/Vol] 27.0 mmol/L Normal 21.0-32.0 [facility] Comment on above: Order Comment: Order Date: 01/09/24Order Info: 666-06 - BMP Performed By: #### L 500.2500, L503.0105, L506.1000 ####[facility] [address] [place], [address] Creatinine [Mass/Vol] 0.96 mg/dL Normal 0.70-1.30 [facility] Comment on above: Order Comment: Order Date: 01/09/24Order Info: 666-06 - BMP Result Comment: The validity of the calculated GFR GFRAA in patients over 70 years has not been determined. Clinical correlation is essential. Performed By: #### L 500.2500, L503.0105, L506.1000 ####[facility] [address] [place], [address] EST GFR - AA 96 mL/min Normal >60 [facility] Comment on above: Order Comment: Order Date: 01/09/24Order Info: 666-06 - BMP Result Comment: Afri can [place] GFR Calc Performed By: #### L 500.2500, L503.0105, L506.1000 ####[facility] [address] [place], [address] GAP 8 Normal 5-15 [facility] Comment on above: Order Comment: Order Date: 01/09/24Order Info: 06 - BMP Performed By: #### L 500.2500, L503.0105, L506.1000 ####[facility] [address] [place], [address] GFR/1.73 sq M.predicted among non-blacks MDRD (S/P/Bld) [Vol rate/Area] 79 mL/min/{1.73_m2} Normal >60 [facility] Comment on above: Order Comment: Order Date: 01/09/24Order Info: 06- - BMP Result Comment: Non- GFR Calc Performed By: #### L 500.2500, L503.0105, L506.1000 ####[facility] [address] [place], [address] Glucose [Mass/Vol] 87 mg/dL Normal 74-106 [facility] Comment on above: Order Comment: Order Date: 01/09/24Order Info: 666- - BMP Performed By: #### L 500.2500, L503.0105, L506.1000 ####[facility] [address] [place], [address] Potassium [Moles/Vol] 4.2 mmol/L Normal 3.5-5.1 [facility] Comment on above: Order Comment: Order Date: 01/09/24Order Info: 06- - BMP Performed By: #### L 500.2500, L503.0105, L506.1000 ####[facility] [address] [place], [address] Sodium [Moles/Vol] 139 mmol/L Normal 136-145 [facility] Comment on above: Order Comment: Order Date: 01/09/24Order Info: 06- - BMP Performed By: #### L 500.2500, L503.0105, L506.1000 ####[facility] [address] [place], [address] Urea nitrogen [Mass/Vol] 11 mg/dL Normal 7-18 [facility] Comment on above: Order Comment: Order Date: 01/09/24Order Info: 06- - BMP Performed By: #### L 500.2500, L503.0105, L506.1000 ####[facility] [address] [place], [id number] Vitamin B12on 03-05-2024 Cobalamin (Vitamin B12) [Mass/Vol] 398 pg/mL Normal 211-911 [facility] Comment on above: Order Comment: Order Date: 01/09/24Order Info: 213-9 - Z25Jrhgq Info: 15006-7 - VITD25 Performed By: #### L 500.2500, L503.0105, L506.1000 ####[facility] [address] [place], [id number] Vitamin D,25 Hydroxyon 03-05 Vitamin D 25-OH 61.6 ng/mL Normal [facility] Comment on above: Order Comment: Order Date: 01/09/24Order Info: 9 - S95Pikqh Info: [id number] - VITD25 Result Comment: Malinda min D 25(OH) Status Range Deficiency <20 ng/mL (50nmol/L) Insufficiency 20 - 30 ng/mL (50 - 75 nmol/L) Sufficiency 30 - 100 ng/mL (75 - 250 nmol/L) Toxicity >100 ng/mL (>250 nmol/L) Performed By: #### L 500.2500, L503.0105, L506.1000 ####[facility] [address] [place], [id number] CNOVon 08-29-2023 CNOV Office Visit (NEURMM ) ONEAL PAGE ([id number]) 1935 M Date Time Provider Department 08/29/23 1:00 PM MINDI FERRO During your visit today, we recorded the following information about you: Pulse Respiration Blood pressure Weight 68/minute 18/minute 147/101 65.2 kg Mindi Ferro MD 08/29/2023 3:59 PM Signed General Neurology Outpatient Clinic - new patient evaluation Date: August 29, 2023 Patient Name: Oneal Page Referring physician: No referring provider defined for this encounter. Primary physician: Melodie Londono ([facility]) [address] [place] [address] Reason for Evaluation: memory HPI The pt is a 88yo Left handed male with hx of - HTN - GERD - hearing loss Referred by PCP at [facility], [facility] for neurological consultation regarding MCI. My [...] high school and then served in the [employer] He came back and started working. 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 They never got [...] 5 Triceps: 5 Biceps: 5 Biceps: 5 Lining Finisher: 5 Lining Finisher: 5 Right Lower: Left Lower: Iliopsoas: 5 Iliopsoas: 5 Knee flexor: 5 Knee flexor: 5 Knee extensor: 5 Knee extensor: 5 Motor Tone: Right Upper: Normal tone Left Upper: Normal tone Reflexes: 2/4 biceps, brachioradialis, patellars Sensation: intact BUE to touch, proprioception, vibration Coordination: Finger-to- nose-finger intact bilaterally and Xdog-fb-pldc intact bilaterally. Gait: normal-based. LABS/DATA: 07/04/2023 OSH labs Hemoglobin 15 LFTs wnl SCr 0.86 GFR >60 TSH 1.13 Vit B12 491 ASSESSMENT: The pt is a 88 year old male with a history of HTN, GERD, hearing loss who presents with some cognitive changes. His neurologic (more content not included)... Normal [facility] 08-29-2023 [facility] Telephone (NEUR) ONEAL PAGE ([id number]) 1935 M Date Time Provider Department 08/29/23 [...] Encounter Status:Closed by SENAIT SUNSHINE [facility] Telephone (NEUR) ONEAL PAGE ([id number]) 1935 M Date Time Provider Department 07/20/23 [...] Status:Closed by ROSHNI YEBOAH on 07/21/23 Normal [facility] Absolute lymphocyte countOrd ered By: Jeremy Londono on 07-04-2023 Lymphocytes Auto (Unsp spec) [#/Vol] 1.00 10*3/uL 0.83-4.51 [facility] Automated lymphocyte count a s percentage of total leukocytesOrdered By: Jeremy Londono on 07-04-2023 Lymphocytes/100 WBC Auto (Unsp spec) 15.9 % 19-41 [facility] Basophil percentageOrdered B y: Jeremy Londono on 07-04-2023 Basophils/100 WBC (Bld) 1.3 % 0-1 [facility] Bilirubin [Mass/Vol] 0.60 mg/dL 0.20-1.00 [facility] Comment on above: For patients on eltr ombopag therapy, use of Dimension [place] TBIL is not recommended. Chloride [Moles/Vol] 102 mmol/L 98-107 [facility] Eosinophils/100 WBC (Bld) 8.4 % 0-5 [facility] Glucose [Mass/Vol] 93 mg/dL 74-106 [facility] Hemoglobin (Bld) [Mass/Vol] 15.0 g/dL 13.0-16.5 [facility] Monocytes/100 WBC (Bld) 8.4 % 0-10 [facility] Neutrophils (Bld) [#/Vol] 4.1 10*3/uL 2.0-7.7 [facility] Neutrophils/100 WBC (Bld) 65.8 % 47-70 [facility] Potassium [Moles/Vol] 4.0 mmol/L 3.5-5.1 [facility] Protein [Mass/Vol] 7.3 g/dL 6.4-8.2 [facility] Sodium [Moles/Vol] 136 mmol/L 136-145 [facility] WBC (Bld) [#/Vol] 6.3 10*3/uL 4.4-11.0 [facility] Determination of erythrocyte mean corpuscular volume (MCV)Ordered By: Jeremy Londono on 07-04-2023 MCV (RBC) [Entitic vol] 92.6 fL 80-94 [facility] Erythrocyte distribution wid th ratioOrdered By: Jeremy Londono on 07-04-2023 Erythrocyte distribution width (RBC) [Ratio] 13.0 % 11.6-14.6 [facility] Erythrocyte distribution wid th standard deviationOrdered By: Jeremy Londono on 07-04-2023 Erythrocyte distribution width (RBC) [Entitic vol] 44.5 fL 35.1-43.9 [facility] Hematocrit Auto (Bld) [Volum e fraction]Ordered By: Jeremy Londono on 07-04-2023 Hematocrit (Bld) [Volume fraction] 47.3 % 40-54 [facility] Immature granulocytes/100 WB C Auto (Bld)Ordered By: Jeremy Londono on 07-04-2023 Immature granulocytes/100 WBC (Bld) 0.200 % 0.0-0.9 [facility] Comment on above: IG% - Immature Granu locytes (promyelocytes, myelocytes and metamyelocytes) > 1% indicates that a LEFT SHIFT is Present. Laboratory - Chemistry and C hemistry - challengeOrdered By: Jeremy Londono on 07-04-2023 Albumin/Globulin [Mass ratio] 1.1 {ratio} 0.9-2.4 [facility] ALP [Catalytic activity/Vol] 63 U/L 45-117 [facility] ALT [Catalytic activity/Vol] 22 U/L 16-61 [facility] CO2 [Moles/Vol] 29.0 mmol/L 21.0-32.0 [facility] Cobalamin (Vitamin B12) [Mass/Vol] 491 pg/mL 211-911 [facility] Globulin (S) [Mass/Vol] 3.4 g/dL 2.2-4.2 [facility] Urea nitrogen/Creatinine [Mass ratio] 12.8 mg/mg 10-20 [facility] Laboratory - Hematology and Cell countsOrdered By: Jeremy Londono on 07-04-2023 MCH (RBC) [Entitic mass] 29.4 pg 27.0-32.0 [facility] MCHC (RBC) [Mass/Vol] 31.7 g/dL 32-36 [facility] Nucleated RBC/100 WBC (Bld) [Ratio] 0 % 0-5 [facility] Platelets (Bld) [#/Vol] 245 10*3/uL 150-450 [facility] No Panel InformationOrdered By: Jeremy Londono on 07-04-2023 Estimated GFR (MDRD) Amer 108 mL/min >60 [facility] Comment on above: GFR Calc Estimated GFR (MDRD) Non-Af Amer 89 mL/min >60 [facility] Comment on above: Non- GFR Calc Platelet mean volume Ben-Ec ker (Bld) [Entitic vol]Ordered By: Jeremy Londono on 07-04-2023 Platelet mean volume (Bld) [Entitic vol] 11.4 fL 6.2-12.0 [facility] RBC Auto (Bld) [#/Vol]Ordere d By: Jeremy Londono on 07-04-2023 RBC (Bld) [#/Vol] 5.11 10*6/uL 4.6-6.2 [facility] Serum or plasma calcium dax urement (mass/volume)Ordered By: Jeremy Londono on 07-04-2023 Calcium [Mass/Vol] 9.2 mg/dL 8.5-10.1 [facility] Serum or plasma creatinine m easurement (mass/volume)Ordered By: Jeremy Londono on 07-04-2023 Creatinine [Mass/Vol] 0.86 mg/dL 0.70-1.30 [facility] Comment on above: The validity of the calculated GFR & GFRAA in patients over 70 years has not been determined. Clinical correlation is essential. Serum or plasma thyroid stim ulating hormone (TSH) measurement (units/volume)Ordered By: Jeremy Londono on 07-04-2023 TSH Qn 1.13 uIU/mL 0.358-3.74 [facility] Serum or plasma urea nitroge n measurement (mass/volume)Ordered By: Jeremy Londono on 07-04-2023 Urea nitrogen [Mass/Vol] 11 mg/dL 7-18 [facility] Thin prep Papanicolaou smear with manual screeningOrdered By: Jeremy Londono on 07-04-2023 Thin prep Papanicolaou smear with manual screening 3.9 g/dL 3.2-5.0 [facility] Thin prep Papanicolaou smear with manual screening 25 U/L 15-37 [facility] Thin prep Papanicolaou smear with manual screening 5 5-15 [facility] Stool gastrointestinal hemog lobin detection by immunologic methodOrdered By: Jeremy Londono on 12-31-2022 Lower GI hemoglobin IA Ql (Stl) [facility] Chocolate RASTOrdered By: Natasha Londono on 12-30-2022 Chocolate IgE Qn (S) <0.10 kU/L Class 0 [facility] Comment on above: Performed at: [address] [id number] Director: Margie Huynh MD, Phone: [phone] Laboratory - Miscellaneous t estsOrdered By: Jeremy Londono on 12-30-2022 Service comment (Unsp spec) [Interp] Comment . [facility] Comment on above: Levels of Specific [...] 12-30-2022 [employer] Allergens (RAST) Negative . [facility] Comment on above: Allergens in this mi x are: Blue mussel Fish [place] Shrimp Tuna Serum beef IgE antibody assa y (units/volume)Ordered By: Jeremy Londono on 12-30-2022 Beef IgE Qn (S) <0.10 kU/L Class 0 [facility] Serum corn IgE antibody assa y (units/volume)Ordered By: Jeremy Londono on 12-30-2022 [place] IgE Qn (S) <0.10 kU/L Class 0 [facility] Serum cow milk IgE antibody assay (units/volume)Ordered By: Jeremy Londono on 12-30-2022 Cow milk IgE Qn (S) <0.10 kU/L Class 0 [facility] Serum or plasma transthyreti n measurement (mass/volume)Ordered By: Jeremy Londono on 12-30-2022 Prealbumin [Mass/Vol] 23.4 mg/dL 20.0-40.0 [facility] Serum peanut IgE antibody as say (units/volume)Ordered By: Jeremy Londono on 12-30-2022 Peanut IgE Qn (S) <0.10 kU/L Class 0 [facility] Serum pork IgE antibody assa y (units/volume)Ordered By: Jeremy Londono on 12-30-2022 Pork IgE Qn (S) <0.10 kU/L Class 0 [facility] Serum soybean IgE antibody a ssay (units/volume)Ordered By: Jeremy Londono on 12-30-2022 Soybean IgE Qn (S) <0.10 kU/L Class 0 [facility] Serum wheat IgE antibody ass ay (units/volume)Ordered By: Jeremy Londono on 12-30-2022 Wheat IgE Qn (S) <0.10 kU/L Class 0 [facility] Serum whole egg IgE antibody assay (units/volume)Ordered By: Jeremy Londono on 12-30-2022 Whole Egg IgE Qn (S) <0.10 kU/L Class 0 [facility] Absolute lymphocyte countOrd ered By: Yayo Mauro on 12-21-2022 Lymphocytes Auto (Unsp spec) [#/Vol] 0.92 10*3/uL 0.83-4.51 [facility] Amorphous sediment detection in urine sediment by light microscopyOrdered By: Yayo Mauro on 12-21-2022 Amorphous sediment LM Ql (Urine sed) 1+ [facility] Basophil percentageOrdered B y: Yayo Mauro on 12-21-2022 Basophil percentage 0-5 SEEN /hpf 0-5 [facility] Basophils/100 WBC (Bld) 0.9 % 0-1 [facility] Bilirubin [Mass/Vol] 0.50 mg/dL 0.20-1.00 [facility] Comment on above: For patients on eltr ombopag therapy, use of Dimension [place] TBIL is not recommended. Chloride [Moles/Vol] 107 mmol/L 98-107 [facility] Eosinophils/100 WBC (Bld) 6.8 % 0-5 [facility] Glucose [Mass/Vol] 109 mg/dL 74-106 [facility] Comment on above: Fasting Glucose resu lt from 100 to 125 mg/dL suggests IMPAIRED HOMEOSTASIS per A.D.A. criteria. Neutrophils (Bld) [#/Vol] 3.9 10*3/uL 2.0-7.7 [facility] Neutrophils/100 WBC (Bld) 68.4 % 47-70 [facility] Potassium [Moles/Vol] 4.3 mmol/L 3.5-5.1 [facility] Protein [Mass/Vol] 6.8 g/dL 6.4-8.2 [facility] Sodium [Moles/Vol] 139 mmol/L 136-145 [facility] WBC (Bld) [#/Vol] 5.8 10*3/uL 4.4-11.0 [facility] Bilirubin Test strip Ql (U)O rdered By: Yayo Mauro on 12-21-2022 Bilirubin Ql (U) Negative Negative [facility] Blood erythrocytes count (nu mber/volume)Ordered By: Yayo Mauro on 12-21-2022 RBC (Bld) [#/Vol] 4.80 10*6/uL 4.6-6.2 [facility] Blood hemoglobin measurement (mass/volume)Ordered By: Yayo Mauro on 12-21-2022 Hemoglobin (Bld) [Mass/Vol] 14.5 g/dL 13.0-16.5 [facility] Blood lymphocytes/100 leukoc ytesOrdered By: Yayo Mauro on 12-21-2022 Lymphocytes/100 WBC (Bld) 16.0 % 19-41 [facility] Blood monocytes/100 leukocyt esOrdered By: Yayo Mauro on 12-21-2022 Monocytes/100 WBC (Bld) 7.6 % 0-10 [facility] Blood platelet mean volumeOr dered By: Yayo Mauro on 12-21-2022 Platelet mean volume (Bld) [Entitic vol] 10.5 fL 6.2-12.0 [facility] Culture, urineOrdered By: Tuan Mauro on 12-21-2022 Bacteria identified Cx Nom (U) Mixed Gram Pos & Gram Neg Org [facility] Determination of erythrocyte mean corpuscular volume (MCV)Ordered By: Yayo Mauro on 12-21-2022 MCV (RBC) [Entitic vol] 91.5 fL 80-94 [facility] Hematocrit Auto (Bld) [Volum e fraction]Ordered By: Yayo Mauro on 12-21-2022 Hematocrit (Bld) [Volume fraction] 43.9 % 40-54 [facility] Ketones Test strip Ql (U)Ord ered By: Yayo Mauro on 12-21-2022 Ketones Ql (U) Negative Negative [facility] Laboratory - Chemistry and C hemistry - challengeOrdered By: Yayo Mauro on 12-21-2022 ALP [Catalytic activity/Vol] 54 U/L 45-117 [facility] ALT [Catalytic activity/Vol] 17 U/L 16-61 [facility] CO2 [Moles/Vol] 28.0 mmol/L 21.0-32.0 [facility] Globulin (S) [Mass/Vol] 3.5 g/dL 2.2-4.2 [facility] Lipase [Catalytic activity/Vol] 35 U/L 13-75 [facility] Comment on above: Please note:LIPASE r evised reference range effective 22. New Lipase methodology. Expected to produce lower values than the previous assay method. NEW Reference Range: 13 - 75 U/L Urea nitrogen/Creatinine [Mass ratio] 10.7 mg/mg 10-20 [facility] Laboratory - Hematology and Cell countsOrdered By: Yayo Mauro on 12-21-2022 Erythrocyte distribution width (RBC) [Entitic vol] 45.2 fL 35.1-43.9 [facility] Erythrocyte distribution width (RBC) [Ratio] 13.3 % 11.6-14.6 [facility] Immature granulocytes/100 WBC (Bld) 0.300 % 0.0-0.9 [facility] Comment on above: IG% - Immature Granu locytes (promyelocytes, myelocytes and metamyelocytes) > 1% indicates that a LEFT SHIFT is Present. MCH (RBC) [Entitic mass] 30.2 pg 27.0-32.0 [facility] Nucleated RBC/100 WBC (Bld) [Ratio] 0 % 0-5 [facility] MCHC Auto (RBC) [Mass/Vol]Or dered By: Yayo Mauro on 12-21-2022 MCHC (RBC) [Mass/Vol] 33.0 g/dL 32-36 [facility] Mucus LM Ql (Urine sed)Order ed By: Yayo Mauro on 12-21-2022 Mucus Ql (Urine sed) 0 SEEN /hpf [facility] Nitrite Test strip Ql (U)Ord ered By: Yayo Mauro on 12-21-2022 Nitrite Ql (U) Negative Negative [facility] No Panel InformationOrdered By: Yayo Mauro on 12-21-2022 Estimated Creatinine Clearance Calc 54.14 ml/min [facility] Estimated GFR (MDRD) Amer 99 mL/min >60 [facility] Comment on above: GFR Calc Estimated GFR (MDRD) Non-Af Amer 82 mL/min >60 [facility] Comment on above: Non- GFR Calc Troponin I High Sensitivity 8 pg/mL 3.0-78.0 [facility] Comment on above: Please Note: New Delmi t Units and Gender Specific Reference Ranges. For more information see Policy Stat Procedure [place] High Sensitivity Troponin (TNIH) and attachments. Platelets bldOrdered By: Chaitanya Mauro on 12-21-2022 Platelets (Bld) [#/Vol] 212 10*3/uL 150-450 [facility] Protein Test strip Ql (U)Ord ered By: Yayo Mauro on 12-21-2022 Protein Ql (U) Negative Negative [facility] Serum or plasma albumin dax urement (mass/volume)Ordered By: Yayo Mauro on 12-21-2022 Albumin [Mass/Vol] 3.3 g/dL 3.2-5.0 [facility] Serum or plasma albumin/glob ulin mass ratioOrdered By: Yayo Mauro on 12-21-2022 Albumin/Globulin [Mass ratio] 0.9 {ratio} 0.9-2.4 [facility] Serum or plasma calcium dax urement (mass/volume)Ordered By: Yaoy Mauro on 12-21-2022 Calcium [Mass/Vol] 8.9 mg/dL 8.5-10.1 [facility] Serum or plasma creatinine m easurement (mass/volume)Ordered By: Yayo Mauro on 12-21-2022 Creatinine [Mass/Vol] 0.93 mg/dL 0.70-1.30 [facility] Comment on above: The validity of the calculated GFR & GFRAA in patients over 70 years has not been determined. Clinical correlation is essential. Serum or plasma urea nitroge n measurement (mass/volume)Ordered By: Yayo Mauro on 12-21-2022 Urea nitrogen [Mass/Vol] 10 mg/dL 7-18 [facility] Squamous epithelial cells de tection in urine sediment by light microscopyOrdered By: Yayo Mauro on 12-21-2022 Epithelial cells.squamous LM Ql (Urine sed) 0 SEEN /hpf 0-5 [facility] Thin prep Papanicolaou smear with manual screeningOrdered By: Yayo Mauro on 12-21-2022 Thin prep Papanicolaou smear with manual screening 17 U/L 15-37 [facility] Thin prep Papanicolaou smear with manual screening 4 5-15 [facility] Urine blood detectionOrdered By: Yayo Mauro on 12-21-2022 RBC Ql (U) 25 /ul Negative [facility] RBC Ql (U) 0 SEEN /hpf 0-5 [facility] Urine clarityOrdered By: Chaitanya Mauro on 12-21-2022 Clarity (U) Sl. Cloudy Clear [facility] Urine color determinationOrd ered By: Yayo Mauro on 12-21-2022 Color (U) Yellow Yellow [facility] Urine glucose detectionOrder ed By: Yayo Mauro on 12-21-2022 Glucose Ql (U) Normal mg/dl Normal [facility] Urine leukocyte esterase det ection by dipstickOrdered By: Yayo Mauro on 12-21-2022 Leukocyte esterase Test strip Ql (U) 500 /ul Negative [facility] Urine pHOrdered By: Yayo Mauro on 12-21-2022 pH (U) 8.0 [pH] 5.0 - 8.0 [facility] Urine sediment bacteria coun t by microscopy (number/high power field)Ordered By: Yayo Mauro on 12-21-2022 Bacteria LM.HPF (Urine sed) [#/Area] 0 /[HPF] None Seen [facility] Urine specific gravity measu rementOrdered By: Yayo Mauro on 12-21-2022 Specific gravity (U) [Rel density] 1.015 1.002-1.030 [facility] Urobilinogen Auto test strip Ql (U)Ordered By: Yayo Mauro on 12-21-2022 Urobilinogen Ql (U) Normal mg/dl Normal [facility] Basophil percentageOrdered B y: Dr. Londono on 07-12-2022 Bilirubin [Mass/Vol] 0.60 mg/dL 0.20-1.00 [facility] Comment on above: For patients on eltr ombopag therapy, use of Dimension [place] TBIL is not recommended. Chloride [Moles/Vol] 107 mmol/L 98-107 [facility] Glucose [Mass/Vol] 79 mg/dL 74-106 [facility] Potassium [Moles/Vol] 4.3 mmol/L 3.5-5.1 [facility] Protein [Mass/Vol] 7.3 g/dL 6.4-8.2 [facility] Sodium [Moles/Vol] 139 mmol/L 136-145 [facility] WBC (Bld) [#/Vol] 6.4 10*3/uL 4.4-11.0 [facility] Blood erythrocytes count (nu mber/volume)Ordered By: Dr. Londono on 07-12-2022 RBC (Bld) [#/Vol] 5.15 10*6/uL 4.6-6.2 [facility] Blood hemoglobin measurement (mass/volume)Ordered By: Dr. Londono on 07-12-2022 Hemoglobin (Bld) [Mass/Vol] 15.6 g/dL 13.0-16.5 [facility] Blood platelet mean volumeOr dered By: Dr. Londono on 07-12-2022 Platelet mean volume (Bld) [Entitic vol] 11.4 fL 6.2-12.0 [facility] Determination of erythrocyte mean corpuscular volume (MCV)Ordered By: Dr. Londono on 07-12-2022 MCV (RBC) [Entitic vol] 91.5 fL 80-94 [facility] Erythrocyte sedimentation ra teOrdered By: Dr. Londono on 07-12-2022 ESR (Bld) [Velocity] 16 mm/h 0-20 [facility] Hematocrit Auto (Bld) [Volum e fraction]Ordered By: Dr. Londono on 07-12-2022 Hematocrit (Bld) [Volume fraction] 47.1 % 40-54 [facility] Laboratory - Chemistry and C hemistry - challengeOrdered By: Dr. Londono on 07-12-2022 ALP [Catalytic activity/Vol] 57 U/L 45-117 [facility] ALT [Catalytic activity/Vol] 19 U/L 16-61 [facility] CO2 [Moles/Vol] 24.0 mmol/L 21.0-32.0 [facility] Cobalamin (Vitamin B12) [Mass/Vol] 418 pg/mL 211-911 [facility] Globulin (S) [Mass/Vol] 3.5 g/dL 2.2-4.2 [facility] Urea nitrogen/Creatinine [Mass ratio] 16.8 mg/mg 10-20 [facility] Laboratory - Hematology and Cell countsOrdered By: Dr. Londono on 07-12-2022 Erythrocyte distribution width (RBC) [Entitic vol] 44.6 fL 35.1-43.9 [facility] Erythrocyte distribution width (RBC) [Ratio] 13.2 % 11.6-14.6 [facility] MCH (RBC) [Entitic mass] 30.3 pg 27.0-32.0 [facility] MCHC Auto (RBC) [Mass/Vol]Or dered By: Dr. Londono on 07-12-2022 MCHC (RBC) [Mass/Vol] 33.1 g/dL 32-36 [facility] No Panel InformationOrdered By: Dr. Londono on 07-12-2022 Estimated GFR (MDRD) Amer 112 mL/min >60 [facility] Comment on above: GFR Calc Estimated GFR (MDRD) Non-Af Amer 93 mL/min >60 [facility] Comment on above: Non- GFR Calc Thyroid Stimulating Hormone (TSH) 1.02 uIU/mL 0.358-3.74 [facility] Vitamin D 25-Hydroxy 54.4 ng/mL [facility] Comment on above: Vitamin D 25(OH) Sta tus Range Deficiency <20 ng/mL (50nmol/L) Insufficiency 20 - 30 ng/mL (50 - 75 nmol/L) Sufficiency 30 - 100 ng/mL (75 - 250 nmol/L) Toxicity >100 ng/mL (>250 nmol/L) Platelets bldOrdered By: Dr. Londono on 07-12-2022 Platelets (Bld) [#/Vol] 221 10*3/uL 150-450 [facility] Serum or plasma albumin dax urement (mass/volume)Ordered By: Dr. Londono on 07-12-2022 Albumin [Mass/Vol] 3.8 g/dL 3.2-5.0 [facility] Serum or plasma albumin/glob ulin mass ratioOrdered By: Dr. Londono on 07-12-2022 Albumin/Globulin [Mass ratio] 1.1 {ratio} 0.9-2.4 [facility] Serum or plasma calcium dax urement (mass/volume)Ordered By: Dr. Londono on 07-12-2022 Calcium [Mass/Vol] 9.3 mg/dL 8.5-10.1 [facility] Serum or plasma creatinine m easurement (mass/volume)Ordered By: Dr. Londono on 07-12-2022 Creatinine [Mass/Vol] 0.84 mg/dL 0.70-1.30 [facility] Comment on above: The validity of the calculated GFR & GFRAA in patients over 70 years has not been determined. Clinical correlation is essential. Serum or plasma urea nitroge n measurement (mass/volume)Ordered By: Dr. Londono on 07-12-2022 Urea nitrogen [Mass/Vol] 14 mg/dL 7-18 [facility] Thin prep Papanicolaou smear with manual screeningOrdered By: Dr. Londono on 07-12-2022 Thin prep Papanicolaou smear with manual screening 26 U/L 15-37 [facility] Thin prep Papanicolaou smear with manual screening 8 5-15 [facility] Absolute lymphocyte counton 01-13-2022 Lymphocytes Auto (Unsp spec) [#/Vol] 1.02 10*3/uL 0.83-4.51 [facility] Work Phone: Basophil percentageon 2021 Amylase [Catalytic activity/Vol] 75 U/L 25-115 [facility] Work Phone: Basophils/100 WBC (Bld) 1.1 % 0-1 [facility] Work Phone: Eosinophils/100 WBC (Bld) 10.4 % 0-5 [facility] Work Phone: Neutrophils (Bld) [#/Vol] 3.2 10*3/uL 2.0-7.7 [facility] Work Phone: Neutrophils/100 WBC (Bld) 59.8 % 47-70 [facility] Work Phone: WBC (Bld) [#/Vol] 5.4 10*3/uL 4.4-11.0 [facility] Work Phone: Blood erythrocytes count (nu mber/volume)on 01-13-2022 RBC (Bld) [#/Vol] 5.05 10*6/uL 4.6-6.2 [facility] Work Phone: Blood hemoglobin measurement (mass/volume)on 01-13-2022 Hemoglobin (Bld) [Mass/Vol] 15.0 g/dL 13.0-16.5 [facility] Work Phone: Blood lymphocytes/100 leukoc yteson 01-13-2022 Lymphocytes/100 WBC (Bld) 19.0 % 19-41 [facility] Work Phone: Blood monocytes/100 leukocyt eson 01-13-2022 Monocytes/100 WBC (Bld) 9.3 % 0-10 [facility] Work Phone: [phone] Blood platelet mean volumeon 01-13-2022 Platelet mean volume (Bld) [Entitic vol] 11.5 fL 6.2-12.0 [facility] Work Phone: [phone] Determination of erythrocyte mean corpuscular volume (MCV)on 01-13-2022 MCV (RBC) [Entitic vol] 92.7 fL 80-94 [facility] Work Phone: Hematocrit Auto (Bld) [Volum e fraction]on 01-13-2022 Hematocrit (Bld) [Volume fraction] 46.8 % 40-54 [facility] Work Phone: Laboratory - Chemistry and C hemistry - challengeon 01-13-2022 Lipase [Catalytic activity/Vol] 137 U/L 73-393 [facility] Work Phone: Cobalamin (Vitamin B12) [Mass/Vol] 353 pg/mL 211-911 [facility] Work Phone: Laboratory - Hematology and Cell countson 01-13-2022 Erythrocyte distribution width (RBC) [Entitic vol] 46.2 fL 35.1-43.9 [facility] Work Phone: [phone] Erythrocyte distribution width (RBC) [Ratio] 13.5 % 11.6-14.6 [facility] Work Phone: [phone] Immature granulocytes/100 WBC (Bld) 0.400 % 0.0-0.9 [facility] Work Phone: [phone] Comment on above: IG% - Immature Granu locytes (promyelocytes, myelocytes and metamyelocytes) > 1% indicates that a LEFT SHIFT is Present. MCH (RBC) [Entitic mass] 29.7 pg 27.0-32.0 [facility] Work Phone: Nucleated RBC/100 WBC (Bld) [Ratio] 0 % 0-5 [facility] Work Phone: [phone] MCHC Auto (RBC) [Mass/Vol]on 01-13-2022 MCHC (RBC) [Mass/Vol] 32.1 g/dL 32-36 [facility] Work Phone: [phone] No Panel Informationon 01-13 Endomysial IgA Antibody Negative Negative [facility] Work Phone: [phone] Thyroid Stimulating Hormone (TSH) 1.00 uIU/mL 0.358-3.74 [facility] Work Phone: [phone] Platelets bldon 01-13-2022 Platelets (Bld) [#/Vol] 243 10*3/uL 150-450 [facility] Work Phone: [phone] Serum IgA measurement (units /volume)on 01-13-2022 IgA Qn (S) 129 mg/dL 61-437 [facility] Work Phone: [phone] Comment on above: Performed at: [place] [id number] Director: Rajiv Rosales PhD, Phone: [phone] Serum tissue transglutaminas e IgA antibody assay (units/volume)on 01-13-2022 tTG IgA Qn (S) <2 U/mL 0-3 [facility] Work Phone: Comment on above: Negative 0 - 3 Weak Positive 4 - 10 Positive >10 Tissue Transglutaminase (tTG) has been identified as the endomysial antigen. Studies have demonstr- ated that endomysial IgA antibodies have over 99% specificity for gluten sensitive enteropathy. Absolute lymphocyte counton 12-15-2021 Lymphocytes Auto (Unsp spec) [#/Vol] 1.15 10*3/uL 0.83-4.51 [facility] Work Phone: Basophil percentageon 2021 Basophils/100 WBC (Bld) 0.8 % 0-1 [facility] Work Phone: [phone] Bilirubin [Mass/Vol] 0.50 mg/dL 0.20-1.00 [facility] Work Phone: Comment on above: For patients on eltr ombopag therapy, use of Dimension [place] TBIL is not recommended. Chloride [Moles/Vol] 108 mmol/L 98-107 [facility]: Eosinophils/100 WBC (Bld) 10.5 % 0-5 [facility] Work Phone: Glucose [Mass/Vol] 100 mg/dL 74-106 [facility] Work Phone: Comment on above: Fasting Glucose resu lt from 100 to 125 mg/dL suggests IMPAIRED HOMEOSTASIS per A.D.A. criteria. Neutrophils (Bld) [#/Vol] 3.9 10*3/uL 2.0-7.7 [facility] Work Phone: Neutrophils/100 WBC (Bld) 60.3 % 47-70 [facility] Work Phone: Potassium [Moles/Vol] 4.3 mmol/L 3.5-5.1 [facility]: Protein [Mass/Vol] 7.0 g/dL 6.4-8.2 [facility] Work Phone: Sodium [Moles/Vol] 138 mmol/L 136-145 [facility] Work Phone: WBC (Bld) [#/Vol] 6.5 10*3/uL 4.4-11.0 [facility] Work Phone: Blood erythrocytes count (nu mber/volume)on 12-15-2021 RBC (Bld) [#/Vol] 4.84 10*6/uL 4.6-6.2 [facility] Work Phone: Blood hemoglobin measurement (mass/volume)on 12-15-2021 Hemoglobin (Bld) [Mass/Vol] 14.3 g/dL 13.0-16.5 [facility] Work Phone: Blood lymphocytes/100 leukoc yteson 12-15-2021 Lymphocytes/100 WBC (Bld) 17.7 % 19-41 [facility] Work Phone: Blood monocytes/100 leukocyt eson 12-15-2021 Monocytes/100 WBC (Bld) 10.2 % 0-10 [facility] Work Phone: Blood platelet mean volumeon 12-15-2021 Platelet mean volume (Bld) [Entitic vol] 11.6 fL 6.2-12.0 [facility] Work Phone: Determination of erythrocyte mean corpuscular volume (MCV)on 12-15-2021 MCV (RBC) [Entitic vol] 90.9 fL 80-94 [facility] Work Phone: Erythrocyte sedimentation ra sybil 12-15-2021 ESR (Bld) [Velocity] 14 mm/h 0-20 [facility] Phone: Hematocrit Auto (Bld) [Volum e fraction]on 12-15-2021 Hematocrit (Bld) [Volume fraction] 44.0 % 40-54 [facility] Work Phone: Laboratory - Chemistry and C hemistry - challengeon 12-15-2021 ALP [Catalytic activity/Vol] 53 U/L 45-117 [facility] Work Phone: ALT [Catalytic activity/Vol] 19 U/L 16-61 [facility] Work Phone: CO2 [Moles/Vol] 25.0 mmol/L 21.0-32.0 [facility] Work Phone: Globulin (S) [Mass/Vol] 3.4 g/dL 2.2-4.2 [facility] Work Phone: Urea nitrogen/Creatinine [Mass ratio] 14.1 mg/mg 10-20 [facility] Work Phone: Laboratory - Hematology and Cell countson 12-15-2021 Erythrocyte distribution width (RBC) [Entitic vol] 46.1 fL 35.1-43.9 [facility] Work Phone: Erythrocyte distribution width (RBC) [Ratio] 13.7 % 11.6-14.6 [facility] Work Phone: Immature granulocytes/100 WBC (Bld) 0.500 % 0.0-0.9 [facility] Work Phone: [phone] Comment on above: IG% - Immature Granu locytes (promyelocytes, myelocytes and metamyelocytes) > 1% indicates that a LEFT SHIFT is Present. MCH (RBC) [Entitic mass] 29.5 pg 27.0-32.0 [facility] Work Phone: [phone] Nucleated RBC/100 WBC (Bld) [Ratio] 0 % 0-5 [facility] Work Phone: [phone] MCHC Auto (RBC) [Mass/Vol]on 12-15-2021 MCHC (RBC) [Mass/Vol] 32.5 g/dL 32-36 [facility] Work Phone: No Panel Informationon 12-15 Estimated GFR (MDRD) Amer 100 mL/min >60 [facility] Work Phone: [phone] Comment on above: GFR Calc Estimated GFR (MDRD) Non-Af Amer 83 mL/min >60 [facility] Work Phone: Comment on above: Non- GFR Calc Platelets bldon 12-15-2021 Platelets (Bld) [#/Vol] 212 10*3/uL 150-450 [facility] Work Phone: [phone] Serum or plasma albumin dax urement (mass/volume)on 12-15-2021 Albumin [Mass/Vol] 3.6 g/dL 3.2-5.0 [facility] Work Phone: [phone] Serum or plasma albumin/glob ulin mass ratioon 12-15-2021 Albumin/Globulin [Mass ratio] 1.1 {ratio} 0.9-2.4 [facility] Work Phone: [phone] Serum or plasma calcium dax urement (mass/volume)on 12-15-2021 Calcium [Mass/Vol] 9.0 mg/dL 8.5-10.1 [facility] Work Phone: Serum or plasma creatinine m easurement (mass/volume)on 12-15-2021 Creatinine [Mass/Vol] 0.92 mg/dL 0.70-1.30 [facility] Work Phone: [phone] Comment on above: The validity of the calculated GFR & GFRAA in patients over 70 years has not been determined. Clinical correlation is essential. Serum or plasma urea nitroge n measurement (mass/volume)on 12-15-2021 Urea nitrogen [Mass/Vol] 13 mg/dL 7-18 [facility] Work Phone: [phone] Thin prep Papanicolaou smear with manual screeningon 12-15-2021 Thin prep Papanicolaou smear with manual screening 21 U/L 15-37 [facility] Work Phone: [phone] Thin prep Papanicolaou smear with manual screening 5 5-15 [facility] Work Phone: Basophil percentageon 2021 Chloride [Moles/Vol] 106 mmol/L 98-107 [facility] Work Phone: [phone] Cholesterol [Mass/Vol] 171 mg/dL <200 [facility] Work Phone: [phone] Comment on above: <200 mg/dL Desirable 200-240 mg/dL Borderline >240 mg/dL High Risk Glucose [Mass/Vol] 102 mg/dL 74-106 [facility] Work Phone: Comment on above: Fasting Glucose resu lt from 100 to 125 mg/dL suggests IMPAIRED HOMEOSTASIS per A.D.A. criteria. Potassium [Moles/Vol] 4.1 mmol/L 3.5-5.1 [facility] Work Phone: [phone] Sodium [Moles/Vol] 140 mmol/L 136-145 [facility] Work Phone: [phone] Triglyceride [Mass/Vol] 80 mg/dL <199 [facility] Work Phone: [phone] Comment on above: The drugs N-Acetylcy steine and Metamizole may falsely depress this assay.Serum Triglycerides Reference Interval Normal <150 mg/dL Borderline high 150 - 199 mg/dL High 200 - 499 mg/dL Very High > or = 500 mg/dL Laboratory - Chemistry and C hemistry - challengeon 11-10-2021 CO2 [Moles/Vol] 30.0 mmol/L 21.0-32.0 [facility] Work Phone: Urea nitrogen/Creatinine [Mass ratio] 17.4 mg/mg 10-20 [facility] Work Phone: No Panel Informationon 11-10 Estimated GFR (MDRD) Amer 94 mL/min >60 [facility] Work Phone: Comment on above: GFR Calc Estimated GFR (MDRD) Non-Af Amer 77 mL/min >60 [facility] Work Phone: Comment on above: Non- GFR Calc Vitamin D 25-Hydroxy 43.5 ng/mL [facility] Work Phone: Comment on above: Vitamin D 25(OH) Sta tus Range Deficiency <20 ng/mL (50nmol/L) Insufficiency 20 - 30 ng/mL (50 - 75 nmol/L) Sufficiency 30 - 100 ng/mL (75 - 250 nmol/L) Toxicity >100 ng/mL (>250 nmol/L) Serum or plasma calcium dax urement (mass/volume)on 11-10-2021 Calcium [Mass/Vol] 9.0 mg/dL 8.5-10.1 [facility] Work Phone: Serum or plasma cholesterol in HDL measurement (mass/volume)on 11-10-2021 Cholesterol in HDL [Mass/Vol] 79 mg/dL >40 [facility] Work Phone: Comment on above: The drugs N-Acetylcy steine and Metamizole may falsely depress this assay. Reference Range HDL <40 mg/dL Low HDL Cholesterol HDL >or= 60 mg/dL High HDL Cholesterol Serum or plasma cholesterol in VLDL measurement (mass/volume)on 11-10-2021 Cholesterol in VLDL [Mass/Vol] 16 mg/dL 5-40 [facility] Work Phone: Serum or plasma creatinine m easurement (mass/volume)on 11-10-2021 Creatinine [Mass/Vol] 0.98 mg/dL 0.70-1.30 [facility] Work Phone: Comment on above: The validity of the calculated GFR & GFRAA in patients over 70 years has not been determined. Clinical correlation is essential. Serum or plasma low density lipoprotein (LDL) cholesterol measurement (mass/volume)on 11-10-2021 Cholesterol in LDL [Mass/Vol] 76 mg/dL 0-130 [facility] Work Phone: Serum or plasma urea nitroge n measurement (mass/volume)on 11-10-2021 Urea nitrogen [Mass/Vol] 17 mg/dL 7-18 [facility] Work Phone: Thin prep Papanicolaou smear with manual screeningon 11-10-2021 Thin prep Papanicolaou smear with manual screening 4 5-15 [facility] Work Phone: Laboratory - Microbiology an d Antimicrobial susceptibilityon 10-12-2021 SARS-CoV-2 (COVID-19) RNA AURY+probe Ql (Unsp spec) Detected Not Detect [facility] Work Phone: Comment on above: Normal Reference Ran ge: Not DetectedMethod:(RT-PCR) real-time reverse transcriptase PCRLuminex RACHELLE Instrument*The Food and Drug Administration (FDA) has issued an Emergency Use Authorization (EAU) for the RACHELLE SARS-CoV-2 Assay for the rapid detection of [...] Date Time Vital Sign Value Performing Clinician Faci lity 11-16-2024 12:09-0400 Body temperature 98 [degF] Dr. Melodie Londono MD Work Phone: [facility] 11-16-2024 12:09-0400 Diastolic blood pressure 92 mm[Hg] Dr. Melodie Londono MD Work Phone: 4(767)098-332827 [place] [address] 11-16-2024 12:09-0400 Heart rate 78 /min Dr. Melodie Londono MD Work Phone: 4(169)712-758996 [place] [address] 11-16-2024 12:09-0400 Respiratory rate 16 /min Dr. Melodie Londono MD Work Phone: [phone])716-886296 [place] [address] 11-16-2024 12:09-0400 SaO2% (BldA) [Mass fraction] 96 % Dr. Melodie Londono MD Work Phone: [phone])054-084196 [place] [address] 11-16-2024 12:09-0400 Systolic blood pressure 154 mm[Hg] Dr. Melodie Londono MD Work Phone: 9(154)036-690996 [place] [address] 11-16-2024 09:10-0400 Body height 177.[address] Melodie Londono MD Work Phone: [phone])583-493296 [place] [address] 11-16-2024 09:10-0400 Body mass index (BMI) [Ratio] 16.3 kg/m2 Dr. Melodie Londono MD Work Phone: 3(653)245-867496 [place] [address] 11-16-2024 09:10-0400 Body weight 51.[address] Melodie Londono MD Work Phone: 9(036)946-132296 [place] [address] 11-08-2024 16:06-0400 Body temperature 98 [degF] Dr. Melodie Londono MD Work Phone: 2(338)134-976505 [address] 11-08-2024 16:06-0400 Diastolic blood pressure 68 mm[Hg] Dr. Melodie Londono MD Work Phone: 5(403)931-839896 [place] [address] 11-08-2024 16:06-0400 Heart rate 57 /min Dr. Melodie Londono MD Work Phone: 9(672)810-026296 [place] [address] 11-08-2024 16:06-0400 Respiratory rate 16 /min Dr. Melodie Londono MD Work Phone: [facility] 11-08-2024 16:06-0400 SaO2% (BldA) [Mass fraction] 99 % Dr. Melodie Londono MD Work Phone: 1(664)159-388827 [place] [address] 11-08-2024 16:06-0400 Systolic blood pressure 141 mm[Hg] Dr. Melodie Londono MD Work Phone: 6(378)571-052396 [place] [address] 11-08-2024 11:08-0400 Body height 177.[address] Melodie Londono MD Work Phone: 0(523)350-769996 [place] [address] 11-08-2024 11:08-0400 Body mass index (BMI) [Ratio] 16.7 kg/m2 Dr. Melodie Londono MD Work Phone: 0(847)616-816596 [place] [address] 11-08-2024 11:08-0400 Body weight 52.[address] Melodie Londono MD Work Phone: 0(276)833-514396 [place] [address] 11-07-2024 11:24-0400 Body height 180.[address] Melodie Londono MD Work Phone: 1(437)869-050696 [place] [address] 11-07-2024 11:24-0400 Body mass index (BMI) [Ratio] 16.3 kg/m2 Dr. Melodie Londono MD Work Phone: 3(467)855-793796 [place] [address] 11-07-2024 11:24-0400 Body weight 53.[address] Melodie Londono MD Work Phone: 5(396)482-587596 [place] [address] 11-07-2024 11:24-0400 Diastolic blood pressure 68 mm[Hg] Dr. Melodie Londono MD Work Phone: 8(570)429-720496 [place] [address] 11-07-2024 11:24-0400 Heart rate 85 /min Dr. Melodie Londono MD Work Phone: 9(292)534-513496 [place] [address] 11-07-2024 11:24-0400 Respiratory rate 18 /min Dr. Melodie Londono MD Work Phone: 3(620)611-865896 [place] [address] 11-07-2024 11:24-0400 SaO2% (BldA) [Mass fraction] 96 % Dr. Melodie Londono MD Work Phone: [facility] 11-07-2024 11:24-0400 Systolic blood pressure 137 mm[Hg] Dr. Melodie Londono MD Work Phone: [facility] 11-02-2024 15:26-0400 Body temperature 98.2 [degF] Dr. Melodie Londono MD Work Phone: 1(763)363-280127 [place] [address] 11-02-2024 15:26-0400 Diastolic blood pressure 71 mm[Hg] Dr. Melodie Londono MD Work Phone: 2(722)652-146405 [address] 11-02-2024 15:26-0400 Heart rate 80 /min Dr. Melodie Londono MD Work Phone: 8(609)842-672505 [address] 11-02-2024 15:26-0400 Respiratory rate 14 /min Dr. Melodie Londono MD Work Phone: 3(753)760-475827 [place] [address] 11-02-2024 15:26-0400 SaO2% (BldA) [Mass fraction] 100 % Dr. Melodie Londono MD Work Phone: [facility] 11-02-2024 15:26-0400 Systolic blood pressure 145 mm[Hg] Dr. Melodie Londono MD Work Phone: [facility] 11-02-2024 12:06-0400 Body height 180.[address] Melodie Londono MD Work Phone: [facility] 11-02-2024 12:06-0400 Body mass index (BMI) [Ratio] 16.5 kg/m2 Dr. Melodie Londono MD Work Phone: [facility] 11-02-2024 12:06-0400 Body weight 53.[address] Melodie Londono MD Work Phone: [facility] 04-25-2024 15:56-0500 Body height 177.8 cm Mindi Ferro MD Work Phone: [facility] 04-25-2024 15:56-0500 Body mass index (BMI) [Ratio] 19.33 kg/m2 Mindi Ferro MD Work Phone: [facility] 04-25-2024 15:56-0500 Body weight 61.1 kg Mindi Ferro MD Work Phone: [facility] 04-25-2024 15:56-0500 Diastolic blood pressure 69 mm[Hg] Mindi Ferro MD Work Phone: [facility] 04-25-2024 15:56-0500 Heart rate 71 /min Mindi Ferro MD Work Phone: [facility] 04-25-2024 15:56-0500 Systolic blood pressure 158 mm[Hg] Mindi Ferro MD Work Phone: [facility] 08-29-2023 13:36-0400 Body weight 65.2 kg Mindi Ferro MD Work Phone: [facility] 08-29-2023 13:36-0400 Diastolic blood pressure 101 mm[Hg] Mindi Ferro MD Work Phone: [facility] 08-29-2023 13:36-0400 Heart rate 68 /min Mindi Ferro MD Work Phone: [facility] 08-29-2023 13:36-0400 Respiratory rate 18 /min Mindi Ferro MD Work Phone: [facility] 08-29-2023 13:36-0400 SaO2% (BldA) [Mass fraction] 96 % Mindi Ferro MD Work Phone: [facility] 08-29-2023 13:36-0400 Systolic blood pressure 147 mm[Hg] Mindi Ferro MD Work Phone: [facility] 12-21-2022 11:36-0400 Diastolic blood pressure 78 mm[Hg] [facility] 12-21-2022 11:36-0400 Heart rate 61 /min [facility] 12-21-2022 11:36-0400 Respiratory rate 14 /min [facility] 12-21-2022 11:36-0400 SaO2% (BldA) [Mass fraction] 97 % [facility] 12-21-2022 11:36-0400 Systolic blood pressure 160 mm[Hg] [facility] 12-21-2022 08:44-0400 Body height 180.34 cm [facility] 12-21-2022 08:44-0400 Body mass index (BMI) [Ratio] 20.6 kg/m2 [facility] 12-21-2022 08:44-0400 Body temperature 97.9 [degF] [facility] 12-21-2022 08:44-0400 Body weight 67.13 kg [facility] Encounters Encounter Date Encounter Type Care Provider Facility Start: 11-16-2024 End: 11-16-2024 Emergency department patient visit Dr. Melodie Londono MD Work Phone: -Emergency Department Work Phone: Start: 11-15-2024 End: 11-15-[address] Melodie Londono MD Work Phone: [facility] Work Phone: Start: 11-15-2024 End: 11-15-[address] 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 Melodie Londono MD Work Phone: -Emergency Department Work Phone: Start: 11-07-2024 End: 11-07-2024 Patient encounter procedure Senait VILLALTA -[facility] Work Phone: Start: 11-07-2024 End: 11-07-[address] Melodie Londono MD Work Phone: [facility] Work Phone: Start: 11-02-2024 End: 11-02-2024 Emergency department patient visit Dr. Melodie Londono MD Work Phone: -Emergency Department Work Phone: Start: 11-02-2024 ambulatory Chen Lazo Facility: [facility] Start: 10-16-2024 End: 10-16-2024 Patient encounter procedure Chen Lazo SKATESMAN-C -[facility] Work Phone: Start: 10-16-2024 End: 10-16-[address] Melodie Londono MD Work Phone: [facility] Work Phone: Start: 09-27-2024 End: 09-27-[address] Melodie Londono MD Work Phone: [facility] Work Phone: Start: 09-27-2024 End: 09-27-[address] Melodie Londono MD -[facility] Work Phone: Start: 09-27-2024 End: 09-27-2024 ambulatory Melodie Londono Facility:[facility] Start: 04-25-2024 End: 04-25-2024 ambulatory MINDI FERRO Facility:[facility] Start: 04-25-2024 End: 04-25-2024 Patient encounter procedure Mindi Ferro MD Work Phone: Neurology Comment on above: MCI (mild cognitive impairment) (Primary Dx) Start: 04-11-2024 End: 04-11-2024 ambulatory [facility] Facility:[facility] Start: 03-05-2024 End: 03-05-2024 ambulatory [facility] Facility:[facility] Start: 08-29-2023 End: 08-29-2023 ambulatory MINDI FERRO Facility:[facility] Start: 08-29-2023 End: 08-29-2023 Patient encounter procedure Mindi Ferro MD Work Phone: Neurology Comment on above: Memory changes (Prim dariana Dx); Bilateral hearing loss, unspecified hearing loss type Start: 07-20-2023 Telephone encounter Mindi Rico Work Phone: Neurology Comment on above: Appointment (Referra l to Neurology ) Start: 07-04-2023 End: 07-04-2023 ambulatory [facility] Work Phone: Start: 07-04-2023 End: 07-04-2023 Patient encounter procedure [facility] Work Phone: Start: 12-31-2022 End: 12-31-2022 ambulatory [facility] Work Phone: Start: 12-31-2022 End: 12-31-2022 Patient encounter procedure [facility] Work Phone: Start: 12-30-2022 End: 12-30-2022 Patient encounter procedure [facility] Start: 12-21-2022 End: 12-21-2022 Emergency department patient visit [facility]Emergency Department Work Phone: Start: 07-12-2022 End: 07-12-2022 ambulatory [facility] Work Phone: Start: 07-12-2022 End: 07-12-2022 Patient encounter procedure [facility] Start: 06-30-2022 Telephone encounter Mindi Rico Work Phone: Neurology Comment on above: Appointment (Referra l to Neurology ) Start: 06-08-2022 End: 06-08-2022 Patient encounter procedure [facility] Start: 01-13-2022 End: 01-13-2022 Patient encounter procedure [facility] Start: 12-15-2021 End: 12-15-2021 Patient encounter procedure [facility] Start: 11-10-2021 End: 11-10-2021 Patient encounter procedure [facility] Start: 10-12-2021 End: 10-12-2021 Patient encounter procedure [facility]Laboratory, Specimen Procedures Date Procedure Procedure Detail Performing Clinician Start: 11-16-[address] Melodie Londono MD Work Phone: Start: 11-16-2024 Plain X-ray abdomen Dr. Melodie Londono MD Work Phone: Start: 11-15-2024 Plain X-ray abdomen Dr. Melodie Londono MD Work Phone: Start: 11-08-[address] Fuentes Londono MD Work Phone: Start: 11-08-2024 Urnls dip stick/tabl et reagent auto microscopy Dr. Melodie Londono MD Work Phone: Start: 11-08-[address] Melodie Londono MD Work Phone: Start: 11-08-2024 Computed tomography of abdomen and pelvis with contrast Dr. Melodie Londono MD Work Phone: Start: 11-08-2024 Ultrasound of scrotu m with Doppler and color flow imaging Dr. Melodie Londono MD Work Phone: Start: 11-02-2024 Computed tomography of abdomen and [...] Detail Author Start: 07-04-2033 Urine microalbumin profile DTa P,Tdap,Td Vaccine (3 - Td or Tdap) [facility] Start: 11-16-2024 [facility] Start: 11-16-2024 Consultation [facility] Start: 11-08-2024 [facility] Start: 11-08-2024 Bacteria identified in Urine by Culture Urine Culture [facility] Start: 11-08-2024 [facility] Start: 11-08-2024 Consultation [facility] Start: 11-07-2024 Patient referral [facility] Work Phone: Start: 11-02-2024 [facility] Start: 10-31-2024 End: 10-31-2024 Patient encounter procedure 10/31/2024 4:30 PM EDT Office Visit Neurology [address] [facility] [place], [place] [id number] Mindi Ferro MD [address] [place], [place] [id number] MCI f/u Neurology Comment on above: MCI f/u Start: 10-16-2024 Patient referral [facility] Work Phone: Start: 06-06-2024 Advance Directive Discussion Advance Directive Discussion [facility] Start: 02-05-2024 Covid-19 Vaccine ( season) Covid-19 Vaccine () [facility] Start: 06-06-2023 Advance Directive Discussion Advance Directive Discussion [facility] Start: 06-06-2023 Depression Assessment Depression Ass essment [facility] Start: 02-04-2023 Covid-19 Vaccine ( season) Covid-19 Vaccine ( season) [facility] Start: 02-04-2023 Influenza vaccination Influenza Vacc ine (#1) [facility] Start: 12-21-2022 Bacteria identified in Urine by Culture Urine Culture [facility] Start: 12-21-2022 [facility] Start: 06-06-2022 ADVANCE DIRECTIVE DISCUSSION ADVANCE DIRECTIVE DISCUSSION [facility] Start: 06-06-2022 DEPRESSION ASSESSMENT DEPRESSION ASS ESSMENT [facility] Start: 02-04-2022 Influenza vaccination INFLUENZA (#1) [facility] Start: 08-28-2019 Shingrix Vaccine (2 of 2) [place] grix Vaccine (2 of 2) [facility] Start: 2011 RSV Vaccine (1 - 1-d ose 75+ series) RSV Vaccine (1 - 1-dose 75+ series) [facility] Start: 2001 Pneumococcal Vaccine : 65+ (1 of 1 - PCV) Pneumococcal Vaccine: 65+ (1 of 1 - PCV) [facility] Start: 2001 PNEUMOCOCCAL: 65+ (1 - PCV) PNEUMOCOCCAL: 65+ (1 - PCV) [facility] Start: 1996 RSV Vaccine (1 - 1-d ose 60+ series) RSV Vaccine (1 - 1-dose 60+ series) [facility] Start: 1986 SHINGRIX VACCINE (1 of 2) [place] GRIX VACCINE (1 of 2) [facility] Start: 1981 DIABETES SCREEN DIABETES SCREEN [facility] Start: 1981 Diabetes Screening Diabetes Screenin g [facility] Start: 1955 Urine microalbumin profile [facility] Start: 1954 Anxiety Screening Anxiety Screening [facility] Start: 1954 Depression Screening Depression Scre ening [facility] Start: 1936 COVID-19 VACCINE (#1) COVID-19 VACCI NE (#1) [facility] CT Abdomen and Pelvi s W contrast IV [facility] End: 09-27-2024 MR Brain WO contrast MRI BRAIN WO IVCON Radiology Routine Memory changes 1 Occurrences starting 08/29/2023 until 09/27/2024 [facility] Work Phone: Comment on above: 1 Occurrences starti ng 08/29/2023 until 09/27/2024 End: 09-27-2024 MR Unspecified body region 3D post processing MRI 3D POST PROCESSING Radiology Routine Memory changes 1 Occurrences starting 08/29/2023 until 09/27/2024 [facility] Work Phone: Comment on above: 1 Occurrences starti ng 08/29/2023 until 09/27/2024 Patient Education [facility] Work Phone: Patient referral [facility] Work Phone: Upper gastrointestin al tract contrast procedure [facility] Urine culture [facility] Immunizations Immunization Date Immunization Notes Care Provider Chas alarcon 03-09-2019 influenza virus vaccine, unspecified formulation Mindi Ferro MD Work Phone: [facility] 03-15-2014 Pneumococcal Vaccine [facility] Work Phone: 03-15-2014 pneumococcal vaccine , unspecified formulation [facility] Payers Date Payer Category Payer Self-pay [id number] 2021 Medicare (Managed Care) GABY SCHUMACHER [facility] [id number] 2021 Unknown [id number] 2012 Medicare [id number] Medicare [id number] Self-pay SELF PAY BY [employer] [employer] REQUEST [id number] Unknown [id number] Unknown [id number]. 2.462 Unknown [id number]. 2.462 Unknown [id number]. 2.462 Unknown [id number]. 2.462 Unknown [id number]. 2.462 Unknown [id number] [id number]. 2.462 Unknown [id number] [id number]. 2.462 Unknown [id number] [id number]. 2.462 Unknown [id number]. 2.462 Social History Date Type Detail Facility Tobacco smoking status NHIS Unknown if ever smoked [facility] Work Phone: Start: 1935 Sex Assigned At Male [facility] Start: 09-07-2014 End: 02-14-2023 Tobacco smoking status FLIS Unknown if ever smoked [facility] Start: 09-07-2014 None [facility] Start: 05-23-2013 Spouse/ Signif icant Other [facility] Start: 1935 Sex Assigned At Not on file [facility] Start: 08-29-2023 End: 04-25-2024 Gender identity Not on file [facility] Start: 08-29-2023 End: 04-25-2024 History of Social function [facility] National Score (1-100), lower number is lower risk 80 [facility] Start: 04-25-2024 End: 11-16-2024 Tobacco smoking status NHIS Never smoked tobacco [facility] Start: 04-25-2024 Tobacco use and exposure Smokeless tobacco non-user [facility] Start: 10-02-2024 Sex Male (finding) [facility] Clinical Notes 06-30-2022 to 11-21-2024 Note Date & Type Note Facility 11-21-2024 Hospital Discharge instructions Additional Instructions Please continue to follow-up with gastroenterology as well as your family doctor. Your x-ray does show significant constipation. You are given an enema. It is very important that you take either daily stool softener or MiraLAX. I have represcribed the MiraLAX that GI recommended you take. Take a spoonful of this mixed in 4 to 8 ounces of any beverage every morning. In addition you are also sent in an antiacid. The antacid will not worsen your constipation or cause diarrhea and I do recommend you start to take it. [facility] Work Phone: 11-16-2024 Radiology Diagnostic study note [facility] Imaging Services [address] [place] [address] Acute Abdomen Inc Chest MR#: [id number] Acct: [id number] Name: ONEAL PAGE Rep #: [id number] : 1935 M 89 From: Kim Malcolm MD PCP: Dr. Melodie Londono MD Status: REG ER Study:Acute Abdomen Inc Chest Date of Exam: 11/16/24 Exam# [id number] Ordering Dr: Lorene Ly DO EXAM: XR Abdomen, 1 View CLINICAL INDICATION: PAIN TECHNIQUE: Frontal supine view of the abdomen/pelvis. COMPARISON: No relevant prior studies available. FINDINGS: GASTROINTESTINAL TRACT: Fecal retention in the colon consistent with constipation. No dilation. BONES/JOINTS: Unremarkable. No acute fracture. RAD/Acute Abdomen Inc Chest IMPRESSION: Fecal retention in the colon consistent with constipation. Reading Location[facility] CC: Dr. Melodie Londono MD; Dr. Lashon Ly DO ~ Drying Machine Operator: Signed [facility] 11-16-2024 Hospital Discharge instructions Additional Instructions Please continue to follow-up with gastroenterology as well as your family doctor. Your x-ray does show significant constipation. You are given an enema. It is very important that you take either daily stool softener or MiraLAX. I have represcribed the MiraLAX that GI recommended you take. Take a spoonful of this mixed in 4 to 8 ounces of any beverage every morning. In addition you are also sent in an antiacid. The antacid will not worsen your constipation or cause diarrhea and I do recommend you start to take it. [facility] Work Phone: 11-15-2024 Radiology Diagnostic study note [facility] Services [address] [place] [id number] Abd Inc Decub and/or Erect MR#: [id number] Acct: [id number] Name: ONEAL PAGE Rep #: [id number] : 1935 M 89 From: Gibson Lorenzo MD PCP: Dr. Melodie Londono MD Status: REG CLI Study:Abd Inc Decub and/or Erect Date of Exam : 11/15/24 Exam# [id number] Ordering Dr: Lorene Londono MD PROCEDURE: ABD INC DECUB AND/OR ERECT 11/15/2024 REASON FOR EXAM: CONSTIPATION, DISCOMFORT TECHNIQUE: Single view abdomen. COMPARISON: KUB, 09/23/2024. FINDINGS: There is a nonobstructive bowel gas pattern. There are vascular calcifications. Calcifications within the seminal vesicles and prostate gland. 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 RAD/Abd Inc Decub and/or Erect IMPRESSION: No evidence of acute abdominal pathology. Reading Location: [place] [address] CC: Dr. Melodie Londono MD ~ Drying Machine Operator: Signed [facility] Work Phone: 11-08-2024 Discharge summary [facility] 11-08-2024 Radiology Diagnostic study note [facility] Imaging Services [address] [place] [id number] Testicular with Arterial Flow MR#: [id number] Acct: [id number] Name: ONEAL PAGE Rep #: [id number] : 1935 M 89 From: Arlene Clayton MD PCP: Dr. Melodie Londono MD Status: REG ER Study:Testicular with Arterial Flow Date of E xam: 11/08/24 Exam# [id number] Ordering Dr: Kendall Castle DO PROCEDURE: TESTICULAR WITH ARTERIAL FLOW 11/08/2024 REASON FOR EXAM: RIGHT TESTICULAR TENDERNESS TECHNIQUE: Yang scale imaging of the scrotal contents. COMPARISON: None FINDINGS: RIGHT testicle: 4.7 x 2.8 x 2.8 cm Normal homogenous echotexture. Right epididymis: 1.3 x 1.1 x 0.9 cm. 1.1 x 0.8 x 0.6 cm epididymal cyst noted. LEFT testicle: 3.8 x 2.7 x 2.3 cm Normal homogenous echotexture. Subcentimeter tiny cyst within the testicle. Left epididymis: 1.3 x 1.3 x 0.8 cm Other findings: No hydrocele or large varicocele. US/Testicular with Arterial Flow IMPRESSION: No acute testicular torsion. Reading Location: [facility] CC: Dr. Kendall Bashir DO; Dr. Melodie Londono MD ~ Drying Machine Operator: Signed [facility] 11-08-2024 Radiology Diagnostic study note [facility] Imaging Services [address] [place] [id number] Abdomen/Pelvis WITH Contrast MR#: [id number] Acct: [id number] Name: ONEAL PAGE Rep #: [id number] : 1935 M 89 From: Kim Malcolm MD PCP: Dr. Melodie Londono MD Status: REG ER Study:Abdomen/Pelvis WITH Contrast Date of Ex am: 11/08/24 Exam# [id number] Ordering Dr: Kendall Castle DO EXAM: CT Abdomen and Pelvis With Intravenous Contrast CLINICAL INDICATION: ABDOMINAL PAIN TECHNIQUE: Axial computed tomography images of the abdomen and pelvis with intravenous contrast. This CT exam was performed using one or more of the following dose reduction techniques: automated exposure control, adjustment of the mA and/or kV according to patient size, and/or use of iterative reconstruction technique. COMPARISON: CT Abdomen Pelvis dated 11/02/2024 FINDINGS: LUNG BASES: Unremarkable. No mass. No consolidation. ABDOMEN: LIVER: Stable hepatic cysts. Hepatomegaly with fatty infiltration. GALLBLADDER AND BILE DUCTS: Unremarkable. No calcified stones. No ductal dilation. PANCREAS: Unremarkable. No mass. No ductal dilation. SPLEEN: Unremarkable. No splenomegaly. ADRENALS: Unremarkable. No mass. KIDNEYS AND URETERS: Unremarkable. No solid mass. No hydronephrosis. STOMACH AND BOWEL: Constipation with suggestion of fecal impaction of the rectum. Colonic diverticulosis without acute diverticulitis. No obstruction. PELVIS: APPENDIX: No findings to suggest acute appendicitis. BLADDER: Bladder wall thickening which may be due to the decompressed state of the bladder or due to cystitis. Urinary bladder calculi. REPRODUCTIVE: The prostate gland is enlarged measuring 5.9 cm in maximum dimension. ABDOMEN and PELVIS: INTRAPERITONEAL SPACE: Unremarkable. No free air. No significant fluid collection. BONES/JOINTS: No acute fracture. No dislocation. SOFT TISSUES: Unremarkable. VASCULATURE: Unremarkable. No abdominal aortic aneurysm. LYMPH NODES: Unremarkable. No enlarged lymph nodes. CT/Abdomen/Pelvis WITH Contrast IMPRESSION: 1. Constipation with suggestion of fecal impaction of the rectum. 2. The prostate gland is enlarged. Correlation with PSA values may be helpful if not previously performed. 3. Bladder wall thickening which may be due to the decompressed state of the bladder or due to cystitis. 4. Hepatomegaly with fatty infiltration. 5. Urinary bladder calculi. 6. Colonic diverticulosis without acute diverticulitis. Reading Location: [facility] CC: Dr. Kendall Bashir DO; Dr. Melodie Londono MD ~ Drying Machine Operator: Signed [facility] 11-08-2024 Discharge summary Note Date/Time November 08, 2024 3:45p m [facility] Medical Records Department [address] [place] [address] Emergency Department Summary 11/08/24 MR#: [id number] Acct: [id number] Name: ONEAL PAGE Rep #:[id number] : 1935 89 From: Kendall fontenot DO PCP: Dr. Melodie Londono MD Status :REG ER Location: ED HPI History of Present Illness Chief Complaint: Abd Pain Narrative Narrative: Chief complaint and HPI: Early satiety, weight loss, abdominal pain/bloating. 89-year-old male with past medical history of dementia presents for evaluation of early satiety, weight loss, abdominal pain/bloating. History taken by patient, son, medical record. Patient was just seen on for same complaint. At that time had laboratory workup that was unremarkable, had CT abdomen pelvis that showed prostate enlargement and constipation. Patient was discharged home on Colace and told to follow-up with PCP. Patient has not followed up with PCP. He refuses to take the Colace per son. Patient states that his symptoms have been ongoing since July. Denies any significant change. Denies any fever, chills, shortness of breath, chest pain, vomiting, diarrhea, dysuria. Does endorse to constipation but states his last bowel movement was today to states they are hard. Son is asking to speak with social work for his dementia. Review of systems: See HPI Medications: As listed on the chart Allergies: As listed on the chart PFSH: Per chart Vital signs: As listed on the chart. Reviewed. Physical exam: Gen: A&O x3, NAD Head: Normocephalic, atraumatic Eyes: No sclera icterus, conjunctiva clear ENT: Moist mucous membranes Neck: Trachea midline, No JVD CV: RRR, no murmurs, no peripheral edema Resp: Lungs CTA BL, no w/r/c GI: Abd soft, non-distended, non-tender, no r/r/g : No CVA tenderness. Uncircumcised penis. No penile tenderness or discharge. No penile or testicular swelling. Normal lie and position of the testicles. Right testicle tender to palpation without masses or skin changes. Cremasteric reflexes intact and equal bilaterally. Musc: Full ROM, no deformity Skin: Warm, dry Neuro: Alert, oriented, grossly intact, sensation intact Psych: Cooperative, appropriate mood and affect [facility] Medical History Frequent headaches Cataracts, bilateral Hearing problem Abdominal bloating Low vitamin B12 level MCI (mild cognitive impairment) Dyspepsia Prostatic hypertrophy Stomachache Vitamin D deficiency Dehydration Hypertension Home Medications ?Medication ?Instructions ?Recorded ?Last Taken ?Type lisinopril 5 mg tablet 5 mg PO DAILY 11/08/24 Unkno wn History mirtazapine 7.5 mg tablet 7.5 mg PO QHS 11/08/24 Unkno wn History polyethylene glycol 3350 17 17 g PO DAILY 30 days #510 grams 11/08/24 Unknown Rx gram/dose oral powder (Miralax) sennosides 8.6 mg-docusate sodium 1 tab-cap PO BID 14 days #28 tabs 11/08/24 Unknown Rx 50 mg tablet (Senna with Docusate Sodium) Allergy/AdvReac Type Severity Reaction Status Date / Time amoxicillin Allergy Intermediate Rash Verified 11/08/24 11:08 Sulfa (Sulfonamide Allergy Mild Rash Verified 11/08/24 11:08 Antibiotics) chlorthalidone AdvReac Severe dizziness Verified 11/08/24 11:08 and stomachache Penicillins (PCN) AdvReac Intermediate unknown Verified 11/08/24 11:08 amlodipine AdvReac Mild dizziness Verified 11/08/24 11:08 guaifenesin (From Mucinex) AdvReac Mild GI upset Verified 11/08/24 11:08 Family History Sister Hypertension Multiple sclerosis Diabetes Mother Colon cancer Father Myocardial infarction Brother Cancer prostate Other Heart disease Surgical History Hx of appendectomy Social History Smoking Status: Never smoker alcohol intake: never substance use type: does not use frequency: other details: has been inactive until recently EXAM Physical Exam Const Vital Signs: 11/08/24 11:08 11/08/24 11:08 11/08/24 11:56 Temperature 98.7 F Temperature Source Temporal Pulse Rate 52 L 40 L 70 Respiratory Rate 14 19 H Blood Pressure 137/66 H Blood Pressure Mean 89 Pulse Ox 98 98 Oxygen Delivery Method Room Air 11/08/24 12:00 11/08/24 12:30 11/08/24 13:00 Temperature Temperature Source Pulse Rate 59 L 68 63 Respiratory Rate 18 16 14 Blood Pressure 154/75 H 160/78 H 175/71 H Blood Pressure Mean 97 101 103 Pulse Ox 99 99 99 Oxygen Delivery Method 11/08/24 13:30 11/08/24 15:00 Temperature Temperature Source Pulse Rate 58 L 61 Respiratory Rate 15 18 Blood Pressure 141/80 H 138/78 H Blood Pressure Mean 98 98 Pulse Ox 100 99 Oxygen Delivery Method MDM MDM MDM Narrative Medical decision making narrative: 89-year-old male with past medical history of dementia presents for evaluation of early satiety, weight loss, abdominal pain/bloating. History taken by patient, son, medical record. Patient was just seen on 11/02 for same complaint. At that time had laboratory workup that was unremarkable, had CT abdomen pelvisthat showed prostate enlargement and constipation. Patient was discharged home on Colace and told to follow-up with PCP. Patient has not followed up with PCP. He refuses to take the Colace per son. Denies any significant change as symptoms have been ongoing since July. Differential diagnosis includes but is not limited to constipation, gastritis, gastroparesis, PUD, biliary pathology, inguinal hernia, testicular mass, UTI. Suspect less likely diverticulitis or urolithiasis. Laboratory workup ordered including CT abdomen pelvis and ultrasound of the testicle. Social work was consulted as send would like to talk to them about patient's dementia. On arrival, patient is no acute distress. Mildly hypertensive. He has bradycardia however on chart review has a history of bradycardia. Not endorsing any chest pain or shortness of breath. CBC without leukocytosis or anemia. Platelets unremarkable. CMP unremarkable without JESSICA, electrolyte abnormality, transaminitis. Lipase unremarkable. Ultrasound of the testicle negative for torsion. Patient does have a right epididymal cyst and subcentimeter tiny cyst within the testicle on the left. UAis negative for UTI. However patient does have some WBCs therefore will send for culture. CT abdomen pelvis shows constipation with fecal impaction of the rectum. Patient states he still having bowel movements. States his last 1 was yesterday. Prostate gland is enlarged. He needs to follow-up with urology. Bladder wall thickening which may be due to decompressed state of bladder or dueto cystitis. UA is not consistent with cystitis. Patient not endorsing any dysuria or hematuria. Hepatomegaly with fatty infiltration. Urinary bladder calculi. Colonic diverticulosis without diverticulitis. Patient's symptoms arelikely secondary to his constipation. Him and his son were updated of all results. Patient agreed to have an enema. Patient was explained that he needs to take regular stool softeners at home or his symptoms will not improve until the constipation is improved. He states he confirms understanding. Soapsuds enema ordered. Patient later declined enema. Son had a discussion with me privately and would like the patient admitted. Despite patient being constipated he is passing bowel movements however this was offered to the patient and he declined. Patient will be discharged home. He was given education on constipation diet such as increasing fluids, drinking pear juice, high-fiber diet. Was educated on staying away from cheese and dairy. Will switch his stool softener to senna with docusate twice daily x 14 days. Daily MiraLAX. Follow-up with GI and PCP. They were informed that they need to follow-up with her PCP for enlarged prostate as well. They confirmed understandthe plan. Patient stable to discharge home. Impression: 1. Constipation 2. Enlarged prostate Lab Data Labs: Laboratory Results - last 24 hr 11/08/24 11/08/24 11:44 12:55 WBC 4.9 RBC 4.83 Hgb 14.9 Hct 44.3 MCV 91.7 MCH 30.8 MCHC 33.6 RDW Std Deviation 44.7 H RDW Coeff of Suri 13.2 Plt Count 209 MPV 10.9 Immature Gran % (Auto) 0.400 Neut % (Auto) 74.0 H Lymph % (Auto) 13.8 L [place] % (Auto) 9.8 Eos % (Auto) 1.2 Baso % (Auto) 0.8 Absolute Neuts (auto) 3.6 Absolute Lymphs (auto) 0.68 L Nucleated RBC % 0 Sodium 140 Potassium 4.1 Chloride 101 Carbon Dioxide 28.9 Anion Gap 10 BUN 17 Creatinine 1.02 Estim Creat Clear Calc 37.46 L Est GFR (MDRD) Non-Af 71 BUN/Creatinine Ratio 16.3 Glucose 90 Calcium 8.9 Total Bilirubin 0.66 AST 24 ALT 17 Alkaline Phosphatase 39 L Total Protein 6.3 Albumin 3.9 Globulin 2.4 Albumin/Globulin Ratio 1.7 Lipase 34 Urine Color Yellow Urine Clarity Clear Urine pH 6.5 Ur Specific [place] 1.015 Urine Protein 15 H Urine Glucose (UA) Normal Urine Ketones Negative Urine Occult Blood 10 H Urine Nitrite Negative Urine Bilirubin Negative Urine Urobilinogen Normal Ur Leukocyte Esterase 500 H Urine RBC 0 SEEN Urine WBC 5-10 SEEN Ur Squamous Epith Cells 0 SEEN Urine Bacteria 0 SEEN Urine Mucus 0 SEEN Radiography Diagnostic Testing: Clinical Impression(s) from Imaging Studies Testicular Ultrasound 11/08/24 11:27 IMPRESSION: No acute testicular torsion. Reading Location: [facility] Abdomen/Pelvis CT 11/08/24 11:29 IMPRESSION: 1. Constipation with suggestion of fecal impaction of the rectum. 2. The prostate gland is enlarged. Correlation with PSA values may be helpful if not previously performed. 3. Bladder wall thickening which may be due to the decompressed state of the bladder or due to cystitis. 4. Hepatomegaly with fatty infiltration. 5. Urinary bladder calculi. 6. Colonic diverticulosis without acute diverticulitis. Reading Location: [facility] Discharge Plan Triage Chief Complaint: Abd Pain ED Provider: Kendall Bashir Dx/Rx/DC Orders Clinical Impression: Constipation Instructions: Treating Constipation, High Fiber Diet Dc, How the Colon Works, ED Constipation (Adult) Prescriptions: New polyethylene glycol 3350 [Miralax] 17 gram/dose powder 17 g PO DAILY 30 Days Qty: 510 0RF sennosides-docusate sodium [Senna with Docusate Sodium] 8.6-50 mg tablet 1 tab-cap PO BID 14 Days Qty: 28 0RF Discontinued docusate sodium 100 mg capsule 100 mg PO DAILY Patient Comments: PT TAKES SOMETIMES No Action lisinopril 5 mg tablet 5 mg PO DAILY mirtazapine 7.5 mg tablet 7.5 mg PO QHS Primary Care Provider: Melodie Londono Referrals: Melodie Londono MD [Primary Care Provider] - 3-5 Days Han Schmitz DO [Med Staff - Active Staff] - 3-5 Days Activity Restrictions/Additional Instructions: Drink plenty of fluids. Daily MiraLAX. I switched your stool softener, begin taking it today. Follow-up with your primary care physician and GI. Your prostate is enlarged in which you need to follow-up with your primary care physician. Drink plenty of fluids. Recommend pear juice. Print Language: Uzbek Disposition Disposition: Home, Self Care What to do if you have Problems For any increased pain, shortness of breath, bleeding, nausea or vomiting, chestpain, or any unexpected problems, contact your Primary Care Provider. Call [facility] ([phone]) or report to the closest Emergency Room. Call 911 if necessary. 11/08/24 1545 <Electronically signed by Kendall Bashir DO> Cosigner Signature (if applicable): CC: Dr. Melodie Londono MD ~ Signed [facility] Work Phone: 1(937) 466-801405-30-2025 Radiology Diagnostic study note [facility] Imaging Services [address] [place], [place] [id number] Abdomen/Pelvis W IV Cont ONLY MR#: [id number] Acct: [id number] Name: ONEAL PAGE Rep #: [id number] : 1935 M 89 From: Kim Malcolm MD PCP: Dr. Melodie Londono MD Status: REG ER Study:Abdomen/Pelvis W IV Cont ONLY Date of E xam: 11/02/24 Exam# [id number] Ordering Dr: Trisha Lopez DO EXAM: CT [...] in the right hepaticlobe and in the rightkidney. GALLBLADDER AND BILE DUCTS: Unremarkable. No calcified [...] changes and disc disease, stable. No acute fracture.No dislocation. SOFT TISSUES: Unremarkable. VASCULATURE: Unremarkable. No [...] 5. Multiple urinary bladder calculi. Reading Location: [facility] CC: Dr. Melodie Londono MD; Dr. Guilherme Lopez, DO ~ Drying Machine Operator: Signed [facility]05-13-2025 Evaluation note* Diagnosis Onset Date Resolution Status Admit Date Weight loss, non-intentional acute October 16, 2024 2:42pm GERD chronic October 16, 2024 2:42pm [facility] Work Phone: 1(523) 901-844205-13-2025 Evaluation note* Diagnosis Onset Date Resolution Status Admit Date Weight loss, non-intentional acute October 16, 2024 2:42pm GERD chronic October 16, 2024 2:42pm Dementia acute November 07, 2024 10:57am Epigastric pain acute November 07, 2024 10:57am Failure to thrive acute November 10:57am Weight loss, non-intentional acute November 07, 2024 10:57am Constipation inactive November 07 10:57am [facility] Work Phone: 1(720) 793-730704-24-2025 Radiology Diagnostic study note [facility] Imaging Services [address] [place], [place] [address] Abdomen Single View MR#: [id number] Acct: [id number] Name: ONEAL PAGE Rep #: [id number] : 1935 M 89 From: Ian Means MD PCP: Dr. Melodie Londono MD Status: REG CLI Study:Abdomen Single View Date of Exam: 09/27/24 Exam# [id number] Ordering Dr: Lorene Londono MD PROCEDURE: ABDOMEN SINGLE VIEW 09/27/2024 REASON FOR EXAM: ABDOMINAL PAIN TECHNIQUE: Single view abdomen. FINDINGS: Bowel gas: Bowel gas pattern is normal. No evidence of bowel obstruction. Calcifications: No suspicious calcifications. Bones: The bones are unremarkable. Other: RAD/Abdomen Single View IMPRESSION: NEGATIVE KUB. Reading Location: [facility] CC: Dr. Melodie Londono MD ~ Drying Machine Operator: Signed [facility]11-20-2024 Instructions* Patient Instructions* Mindi Ferro MD [...] drive to new places [facility] History of Present illness Narrative* Mindi Ferro MD - 04/25/2024 4:30 PM EST Images from the original note were not included. General Neurology Outpatient Clinic - f/u visit Date: April 25, 2024 Patient Name: Oneal Page Referring physician: Mindi Ferro [address] [facility] [address] Primary physician: Melodie Londono (Raul) [address] [place] [address] Reason for Evaluation: memory f/u Previously seen 08/29/2023 for memory changes. MOCA 15/30 but confounded by profound hearing loss. Plan [...] 5 Triceps: 5 Biceps: 5 Biceps: 5 Lining Finisher: 5 Lining Finisher: 5 Right Lower: Left Lower: Iliopsoas: 5 Iliopsoas: 5 Knee flexor: 5 Knee flexor: 5 Knee extensor: 5 Knee extensor: 5 Motor Tone: Right Upper: Normal tone Left Upper: Normal tone Reflexes: 2/4 biceps, brachioradialis, patellars Sensation: intact BUE to touch, proprioception, vibration Coordination: Finger-to- nose-finger intact bilaterally and Fnrk-xu-joxd intact bilaterally. Gait: normal-based ASSESSMENT: 88 year [...] which included preparing to see the patient, infc-me-nulz patient care, completing clinical documentation, obtaining and/or reviewing separately obtained history, performing a medically appropriate examination, counseling and educating the pat ient/family/caregiver, ordering medications, tests, or procedures, independently interpreting results (not separately reported), communicating results to the patient/family/caregiver, and care coordination (not separately reported). Mindi Ferro MD Staff, General Neurology Pager: [phone] CC: Referring Physician: Mindi Steele[address] [place] [address] PCP: Melodie Londono (Raul) [address] [place] [address] documented in this encounter[facility]24 NoteHNO ID: [id number] Author: MINDI FERRO MD Service: ? Author Type: Physician Type: Progress Notes Filed: 04/25/2024 17:52 Note Text: General Neurology Outpatient Clinic - f/u visit Date: April 25, 2024 Patient Name: Oneal Page Referring physician: Mindi Ferro [address] [address] Primary physician: Melodie Londono (Raul) [address] [place] [address] Reason for Evaluation: memory f/u Previously seen [...] 5 Triceps: 5 Biceps: 5 Biceps: 5 Lining Finisher: 5 Lining Finisher: 5 Right Lower: Left Lower: Iliopsoas: 5 Iliopsoas: 5 Knee flexor: 5 Knee flexor: 5 Knee extensor: 5 Knee extensor: 5 Motor Tone: Right Upper: Normal tone Left Upper: Normal tone Reflexes: 2/4 biceps, brachioradialis, patellars Sensation: intact BUE to touch, proprioception, vibration Coordination: Finger-to- nose-finger intact bilaterally and Wbxc-sx-ogph intact bilaterally. Gait: normal-based ASSESSMENT: 88 year [...] which included preparing to see the patient, fmas-ah-amky patient care, completing clinical documentation, obtaining and/or reviewing separately obtained history, performing a medically appropriate examination, counseling and educating the patient/family/caregiver, ordering medications, tests, or procedures, independently interpreting results (not separately reported), communicating results to the patient/family/caregiver, and care coordination (not separately reported). Mindi Ferro MD Staff, General Neurology Pager: [phone] CC: Referring Physician: Mindi Ferro [address] [facility] [address] PCP: Melodie Londono ([facility]) [address] [place] [address] [facility]gamwrucjSelect [facility]03-[facility] Instructions* Patient Instructions* Mindi Ferro MD - [...] drivenew places by yourself. documented in this encounterSelect [facility]03-25-2024 History of Present illness Narrative* Mindi Ferro MD - 08/29/2023 1:00 PM EDT Images from the original note were not included. General Neurology Outpatient Clinic - new patient evaluation Date: August 29, 2023 Patient Name: Oneal Page Referring physician: No referring provider defined for this encounter. Primary physician: Melodie Londono ([facility]) [address] [place] [address] Reason for Evaluation: memory HPI The pt is a 88yo Left handed male with hx of - HTN - GERD - hearing loss Referred by PCP at [facility], [facility] for neurological consultation regarding MCI. My [...] He completed high school and then served [employer]. He came back and started working. 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 They never got [...] 5 Triceps: 5 Biceps: 5 Biceps: 5 Lining Finisher: 5 Lining Finisher: 5 Right Lower: Left Lower: Iliopsoas: 5 Iliopsoas: 5 Knee flexor: 5 Knee flexor: 5 Knee extensor: 5 Knee extensor: 5 Motor Tone: Right Upper: Normal tone Left Upper: Normal tone Reflexes: 2/4 biceps, brachioradialis, patellars Sensation: intact BUE to touch, proprioception, vibration Coordination: Finger-to- nose-finger intact bilaterally and Phbw-xr-izci intact bilaterally. Gait: normal-based. LABS/DATA: 07/04/2023 OSH [...] which included preparing to see the patient, xccy-rr-xqar patient care, completing clinical documentation, obtaining and/or reviewing separately obtained history, performing a medically appropriate examination, counseling and educating the pat ient/family/caregiver, ordering medications, tests, or procedures, independently interpreting results (not separately reported), and communicating results to the patient/family/caregiver. Mindi Ferro MD Staff, General Neurology Pager: [phone] CC: Referring Physician: No referring provider defined for this encounter. PCP: Melodie Londono ([place]) [address] [place] [address] documented in this encounterSelect [facility]03-25-2024 NoteHNO ID: [id number] Author: MINDI FERRO MD Service: ? Author Type: Physician Type: Progress Notes Filed: 08/29/2023 15:59 Note Text: General Neurology Outpatient Clinic - new patient evaluation Date: August 29, 2023 Patient Name: Oneal Page Referring physician: No referring provider defined for this encounter. Primary physician: Melodie Londono ([place]) [address] [place] [address] Reason for Evaluation: memory HPI The pt is a 88yo Left handed male with hx of - HTN - GERD - hearing loss Referred by PCP at [facility] for neurological consultation regarding MCI. [...] high school and then served in the [place] [employer]. He came back and started working. 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 They never got [...] 5 Triceps: 5 Biceps: 5 Biceps: 5 Lining Finisher: 5 Lining Finisher: 5 Right Lower: Left Lower: Iliopsoas: 5 Iliopsoas: 5 Knee flexor: 5 Knee flexor: 5 Knee extensor: 5 Knee extensor: 5 Motor Tone: Right Upper: Normal tone Left Upper: Normal tone Reflexes: 2/4 biceps, brachioradialis, patellars Sensation: intact BUE to touch, proprioception, vibration Coordination: Finger-to- nose-finger intact bilaterally and Bmaq-sk-hhdp intact bilaterally. Gait: normal-based. LABS/DATA: 07/04/2023 OSH [...] prior to scan (fami (more content not included)...[facility] Miscellaneous Notes* Telephone Encounter - Roshni Yeboah [...] to scheduleconsultation. Roshni Yeboah documented in this encounterSelect Medical Specialty [facility]01-25-2023 Miscellaneous Notes* Telephone Encounter - Roshni Yeboah - 06/30/2022 11:44 AM EST Received referral from patient's PCP/[facility] to get patient scheduled with Dr. Ferro for cognitive impairment. Called number on file-no answer. Left voicemail requesting a call back to our office to schedule appointment. Referral in scanned docs. Please fax cover sheet with appt information back to PCP's office after appointment is scheduled. Roshni Yeboah documented in this encounterSelect Medical Specialty Hospital - ColumbusDischarge summary Author Yayo Mauro [facility] December 21, 2022 11:40am Note Date/Time December 21, 2022 11:4 0am [facility] Medical Records Department [address] [place] [address] Emergency Department Summary 12/21/22 MR#: [id number] Acct: [id number] Name: ONEAL PAGE Rep #:[id number] From: Yayo Mauro DO PCP: Dr. Jeremy Londono MD Status: [...] for evaluation today. No other acute complaints. [facility] Medical History (Updated 12/21/22 @ 11:32 by [...] (Auto) 68.4 Lymph % (Auto) 16.0 L [place] % (Auto) 7.6 Eos % (Auto) 6.8 [...] Sl. Cloudy Urine pH 8.0 Ur Specific [place] 1.015 Urine Protein Negative Urine Glucose (UA) [...] water. Use apple juice for prunejuice. Use uxnm-rfg-krngnhc MiraLAX to help with stool softener. Continue to follow-up with PCP for additional testing. Drink Maalox or Mylanta at bedtime to see if it would help with pain in the middle of the night. Also use antacid medication vobq-fjl-pediolk if needed like daily Pepcid, Nexium, Prilosec, or Zantac. Disposition Disposition: Home, Self Care What to do if you have Problems For any increased pain, shortness of breath, bleeding, nausea or vomiting, chestpain, or any unexpected problems, contact your Primary Care Provider. Call [facility] ([phone]) or report to the closest Emergency Room. Call 911 if necessary. 12/21/22 1140 <Electronically signed by Yayo Mauro DO> Cosigner Signature (if applicable): CC: Dr. Jeremy Londono MD ~ Signed [facility] Work Phone: Evaluation noteNo assessment information available [facility] Work Phone: Evaluation note* Diagnosis Memory changes- Primary Memory loss Bilateral hearing loss, unspecified hearing loss type documented in this encounter [facility]* Diagnosis MCI (mild cognitive impairment)- Primary Mild cognitive impairment, so stated documented in this encounter [facility] note* Diagnosis Onset Date Resolution Status Admit Date Weight loss, non-intentional acute October 16, 2024 2:42pm GERD chronic October 16, 2024 2:42pm [facility] Work Phone: Evaluation note* Diagnosis Failure to thrive in adult- Primary Adult failure to thrive Epigastric pain Abdominal pain, epigastric Unintentional weight loss Loss of weight [facility] Additional Instructions Increase fluids at home, Gatorade, Powerade or water. Use apple juice for prune juice. Use hubj-ykr-putbnmy MiraLAX to help with stool softener. Continue to follow-up with PCP for additional testing. Drink Maalox or Mylanta at bedtime to see if it would help with pain in the middle of the night. Also use antacid medication rfgf-ort-feewefx if needed like daily Pepcid, Nexium, Prilosec, or Zantac.[facility] Work Phone: Hospital Discharge instructionsAmbulatory Orders* Nutrition Referral Location: None Selected [facility] Work Phone: Hospital Discharge instructions Additional Instructions I would strongly recommend you following up with your primary care doctor to discuss your symptoms. You may also wish to see a reference investigator there is often a wait though to see them. There was a moderate amount of stool noted on your CAT scan today as well as gas. I would recommend taking a stool softener which I have prescribedWCincinnati [facility] Work Phone: Hospital Discharge instructions Additional Instructions Drink plenty of fluids. Daily MiraLAX. I switched your stool softener, begin taking it today. Follow-up with your primary care physician and GI. Your prostate is enlarged in which you need to follow-up with your primary care physician. Drink plenty of fluids. Recommend pear juice.[facility] Work Phone: Hospital Discharge instructionsAmbulatory Orders* Geriatrics Location: None Selected [facility] Work Phone: Reason for referral (narrative)No reason for referral information availableWCincinnati [facility]'s [facility] Work Phone: Chief Complaint and Reason for [...] ABD PAIN November 02, 2024 12:06 pm Chief Complaint Admit Date E-ORDER September 27, 2024 4:1 6pm stomach issues October 16, 2024 2:42p m ABD PAIN November 02, 2024 12:06 pm ABDOMINAL PAIN WEIGHT LOSS November 07 10:57am ABD PAIN November 08, 2024 11:08 am Reason for Visit Admit Date Weight loss, non-intentional October 16, 2 025 2:42pm GERD October 16, 2024 2:42p m Dementia November 07, 2024 10:57 am Epigastric pain November 07, 2024 10:57 am Failure to thrive November 07, 2024 10:57 am Weight loss, non-intentional November 07, 2 025 10:57am Constipation November 07, 2024 10:57 am Chief Complaint Admit Date E-ORDER September 27, 2024 4:1 6pm stomach issues October 16, 2024 2:42p m ABD PAIN November 02, 2024 12:06 pm ABDOMINAL PAIN WEIGHT LOSS November 07 10:57am ABD PAIN November 08, 2024 11:08 am E-ORDER November 15, 2024 12:4 4pm Nausea November 16, 2024 9:10 am Chief Complaint Admit Date E-ORDER September 27, 2024 4:1 6pm stomach issues October 16, 2024 2:42p m ABD PAIN November 02, 2024 12:06 pm ABDOMINAL PAIN WEIGHT LOSS November 07 10:57am Family History No Family History Records Found [...] neoplasm of colon Unknown Cardiac disease Unknown Relationship Condition Age at Onset Recorded Date/T matt Not Specified Cardiac disease Unknown sister Hypertension Unknown Multiple sclerosis Unknown Diabetes mellitus Unknown mother Malignant neoplasm of colon Unknown father Myocardial infarction Unknown brother Malignant neoplasm Unknown Advance Directives No Advanced Directives Records Found Advance Directive Response Recorded Date/ Time Advance Directives Yes September 07 3:36am Living Will Yes September 07, 2014 3:36am Power of Laundry Routeman Yes September 07 5 3:36am Advance Directive Response Recorded Date/ Time Advance Directives Yes September 07 2:36am Living Will Yes September 07, 2014 2:36am Power of Laundry Routeman Yes September 07 5 2:36am Advance Directive Response Recorded Date/ Time Advance Directives Yes September 07 3:36am Living Will Yes December 21, 2022 8:54am Power of Laundry Routeman Yes December 21 8:54am Name of Medical Power of Laundry Routeman ? December 21, 2022 8:54am Advance Directive Response Recorded Date/ Time Advance Directives Yes September 07 2:36am Living Will Yes December 21, 2022 7:54am Power of Laundry Routeman Yes December 21 7:54am Advance Directive Response Recorded Date/ Time Advance Directives Yes September 07 3:36am Advance Directive Response Recorded Date/ Time Do you have a Healthcare Power of Laundry Routeman? Yes November 08, 2024 11:38am Name of Medical Power of Laundry Routeman Bao Camilo November 08, 2024 11:38am Advance Directives Yes September 07 3:36am Advance Directive Response Recorded Date/ Time Do you have a Healthcare Power of Laundry Routeman? Yes November 08, 2024 11:38am Name of Medical Power of Laundry Routeman Bao Camilo November 08, 2024 11:38am Do you have a Healthcare Power of Laundry Routeman? No November 16, 2024 9:25am Advance Directives Yes September 07 3:36am Reason for Referral Specialty Diagnoses / Procedures Referred By Sylvia t Referred To Contact MR IMAGING Diagnoses Memory changes Procedures MRI 3D POST PROCESSING 3D RENDERING W/INTERP&POSTPROC DIFF WORK STATION Mindi Ferro MD [address] [place] [address] Mr Imaging [facility] Referral ID Status Reason Start Date Expiration Date Visits Requested Visits Authorized [id number] Authorized Auto-Generat ed Referral 08/29/2023 09/27/2024 1 1 Specialty Diagnoses / Procedures Referred By Contac t Referred To Contact MR IMAGING Diagnoses Memory changes Procedures MRI BRAIN WO IVCON MRI BRAIN BRAIN STEM W/O CONTRAST MATERIAL Mindi Ferro MD [address] [place] [address] Mr Imaging [facility]95 Referral ID Status Reason Start Date Expiration Date Visits Requested Visits Authorized [id number] Authorized Auto-Generat ed Referral 08/29/2023 09/27/2024 1 1 Specialty Diagnoses / Procedures Referred By Contac t Referred To Contact Diagnoses MCI (mild cognitive impairment) Procedures PROVIDER ORDERED FOLLOW UP OFFICE/OUTPATIENT [facility] 60 MINUTES Mindi Ferro MD [address] [place] [address] Referral ID Status Reason Start Date Expiration Date Visits Requested Visits Authorized [id number] Authorized PCP Requested Referral 10/23/2024 04/25/2025 1 [...] or prosecute any alcohol or drug abuse patient.[facility]In the event this information is protected by the Federal Confidentiality of Alcohol and Drug Abuse Patient Records regulations: The Federal rules restrict any use of the information to criminally investigate or prosecute any alcohol or drug abuse patient.[facility] ColumbusIn the event this information is protected by the Federal Confidentiality of Alcohol and Drug Abuse Patient Records regulations: The Federal rules restrict any use of the information to criminally investigate or prosecute any alcohol or drug abuse patient.[facility] ColumbusIn the event this information is protected by the Federal Confidentiality of Alcohol and Drug Abuse Patient Records regulations: The Federal rules restrict any use of the information to criminally investigate or prosecute any alcohol or drug abuse patient.[facility] ColumbusIn the event this information is protected by the Federal Confidentiality of Alcohol and Drug Abuse Patient Records regulations: The Federal rules restrict any use of the information to criminally investigate or prosecute any alcohol or drug abuse patient.[facility] Reason for Visit (unrecogniz ed section and content) Reason Comments Appointment Referral to Neurolog y Reason Comments Consult Reason Comments Established Patient Follow Up Care Teams (unrecognized sec tion and content) Retail And Restaurant Associate Relationship Specialty Start Date End Date Melodie Londono MD [address] [place] [id number] PCP - General Family Medicine 09/14/10 Team [...] Dr. Jeremy Londono MD Primary Care Provider, Atte nding Provider Active Retail And Restaurant Associate Relationship Specialty Start Date End Date Melodie Londono MD [address] [place], [place] [address]Richy CASAREZ [place], [place] [id number] PCP - General Family Medicine 09/14/10 Retail And Restaurant Associate Relationship Specialty Start Date End Date Melodie Londono MD [address] [facility] [place] [place] [id number] PCP - General Family Medicine 09/14/10 Retail And Restaurant Associate Relationship Specialty Start Date End Date Melodie Londono MD [address] [place] [address] PCP - General Family Medicine 09/14/10 Team [...] November 02, 2024 End: November 02, 2024 Team Status: Inactive Member Role Status Dates Dr. Melodie Londono MD Primary Care Provider Acti ve Start: November 02, 2024 End: November 02, 2024 Dr. Guilherme Lopez DO Attending Provider Active Start: November 02, 2024 End: November 02, 2024 Dr. Guilherme Lopez DO Referring Provider Active Start: November 02, 2024 End: November 02, 2024 Dr. Guilherme Lopez DO Emergency Provider Active Start: November 02, 2024 End: November 02, 2024 Team Status: Inactive Member Role Status Dates Dr. Melodie Londono MD Primary Care Provider Acti ve Start: November 07, 2024 End: November 07, 2024 Dr. Melodie Londono MD Referring Provider Active Start: November 07, 2024 End: November 07, 2024 Senait Kuhn SKATESMAN-C Attending Provider Active Start: November 07, 2024 End: November 07, 2024 Team Status: Inactive Member Role Status Dates Dr. Melodie Londono MD Primary Care Provider Acti ve Start: November 08, 2024 End: November 08, 2024 Dr. Kendall Bashir DO Emergency Provider Activ e Start: November 08, 2024 End: November 08, 2024 Retail And Restaurant Associate Relationship Specialty Start Date End Date Melodie Londono MD [address] [place] [id number] PCP - General Family Medicine 09/14/10 Team Status: Inactive Member Role Status Dates Dr. Melodie Londono MD Primary Care Provider Acti ve Start: November 08, 2024 End: November 08, 2024 Dr. Kendall Bashir DO Attending Provider Activ e Start: November 08, 2024 End: November 08, 2024 Dr. Kendall Bashir DO Emergency Provider Activ e Start: November 08, 2024 End: November 08, 2024 Team Status: Active Member Role Status Dates Dr. Melodie Londono MD Primary Care Provider Acti ve Start: November 15, 2024 Dr. Melodie Londono MD Attending Provider Active Start: November 15, 2024 Dr. Melodie Londono MD Referring Provider Active Start: November 15, 2024 Team Status: Inactive Member Role Status Dates Dr. Melodie Londono MD Primary Care Provider Acti ve Start: November 16, 2024 End: November 16, 2024 Dr. Lashon Ly DO Emergency Provider Active Start: November 16, 2024 End: November 16, 2024 Team Status: Inactive Member Role Status Dates Dr. Melodie Londono MD Primary Care Provider Acti ve Start: November 15, 2024 End: November 15, 2024 Dr. Melodie Londono MD Attending Provider Active Start: November 15, 2024 End: November 15, 2024 Dr. Melodie Lodnono MD Referring Provider Active Start: November 15, 2024 End: November 15, 2024 Team Status: Inactive Member Role Status Dates Dr. Melodie Londono MD Primary Care Provider Acti ve Start: November 16, 2024 End: November 16, 2024 Dr. Lashon Ly DO Attending Provider Active Start: November 16, 2024 End: November 16, 2024 Dr. Lashon Ly DO Emergency Provider Active Start: November 16, 2024 End: November 16, 2024 (unrecognized sect ion and content) No Status Records FoundNo Status Records Found INFORMATION SOURCE (unrecogn ized section and content) DATE CREATED AUTHOR 04/28/2024 [facility] DATE CREATED AUTHOR AUTHOR'S ORGANIZ ATION 11/25/2024 [facility] FOR RECORDS PERTAINING TO PATIENTS WHO ARE [...] BE BASED ON THE PRIMARY CLINICAL RECORDS. [employer] provides no warranty or guarantee of the accuracy or completeness of information in this document.
[2024-11-25 13:51] VITALS: BP 137/75; PULSE 62; RESP 16; O2SAT 100
[2024-11-25 13:52] LABS: Basophil# 0.04 X10^3/uL; Basophil% 0.8 % (0-1); Eosinophil# 0.09 X10^3/uL; Eosinophils% 1.7 % (0-5); Hematocrit 41.5 % (40-54); Hemoglobin 14.3 g/dL (13.0-16.5); Lymphocyte % 9.7 % (19-41); Mean Corp Hgb Conc 34.5 g/dL (32-36); Mean Corpuscular Volume 89.8 fL (80-94); Mean Platelet Vol. 11.7 fl (6.2-12.0); Monocyte# 0.49 X10^3/uL; Monocyte% 9.5 % (0-10); NRBC Flagged by Analyzer 0 % (0-5); Neutrophil # 4.02 X10^3/uL (2.7-7.7); Neutrophil % 77.9 % (47-70); POSITIVE DIFFERENTIAL YES; Platelet Count 158 K/mm3 (150-450); RBC Distribution Width CV 13.4 % (11.6-14.6); RBC Distribution Width SD 43.8 fl (35.1-43.9); Red Blood Count 4.62 M/mm3 (4.6-6.2); White Blood Count 5.2 K/mm3 (4.4-11.0)
[2024-11-25 14:20] LABS: ALB/GLOB Ratio 1.5 RATIO (0.9-2.4); AST(SGOT) 27 U/L (<=37); Alanine Aminotransfer ALT/SGPT 18 U/L (<=46); Albumin, Serum 3.7 g/dL (3.4-4.8); Alkaline Phosphatase 47 U/L (40-129); Anion Gap 10 (5-15); BUN 13 mg/dL (4-19); BUN/Creat Ratio 12.7 RATIO (10-20); Calcium,Total 9.3 mg/dL (7.6-11.0); Carbon Dioxide 25.9 mmol/L (21.0-32.0); Chloride 101 mmol/L (98-108); Creatinine, Serum 1.05 mg/dL (0.70-1.20); EST Glomerular Filtration Rate 68 (>60); Estimated Creatinine Clearance 34.63 ml/min (50-250); Globulin 2.5 g/dL (2.2-4.2); Glucose 142 mg/dL (70-99); Potassium 4.3 mmol/L (3.3-5.1); Protein, Total 6.2 g/dL (5.9-8.4); Sodium Level 138 mmol/L (133-145); Total Bilirubin 0.63 mg/dL (0.00-1.30)
[2024-11-25 15:00] VITALS: BP 147/72; PULSE 62; RESP 23; O2SAT 97
--- NOTE | 2024-11-25 15:17 | ED.VIS.GI ---
HPI HPI - GI History of Present Illness Chief Complaint: Abd Pain Detail of Chief Complaint: Generalized abdominal pain, weight loss, change in size of stool Informant: patient and family (Son has been living with him for the past 1 to 2 weeks.) Abdominal Pain/Flank Pain Onset: Weeks Context: Gradual Onset Timing: Continuous and Waxes and wanes Quality: Cramping and Dull Location: Diffuse Current Severity: Mild Maximum Severity: Severe Worsened by: Food Relieved by: Nothing Nausea/Vomiting/Emesis GI Symptom: Positive for Nausea; Negative for Vomiting Diarrhea/Melena/Hematochezia GI Symptom: Negative for Diarrhea, Melena or Hematochezia Associated Symptoms Associated Symptoms: Negative for Dysuria, Frequency, Hematuria or Urgency Narrative Narrative: Patient is a 89-year-old male. He was seen on November 02, November 08 and November 16 for abdominal pain/constipation. The CAT scan on November 08 revealed constipation with suggestion of fecal impaction. The prostate was noted to be enlarged. Patient also had a Pado megaly with fatty infiltration. There was a urinary bladder calculi noted as well. Patient does have evidence of diverticulosis without evidence of diverticulitis. Patient had abdominal series on November 15. This revealed no acute abnormality per radiologist. Abdominal series obtained on November 16 reveals fecal retention in colon consistent with constipation. Son states he has had weight loss. He is probably lost 15 pounds in the past month. Anytime he attempt to eat or drink anything he has pain. Patient endorses small stool and hard stool. This is a change. Patient does admit to dry tongue. Denies orthostatic lightheadedness. Denies decreased urine output. Denies urologic symptoms. Patient states he has never had a colonoscopy. Patient denies fever, chills night sweats. Patient denies night sweats. Patient has no cardiac or respiratory symptoms. Patient denies edema of his lower extremities or upper extremities. Prior similar symptoms: Yes Recent Illness/Hospitalization: Yes (3 ER visits not including today since November 02) [facility] Medical History Frequent headaches Cataracts, bilateral Hearing problem Abdominal bloating Low vitamin B12 level MCI (mild cognitive impairment) Dyspepsia Prostatic hypertrophy Stomachache Vitamin D deficiency Dehydration Hypertension Home Medications ?Medication ?Instructions ?Recorded ?Last Taken ?Type mirtazapine 7.5 mg tablet 7.5 mg PO QHS 11/08/24 11/24/24 History docusate sodium 100 mg capsule 100 mg PO DAILY 11/25/24 11/24/24 History Allergy/AdvReac Type Severity Reaction Status Date / Time amoxicillin Allergy Intermediate Rash Verified 11/25/24 12:22 Sulfa (Sulfonamide Allergy Mild Rash Verified 11/25/24 12:22 Antibiotics) chlorthalidone AdvReac Severe dizziness Verified 11/25/24 12:22 and stomachache Penicillins (PCN) AdvReac Intermediate unknown Verified 11/25/24 12:22 amlodipine AdvReac Mild dizziness Verified 11/25/24 12:22 guaifenesin (From Mucinex) AdvReac Mild GI upset Verified 11/25/24 12:22 Family History Sister Hypertension Multiple sclerosis Diabetes Mother Colon cancer Father Myocardial infarction Brother Cancer prostate Other Heart disease Surgical History Hx of appendectomy Social History Smoking Status: Never smoker alcohol intake: never substance use type: does not use frequency: other details: has been inactive until recently ROS ROS ED Constitutional Constitutional ED: Reports weight loss; Denies chills, fever(s), subjective or sweats ENT ENT ED: Denies ear pain, rhinorrhea or sore throat Cardiovascular Cardiovascular: Denies chest pain or palpitations Respiratory/Chest Respiratory/Chest: Denies cough, dyspnea or dyspnea on exertion Gastrointestinal Gastrointestinal: Reports abdominal pain, constipation and nausea; Denies diarrhea, melena or vomiting Genitourinary Genitourinary ED: Denies dysuria, hematuria or urinary frequency Musculoskeletal Musculoskeletal: Denies arthralgias or myalgias Integumentary Denies abscess or rash Neurologic Neurologic: Denies headache(s), paresthesias or weakness Hematologic/Lymphatic Hematologic/Lymphatic: Denies easy bleeding or easy bruising EXAM Physical Exam Const Vital Signs: 11/25/24 12:22 11/25/24 13:51 11/25/24 15:00 Temperature 97.7 F L Temperature Source Oral Pulse Rate 86 62 62 Respiratory Rate 16 16 23 H Blood Pressure 132/101 H 137/75 H 147/72 H Blood Pressure Mean 111 95 97 Pulse Ox 98 100 97 Oxygen Delivery Method Room Air Room Air Room Air Positive well developed and cachectic Constitutional Narrative: BMI is 15. He General Appearance ED: well developed, cachectic, NAD and pallor Nutritional Appearance: cachectic HEENT HEENT Narrative: Head is atraumatic and normocephalic. Ears normal. Nares patent Eyes PERRL and EOMs intact bilaterally General Eye ED: Negative for pale conjunctiva or scleral icterus Neck no lymphadenopathy and supple Resp normal respiratory effort and clear to auscultation bilaterally Cardio regular rate, regular rhythm, S1 normal heart sound, S2 normal heart sound and no murmurs GI GI Narrative: Abdomen is scaphoid. There is no pulsatile mass. There is no abdominal bruit. The aorta is not enlarged. There is no hepatosplenomegaly. Bowel sounds are diminished. Extremity full ROM General Extremety ED: Negative for edema or tenderness General Extremity: Negative for edema Neuro CN's II-XII intact bilaterally, moves all extremities, no sensory deficits noted and gait normal Sensorium / Orientation: alert Psych mental status grossly normal and thought process normal Skin no wounds General Skin Exam: pallor; Negative for jaundice MDM MDM MDM Narrative Medical decision making narrative: Who with weight loss, abdominal pain and change in caliber stool concern for malignancy. Since patient had recent CAT scan there is no indication obtain 1. Patient was referred to Dr. Schmitz. Assistant Editor will make an appointment for him to be seen and arrange for possible colonoscopy or EGD. Blood work that was obtained prior visits was reviewed and will compare to today's. Need to evaluate for kidney function, alkaline phosphatase calcium liver enzymes and H&H on CBC. History & Record Review Additional record(s) reviewed:: Prior ED visit and Prior labs Lab Data Lab results narrative: Blood work is remarkable only for slight elevation in glucose of 142 with a normal CO2 anion gap. Labs: Laboratory Results - last 24 hr 11/25/24 13:35 WBC 5.2 RBC 4.62 Hgb 14.3 Hct 41.5 MCV 89.8 MCH 31.0 MCHC 34.5 RDW Std Deviation 43.8 RDW Coeff of Suri 13.4 Plt Count 158 MPV 11.7 Immature Gran % (Auto) 0.400 Neut % (Auto) 77.9 H Lymph % (Auto) 9.7 L [place] % (Auto) 9.5 Eos % (Auto) 1.7 Baso % (Auto) 0.8 Absolute Neuts (auto) 4.0 Absolute Lymphs (auto) 0.50 L Nucleated RBC % 0 Sodium 138 Potassium 4.3 Chloride 101 Carbon Dioxide 25.9 Anion Gap 10 BUN 13 Creatinine 1.05 Estim Creat Clear Calc 34.63 L Est GFR (MDRD) Non-Af 68 BUN/Creatinine Ratio 12.7 Glucose 142 H Calcium 9.3 Total Bilirubin 0.63 AST 27 ALT 18 Alkaline Phosphatase 47 Total Protein 6.2 Albumin 3.7 Globulin 2.5 Albumin/Globulin Ratio 1.5 Treatment and Re-Evaluation :: Dr. Schmitz was message. He will set patient up for outpatient colonoscopy. There is relayed to the son because the son was not happy following up with GI again. Discharge Plan Triage Chief Complaint: Abd Pain ED Provider: Guy Nieto Dx/Rx/DC Orders Clinical Impression: Altered bowel function, Insomnia, Hypertension, Failure to thrive, Unintentional weight loss of 5% body weight or less within 1 month Instructions: ED Abdominal Pain Unkn Cause Male... Prescriptions: No Action docusate sodium 100 mg capsule 100 mg PO DAILY mirtazapine 7.5 mg tablet 7.5 mg PO QHS Primary Care Provider: Jared Londono Referrals: Jared Londono MD [Primary Care Provider] - Han Schmitz DO [Med Staff - Active Staff] - Keep Augustine appointment Print Language: Nepali Disposition Disposition: Home, Self Care
[2024-11-25] MEDS: Mag Hydrox/Al Hydrox/Simeth 30 ML UDC PO (15:35)
[2024-11-25] MEDS: Lidocaine 2% Viscous15 ML UDC 15 ML PO (15:35)
[2024-11-25] MEDS: Famotidine 200 MG/20 ML MDV 20 MG in 0.9% Normal Saline (Pres. free 8 ML 300 MG IV (15:35)
[2024-11-25 16:47] VITALS: BP 147/72; PULSE 62; RESP 23; TEMP 36.6; O2SAT 97
--- NOTE | 2024-11-25 20:25 | CM.ED ---
Social Work Date of referral: 11/25/2024 Reason for referral: Resources needed. Referred by: ED nurse Patient had already left the ED so psychiatric social worker supervisor followed up via phone call and spoke with patient's son/POA, Bao Page. Mr. Page reported patient is becoming increasingly confused, hasn't been eating, forgets to take his medications and is in need of more support at home. Mr. Page currently resides in [place] and has been staying with his father to help provide care and supervision however has to go back home by the end of this week. Patient has a daughter who resides in [place], however she is taking care of their mother who just recently had a stroke. Patient currently unwilling to transition into an Assisted Living environment. [facility] and has a [facility] ([facility] through [facility] coming out from 3-5, M-F to assist with laundry, light housekeeping, meal prep and medication reminders. Mr. Page stated there is no current week-end coverage. Mr. Page stated patient has extreme OCD and requires a lot of attention. Patient has not wandered off. 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 Patient currently receiving home delivered meals. Mr. Page expressed satisfaction with current resources, denied any other outstanding needs and expressed appreciation for the help. Mr. Page encouraged to call back should any additional help be needed in the future. Senait Borden, SENIOR FINANCE MANAGER, MEDICAL OFFICE SECRETARY
== END 2024-11-25 16:48 | disposition home or self-care (01) ==
PROVIDERS: Emergency Provider Emergency Medicine; PCP Family Medicine; Visit Provider Emergency Medicine
DX: R19.4 Change in bowel habit (principal); N21.0 Calculus in bladder; R10.84 Generalized abdominal pain; G47.00 Insomnia, unspecified; I10 Essential (primary) hypertension; R63.4 Abnormal weight loss; R62.7 Adult failure to thrive; K57.30 Diverticulosis of large intestine without perforation or abscess without bleeding; Z90.79 Acquired absence of other genital organ(s)
CPT/HCPCS: 80053; 85025; 96365; 99285; A4216

== ENCOUNTER → 2024-11-26 | Outpatient (CLI) | payer MEDICARE, SELFPAY ==
--- NOTE | 2024-11-26 14:40 | RAD_ITS ---
PROCEDURE: ABDOMEN SINGLE VIEW 11/26/2024 REASON FOR EXAM: ABD PAIN TECHNIQUE: ABDOMEN SINGLE VIEW COMPARISON: Prior study dated November 16, 2024. FINDINGS: Bowel gas: Moderate amount of fecal material is seen in the colon. Calcifications: Calcifications in the region of the prostate. These are unchanged. Bones: Degenerative changes of the lumbar spine as well as the symphysis pubis. Other: RAD/Abdomen Single View IMPRESSION: Moderate amount of fecal material is seen throughout the colon. Dense prostatic calcifications. Reading Location: [id number]
== END | disposition home or self-care (01) ==
LOC: RAD 14:37
PROVIDERS: PCP Family Medicine
DX: R63.4 Abnormal weight loss (principal); R10.13 Epigastric pain
CPT/HCPCS: 74018

== ENCOUNTER → 2024-11-28 | Outpatient (CLI) | payer MEDICARE, SELFPAY | END | disposition home or self-care (01) | LOC: LAB 15:39 | PROVIDERS: PCP Family Medicine; Referring Provider Family Medicine Geriatric Medicine; Visit Provider Family Medicine Geriatric Medicine | DX: Z12.5 Encounter for screening for malignant neoplasm of prostate (principal) | CPT/HCPCS: 36415; 84153; G0103 ==

== ENCOUNTER → 2024-11-29 | Outpatient (CLI) | payer MEDICARE, SELFPAY ==
--- NOTE | 2024-11-29 12:57 | CT_ITS ---
PROCEDURE: CT CHEST, ABD, PEL W/CONTRAST 11/29/2024 REASON FOR EXAM: DECREASED APPETITE, WEIGHT LOSS TECHNIQUE: Chest, abdomen and pelvis CT with intravenous contrast. Coronal and Sagittal reconstruction series were provided. One or more dose reduction techniques were used (e.g., Automated exposure control, adjustment of the mA and/or kV according to patient size, use of iterative reconstruction technique. PATIENT PREPARATION: Per protocol ORAL CONTRAST TYPE: Patient ingested oral contrast. CONTRAST: Isovue-350 VOLUME: 100mL gauge IV RADIATION DOSE SUMMARY: CTDlvol: 5.72 mGy DLP: 492 mGycm COMPARISON: CT scan of the abdomen and pelvis on 11/08/2024. FINDINGS: Moderate diffuse thickening of the gastric fundus. Findings can be secondary to gastritis and/or neoplastic pathology. This can be further evaluated by means of endoscopy if clinically warranted. Bilateral scattered pulmonary granulomas are noted with the largest measuring 1.3 cm. Mild coronary artery calcifications are noted. Right renal simple cyst measuring 4.2 cm. Moderate prostatomegaly. Diffuse thickening of the wall of the bladder which may represent chronic bladder outlet obstruction versus mild cystitis. Multiple nonobstructing stones are noted in the dependent aspect of the bladder with the largest measuring 2.3 cm. Well-defined homogeneously enhancing hemangioma in the left hepatic lobe measuring 1.2 cm. Normal enhancement of the main pulmonary artery and right and left pulmonary arteries. Normal enhancement of the bilateral peripheral pulmonary arteries. There is no demonstrated pulmonary embolism. Normal thoracic aorta and visualized great vessels. There is no demonstrated aortic dissection. Normal heart and pericardium. Normal mediastinum. Normal hilar regions. Normal visualized trachea and bronchi. Normal pleura. Normal remaining liver. Normal gallbladder and extrahepatic biliary system. Normal spleen. Normal pancreas. Normal bilateral adrenal glands. Normal size of the right kidney. There is no right renal mass. There are no right renal calculi. There is no right hydronephrosis. Normal visualized right ureter. Normal size of the left kidney. There is no left renal mass. There are no left renal calculi. There is no left hydronephrosis. Normal visualized left ureter. Normal small intestine. Normal colon. There is no demonstrated peritoneal fluid. Normal abdominal aorta. Normal inferior vena cava. Normal retroperitoneum. There is no pelvic mass lesion or lymphadenopathy. There is no pelvic fluid. Normal abdominal wall. Mild diffuse spondylosis. Grade 1 anterolisthesis of L4 on L5. CT/CT Chest, Abd, Pel w/Contrast IMPRESSION: 1. Moderate diffuse thickening of the gastric fundus. Findings can be secondar y to gastritis and/or neoplastic pathology. This can be further evaluated by means of endoscopy if clinically warranted. 2. Bilateral scattered benign chronic pulmonary granulomas are noted with the l argest measuring 1.3 cm. 3. Mild coronary artery calcifications are noted. 4. Right renal simple cyst measuring 4.2 cm. 5. Moderate prostatomegaly. 6. Diffuse thickening of the wall of the bladder which may represent chronic bl adder outlet obstruction versus mild cystitis. 7. Multiple nonobstructing stones are noted in the dependent aspect of the blad hai with the largest measuring 2.3 cm. 8. Well-defined homogeneously enhancing hemangioma in the left hepatic lobe marija suring 1.2 cm. Reading Location: [facility]
== END | disposition home or self-care (01) ==
LOC: CT 12:44
PROVIDERS: PCP Family Medicine Geriatric Medicine
DX: R63.4 Abnormal weight loss (principal)
CPT/HCPCS: 71260; 74177; Q9967

== ENCOUNTER → 2024-11-30 | Outpatient (CLI) | payer MEDICARE, SELFPAY ==
--- NOTE | 2024-11-30 11:43 | RAD_ITS ---
EXAM: XR Abdomen, 1 View CLINICAL INDICATION: FECAL IMPACTION TECHNIQUE: Frontal supine view of the abdomen/pelvis. COMPARISON: No relevant prior studies available. FINDINGS: GASTROINTESTINAL TRACT: Constipation with suggestion of fecal impaction of the rectum. No dilation. BONES/JOINTS: Unremarkable. No acute fracture. RAD/Abd Inc Decub and/or Erect IMPRESSION: Constipation with suggestion of fecal impaction of the rectum. Reading Location: [id number]
== END | disposition home or self-care (01) ==
LOC: RAD 11:42
PROVIDERS: PCP Family Medicine Geriatric Medicine; Referring Provider Family Medicine Geriatric Medicine; Visit Provider Family Medicine Geriatric Medicine
DX: K56.41 Fecal impaction (principal)
CPT/HCPCS: 74019

== ENCOUNTER 2024-12-04 10:42 | Observation (INO) | payer MEDICARE, SELFPAY ==
[2024-12-04] VITALS (7 sets, daily range): BP systolic 119–134; BP diastolic 58–89; PULSE 66–86; RESP 14–18; TEMP 36.1–37.1; O2SAT 96–99; BMI 15.4
--- NOTE | 2024-12-04 11:37 | EKG12_ITS ---
Test Reason : GEN ILLNESS Blood Pressure : */* mmHG Vent. Rate : 66 BPM Atrial Rate : 66 BPM P-R Int : 146 ms QRS Dur : 84 ms QT Int : 400 ms P-R-T Axes : 90 50 77 degrees QTcB Int : 419 ms Normal sinus rhythm Septal infarct , age undetermined Abnormal ECG Confirmed by TATIANA COLON, CHARITO ([id number]), graphics editor LUCIE GALICIA ([id number]) on 12/05/2024 1:44:06 PM Referred By: Confirmed By: CHARITO SIMPSON MD
--- NOTE | 2024-12-04 11:37 | RAD_ITS ---
PROCEDURE: ACUTE ABDOMEN INC CHEST 12/04/2024 REASON FOR EXAM: CONSTIPATION TECHNIQUE: ACUTE ABDOMEN INC CHEST three views obtained COMPARISON: 11/30/2024 FINDINGS: Lungs are hyperexpanded with chronic interstitial changes, no superimposed acute pulmonary process. Bowel-gas pattern is unremarkable without significant retained stool or free air. Diffuse vascular calcifications are noted. Bony structures show degenerative change. RAD/Acute Abdomen Inc Chest IMPRESSION: Hyperexpanded lungs without a superimposed acute pulmonary process Bowel-gas pattern in the abdomen and pelvis is nonspecific and unremarkable Diffuse vascular calcifications Degenerative bony changes No acute findings Reading Location: [id number]
--- NOTE | 2024-12-04 11:39 | EX.ED.DYSGE1 ---
HPI History of Present Illness Chief Complaint: Abd Pain Narrative Narrative: 89-year-old male past medical history of dementia and constipation, has had recent visits to the ED, presents with his son because of constipation and abdominal pain. History and physical is mildly limited secondary to dementia. According to his son, patient lives at home alone. His is recovering from a mini stroke and is currently staying with his sister. According to patient's son, patient denies not been stable for the last 5 weeks. He has a 2 return home to [facility], and feels that his father will require long term facility placement because of his dementia, and abdominal pain with constipation. He has not been eating as much. He states that his father told him that he recognizes that he may need placement to help him figure out his abdominal pain and constipation. Son relates history that he took magnesium citrate 12 hours ago. Patient stated that he left the hospital feeling well, but last night in the middle of the night began having abdominal pain again. It is crampy in nature. No fevers or chills, no nausea or vomiting. [facility] Medical History Frequent headaches Cataracts, bilateral Hearing problem Abdominal bloating Low vitamin B12 level MCI (mild cognitive impairment) Dyspepsia Prostatic hypertrophy Stomachache Vitamin D deficiency Dehydration Hypertension Home Medications ?Medication ?Instructions ?Recorded ?Last Taken ?Type mirtazapine 7.5 mg tablet 7.5 mg PO QHS 11/08/24 11/24/24 History docusate sodium 100 mg capsule 100 mg PO DAILY 11/25/24 11/24/24 History Allergy/AdvReac Type Severity Reaction Status Date / Time amoxicillin Allergy Intermediate Rash Verified 12/04/24 10:43 Sulfa (Sulfonamide Allergy Mild Rash Verified 12/04/24 10:43 Antibiotics) chlorthalidone AdvReac Severe dizziness Verified 12/04/24 10:43 and stomachache Penicillins (PCN) AdvReac Intermediate unknown Verified 12/04/24 10:43 amlodipine AdvReac Mild dizziness Verified 12/04/24 10:43 guaifenesin (From Mucinex) AdvReac Mild GI upset Verified 12/04/24 10:43 Family History Sister Hypertension Multiple sclerosis Diabetes Mother Colon cancer Father Myocardial infarction Brother Cancer prostate Other Heart disease Surgical History Hx of appendectomy Social History Smoking Status: Never smoker alcohol intake: never substance use type: does not use frequency: other details: has been inactive until recently ROS ROS ED ROS Narrative Review of systems positive for abdominal pain and constipation, no fevers or chills, no nausea or vomiting. Mildly limited secondary to dementia. Reported confusion according to son. EXAM Physical Exam Narrative Exam Narrative: Afebrile. Vital signs noted. Nontoxic-appearing. Cardiovascular examination feels regular rate and rhythm. Lungs are clear to auscultation bilaterally. Abdomen is soft, nontender, with positive bowel sounds. No guarding or rebound. Examination nonfocal, nonlateralizing. Awake, alert, answering most questions appropriately but mildly repetitive. Const Vital Signs: 12/04/24 10:42 12/04/24 12:42 12/04/24 14:00 Temperature 97 F L Temperature Source Temporal Pulse Rate 86 81 78 Respiratory Rate 14 16 14 Blood Pressure 123/89 H 122/74 H 119/71 Blood Pressure Mean 100 90 87 Pulse Ox 98 97 96 Oxygen Delivery Method Room Air Room Air Room Air MDM MDM MDM Narrative Medical decision making narrative: Differential diagnosis includes but not limited to nonspecific abdominal pain versus constipation versus bowel obstruction. Dr. Sharma had called in and spoke with Dr. Eden regarding the patient requiring admission for placement because he lives at home alone. I will obtain basic laboratory work and x-rays to help rule out obstruction of the abdomen. Social work has been consulted. EKG was obtained and interpreted by myself independently as normal sinus rhythm at 66 bpm without ectopy or acute ST changes. No STEMI. I reviewed his laboratory work and he has a normal white count of 5.1 with hemoglobin 15.2, hematocrit 47.9, platelet count normal at 172. Electrolyte panel is remarkable for glucose of 112 with normal anion gap of 10, BUN 18 and creatinine 1.02. LFTs are grossly unremarkable. X-rays of the abdomen with chest interpreted by myself independently shows nonobstructive pattern with diffuse stool throughout the colon, no acute findings. I reviewed the radiology report which confirms my independent interpretation. After discussion with social work, it was felt like the patient is failure to thrive and unsafe going home as he lives by himself. Although he has home health aides, they sent out food for him recently and he does not eat. I discussed patient with Dr. Silvestre for observation on the general medical floor. Disposition is assigned observation, patient is in stable condition. History & Record Review Discussion w/independent historian: Patient Additional record(s) reviewed:: Prior ED visit Lab Data Attestation: I reviewed the patient's lab results. Labs: Laboratory Results - last 24 hr 12/04/24 12:15 WBC 5.1 RBC 5.01 Hgb 15.2 Hct 47.9 MCV 95.6 H MCH 30.3 MCHC 31.7 L RDW Std Deviation 47.7 H RDW Coeff of Suri 13.6 Plt Count 172 MPV 10.7 Immature Gran % (Auto) 0.400 Neut % (Auto) 75.6 H Lymph % (Auto) 11.4 L [place] % (Auto) 10.0 Eos % (Auto) 1.2 Baso % (Auto) 1.4 H Absolute Neuts (auto) 3.9 Absolute Lymphs (auto) 0.58 L Nucleated RBC % 0 Sodium 141 Potassium 4.1 Chloride 105 Carbon Dioxide 26.6 Anion Gap 10 BUN 18 Creatinine 1.02 Estim Creat Clear Calc 34.55 L Est GFR (MDRD) Non-Af 71 BUN/Creatinine Ratio 17.2 Glucose 112 H Calcium 9.4 Total Bilirubin 0.52 AST 31 ALT 18 Alkaline Phosphatase 51 Total Protein 6.3 Albumin 3.8 Globulin 2.5 Albumin/Globulin Ratio 1.5 Radiography Diagnostic Testing: Clinical Impression(s) from Imaging Studies Acute Abdomen Series 12/04/24 11:37 IMPRESSION: Hyperexpanded lungs without a superimposed acute pulmonary process Bowel-gas pattern in the abdomen and pelvis is nonspecific and unremarkable Diffuse vascular calcifications Degenerative bony changes No acute findings Reading Location: [id number] Management Discussion w/another healthcare provider: Hospitalist and rack worker/Case management Discharge Plan Triage Chief Complaint: Abd Pain ED Provider: Gus Madrid Dx/Rx/DC Orders Prescriptions: No Action docusate sodium 100 mg capsule 100 mg PO DAILY mirtazapine 7.5 mg tablet 7.5 mg PO QHS Primary Care Provider: August Sharma Chi Referrals: August Sharma Chi, MD [Primary Care Provider] - Print Language: [place]
[2024-12-04 12:53] LABS: Hematocrit 47.9 % (40-54); Hemoglobin 15.2 g/dL (13.0-16.5); Immature Granulocytes Count 0.020 X10^3/uL (0.0-0.0); Mean Corp Hgb Conc 31.7 g/dL (32-36); Mean Corpuscular Volume 95.6 fL (80-94); Mean Platelet Vol. 10.7 fl (6.2-12.0); NRBC Flagged by Analyzer 0 % (0-5); POSITIVE DIFFERENTIAL YES; Platelet Count 172 K/mm3 (150-450); RBC Distribution Width CV 13.6 % (11.6-14.6); RBC Distribution Width SD 47.7 fl (35.1-43.9); Red Blood Count 5.01 M/mm3 (4.6-6.2); White Blood Count 5.1 K/mm3 (4.4-11.0)
[2024-12-04 13:32] LABS: AST(SGOT) 31 U/L (<=37); Alanine Aminotransfer ALT/SGPT 18 U/L (<=46); Albumin, Serum 3.8 g/dL (3.4-4.8); Alkaline Phosphatase 51 U/L (40-129); Anion Gap 10 (5-15); BUN 18 mg/dL (4-19); BUN/Creat Ratio 17.2 RATIO (10-20); Calcium,Total 9.4 mg/dL (7.6-11.0); Carbon Dioxide 26.6 mmol/L (21.0-32.0); Chloride 105 mmol/L (98-108); Estimated Creatinine Clearance 34.55 ml/min (50-250); Globulin 2.5 g/dL (2.2-4.2); Glucose 112 mg/dL (70-99); Potassium 4.1 mmol/L (3.3-5.1)
--- NOTE | 2024-12-04 14:00 | CM.ED ---
Social work Reason for referral: ECF placement Referral source: Tiffany GOODE This SW was approached by Tiffany GOODE stating patient's son's request for patient's ECF placement and need for SW consult. SW reviewed patient's chart and reviewed resources already provided by ED SWs on 11/08/24, 11/16/24, and 11/25/24. SW entered patient's room, introducing self and role at [facility] to patient. Patient's son, Bao, was out of the room during this time. Patient stated being concerned with drinking water due to belief that water is what has caused the last few of patient's presentations to [facility] ED. Patient stated having a food and beverage assistant at the home daily, though patient was unable to state caretakers name or place of employment. Patient stated patient's lives with patient's daughter, Mariya, which leaves patient living at home alone. Patient stated patient's son, Bao, lives with patient; patient was reminded that Bao has to return home to [facility] and patient looked concerned. Patient was oriented to time, place, and person. SW stepped out to call patient's son, Bao, who is also HCPOA. Bao stated concern with patient living at home alone when Bao leaves to return to [facility]; Bao reports being here with patient for the last 5 weeks. Bao stated patient's is indeed living with patient's daughter, Mariya. Per Bao, Mariya is overwhelmed by this situation and cannot also be in charge of caring for patient. Bao stated concern with patient living alone for the following reasons: patient not eating over the last 3-4 days, patient's confusion increasing, patient's dementia increasing, patient's weight loss increasing (138-107lbs since July), patient's medication compliance decreasing, etc. Bao states the caregiver through [employer] is only there from 3-5p on weekdays and even when they leave food for Tuesday, patient forgets to eat it. ARDEN reviewed some possible options for patient with Bao, including reviewing resources already provided; Bao stated desire for patient to be admitted to acute for possible SNF placement due to safety concerns. Doctor updated and in agreement. Karen Lopez, WOOL HAT FORMING MACHINE TENDER, BILL POSTER INSTALLER
--- NOTE | 2024-12-04 14:45 | PCM.HP.STD ---
HPI - General General Date of Admission: 12/04/24 Date of Service: 12/04/24 Chief Complaint: Abdominal pain and failure to thrive HPI Narrative ONEAL ROGERS, is a 89 M who presented to [facility] ED on 12/04/2024 with abdominal pain and failure to thrive. Patient arrived today with his son Bao. Has had multiple ED visits since October for constipation. He saw GI in the office on 11/26 for this. Was noted that he had a successful enema in the ED on 11/25 followed by soft bowel movements. However, Bao noted that patient continued to report being afraid to eat because it unsettled stomach and has continued to lose weight. Bao also notes that patient has had worsening cognitive impairment and he is concerned about the patient being able to take care of himself at home. He talked with patient's PCP Dr. Sharma who recommended coming to the ED today for consideration for admission for placement. In the ED he was hemodynamically stable on room air. He notably has a BMI of 15 and appears cachectic on exam. Acute abdominal series showed unremarkable bowel gas pattern in the abdomen and pelvis and no retained stool noted. Social work saw the patient in the ED and recommended admission under observation status with PT/OT and case management consults. Patient notably has Medicare part C and would not need a 3 midnight qualifying stay for SNF placement. Hospitalist was then contacted for admission. I saw the patient at bedside in the ED, son Bao was present. Patient was sitting back comfortably in bed and in no acute distress. He was making appropriate eye contact with me and knew that he was in the hospital. However he had poor insight into his medical condition and did not answer all questions appropriately. He reported only mild lower abdominal pain currently. Denied any other pain or discomfort. Will be admitted for further management. [facility] Medical History Frequent headaches Cataracts, bilateral Hearing problem Abdominal bloating Low vitamin B12 level MCI (mild cognitive impairment) Dyspepsia Prostatic hypertrophy Stomachache Vitamin D deficiency Dehydration Hypertension Home Medications ?Medication ?Instructions ?Recorded ?Last Taken ?Type mirtazapine 7.5 mg tablet 7.5 mg PO QHS 11/08/24 11/24/24 History docusate sodium 100 mg capsule 100 mg PO DAILY 11/25/24 11/24/24 History Allergy/AdvReac Type Severity Reaction Status Date / Time amoxicillin Allergy Intermediate Rash Verified 12/04/24 10:43 Sulfa (Sulfonamide Allergy Mild Rash Verified 12/04/24 10:43 Antibiotics) chlorthalidone AdvReac Severe dizziness Verified 12/04/24 10:43 and stomachache Penicillins (PCN) AdvReac Intermediate unknown Verified 12/04/24 10:43 amlodipine AdvReac Mild dizziness Verified 12/04/24 10:43 guaifenesin (From Mucinex) AdvReac Mild GI upset Verified 12/04/24 10:43 Family History Sister Hypertension Multiple sclerosis Diabetes Mother Colon cancer Father Myocardial infarction Brother Cancer prostate Other Heart disease Surgical History Hx of appendectomy Social History Smoking Status: Never smoker alcohol intake: never substance use type: does not use frequency: other details: has been inactive until recently ROS Review of Systems ROS Unobtainable: due to mental condition Cardiovascular Cardiovascular: Denies chest pain Respiratory/Chest Respiratory/Chest: Denies shortness of breath at rest Gastrointestinal Gastrointestinal: Reports abdominal pain; Denies nausea or vomiting Genitourinary Genitourinary: Denies dysuria Musculoskeletal Musculoskeletal: Denies back pain Vital Signs Vital Signs Vital Signs: 12/04/24 10:42 12/04/24 12:42 12/04/24 14:00 Temperature 97 F L Temperature Source Temporal Pulse Rate 86 81 78 Respiratory Rate 14 16 14 Blood Pressure 123/89 H 122/74 H 119/71 Blood Pressure Mean 100 90 87 Pulse Ox 98 97 96 Oxygen Delivery Method Room Air Room Air Room Air Weight Weight: 48.8 kg Body Mass Index (BMI) 15.4 Physical Exam Const alert and no apparent distress Constitutional Narrative: Elderly male, thin and cachectic appearing, mildly fatigued appearing, alert and oriented to person and place but not time, otherwise sitting back comfortably in bed, making appropriate eye contact but not answering all questions appropriately, in no acute distress. General Appearance: cooperative and comfortable HEENT normocephalic, head/scalp atraumatic, hearing grossly normal bilaterally, nasal mucous membranes and turbinates normal and moist oral mucous membranes Eyes PERRL, EOMs intact bilaterally and conjunctivae normal Neck full ROM Chest inspection of chest normal Resp normal respiratory effort, normal air movement, no use of accessory muscles and clear to auscultation bilaterally Cardio regular rate, regular rhythm, no murmurs and peripheral pulses 2+ throughout GI GI Narrative: Mild tenderness to palpation noted in suprapubic and left lower quadrant areas. Abdomen otherwise soft and nondistended. Back/Spine normal ROM Extremity normal to inspection, full ROM and no pedal edema Skin no rashes or lesions noted Psych mental status grossly normal Results Lab / Micro Data 12/04/24 12:15 12/04/24 12:15 Labs: Laboratory Results - last 24 hr 12/04/24 12:15: WBC 5.1, RBC 5.01, Hgb 15.2, Hct 47.9, MCV 95.6 H, MCH 30.3, MCHC 31.7 L, RDW Std Deviation 47.7 H, RDW Coeff of Suri 13.6, Plt Count 172, MPV 10.7, Immature Gran % (Auto) 0.400, Neut % (Auto) 75.6 H, Lymph % (Auto) 11.4 L, [place] % (Auto) 10.0, Eos % (Auto) 1.2, Baso % (Auto) 1.4 H, Absolute Neuts (auto) 3.9, Absolute Lymphs (auto) 0.58 L, Nucleated RBC % 0, Sodium 141, Potassium 4.1, Chloride 105, Carbon Dioxide 26.6, Anion Gap 10, BUN 18, Creatinine 1.02, Estim Creat Clear Calc 34.55 L, Est GFR (MDRD) Non-Af 71, BUN/Creatinine Ratio 17.2, Glucose 112 H, Calcium 9.4, Total Bilirubin 0.52, AST 31, ALT 18, Alkaline Phosphatase 51, Total Protein 6.3, Albumin 3.8, Globulin 2.5, Albumin/Globulin Ratio 1.5 Imaging Radiology Impression Acute Abdomen Series 12/04/24 11:37 IMPRESSION: Hyperexpanded lungs without a superimposed acute pulmonary process Bowel-gas pattern in the abdomen and pelvis is nonspecific and unremarkable Diffuse vascular calcifications Degenerative bony changes No acute findings Reading Location: [facility] Assessment & Plan Assessment/Plan (1) Failure to thrive: (2) Abdominal pain: QUALIFIERS: Abdominal location: lower abdomen, unspecified Qualified Code(s): R10.30 - Lower abdominal pain, unspecified (3) Weight loss, non-intentional: PLAN: Plan Patient is an 89-year-old male who presented [facility] ED on 12/04/2024 for ongoing abdominal pain and failure to thrive. 1. Adult failure to thrive with cognitive impairment, chronic abdominal pain with intermittent constipation, concern for prostate versus gastric cancer ? Admit under observation status to [facility]. PT/OT/case management consulted. Lives alone and family is concerned about him being able to take care of himself. Has had very poor appetite and weight loss per the son over the past several months. Notably CT chest abdomen pelvis from 11/29 ordered by GI as below showed moderate diffuse thickening of the gastric fundus likely secondary to gastritis versus neoplastic pathology; also showed moderate prostatomegaly and diffuse thickening of the bladder wall. PSA was elevated at 14 recently. Have high concern for cancer causing his decreased appetite with weight loss and his intermittent constipation. Son was reasonable and noted that patient is DNR CCA, DNI and that family does not want any invasive procedures done for him at this point. Did not broach hospice care but given this finding on CT scan, may be appropriate so this could be discussed further with family. Acute abdominal series on this admit showed no retained fecal contents. Continue daily MiraLAX and Dulcolax suppository as needed. DVT prophylaxis: Lovenox CODE STATUS: DNR CCA, DNI Expected disposition: TBD Total clinical time spent by myself addressing the patient's medical issues, reviewing all the data, and collaborating with patient's care team: 55 minutes. Charges/Coding Visit Charges Inpatient E&M: 20544 Init Hosp L2
--- NOTE | 2024-12-04 16:55 | CASEMGMT ---
Social Work- SW received notice from charge nurse that pt has hospice consult and requested referral per pt son. Pt confused at this time. SW faxed referral to [facility]. BERNICE Rivas
--- NOTE | 2024-12-04 17:49 | NURSING ---
Pt reports that he has had loose stools and refuses miralax at this time
[2024-12-04] MEDS: MELATONIN 3 MG TABLET PO (22:09)
[2024-12-05 06:45] VITALS: BP 153/87; PULSE 72; RESP 15; TEMP 36.7; O2SAT 99
--- NOTE | 2024-12-05 07:21 | PN.HOSP_ITS ---
Reason for Visit Reason for Visit: Diagnoses Lower abdominal pain, unspecified (12/04/24) Abnormal weight loss (12/04/24) Subjective Subjective Patient is an 89-year-old gentleman who was brought to the emergency department with inability to care for self. Patient had also complained of abdominal pain and constipation an assessment of adult failure to thrive made admitted to regular nursing floor for further management Objective Data Objective Data Vital Signs: Vital Signs Temp Pulse Resp BP Pulse Ox O2 Del Method 98.0 F 72 15 153/87 H 99 Room Air 12/05/24 06:45 12/05/24 06:45 12/05/24 06:45 12/05/24 06:45 12/05/24 06:45 12/05/24 06:45 Oxygen Delivery Method Room Air Weight: 48.8 kg Body Mass Index (BMI) 15.4 Lab / Micro Data 12/04/24 12:15 12/04/24 12:15 Labs: Laboratory Results - last 24 hr 12/04/24 12:15: WBC 5.1, RBC 5.01, Hgb 15.2, Hct 47.9, MCV 95.6 H, MCH 30.3, M CHC 31.7 L, RDW Std Deviation 47.7 H, RDW Coeff of Suri 13.6, Plt Count 172, MPV 10.7, Immature Gran % (Auto) 0.400, Neut % (Auto) 75.6 H, Lymph % (Auto) 11.4 L, [place] % (Auto) 10.0, Eos % (Auto) 1.2, Baso % (Auto) 1.4 H, Absolute Neuts (auto) 3.9, Absolute Lymphs (auto) 0.58 L, Nucleated RBC % 0, Sodium 141, Potassium 4.1, Chloride 105, Carbon Dioxide 26.6, Anion Gap 10, BUN 18, Creatinine 1.02, E stim Creat Clear Calc 34.55 L, Est GFR (MDRD) Non-Af 71, BUN/Creatinine Ratio 17.2, Glucose 112 H, Calcium 9.4, Total Bilirubin 0.52, AST 31, ALT 18, Alkaline Phosphatase 51, Total Protein 6.3, Albumin 3.8, Globulin 2.5, Albumin/Globulin Ratio 1.5 Radiography Diagnostic Testing: Radiology Impression Acute Abdomen Series 12/04/24 11:37 IMPRESSION: Hyperexpanded lungs without a superimposed acute pulmonary process Bowel-gas pattern in the abdomen and pelvis is nonspecific and unremarkable Diffuse vascular calcifications Degenerative bony changes No acute findings Reading Location: [facility] Physical Exam Narrative GENERAL: cooperative HEENT: Atraumatic; normocephalic EYES; Anicteric, Normal Conjunctiva NECK; supple, normal thyroid, RESPIRATORY: Diminished to auscultation CARDIOVASCULAR: Regular S1 S2, GI: soft, normoactive bowel sounds, : No Renal angle tenderness; EXTREMITIES: No edema, no clubbing, MUSCULOSKELETAL: no muscle wasting NEURO: Awake; no lateralizing signs. SKIN: No Rash PSYCH; Flat affect Assessment & Plan Assessment/Plan (1) Failure to thrive: (2) Abdominal pain: QUALIFIERS: Abdominal location: lower abdomen, unspecified Q ualified Code(s): R10.30 - Lower abdominal pain, unspecified (3) Weight loss, non-intentional: PLAN: Plan Patient is an 89-year-old gentleman who was brought to the emergency department with inability to care for self. Patient had also complained of abdominal pain and constipation an assessment of adult failure to thrive made admitted to regular nursing floor for further management 1. Adult failure to thrive ? Patient admitted to regular nursing floor consult placed to case management/social work to assist with disposition 2. Constipation ? Acute abdominal series demonstrated bowel?gas pattern in the abdomen and pelvis nonspecific. Plan is to treat symptomatically 3. Suspected gastric cancer ? Recent CT obtained on 11/29/2024 by GI demonstrated moderate diffuse thickening of the gastric fundus likely secondary to gastritis versus neoplastic pathology. Family opted not to pursue invasive procedure 4. Enlarged prostate with elevated PSA ? Family apparently not interested in any aggressive measures for 5. Hypertension ? Blood pressure controlled, home medications continued with dose adjustment as needed 6. DVT prophylaxis ? Subcu Lovenox Time spent in the patient's overall evaluation,decision-making process, review of diagnostic data, adjustment of management, discussion with other providers, nursing nursing and ancillary staff involved in patient's care documentation, 36 Minutes Charges/Coding Visit Charges Inpatient E&M: 01194 Subs Hosp L2
[2024-12-05] MEDS: Polyethylene Glycol 3350 17 GM PACKET PO (08:32)
[2024-12-05 08:43] VITALS: PULSE 80
--- NOTE | 2024-12-05 10:40 | CASEMGMT ---
Social Work Phone call to [facility] to check on status of referral. Hospice reports son did not want to schedule a meeting when they called him. Phone call to pt's son Bao. SW explained hospice program and procedures for meeting with family. Bao had misunderstood during conversation with hospice and is not willing to speak with hospice today. Phone call placed to hospice and requested scheduling call Bao and make an appointment for today. SW explained to Bao that hospice does not provide 24 hour care in the home. Sw also explained difference between going to SNF for rehab and signing up for hospice. Bao to meet with hospice and will then make additional decisions regarding discharge plan for pt. BERNICE Alfredo
[2024-12-05 10:48] VITALS: BP 150/84; PULSE 70; RESP 18; TEMP 36.6; O2SAT 99
--- NOTE | 2024-12-05 13:15 | NURSING ---
spoke w/ lab staff re:urine specimen just [id number] states they will run it
[2024-12-05 13:19] LABS: Squamous Epithelial Cells - UA 0 SEEN /hpf (0-5)
[2024-12-05 13:32] LABS: Color, Urine Yellow (Yellow); Glucose, Dipstick Normal (Normal); Ketone-Dipstick Negative (Negative); Leukocyte Esterase-Dipstick 500 /ul (Negative); Nitrite-Dipstick Negative (Negative); Occult Blood-Urine 25 /ul (Negative); Protein-Dipstick 30 mg/dl (Negative); Specific Gravity, Urine 1.025 (1.002-1.030); Urine Bilirubin Dipstick Negative (Negative)
[2024-12-05 14:04] LABS: Calcium Oxalate Crystals Ur 2+ /hpf (<or=2+); Mucous, Urine 1+ /hpf (<or=2+); Red Blood Cells-Urine 0-5 SEEN /hpf (0-5)
--- NOTE | 2024-12-05 14:33 | CASEMGMT ---
Social Work Call received from [facility] and hospice will be meeting with pt and son at 5:30 today. Nursing updated. BERNICE Alfredo
--- NOTE | 2024-12-05 15:17 | NURSING ---
Rocephin scheduled to start is not on unit at this time,
--- NOTE | 2024-12-05 15:37 | CASEMGMT ---
NAA Spoke with patients son Bao Page) to complete PEREZ form. PEREZ form and its content were verbally explained and sons questions were answered to the best of my ability.? Pt's son voiced understanding.? Patient provided a copy of signed PEREZ form and original placed in patient's chart.? Bao had no further questions. Erlinda Baltazar, Discharge Planning Asst
[2024-12-05] MEDS: 0.9% Normal Saline (250mL Bag) 250 ML 15 ML IV (16:01)
[2024-12-05 16:22] VITALS: BP 114/70; PULSE 64; RESP 18; TEMP 37.2; O2SAT 96
--- NOTE | 2024-12-05 17:59 | NURSING ---
hospice here to speak with pt and children
[2024-12-05 20:45] VITALS: BP 147/61; PULSE 55; RESP 15; TEMP 36.5; O2SAT 98
[2024-12-05] MEDS: MELATONIN 3 MG TABLET PO (21:45)
[2024-12-05 22:00] VITALS: RESP 15
[2024-12-06 05:00] VITALS: BP 139/70; PULSE 60; RESP 15; TEMP 36.6; O2SAT 98
--- NOTE | 2024-12-06 06:54 | PN.HOSP_ITS ---
Reason for Visit Reason for Visit: Diagnoses Lower abdominal pain, unspecified (12/04/24) Abnormal weight loss (12/04/24) Subjective Subjective Patient was noted to have abnormal urinalysis following development of urinary retention. Subsequently started on ceftriaxone urine culture sent Objective Data Objective Data Vital Signs: Vital Signs Temp Pulse Resp BP Pulse Ox O2 Del Method 97.8 F 60 15 139/70 H 98 Room Air 12/06/24 05:00 12/06/24 05:00 12/06/24 05:00 12/06/24 05:00 12/06/24 05:00 12/06/24 05:00 Oxygen Delivery Method Room Air Weight: 48.8 kg Body Mass Index (BMI) 15.4 Intake & Output: Intake and Output for Last 24 Hours 12/04/24 12/05/24 12/06/24 23:59 23:59 23:59 Intake Total 869.75 / 869.75 Balance 869.75 / 869.75 Medical Nutrition Assessment Dietitian: Malnutrition Criteria Met Start: 12/05/24 16:35 Freq: Status: Active Protocol: Document 12/05/24 16:36 RMA (Rec: 12/05/24 16:36 RMA [id number]) Nutrition Malnutrition Evidence of Yes Malnutrition Exists Malnutrition (severe Chronic ): Evidenced By Suboptimal Energy Intake (Severe),Weight Loss (Severe), Physical Changes (Severe) Clinical Problem Chronic Disease or Condition Related Malnutrition Etiology severe protein-calorie malnutrition in the context of chronic disease and debility related to failure to thrive and inadequate oral intake Signs/Symptoms as evidenced by BMI 15.4, ~8% unintentional weight loss x past 1-2 months, PO meeting less than 50% estimated nutrition needs x 1 month and severe muscle wasting/fat depletion in the clavicle, orbital, temporal region and arms/legs. Status Active Problem Recommendation Dietitian Continue liberalized regular diet and encourage PO at Recommendations/ meals. Changes Will continue 120mL vanilla ensure w/ meals as ordered. Will add 120mL ensure clear w/ meals for tolerance. Will add magic cup w/ lunch and fortified pudding w/ dinner. Will add yogurt Q meal. May need to consider enteral nutrition support if PO remains poor and weight continues to decline. Lab / Micro Data 12/04/24 12:15 12/04/24 12:15 Labs: Laboratory Results - last 24 hr 12/05/24 13:08: Urine Color Yellow, Urine Clarity Clear, Urine pH 6.0, Ur Specific [place] 1.025, Urine Protein 30 H, Urine Glucose (UA) Normal, Urine Ketones Negative, Urine Occult Blood 25 H, Urine Nitrite Negative, Urine Bilirubin Negative, Urine Urobilinogen Normal, Ur Leukocyte Esterase 500 H, Urine RBC 0-5 SEEN, Urine WBC 10-25 SEEN, Ur Squamous Epith Cells 0 SEEN, Calcium Oxalate Crystal 2+, Urine Bacteria 0 SEEN, Urine Mucus 1+ Physical Exam Narrative GENERAL: cooperative HEENT: Atraumatic; normocephalic EYES; Anicteric, Normal Conjunctiva NECK; supple, normal thyroid, RESPIRATORY: Diminished to auscultation CARDIOVASCULAR: Regular S1 S2, GI: soft, normoactive bowel sounds, : No Renal angle tenderness; EXTREMITIES: No edema, no clubbing, MUSCULOSKELETAL: no muscle wasting NEURO: Awake; no lateralizing signs. SKIN: No Rash PSYCH; Flat affect Assessment & Plan Assessment/Plan (1) Failure to thrive: (2) Abdominal pain: QUALIFIERS: Abdominal location: lower abdomen, unspecified Q ualified Code(s): R10.30 - Lower abdominal pain, unspecified (3) Weight loss, non-intentional: PLAN: Plan Patient is an 89-year-old gentleman who was brought to the emergency department with inability to care for self. Patient had also complained of abdominal pain and constipation an assessment of adult failure to thrive made admitted to regular nursing floor for further management 1. Adult failure to thrive ? Patient admitted to regular nursing floor consult placed to case management/social work to assist with disposition 2. Constipation ? Acute abdominal series demonstrated bowel?gas pattern in the abdomen and pelvis nonspecific. Plan is to treat symptomatically 3. Suspected gastric cancer ? Recent CT obtained on 11/29/2024 by GI demonstrated moderate diffuse thickening of the gastric fundus likely secondary to gastritis versus neoplastic pathology. Family opted not to pursue invasive procedure 4. Enlarged prostate with elevated PSA ? Family apparently not interested in any aggressive measures for 5. Hypertension ? Blood pressure controlled, home medications continued with dose adjustment as needed 6. DVT prophylaxis ? Subcu Lovenox 7. Acute complicated cystitis ??Patient urinalysis send the day prior came back abnormal consistent with acute cystitis. Patient subsequently started on ceftriaxone urine culture sent result pending Time spent in the patient's overall evaluation,decision-making process, review of diagnostic data, adjustment of management, discussion with other providers, nursing nursing and ancillary staff involved in patient's care documentation, 35 Minutes Charges/Coding Visit Charges Inpatient E&M: 06652 Subs Hosp L2
[2024-12-06 08:27] VITALS: BP 141/75; PULSE 57; RESP 16; TEMP 36.3; O2SAT 100
[2024-12-06 08:31] VITALS: BP 141/75; PULSE 57; RESP 16; TEMP 36.3; O2SAT 100
[2024-12-06] MEDS: Polyethylene Glycol 3350 17 GM PACKET PO (09:33)
[2024-12-06 09:46] LABS: Hematocrit 46.2 % (40-54); Hemoglobin 15.3 g/dL (13.0-16.5); Mean Corp Hgb Conc 33.1 g/dL (32-36); Mean Corpuscular Volume 91.7 fL (80-94); Mean Platelet Vol. 10.6 fl (6.2-12.0); Platelet Count 233 K/mm3 (150-450); RBC Distribution Width CV 13.5 % (11.6-14.6); RBC Distribution Width SD 45.9 fl (35.1-43.9); Red Blood Count 5.04 M/mm3 (4.6-6.2); White Blood Count 4.4 K/mm3 (4.4-11.0)
[2024-12-06 11:10] LABS: Magnesium 2.3 mg/dL (1.5-2.2)
[2024-12-06 11:11] LABS: AST(SGOT) 37 U/L (<=37); Alanine Aminotransfer ALT/SGPT 22 U/L (<=46); Albumin, Serum 4.1 g/dL (3.4-4.8); Alkaline Phosphatase 60 U/L (40-129); Anion Gap 11 (5-15); BUN 14 mg/dL (4-19); BUN/Creat Ratio 15.5 RATIO (10-20); Calcium,Total 9.4 mg/dL (7.6-11.0); Carbon Dioxide 29.2 mmol/L (21.0-32.0); Chloride 99 mmol/L (98-108); Estimated Creatinine Clearance 38.73 ml/min (50-250); Globulin 2.6 g/dL (2.2-4.2); Glucose 111 mg/dL (70-99); Potassium 3.7 mmol/L (3.3-5.1)
[2024-12-06 11:21] VITALS: BP 117/51; PULSE 54; RESP 16; TEMP 36.2; O2SAT 95
--- NOTE | 2024-12-06 13:54 | CASEMGMT ---
Social Work- SW called pt son, Bao, and left a voicemail requesting a return call for discharge planning. BERNICE Rivas
[2024-12-06 15:12] VITALS: BP 119/56; PULSE 58; RESP 16; TEMP 36.6; O2SAT 97
--- NOTE | 2024-12-06 15:35 | CASEMGMT ---
Addendum entered by Ene Cui 12/06/24 17:23: Referrals completed to [facility] and [facility]. BERNICE Rivas Original Note: Social Work- SW spoke with pt son Bao reharding discharge planning. SW introduced self and role. Pt son reports that he has been living with pt for 5 weeks following pt having a stroke and now staying with pt dtr. Pt son reports that pt has not been eating well or taking medications correctly without frequent encouragement and oversight. Bao reports that [facility] for 2 hours per day; this can be increased to 7 days per week for 2 hours per day. Bao feels that this is not enough support. ARDEN provided information on [facility] and [facility] day program. Bao reports thathe would like pt to go to SNF for a few weeks to get rehab....back on track. ARDEN provided education on insurance coverage parameters and discussed private pay rates, as well as LTC LISA. Bao reports that he would like referral to [facility] for private pay for a few weeks while looking into additional supports such as [facility] and [facility]. Bao reports that pt and spouse have been for 65 years. Bao reports that it is too early to tell what the long-term implications of pt 's stroke/if AL would be appropriate. Bao reports that pt dtr home is perfect for pt , but she is unable to accommodate a second person and pt home doesn't support pt returning at this time. ARDEN provided printables for [facility] and [facility]. ARDEN notified [facility] of referral request for [facility]. ARDEN completed [facility] referral. ARDEN remains available to follow. BERNICE Rivas
--- NOTE | 2024-12-06 15:55 | CASEMGMT ---
Discharge Planning Referral sent to [facility]. Erlinda Baltazar DC Planning Asst.
--- NOTE | 2024-12-06 17:05 | CASEMGMT ---
Social Work- Pt referred to [facility]; pending acceptance. In case of possible weekend discharge, green sheet on chart for nursing to follow for final discharge arrangements/notifications to SNF, patient/family.? HENS and transport with green sheet on chart. BERNICE Rivas
--- NOTE | 2024-12-06 18:31 | NURSING ---
pt son concerned that pt c/o abd discomfort. son worried that pt will not eat once at home. pt stated that his stomach felt like it was turning. pt denies nausea. bowel sounds present. pt ambulated in halls.
[2024-12-06 21:15] VITALS: BP 120/61; PULSE 69; RESP 16; TEMP 36.4; O2SAT 96
[2024-12-07 03:00] VITALS: BP 146/87; PULSE 61; RESP 16; TEMP 36.4; O2SAT 97
[2024-12-07 06:04] LABS: Hematocrit 42.9 % (40-54); Hemoglobin 14.0 g/dL (13.0-16.5); Immature Granulocytes Count 0.030 X10^3/uL (0.0-0.0); Mean Corp Hgb Conc 32.6 g/dL (32-36); Mean Corpuscular Volume 92.5 fL (80-94); Mean Platelet Vol. 11.4 fl (6.2-12.0); NRBC Flagged by Analyzer 0 % (0-5); Platelet Count 228 K/mm3 (150-450); RBC Distribution Width CV 13.4 % (11.6-14.6); RBC Distribution Width SD 45.6 fl (35.1-43.9); Red Blood Count 4.64 M/mm3 (4.6-6.2); White Blood Count 5.4 K/mm3 (4.4-11.0)
[2024-12-07 06:30] LABS: Anion Gap 9 (5-15); BUN 16 mg/dL (4-19); BUN/Creat Ratio 19.5 RATIO (10-20); Calcium,Total 8.8 mg/dL (7.6-11.0); Carbon Dioxide 27.0 mmol/L (21.0-32.0); Chloride 102 mmol/L (98-108); Estimated Creatinine Clearance 42.98 ml/min (50-250); Glucose 68 mg/dL (70-99); Potassium 4.1 mmol/L (3.3-5.1)
--- NOTE | 2024-12-07 07:05 | PN.HOSP_ITS ---
Reason for Visit Reason for Visit: Diagnoses Lower abdominal pain, unspecified (12/04/24) Abnormal weight loss (12/04/24) Subjective Subjective Patient seen appears to be back to his baseline. Urine culture still pending. Objective Data Objective Data Vital Signs: Vital Signs Temp Pulse Resp BP Pulse Ox O2 Del Method 97.6 F L 61 16 146/87 H 97 Room Air 12/07/24 03:00 12/07/24 03:00 12/07/24 03:00 12/07/24 03:00 12/07/24 03:00 12/07/24 03:00 Oxygen Delivery Method Room Air Weight: 48.8 kg Body Mass Index (BMI) 15.4 Intake & Output: Intake and Output for Last 24 Hours 12/05/24 12/06/24 12/07/24 23:59 23:59 23:59 Intake Total 869.75 / 869.75 1070.5 / 1070.5 Balance 869.75 / 869.75 1070.5 / 1070.5 Medical Nutrition Assessment Dietitian: Malnutrition Criteria Met Start: 12/05/24 16:35 Freq: Status: Active Protocol: Document 12/05/24 16:36 RMA (Rec: 12/05/24 16:36 RMA [id number]) Nutrition Malnutrition Evidence of Yes Malnutrition Exists Malnutrition (severe Chronic ): Evidenced By Suboptimal Energy Intake (Severe),Weight Loss (Severe), Physical Changes (Severe) Clinical Problem Chronic Disease or Condition Related Malnutrition Etiology severe protein-calorie malnutrition in the context of chronic disease and debility related to failure to thrive and inadequate oral intake Signs/Symptoms as evidenced by BMI 15.4, ~8% unintentional weight loss x past 1-2 months, PO meeting less than 50% estimated nutrition needs x 1 month and severe muscle wasting/fat depletion in the clavicle, orbital, temporal region and arms/legs. Status Active Problem Recommendation Dietitian Continue liberalized regular diet and encourage PO at Recommendations/ meals. Changes Will continue 120mL vanilla ensure w/ meals as ordered. Will add 120mL ensure clear w/ meals for tolerance. Will add magic cup w/ lunch and fortified pudding w/ dinner. Will add yogurt Q meal. May need to consider enteral nutrition support if PO remains poor and weight continues to decline. Lab / Micro Data 12/07/24 04:29 12/07/24 04:29 Labs: Laboratory Results - last 24 hr 12/06/24 09:30: WBC 4.4, RBC 5.04, Hgb 15.3, Hct 46.2, MCV 91.7, MCH 30.4, MCHC 33.1, RDW Std Deviation 45.9 H, RDW Coeff of Suri 13.5, Plt Count 233, MPV 10.6, Sodium 140, Potassium 3.7, Chloride 99, Carbon Dioxide 29.2, Anion Gap 11, BUN 14, Creatinine 0.91, Estim Creat Clear Calc 38.73 L, Est GFR (MDRD) Non-Af 81, BUN/Creatinine Ratio 15.5, Glucose 111 H, Calcium 9.4, Phosphorus 3.0, Magnesium 2.3 H, Total Bilirubin 0.58, AST 37, ALT 22, Alkaline Phosphatase 60, Total Protein 6.7, Albumin 4.1, Globulin 2.6, Albumin/Globulin Ratio 1.6 12/07/24 04:29: WBC 5.4, RBC 4.64, Hgb 14.0, Hct 42.9, MCV 92.5, MCH 30.2, MCHC 32.6, RDW Std Deviation 45.6 H, RDW Coeff of Suri 13.4, Plt Count 228, MPV 11.4, Immature Gran % (Auto) 0.600, Neut % (Auto) 63.4, Lymph % (Auto) 17.5 L, Beckham % (Auto) 12.1 H, Eos % (Auto) 5.5 H, Baso % (Auto) 0.9, Absolute Neuts (auto) 3.5, Absolute Lymphs (auto) 0.95, Nucleated RBC % 0, Sodium 138, Potassium 4.1, Chloride 102, Carbon Dioxide 27.0, Anion Gap 9, BUN 16, Creatinine 0.82, Estim Creat Clear Calc 42.98 L, Est GFR (MDRD) Non-Af 84, BUN/Creatinine Ratio 19.5, G lucose 68 L, Calcium 8.8 Physical Exam Narrative GENERAL: cooperative HEENT: Atraumatic; normocephalic EYES; Anicteric, Normal Conjunctiva NECK; supple, normal thyroid, RESPIRATORY: Diminished to auscultation CARDIOVASCULAR: Regular S1 S2, GI: soft, normoactive bowel sounds, : No Renal angle tenderness; EXTREMITIES: No edema, no clubbing, MUSCULOSKELETAL: no muscle wasting NEURO: Awake; no lateralizing signs. SKIN: No Rash PSYCH; Flat affect Assessment & Plan Assessment/Plan (1) Failure to thrive: (2) Abdominal pain: QUALIFIERS: Abdominal location: lower abdomen, unspecified Q ualified Code(s): R10.30 - Lower abdominal pain, unspecified (3) Weight loss, non-intentional: PLAN: Plan Patient is an 89-year-old gentleman who was brought to the emergency department with inability to care for self. Patient had also complained of abdominal pain and constipation an assessment of adult failure to thrive made admitted to regular nursing floor for further management 1. Adult failure to thrive ? Patient admitted to regular nursing floor consult placed to case management/social work to assist with disposition ? 12/07/2024; plan is for patient to be discharged to the awaiting pending 2. Constipation ? Acute abdominal series demonstrated bowel?gas pattern in the abdomen and pelvis nonspecific. Plan is to treat symptomatically 3. Suspected gastric cancer ? Recent CT obtained on 11/29/2024 by GI demonstrated moderate diffuse thickening of the gastric fundus likely secondary to gastritis versus neoplastic pathology. Family opted not to pursue invasive procedure 4. Enlarged prostate with elevated PSA ? Family apparently not interested in any aggressive measures for 5. Hypertension ? Blood pressure controlled, home medications continued with dose adjustment as needed 6. DVT prophylaxis ? Subcu Lovenox 7. Acute complicated cystitis ??Patient urinalysis send the day prior came back abnormal consistent with acute cystitis. Patient subsequently started on ceftriaxone urine culture sent result pending ? 12/07/2024; urine culture still pending Time spent in the patient's overall evaluation,decision-making process, review of diagnostic data, adjustment of management, discussion with other providers, nursing nursing and ancillary staff involved in patient's care documentation, 38 Minutes Charges/Coding Visit Charges Inpatient E&M: 12347 Subs Hosp L2
[2024-12-07 07:23] VITALS: O2SAT 96
[2024-12-07 10:19] VITALS: BP 125/71; PULSE 61; RESP 16; TEMP 36.9; O2SAT 100
[2024-12-07] MEDS: 0.9% Saline Lock 10 ML Syringe IV (10:28)
[2024-12-07] MEDS: Polyethylene Glycol 3350 17 GM PACKET PO (10:28)
[2024-12-07 15:58] VITALS: BP 129/74; PULSE 71; RESP 18; TEMP 36.9; O2SAT 98
[2024-12-07] MEDS: MELATONIN 3 MG TABLET PO (20:09)
[2024-12-07 20:40] VITALS: BP 134/72; PULSE 69; RESP 16; TEMP 36.5; O2SAT 98
[2024-12-08 04:26] VITALS: BP 157/74; PULSE 56; RESP 16; TEMP 36.6; O2SAT 100
[2024-12-08 05:24] LABS: Hematocrit 40.0 % (40-54); Hemoglobin 13.3 g/dL (13.0-16.5); Immature Granulocytes Count 0.020 X10^3/uL (0.0-0.0); Mean Corp Hgb Conc 33.3 g/dL (32-36); Mean Corpuscular Volume 92.8 fL (80-94); Mean Platelet Vol. 11.0 fl (6.2-12.0); NRBC Flagged by Analyzer 0 % (0-5); Platelet Count 202 K/mm3 (150-450); RBC Distribution Width CV 13.5 % (11.6-14.6); RBC Distribution Width SD 46.4 fl (35.1-43.9); Red Blood Count 4.31 M/mm3 (4.6-6.2); White Blood Count 4.0 K/mm3 (4.4-11.0)
[2024-12-08 06:24] LABS: Anion Gap 9 (5-15); BUN 18 mg/dL (4-19); BUN/Creat Ratio 23.3 RATIO (10-20); Calcium,Total 8.9 mg/dL (7.6-11.0); Carbon Dioxide 28.7 mmol/L (21.0-32.0); Chloride 103 mmol/L (98-108); Estimated Creatinine Clearance 44.06 ml/min (50-250); Glucose 76 mg/dL (70-99); Potassium 4.3 mmol/L (3.3-5.1)
--- NOTE | 2024-12-08 07:24 | PN.HOSP_ITS ---
Reason for Visit Reason for Visit: Diagnoses Lower abdominal pain, unspecified (12/07/24) Abnormal weight loss (12/07/24) Subjective Subjective Patient urine cultures resulted no significant growth patient will be assessed for discharge Objective Data Objective Data Vital Signs: Vital Signs Temp Pulse Resp BP Pulse Ox O2 Del Method 97.8 F 56 L 16 157/74 H 100 Room Air 12/08/24 04:26 12/08/24 04:26 12/08/24 04:26 12/08/24 04:26 12/08/24 04:26 12/08/24 04:26 Oxygen Delivery Method Room Air Weight: 48.8 kg Body Mass Index (BMI) 15.4 Intake & Output: Intake and Output for Last 24 Hours 12/06/24 12/07/24 12/08/24 23:59 23:59 23:59 Intake Total 1070.5 / 1070.5 750 / 870 180 / 180 Balance 1070.5 / 1070.5 750 / 870 180 / 180 Medical Nutrition Assessment Dietitian: Malnutrition Criteria Met Start: 12/05/24 16:35 Freq: Status: Active Protocol: Document 12/05/24 16:36 RMA (Rec: 12/05/24 16:36 RMA [id number]) Nutrition Malnutrition Evidence of Yes Malnutrition Exists Malnutrition (severe Chronic ): Evidenced By Suboptimal Energy Intake (Severe),Weight Loss (Severe), Physical Changes (Severe) Clinical Problem Chronic Disease or Condition Related Malnutrition Etiology severe protein-calorie malnutrition in the context of chronic disease and debility related to failure to thrive and inadequate oral intake Signs/Symptoms as evidenced by BMI 15.4, ~8% unintentional weight loss x past 1-2 months, PO meeting less than 50% estimated nutrition needs x 1 month and severe muscle wasting/fat depletion in the clavicle, orbital, temporal region and arms/legs. Status Active Problem Recommendation Dietitian Continue liberalized regular diet and encourage PO at Recommendations/ meals. Changes Will continue 120mL vanilla ensure w/ meals as ordered. Will add 120mL ensure clear w/ meals for tolerance. Will add magic cup w/ lunch and fortified pudding w/ dinner. Will add yogurt Q meal. May need to consider enteral nutrition support if PO remains poor and weight continues to decline. Lab / Micro Data 12/08/24 04:22 12/08/24 04:22 Labs: Laboratory Results - last 24 hr 12/08/24 04:22: WBC 4.0 L, RBC 4.31 L, Hgb 13.3, Hct 40.0, MCV 92.8, MCH 30.9, MCHC 33.3, RDW Std Deviation 46.4 H, RDW Coeff of Suri 13.5, Plt Count 202, MPV 11.0, Immature Gran % (Auto) 0.500, Neut % (Auto) 59.7, Lymph % (Auto) 20.5, M kenneth % (Auto) 13.2 H, Eos % (Auto) 5.1 H, Baso % (Auto) 1.0, Absolute Neuts (auto) 2.4, Absolute Lymphs (auto) 0.81 L, Nucleated RBC % 0, Sodium 140, Potassium 4.3, Chloride 103, Carbon Dioxide 28.7, Anion Gap 9, BUN 18, Creatinine 0.75, Estim Creat Clear Calc 44.06 L, Est GFR (MDRD) Non-Af 87, B UN/Creatinine Ratio 23.3 H, Glucose 76, Calcium 8.9 Micro: Microbiology 12/05/24 13:08 Urine, Catheterized Urine Culture - Preliminary Gram negative zach Gram negative zach#2 Gram Positive Cocci Alpha hemolytic organism Physical Exam Narrative GENERAL: cooperative HEENT: Atraumatic; normocephalic EYES; Anicteric, Normal Conjunctiva NECK; supple, normal thyroid, RESPIRATORY: Diminished to auscultation CARDIOVASCULAR: Regular S1 S2, GI: soft, normoactive bowel sounds, : No Renal angle tenderness; EXTREMITIES: No edema, no clubbing, MUSCULOSKELETAL: no muscle wasting NEURO: Awake; no lateralizing signs. SKIN: No Rash PSYCH; Flat affect Assessment & Plan Assessment/Plan (1) Failure to thrive: (2) Abdominal pain: QUALIFIERS: Abdominal location: lower abdomen, unspecified Q ualified Code(s): R10.30 - Lower abdominal pain, unspecified (3) Weight loss, non-intentional: PLAN: Plan Patient is an 89-year-old gentleman who was brought to the emergency department with inability to care for self. Patient had also complained of abdominal pain and constipation an assessment of adult failure to thrive made admitted to regular nursing floor for further management 1. Adult failure to thrive ? Patient admitted to regular nursing floor consult placed to case management/social work to assist with disposition ? 12/07/2024; plan is for patient to be discharged to the awaiting pending 2. Constipation ? Acute abdominal series demonstrated bowel?gas pattern in the abdomen and pelvis nonspecific. Plan is to treat symptomatically 3. Suspected gastric cancer ? Recent CT obtained on 11/29/2024 by GI demonstrated moderate diffuse thickening of the gastric fundus likely secondary to gastritis versus neoplastic pathology. Family opted not to pursue invasive procedure 4. Enlarged prostate with elevated PSA ? Family apparently not interested in any aggressive measures for 5. Hypertension ? Blood pressure controlled, home medications continued with dose adjustment as needed 6. DVT prophylaxis ? Subcu Lovenox 7. Acute complicated cystitis ??Patient urinalysis send the day prior came back abnormal consistent with acute cystitis. Patient subsequently started on ceftriaxone urine culture sent result pending ? 12/07/2024; urine culture still pending ? 12/08/2024;Patient urine cultures resulted no significant growth patient will be assessed for discharge Time spent in the patient's overall evaluation,decision-making process, review of diagnostic data, adjustment of management, discussion with other providers, nursing nursing and ancillary staff involved in patient's care documentation, 35 Minutes
--- NOTE | 2024-12-08 08:17 | DS.PCM_ITS ---
Providers Date of Admission: 12/07/24 Date of Discharge: 12/08/24 Primary Care Physician: Dr. August Sharma MD Consultations 12/04/24 16:42 Consult: Hospice / Palliative Care Routine Consulting Provider: [facility] Reason for Consult: concern for metastatic cancer w/ BMI 15 and FTT EMERGENT Consult: No MD Notified: Yes Date Notified: 12/04/24 Time Notified: 16:58 Method of Notification: Answering Service Comments:: SENT BY SALESPERSON JEWELRY Reason For Visit: FAILURE TO THRIVE Diagnosis Discharge Diagnosis (1) Failure to thrive: Status: Acute (2) Abdominal pain: Status: Acute Code(s): R10.9 - Unspecified abdominal pain Qualifiers: Abdominal location: lower abdomen, unspecified Qualified Code(s): R 10.30 - Lower abdominal pain, unspecified (3) Weight loss, non-intentional: Status: Acute Code(s): R63.4 - Abnormal weight loss Plan Patient is an 89-year-old gentleman who was brought to the emergency department with inability to care for self. Patient had also complained of abdominal pain and constipation an assessment of adult failure to thrive made admitted to regular nursing floor for further management 1. Adult failure to thrive ? Patient admitted to regular nursing floor consult placed to case management/social work to assist with disposition ? 12/07/2024; plan is for patient to be discharged to the awaiting pending 2. Constipation ? Acute abdominal series demonstrated bowel?gas pattern in the abdomen and pelvis nonspecific. Plan is to treat symptomatically 3. Suspected gastric cancer ? Recent CT obtained on 11/29/2024 by GI demonstrated moderate diffuse thickening of the gastric fundus likely secondary to gastritis versus neoplastic pathology. Family opted not to pursue invasive procedure 4. Enlarged prostate with elevated PSA ? Family apparently not interested in any aggressive measures for 5. Hypertension ? Blood pressure controlled, home medications continued with dose adjustment as needed 6. DVT prophylaxis ? Subcu Lovenox 7. Acute complicated cystitis ??Patient urinalysis send the day prior came back abnormal consistent with acute cystitis. Patient subsequently started on ceftriaxone urine culture sent result pending ? 12/07/2024; urine culture still pending ? 12/08/2024;Patient urine cultures resulted no significant growth patient will be assessed for discharge Time spent in the patient's overall evaluation,decision-making process, review of diagnostic data, adjustment of management, discussion with other providers, nursing nursing and ancillary staff involved in patient's care documentation, 35 Minutes Medications at Discharge Home Medications mirtazapine 7.5 mg tablet 7.5 mg PO QHS 11/08/24 docusate sodium 100 mg capsule 100 mg PO DAILY 11/25/24 lactulose 10 gram/15 mL oral solution 30 ml PO BID 12/04/24 lisinopril 5 mg tablet 5 mg PO QODAY 12/04/24 acetaminophen 325 mg tablet 650 mg (2 x 325 mg) PO Q6H PRN PRN Pain 1-10 Or Fever>100.7 #0 tabs 12/08/24 bisacodyl 10 mg rectal suppository 10 mg AL DAILY PRN constipation #0 ea 12/08/24 melatonin 3 mg tablet 3 mg PO QHS PRN PRN Insomnia #0 tabs 12/08/24 Physical Exam Narrative GENERAL: cooperative HEENT: Atraumatic; normocephalic EYES; Anicteric, Normal Conjunctiva NECK; supple, normal thyroid, RESPIRATORY: Diminished to auscultation CARDIOVASCULAR: Regular S1 S2, GI: soft, normoactive bowel sounds, : No Renal angle tenderness; EXTREMITIES: No edema, no clubbing, MUSCULOSKELETAL: no muscle wasting NEURO: Awake; no lateralizing signs. SKIN: No Rash PSYCH; Flat affect Medical Records Data Medical Nutrition Assessment Dietitian: Malnutrition Criteria Met Start: 12/05/24 16:35 Freq: Status: Active Protocol: Document 12/05/24 16:36 RMA (Rec: 12/05/24 16:36 RMA [id number]) Nutrition Malnutrition Evidence of Yes Malnutrition Exists Malnutrition (severe Chronic ): Evidenced By Suboptimal Energy Intake (Severe),Weight Loss (Severe), Physical Changes (Severe) Clinical Problem Chronic Disease or Condition Related Malnutrition Etiology severe protein-calorie malnutrition in the context of chronic disease and debility related to failure to thrive and inadequate oral intake Signs/Symptoms as evidenced by BMI 15.4, ~8% unintentional weight loss x past 1-2 months, PO meeting less than 50% estimated nutrition needs x 1 month and severe muscle wasting/fat depletion in the clavicle, orbital, temporal region and arms/legs. Status Active Problem Recommendation Dietitian Continue liberalized regular diet and encourage PO at Recommendations/ meals. Changes Will continue 120mL vanilla ensure w/ meals as ordered. Will add 120mL ensure clear w/ meals for tolerance. Will add magic cup w/ lunch and fortified pudding w/ dinner. Will add yogurt Q meal. May need to consider enteral nutrition support if PO remains poor and weight continues to decline. Weight / BMI Weight Weight: 48.8 kg Body Mass Index (BMI) 15.4 ABG / Lab / Microbiology Data 12/08/24 04:22 12/08/24 04:22 Laboratory: Laboratory Results - last 24 hr 12/08/24 04:22: WBC 4.0 L, RBC 4.31 L, Hgb 13.3, Hct 40.0, MCV 92.8, MCH 30.9, MCHC 33.3, RDW Std Deviation 46.4 H, RDW Coeff of Suri 13.5, Plt Count 202, MPV 11.0, Immature Gran % (Auto) 0.500, Neut % (Auto) 59.7, Lymph % (Auto) 20.5, M kenneth % (Auto) 13.2 H, Eos % (Auto) 5.1 H, Baso % (Auto) 1.0, Absolute Neuts (auto) 2.4, Absolute Lymphs (auto) 0.81 L, Nucleated RBC % 0, Sodium 140, Potassium 4.3, Chloride 103, Carbon Dioxide 28.7, Anion Gap 9, BUN 18, Creatinine 0.75, Estim Creat Clear Calc 44.06 L, Est GFR (MDRD) Non-Af 87, B UN/Creatinine Ratio 23.3 H, Glucose 76, Calcium 8.9 Microbiology: Microbiology 12/05/24 13:08 Urine, Catheterized Urine Culture - Preliminary Morganella morganii sp morgani Pseudomonas aeruginosa Staphylococcus hominis hominis Alpha hemolytic organism D/C Instructions Discharge Diet: No restrictions Discharge Activity: Return to Normal Activity Call your doctor if you observe: Fever of 101 or Higher, Shortness of breath, Fainting spells and Chest pain DC O2, CPAP, BIPAP Needs Home O2 Discharge instructions: No Meaningful Use Info Meaningful Use Meaningful Use Diagnoses (Choose all that apply): None applicable Ischemic Stroke Statin Dosing Therapy Reference: STATIN DOSE THERAPY REFERENCE: * Patients > 75 years receive moderate or high dose statin therapy. * Patients 75 years or YOUNGER should receive HIGH intensity statin dose unless contraindicated. You will be required to document reason for non-treatment if statin daily dose does not meet guidelines. HIGH DOSE STATIN THERAPY DAILY Atorvastatin > than or = to 40 mg Rosuvastatin > than or = to 20 mg Amlodipine + Atorvastatin > than or = to 2.5/40 mg Ezetimibe + Simvastatin 10/80 mg Simvastatin 80mg Discharge Plan Admission Admit Date/Time: 12/07/24 10:42 Attending Provider: Roberto Carlos Bourne Primary Care Provider: August Sharma Chi Consulting Providers: Roberto Carlos Juarez; Naomy Cline; Senait Hauser; Kori Katz; Seema Jay PHYSICAL FITNESS TRAINER; Harriet Lopez; Jean Carlos Silvestre Discharge Orders/Prescriptions Prescriptions: New acetaminophen 325 mg Tablet 650 mg PO Q6H PRN PRN (Reason: Pain 1-10 Or Fever>100.7) Qty: 0 0RF melatonin 3 mg Tablet 3 mg PO QHS PRN PRN (Reason: Insomnia) Qty: 0 0RF bisacodyl 10 mg Suppository 10 mg AL DAILY PRN (Reason: constipation) Qty: 0 0RF Continued docusate sodium 100 mg capsule 100 mg PO DAILY lisinopril 5 mg tablet 5 mg PO QODAY lactulose 10 gram/15 mL solution 30 ml PO BID mirtazapine 7.5 mg tablet 7.5 mg PO QHS Referrals / Follow Up: August Sharma Chi, MD [Primary Care Provider] - Disposition Disposition (needs filled in before D/C Order can be placed): [facility] Facility Charges/Coding Visit Charges Inpatient E&M: 16958 Disch Hosp >30min
--- NOTE | 2024-12-08 08:21 | TREXTCAR_ITS ---
Diet Diet Order/Speech Therapy: INPATIENT Hospital Diet / Speech Therapy Order(s) 12/04/24 16:42 Diet: Regular - General Food consistency:: Regular Liquid Consistency:: Regular/Thin Dietary Modifications:: No Milk to Drink Type of Dietary Supplement:: 4oz Ensure Clear w/ meals Diet Comments: 4oz van ES on each tray; LISA w/ lunch; fort pud w/ dinner; yogurt Q tray DC O2, CPAP, BIPAP needs Home O2 Discharge instructions: No Therapies Physical Therapy: Eval and Treat Occupational Therapy: Eval and Treat Problem/Diagnosis (1) Failure to thrive: Status: Acute Comment: likely multifactorial: dementia, poor oral intake, nonadherence (2) Abdominal pain: Status: Acute Code(s): R10.9 - Unspecified abdominal pain (3) Weight loss, non-intentional: Status: Acute Code(s): R63.4 - Abnormal weight loss Plan Patient is an 89-year-old gentleman who was brought to the emergency department with inability to care for self. Patient had also complained of abdominal pain and constipation an assessment of adult failure to thrive made admitted to regular nursing floor for further management 1. Adult failure to thrive ? Patient admitted to regular nursing floor consult placed to case management/social work to assist with disposition ? 12/07/2024; plan is for patient to be discharged to the awaiting pending 2. Constipation ? Acute abdominal series demonstrated bowel?gas pattern in the abdomen and pelvis nonspecific. Plan is to treat symptomatically 3. Suspected gastric cancer ? Recent CT obtained on 11/29/2024 by GI demonstrated moderate diffuse thickening of the gastric fundus likely secondary to gastritis versus neoplastic pathology. Family opted not to pursue invasive procedure 4. Enlarged prostate with elevated PSA ? Family apparently not interested in any aggressive measures for 5. Hypertension ? Blood pressure controlled, home medications continued with dose adjustment as needed 6. DVT prophylaxis ? Subcu Lovenox 7. Acute complicated cystitis ??Patient urinalysis send the day prior came back abnormal consistent with acute cystitis. Patient subsequently started on ceftriaxone urine culture sent result pending ? 12/07/2024; urine culture still pending ? 12/08/2024;Patient urine cultures resulted no significant growth patient will be assessed for discharge Time spent in the patient's overall evaluation,decision-making process, review of diagnostic data, adjustment of management, discussion with other providers, nursing nursing and ancillary staff involved in patient's care documentation, 35 Minutes Allergies/Procedures Done in Hospital Allergies amoxicillin Allergy (Intermediate, Verified 12/04/24 10:43) Rash Sulfa (Sulfonamide Antibiotics) Allergy (Mild, Verified 12/04/24 10:43) Rash chlorthalidone Adverse Reaction (Severe, Verified 12/04/24 10:43) dizziness and stomachache Penicillins (PCN) Adverse Reaction (Intermediate, Verified 12/04/24 10:43) unknown amlodipine Adverse Reaction (Mild, Verified 12/04/24 10:43) dizziness guaifenesin (From Mucinex) Adverse Reaction (Mild, Verified 12/04/24 10:43) GI upset Type of Care/Length of Stay Estimated LOS: Convalescent Care Less Than 30 days Type of Care Needed: Skilled Rehab Potential: Good Prognosis: Good Additional Orders/Day of Discharge Day of Discharge: 12/08/24 Dietary and Speech Recommendations Dietitian Recommendations/Changes: Continue liberalized regular diet and encourage PO at meals. Will continue 120mL vanilla ensure w/ meals as ordered. Will add 120mL ensure clear w/ meals for tolerance. Will add magic cup w/ lunch and fortified pudding w/ dinner. Will add yogurt Q meal. May need to consider enteral nutrition support if PO remains poor and weight continues to decline. Discharge Plan Admission Admit Date/Time: 12/07/24 10:42 Attending Provider: Roberto Carlos Bourne Primary Care Provider: August Sharma Chi Consulting Providers: Roberto Carlos Juarez; Naomy Cline; Senait Hauser; Kori Katz; Seema Jay COMMERCIAL TITLE EXAMINER; Harriet oLpez; Jean Carlos Silvestre Discharge Orders/Prescriptions Prescriptions: New acetaminophen 325 mg Tablet 650 mg PO Q6H PRN PRN (Reason: Pain 1-10 Or Fever>100.7) Qty: 0 0RF melatonin 3 mg Tablet 3 mg PO QHS PRN PRN (Reason: Insomnia) Qty: 0 0RF bisacodyl 10 mg Suppository 10 mg [place] DAILY PRN (Reason: constipation) Qty: 0 0RF Continued docusate sodium 100 mg capsule 100 mg PO DAILY lisinopril 5 mg tablet 5 mg PO QODAY lactulose 10 gram/15 mL solution 30 ml PO BID mirtazapine 7.5 mg tablet 7.5 mg PO QHS Referrals / Follow Up: August Sharma Chi, MD [Primary Care Provider] - Disposition Disposition (needs filled in before D/C Order can be placed): Senior Living Facility (2) Abdominal pain Qualifiers: Abdominal location: lower abdomen, unspecified Qualified Code(s): R10.30 - Lower abdominal pain, unspecified
[2024-12-08 09:06] VITALS: BP 142/84; PULSE 64; RESP 16; TEMP 36.8; O2SAT 100
[2024-12-08] MEDS: Polyethylene Glycol 3350 17 GM PACKET PO (09:10)
[2024-12-08] MEDS: 0.9% Saline Lock 10 ML Syringe IV (09:20)
--- NOTE | 2024-12-08 13:40 | CASEMGMT ---
Addendum entered by Ene Cui 12/08/24 14:37: [employer] [facility] submitted for auto authorization; pt approved but must admit today 12/08. Physician agreeable, ARDEN left voicemail to update son. BERNICE Rivas Original Note: Social Work- SW received notice from [facility] that family is now reporting that they cannot private pay. ARDEN called pt son and left a voicemail requesting a return call re: discharge planing. BERNICE Rivas
--- NOTE | 2024-12-08 14:51 | CASEMGMT ---
Social Work Precert has been obtained.? Physician updated and pt is ready for discharge today.? PASRR completed in [facility]. Transportation arranged with Physician ambulance for 18:30 pickup via wheelchair van.? SW met with pt and they are agreeable to discharge plan as stated above.? Pt dtr, Mariya, who reports that she is primary POA and bedside nurse notified of discharge time. SW also left voicemail for pt son. Disposition:[facility] [place], skilled level of care BERNICE Rivas
[2024-12-08 15:07] VITALS: BP 128/67; PULSE 67; RESP 19; TEMP 36.8; O2SAT 96
--- NOTE | 2024-12-08 15:28 | NURSING ---
This Nurse gave report to Rodney GOODE at [facility].
== END 2024-12-08 15:45 | DRG 689 ==
LOC: ED 11:44 → MS3 15:15
PROVIDERS: Admitting Provider Hospitalist; Emergency Provider Emergency Medicine; PCP Family Medicine Geriatric Medicine; Visit Provider Internal Medicine
DX: N30.00 Acute cystitis without hematuria (principal); F03.90 Unspecified dementia, unspecified severity, without behavioral disturbance, psychotic disturbance, mood disturbance, and anxiety; E43 Unspecified severe protein-calorie malnutrition; Z68.1 Body mass index [BMI] 19.9 or less, adult; R62.7 Adult failure to thrive; Z66 Do not resuscitate; I10 Essential (primary) hypertension; K59.00 Constipation, unspecified; R63.4 Abnormal weight loss; R33.8 Other retention of urine; R10.30 Lower abdominal pain, unspecified; N40.1 Benign prostatic hyperplasia with lower urinary tract symptoms; R97.20 Elevated prostate specific antigen [PSA]; Z79.899 Other long term (current) drug therapy
CPT/HCPCS: 36415; 74022; 80048; 80053; 81001; 83735; 84100; 85025; 85027; 87077; 87086; 87088; 87186; 93005; 94668; 96365; 96366; 96372; 96375; 97161; 97166; 97802; 99221; 99282; A4216; G0378; J2405

== ENCOUNTER 2024-12-17 12:42 | Observation (INO) | payer OTHER, SELFPAY ==
[2024-12-17] VITALS (7 sets, daily range): BP systolic 112–156; BP diastolic 63–94; PULSE 58–69; RESP 16–20; TEMP 36.3–36.8; O2SAT 97–100; BMI 16.1; BMI 15.5
--- NOTE | 2024-12-17 13:09 | EKG12_ITS ---
Test Reason : Blood Pressure : */* mmHG Vent. Rate : 59 BPM Atrial Rate : 59 BPM P-R Int : 146 ms QRS Dur : 84 ms QT Int : 424 ms P-R-T Axes : 86 42 69 degrees QTcB Int : 419 ms Sinus bradycardia with sinus arrhythmia Otherwise normal ECG Confirmed by Tommie Bernabe ([id number]), purchase request editor ADRIEL TRUJILLO ([id number]) on 12/19/2024 11:17:18 AM Referred By: Confirmed By: Tommie Bernabe
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
[2024-12-17 13:38] LABS: Hematocrit 39.4 % (40-54); Hemoglobin 13.0 g/dL (13.0-16.5); Immature Granulocytes Count 0.020 X10^3/uL (0.0-0.0); Mean Corp Hgb Conc 33.0 g/dL (32-36); Mean Corpuscular Volume 91.6 fL (80-94); Mean Platelet Vol. 10.9 fl (6.2-12.0); NRBC Flagged by Analyzer 0 % (0-5); POSITIVE DIFFERENTIAL YES; Platelet Count 181 K/mm3 (150-450); RBC Distribution Width CV 13.7 % (11.6-14.6); RBC Distribution Width SD 45.9 fl (35.1-43.9); Red Blood Count 4.30 M/mm3 (4.6-6.2); White Blood Count 5.4 K/mm3 (4.4-11.0)
[2024-12-17 13:48] LABS: Anion Gap 11 (5-15); BUN 24 mg/dL (4-19); BUN/Creat Ratio 24.8 RATIO (10-20); Calcium,Total 8.9 mg/dL (7.6-11.0); Carbon Dioxide 26.1 mmol/L (21.0-32.0); Chloride 103 mmol/L (98-108); Estimated Creatinine Clearance 38.70 ml/min (50-250); Glucose 102 mg/dL (70-99); Potassium 4.2 mmol/L (3.3-5.1)
[2024-12-17 13:50] LABS: Red Blood Cells-Urine 0 SEEN /hpf (0-5)
[2024-12-17 13:56] LABS: Color, Urine Yellow (Yellow); Glucose, Dipstick Normal (Normal); Ketone-Dipstick 50 mg/dl (Negative); Leukocyte Esterase-Dipstick 500 /ul (Negative); Nitrite-Dipstick Negative (Negative); Occult Blood-Urine 10 /ul (Negative); Protein-Dipstick 30 mg/dl (Negative); Specific Gravity, Urine 1.025 (1.002-1.030); Urine Bilirubin Dipstick Negative (Negative)
--- NOTE | 2024-12-17 14:00 | RAD_ITS ---
PROCEDURE: CHEST PA AND LATERAL 12/17/2024 REASON FOR EXAM: WEAKNESS TECHNIQUE: CHEST PA AND LATERAL COMPARISON: Prior study dated December 04, 2024. FINDINGS: Hardware: None Heart: The heart size is normal. Mediastinum: The mediastinal contour is unremarkable. Lungs: Hyperinflation. Scattered calcified granulomas. Prominence of the central pulmonary arteries in keeping with hypertension. Stable scarring in the right lower lobe. Bones: Degenerative changes are identified within the thoracic spine. RAD/Chest PA and Lateral IMPRESSION: Hyperinflation and scarring in the right lower lobe. Emphysematous changes. S cattered calcified granulomas. Reading Location: [facility]
[2024-12-17 14:04] LABS: Mucous, Urine 1+ /hpf (<or=2+)
[2024-12-17 14:05] LABS: Calcium Oxalate Crystals Ur 1+ /hpf (<or=2+)
[2024-12-17 14:06] LABS: Squamous Epithelial Cells - UA 0-5 SEEN /hpf (0-5)
--- NOTE | 2024-12-17 16:17 | PCM.HP.STD ---
HPI - General General Date of Admission: 12/17/24 Date of Service: 12/17/24 Chief Complaint: Dementia, unable to take care at home HPI Narrative ONEAL ROGERS, is a 89 M with history of dementia brought to ED for being not able to take care at home, was witnessed roaming in the streets, intermittently confused. Patient's daughter called the squad therefore patient was brought to ED. As per the daughter, his father recently [facility] after he told that he could not live and wants to go home there but her daughter is eager to put [facility] in [facility]. Patient is stated that he also has short lived abdominal/epigastric pain which stayed for few minutes in the middle of night yesterday. He said it was burning in nature. Patient also has chronic constipation and is on lactulose and docusate. Last BM was 2 to 3 days ago. Denies burning micturition. No fever I talked to the patient's daughter in ED and she requested to start him on Aricept. Patient already on Remeron by PCP Dr. Sharma [facility] Medical History Frequent headaches Cataracts, bilateral Hearing problem Abdominal bloating Low vitamin B12 level MCI (mild cognitive impairment) Dyspepsia Prostatic hypertrophy Stomachache Vitamin D deficiency Dehydration Hypertension Home Medications ?Medication ?Instructions ?Recorded ?Last Taken ?Type mirtazapine 7.5 mg tablet 7.5 mg PO QHS 11/08/24 11/24/24 History docusate sodium 100 mg capsule 100 mg PO DAILY 11/25/24 11/24/24 History lactulose 10 gram/15 mL oral 30 ml PO BID 12/04/24 Unknown History solution lisinopril 5 mg tablet 5 mg PO QODAY 12/04/24 Unknown History acetaminophen 325 mg tablet 650 mg (2 x 325 mg) PO Q6H PRN PRN 12/08/24 Unknown Rx Pain 1-10 Or Fever>100.7 #0 tabs bisacodyl 10 mg rectal suppository 10 mg SD DAILY PRN constipation #0 12/08/24 Unknown Rx ea melatonin 3 mg tablet 3 mg PO QHS PRN PRN Insomnia #0 12/08/24 Unknown Rx tabs Allergy/AdvReac Type Severity Reaction Status Date / Time amoxicillin Allergy Intermediate Rash Verified 12/17/24 12:47 Sulfa (Sulfonamide Allergy Mild Rash Verified 12/17/24 12:47 Antibiotics) chlorthalidone AdvReac Severe dizziness Verified 12/17/24 12:47 and stomachache Penicillins (PCN) AdvReac Intermediate unknown Verified 12/17/24 12:47 amlodipine AdvReac Mild dizziness Verified 12/17/24 12:47 guaifenesin (From Mucinex) AdvReac Mild GI upset Verified 12/17/24 12:47 Family History Sister Hypertension Multiple sclerosis Diabetes Mother Colon cancer Father Myocardial infarction Brother Cancer prostate Other Heart disease Surgical History Hx of appendectomy Social History housing: house Smoking Status: Never smoker alcohol intake: never substance use type: does not use frequency: other details: has been inactive until recently ROS ROS Narrative Complete 14 system ROS unobtainable because of patient's advanced dementia Patient states he does not have burning micturition/dysuria. No fever. Constipation Rest as described in HPI Review of Systems ROS Unobtainable: due to mental condition and due to mental status Vital Signs Vital Signs Vital Signs: 12/17/24 12:45 12/17/24 13:02 12/17/24 14:45 Temperature 97.8 F Temperature Source Oral Pulse Rate 64 69 Respiratory Rate 18 Respiratory Effort Normal Non-Labored Blood Pressure 139/72 H 156/74 H Blood Pressure Mean 94 101 Pulse Ox 98 100 Oxygen Delivery Method Room Air 12/17/24 15:22 12/17/24 16:00 Temperature 98.3 F Temperature Source Pulse Rate 69 60 Respiratory Rate 20 H Respiratory Effort Blood Pressure 126/63 H 146/94 H Blood Pressure Mean 84 111 Pulse Ox 100 100 Oxygen Delivery Method Weight Weight: 112 lb 3.445 oz Body Mass Index (BMI) 16.1 Physical Exam Narrative General: Alert, Oriented x2, Cooperative. Cannot tell month or year correctly but knows his date of and age HEENT: Atraumatic, PERRLA, EOMI, Normocephalic. Oral: Oral mucosa dry no Gingival or Mucosal Lesions/ Ulcerations Neck: Supple, No JVD, Negative Carotid Bruits Chest wall/Lungs: Air entry diminished in bilateral lung bases. No crepitation/rhonchi Cardiovascular: Chronic A-fib, irregular rate and rhythm, systolic murmur Abdomen: Bowel Sounds Present, Soft, Non Tender, Non-Distended : No dysuria. No renal angle tenderness. No suprapubic tenderness. Extremities: No edema, Capillary Refill Less than 3 Seconds Skin: No rashes, No breakdown Musculoskeletal: No Tenderness to Palpation of Joints or Extremities. Moderate atrophy of muscles of extremities and interspinous/costovertebral and craniofacial muscles Neurological: Cranial nerves II-XII grossly intact, DTR 2+/4. No acute focal neurological deficit. Psych/Mental Status: Flat affect, demeanor Results Lab / Micro Data 12/17/24 13:17 12/17/24 13:17 Labs: Laboratory Results - last 24 hr 12/17/24 13:17: WBC 5.4, RBC 4.30 L, Hgb 13.0, Hct 39.4 L, MCV 91.6, MCH 30.2, MCHC 33.0, RDW Std Deviation 45.9 H, RDW Coeff of Suri 13.7, Plt Count 181, MPV 10.9, Immature Gran % (Auto) 0.400, Neut % (Auto) 80.6 H, Lymph % (Auto) 7.8 L, [place] % (Auto) 10.2 H, Eos % (Auto) 0.6, Baso % (Auto) 0.4, Absolute Neuts (auto) 4.3, Absolute Lymphs (auto) 0.42 L, Nucleated RBC % 0, Sodium 140, Potassium 4.2, Chloride 103, Carbon Dioxide 26.1, Anion Gap 11, BUN 24 H, Creatinine 0.95, Estim Creat Clear Calc 38.70 L, Est GFR (MDRD) Non-Af 77, BUN/Creatinine Ratio 24.8 H, Glucose 102 H, Calcium 8.9 12/17/24 13:35: Urine Color Yellow, Urine Clarity Clear, Urine pH 5.0, Ur Specific [place] 1.025, Urine Protein 30 H, Urine Glucose (UA) Normal, Urine Ketones 50 H, Urine Occult Blood 10 H, Urine Nitrite Negative, Urine Bilirubin Negative, Urine Urobilinogen Normal, Ur Leukocyte Esterase 500 H, Urine RBC 0 SEEN, Urine WBC 0-5 SEEN, Ur Squamous Epith Cells 0-5 SEEN, Calcium Oxalate Crystal 1+, Urine Bacteria 0 SEEN, Hyaline Casts 0-5 SEEN, Urine Mucus 1+ Imaging Radiology Impression Chest X-Ray 12/17/24 14:00 IMPRESSION: Hyperinflation and scarring in the right lower lobe. Emphysematous changes. Scattered calcified granulomas. Reading Location: [facility] Assessment & Plan Assessment/Plan (1) Wandering behavior due to dementia: (2) Failure to thrive: PLAN: Plan This 81-year-old gentleman being admitted for wandering and disorganized behavior with diagnosed dementia condition 1. Debility due to decreased ADL, dementia with disorganized behavior with adult failure to thrive: Patient is being admitted in MedSurg floor. His daughter agreed that he needs nursing care/memory unit. PT OT and case management consult. His daughter also requested for Aricept therefore Aricept 5 mg daily started. Patient already on mirtazapine 7.5 mg daily which is continued. 2. Asymptomatic abnormal UA: UA shows LE 500, nitrite negative, protein 30. Previous UA were also abnormal and urine culture in the past was more suggestive of contamination in December 28. Urine culture ordered. No acute indication of antibiotic. 3. Transient epigastric abdominal pain possible due to gastritis/chronic constipation: Pantoprazole 40 g daily started. On stool softener including lactulose, Dulcolax suppository and senna as per 4. Diffuse thickening of gastric fundus, possible/suspected gastric cancer ? Recent CT obtained on 11/29/2024 by GI demonstrated moderate diffuse thickening of the gastric fundus likely secondary to gastritis versus neoplastic pathology. Family opted not to pursue invasive procedure. 4. Enlarged prostate with elevated PSA: His PSA was 14.3 in November 28, 2024 ? Family apparently not interested in any aggressive measures for elevated PSA 5. Hypertension: Systolic BP 146 mmHg acceptable with his age: Home medications, lisinopril continued 6. DVT prophylaxis, high risk: Heparin 5000 units subcutaneous twice daily. Living will/advanced directive/end of life care: Patient does have living will or advanced directive. His daughter present in the ED is power of commercial real estate attorney for health. After discussion of benefits/risks procedures involved with full code, DNR CC arrest and DNR CC, the patient and the daughter opted for DNR CC arrest with no intubation. Patient doesn't want artificial life support including intubation, tube feed, ventilator and/chest compression, central venous catheter, vasopressor and DC shock if needed Total time spent in [id number] encounter in discussion of advanced directive 17 minutes. Laboratory Results 12/17/24 13:17: WBC 5.4, RBC 4.30 L, Hgb 13.0, Hct 39.4 L, MCV 91.6, MCH 30.2, MCHC 33.0, RDW Std Deviation 45.9 H, RDW Coeff of Suri 13.7, Plt Count 181, MPV 10.9, Immature Gran % (Auto) 0.400, Neut % (Auto) 80.6 H, Lymph % (Auto) 7.8 L, [place]da % (Auto) 10.2 H, Eos % (Auto) 0.6, Baso % (Auto) 0.4, Absolute Neuts (auto) 4.3, Absolute Lymphs (auto) 0.42 L, Nucleated RBC % 0, Sodium 140, Potassium 4.2, Chloride 103, Carbon Dioxide 26.1, Anion Gap 11, BUN 24 H, Creatinine 0.95, Estim Creat Clear Calc 38.70 L, Est GFR (MDRD) Non-Af 77, BUN/Creatinine Ratio 24.8 H, Glucose 102 H, Calcium 8.9, Magnesium 2.1 12/17/24 13:35: Urine Color Yellow, Urine Clarity Clear, Urine pH 5.0, Ur Specific [place] 1.025, Urine Protein 30 H, Urine Glucose (UA) Normal, Urine Ketones 50 H, Urine Occult Blood 10 H, Urine Nitrite Negative, Urine Bilirubin Negative, Urine Urobilinogen Normal, Ur Leukocyte Esterase 500 H, Urine RBC 0 SEEN, Urine WBC 0-5 SEEN, Ur Squamous Epith Cells 0-5 SEEN, Calcium Oxalate Crystal 1+, Urine Bacteria 0 SEEN, Hyaline Casts 0-5 SEEN, Urine Mucus 1+ Clinical Impression(s) from Imaging Studies Chest X-Ray 12/17/24 14:00 IMPRESSION: Hyperinflation and scarring in the right lower lobe. Emphysematous changes. Scattered calcified granulomas. Reading Location: [facility] Charges/Coding Visit Charges Inpatient E&M: 46607 Init Hosp L3 Procedures Hospitalists Procedures: 47448 Advncd Care Plan 30 Min
[2024-12-17 16:47] LABS: Magnesium 2.1 mg/dL (1.5-2.2)
--- NOTE | 2024-12-17 17:41 | CASEMGMT ---
Social Work SW spoke with patients Daughter who stated she had signed [facility] out of [facility] on Tuesday. Daughter stated that she felt bad that patient seemed so unhappy at the nursing facility. However, over the weekend, patient was seen seen wandering outside, called his daughter to ask if he could drink water, and was found to be eating raw chicken that had been left on the counter by the daycare worker.?Today, patient called 911 due to stomach pains.?Daughter states that she recognizes that he needs 24 hour care and wants him back at [facility] if possible. Daughter is understanding that [facility] is not a guarantee and will make another choice should they deny.?No further needs at this time. Tierra Thacker, PRESS OPERATOR [employer], SURGERY TEACHER
[2024-12-17] MEDS: Senna/Docusate Sodium 1 Tablet 2 TABLET PO (22:08)
[2024-12-17] MEDS: Heparin Injection (Vial) 5,000 UNIT/ML VIAL 5000 UNIT SC (22:09)
[2024-12-18 01:29] VITALS: BP 146/76; PULSE 63; RESP 16; TEMP 36.7; O2SAT 98
[2024-12-18 04:51] VITALS: BMI 15.4
[2024-12-18 05:45] VITALS: BP 131/69; PULSE 63; RESP 14; TEMP 36.7; O2SAT 98
[2024-12-18] MEDS: 0.9% Saline Lock 10 ML Syringe IV ×2 (05:49→10:11)
[2024-12-18 06:27] LABS: Hematocrit 35.9 % (40-54); Hemoglobin 12.3 g/dL (13.0-16.5); Immature Granulocytes Count 0.020 X10^3/uL (0.0-0.0); Mean Corp Hgb Conc 34.3 g/dL (32-36); Mean Corpuscular Volume 89.5 fL (80-94); Mean Platelet Vol. 11.0 fl (6.2-12.0); NRBC Flagged by Analyzer 0 % (0-5); Platelet Count 213 K/mm3 (150-450); RBC Distribution Width CV 13.5 % (11.6-14.6); RBC Distribution Width SD 44.4 fl (35.1-43.9); Red Blood Count 4.01 M/mm3 (4.6-6.2); White Blood Count 6.0 K/mm3 (4.4-11.0)
[2024-12-18 06:36] LABS: Anion Gap 12 (5-15); BUN 17 mg/dL (4-19); BUN/Creat Ratio 21.8 RATIO (10-20); Calcium,Total 8.5 mg/dL (7.6-11.0); Carbon Dioxide 25.5 mmol/L (21.0-32.0); Chloride 104 mmol/L (98-108); Estimated Creatinine Clearance 44.06 ml/min (50-250); Glucose 83 mg/dL (70-99); Potassium 3.4 mmol/L (3.3-5.1)
--- NOTE | 2024-12-18 07:24 | PCM.PN.HOSP ---
Reason for Visit Chief Complaint: Dementia, unable to take care at home Subjective Subjective Patient is an 89-year-old gentleman who was recently discharged to ECF/memory unit signed out by her daughter AGAINST MEDICAL ADVICE was found wandering by a neighbor confused. Subsequently brought to the emergency department Objective Data Objective Data Vital Signs: Vital Signs Temp Pulse Resp BP Pulse Ox O2 Del Method 98.1 F 63 14 131/69 H 98 Room Air 12/18/24 05:45 12/18/24 05:45 12/18/24 05:45 12/18/24 05:45 12/18/24 05:45 12/18/24 05:45 Oxygen Delivery Method Room Air Weight: 48.8 kg Body Mass Index (BMI) 15.4 Intake & Output: Intake and Output for Last 24 Hours 12/16/24 12/17/24 12/18/24 23:59 23:59 23:59 Intake Total 340 / 340 Balance 340 / 340 Lab / Micro Data 12/18/24 05:11 12/18/24 05:11 Labs: Laboratory Results - last 24 hr 12/17/24 13:17: WBC 5.4, RBC 4.30 L, Hgb 13.0, Hct 39.4 L, MCV 91.6, MCH 30.2, MCHC 33.0, RDW Std Deviation 45.9 H, RDW Coeff of Suri 13.7, Plt Count 181, MPV 10.9, Immature Gran % (Auto) 0.400, Neut % (Auto) 80.6 H, Lymph % (Auto) 7.8 L, [place] % (Auto) 10.2 H, Eos % (Auto) 0.6, Baso % (Auto) 0.4, Absolute Neuts (auto) 4.3, Absolute Lymphs (auto) 0.42 L, Nucleated RBC % 0, Sodium 140, Potassium 4.2, Chloride 103, Carbon Dioxide 26.1, Anion Gap 11, BUN 24 H, Creatinine 0.95, Estim Creat Clear Calc 38.70 L, Est GFR (MDRD) Non-Af 77, BUN/Creatinine Ratio 24.8 H, Glucose 102 H, Calcium 8.9, Magnesium 2.1 12/17/24 13:35: Urine Color Yellow, Urine Clarity Clear, Urine pH 5.0, Ur Specific [place] 1.025, Urine Protein 30 H, Urine Glucose (UA) Normal, Urine Ketones 50 H, Urine Occult Blood 10 H, Urine Nitrite Negative, Urine Bilirubin Negative, Urine Urobilinogen Normal, Ur Leukocyte Esterase 500 H, Urine RBC 0 SEEN, Urine WBC 0-5 SEEN, Ur Squamous Epith Cells 0-5 SEEN, Calcium Oxalate Crystal 1+, Urine Bacteria 0 SEEN, Hyaline Casts 0-5 SEEN, Urine Mucus 1+ 12/18/24 05:11: WBC 6.0, RBC 4.01 L, Hgb 12.3 L, Hct 35.9 L, MCV 89.5, MCH 30.7, MCHC 34.3, RDW Std Deviation 44.4 H, RDW Coeff of Suri 13.5, Plt Count 213, MPV 11.0, Immature Gran % (Auto) 0.300, Neut % (Auto) 75.6 H, Lymph % (Auto) 10.8 L, [place] % (Auto) 10.6 H, Eos % (Auto) 2.2, Baso % (Auto) 0.5, Absolute Neuts (auto) 4.5, Absolute Lymphs (auto) 0.65 L, Nucleated RBC % 0, Sodium 141, Potassium 3.4, Chloride 104, Carbon Dioxide 25.5, Anion Gap 12, BUN 17, Creatinine 0.77, Estim Creat Clear Calc 44.06 L, Est GFR (MDRD) Non-Af 86, BUN/Creatinine Ratio 21.8 H, Glucose 83, Calcium 8.5 Radiography Diagnostic Testing: Radiology Impression Chest X-Ray 12/17/24 14:00 IMPRESSION: Hyperinflation and scarring in the right lower lobe. Emphysematous changes. Scattered calcified granulomas. Reading Location: [facility] Physical Exam Narrative GENERAL: cooperative HEENT: Atraumatic; normocephalic EYES; Anicteric, Normal Conjunctiva NECK; supple, normal thyroid, RESPIRATORY: Diminished to auscultation CARDIOVASCULAR: Regular S1 S2, GI: soft, normoactive bowel sounds, : No Renal angle tenderness; EXTREMITIES: No edema, no clubbing, MUSCULOSKELETAL: no muscle wasting NEURO: Awake; no lateralizing signs. 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 Subsequently brought to the emergency department 1. Adult failure to thrive in the context of dementia with behavioral agitation ? Admitted to regular nursing floor consult placed to case management to assist with disposition 2. Suspected gastric cancer ? Recent CT obtained on 11/29/2024 by GI demonstrated moderate diffuse thickening of the gastric fundus likely secondary to gastritis versus neoplastic pathology. Family opted not to pursue invasive procedure 4. Enlarged prostate with elevated PSA ? Family apparently not interested in any aggressive measures for 5. Hypertension ? Blood pressure controlled, home medications continued with dose adjustment as needed 6. Severe protein-calorie malnutrition in the context of chronic disease and debility related to failure to thrive and inadequate oral intake 7. Constipation ? Present on admission treated symptomatically 8. DVT prophylaxis ? Subcu heparin Charges/Coding Visit Charges Inpatient E&M: 00622 Subs Hosp L2
[2024-12-18 10:05] VITALS: BP 132/69; PULSE 63; RESP 16; TEMP 37.6; O2SAT 98
[2024-12-18] MEDS: Heparin Injection (Vial) 5,000 UNIT/ML VIAL 5000 UNIT SC (10:09)
--- NOTE | 2024-12-18 13:40 | CASEMGMT ---
Social Work SW called daughter this morning in regard to discharge plan. Daughter explains pt was at [facility], and she picked up pt from [facility] Tuesday. Pt was still there under insurance, they had not cut him yet. Daughter states pt went home alone with aide services through [facility], states pt gets 2 hours of aide services through the [facility], each day. Daughter states this is not enough for pt, he needs 24/7 care. She explained she cares for her mother and cannot also take on the care of her father. She states her mother lives w/her, and has been there since she got out of a rehab facility herself. She states her mother had an episode on October 13, she went to rehab and then home w/her. Pt has been home alone since then. She states pt's son did come stay w/pt for 6 weeks, however he is back home now. She states also her mom does not want her dad there with her. She states pt has always been selfish, she and pt's son thinks he may be on the spectrum, possibly has OCD. She states now w/the memory issues he is now argumentative and contentious. Daughter states pt is not feeding himself, he's down to 110 pounds. She states he complains all the time that his belly hurts. She states since he got home on Tuesday he has called her 20 times, and asks such things as if he can drink water. She states he tried to eat raw room temperature chicken that was left out on the counter by the gear hobber set up operator yesterday. She states he can do some ADLs but needs reminding. For example, he used to bathe but she is noticing now he has body odor. Though he states he has been bathing she does not think he is. He has been trying to set up his own medications. Daughter does think pt needs residential care. She wants a referral sent back to [facility], and is hoping maybe insurance would cover a short time. SNF list not needed at this point. ARDEN explained we can try but it is unlikely insurance will cover as pt is walking well. ARDEN explained that medicare does not cover residential care. Daughter was aware of this and is open to exploring Medicaid, open to SW having make a referral to Erin with [facility]. ARDEN explained will have Erin call her. Daughter is concerned that applying for Medicaid for pt could impact her mother. SW will continue to follow, referral will be sent to [facility] once PT/OT completed. SW did also call Erin and ask her to call daughter. DEANA Hyde
--- NOTE | 2024-12-18 14:01 | CASEMGMT ---
Addendum entered by Erlinda Baltazar 12/18/24 14:33: [facility] has declined. SW. Erlinda Baltazar DC Planning Asst Original Note: Discharge Planning Referral sent to [facility] [place]. Erlinda Baltazar DC Planning Asst.
--- NOTE | 2024-12-18 14:30 | CASEMGMT ---
Social Work [facility] is full. ARDEN called daughter, explained this to her. SW explained SW has a SNF list of other facilities in network, can leave it in the room for her or email it to her. Daughter is asking about [facility], SW did let her know that [facility] does not have any [facility] beds. Daughter is not sure at this point that she wants rn long term care, she would like to explore all options including a [facility] facility in [place]. She would like a referral sent to [facility]. She is open also to reviewing the SNF list, and SW explained will leave it in the room for her. SW left SNF list in room. D/C logistics planning manager will send referral to [facility]. [facility] call [facility] earlier, though [facility], he is not service connected. ARDEN spoke w/Narinder, , [phone]. DEANA Hyde
--- NOTE | 2024-12-18 14:40 | CASEMGMT ---
Spoke with pts daughter/HC POA, Mariya Jasmin, to complete PEREZ form. PEREZ form and its content were verbally explained and questions were answered to the best of my ability.? Understanding was voiced. Copy of signed PEREZ form placed in pts room and original placed in patient's chart.? Erlinda Baltazar, Discharge Planning Asst
--- NOTE | 2024-12-18 15:03 | CASEMGMT ---
Addendum entered by Erlinda Baltazar 12/19/24 08:54: [facility] has declined. Erlinda Baltazar DC Planning Asst Original Note: Discharge Planning Referral sent to [facility]. Erlinda Baltazar DC Planning Asst.
--- NOTE | 2024-12-18 16:51 | CASEMGMT ---
Addendum entered by Karen Lopez 12/18/24 17:02: Patient's son also stated desire for referral sent to [facility]. Unable to verify currently with patient's daughter, Mariya. Will call later should time allow. MARLENY Martínez, [employer] Original Note: Social work ED SW received a call from patient's son, Bao. Bao known to this SW due to patient's times in [facility] ED. Bao asked multiple questions regarding patient's SNF options; questions answered to the best of this SW's ability due to not having the prepared SNF list in front of SW. Bao stated knowing [facility] was not an option due to being full and knowing another referral was sent to [facility]. Bao thanked this SW for time spent answering questions and stated reaching out to Mariya, patient's daughter, to see if Mariya could send list of other SNF options should [facility] decline. No further needs identified at this time. MARLENY Martínez, [employer]
[2024-12-18 17:51] VITALS: BP 120/77; PULSE 64; RESP 16; TEMP 36.9; O2SAT 98
[2024-12-18] MEDS: Ensure Plus High Protein 120 ML LIQUID PO (17:55)
[2024-12-18 20:04] VITALS: BP 127/63; PULSE 80; RESP 18; TEMP 36.7; O2SAT 97
[2024-12-19 03:46] VITALS: BP 149/98; PULSE 62; RESP 18; TEMP 36.5; O2SAT 98
[2024-12-19 04:04] VITALS: BMI 15.1
[2024-12-19 08:49] VITALS: BP 130/78; PULSE 77; RESP 16; TEMP 36.4; O2SAT 98
[2024-12-19] MEDS: Heparin Injection (Vial) 5,000 UNIT/ML VIAL 5000 UNIT SC ×2 (08:52→20:01)
[2024-12-19] MEDS: 0.9% Saline Lock 10 ML Syringe IV (08:55)
[2024-12-19 08:56] LABS: Hematocrit 38.3 % (40-54); Hemoglobin 13.2 g/dL (13.0-16.5); Immature Granulocytes Count 0.030 X10^3/uL (0.0-0.0); Mean Corp Hgb Conc 34.5 g/dL (32-36); Mean Corpuscular Volume 89.1 fL (80-94); Mean Platelet Vol. 10.6 fl (6.2-12.0); NRBC Flagged by Analyzer 0 % (0-5); Platelet Count 211 K/mm3 (150-450); RBC Distribution Width CV 13.8 % (11.6-14.6); RBC Distribution Width SD 44.7 fl (35.1-43.9); Red Blood Count 4.30 M/mm3 (4.6-6.2); White Blood Count 5.2 K/mm3 (4.4-11.0)
[2024-12-19] MEDS: Ensure Plus High Protein 120 ML LIQUID PO ×2 (08:57→17:02)
--- NOTE | 2024-12-19 09:02 | PCM.PN.HOSP ---
Reason for Visit Chief Complaint: Dementia, unable to take care at home Subjective Subjective Patient seen complains of feeling tired Objective Data Objective Data Vital Signs: Vital Signs Temp Pulse Resp BP Pulse Ox O2 Del Method 97.6 F L 77 16 130/78 H 98 Room Air 12/19/24 08:49 12/19/24 08:49 12/19/24 08:49 12/19/24 08:49 12/19/24 08:49 12/19/24 08:49 Oxygen Delivery Method Room Air Weight: 47.8 kg Body Mass Index (BMI) 15.1 Intake & Output: Intake and Output for Last 24 Hours 12/17/24 12/18/24 12/19/24 23:59 23:59 23:59 Intake Total 340 / 340 Balance 340 / 340 Medical Nutrition Assessment Dietitian: Malnutrition Criteria Met Start: 12/18/24 13:17 Freq: Status: Active Protocol: Document 12/18/24 13:17 RMA (Rec: 12/18/24 13:18 RMA [id number]) Nutrition Malnutrition Evidence of Yes Malnutrition Exists Malnutrition (severe Chronic ): Evidenced By Suboptimal Energy Intake (Severe),Weight Loss (Severe), Physical Changes (Severe) Clinical Problem Chronic Disease or Condition Related Malnutrition Etiology Severe protein-calorie malnutrition in the context of chronic disease and debility related to inadequate energy/oral intake due to confusion/dementia Signs/Symptoms as evidenced by BMI 15.4, ~8% unintentional weight loss x past 1-2 months, ~30% unintentional weight loss x past 1-3 years, PO meeting less than 50% estimated nutrition needs x past 1 month and NFPE shows severe muscle wasting/fat depletion in the clavicle, arms and legs. Status Active Problem Recommendation Dietitian Continue liberalized regular diet as tolerated. Recommendations/ Will add 240ml ensure clear w/ breakfast tray as Changes tolerated. Will add magic cup w/ lunch and dinner. Will add 120mL ensure plus HP 3 times per day w/ medpass. Consider enteral nutrition support if PO established suboptimal and weight continues to decline. Lab / Micro Data 12/19/24 08:36 12/18/24 05:11 Labs: Laboratory Results - last 24 hr 12/19/24 08:36: WBC 5.2, RBC 4.30 L, Hgb 13.2, Hct 38.3 L, MCV 89.1, MCH 30.7, MCHC 34.5, RDW Std Deviation 44.7 H, RDW Coeff of Suri 13.8, Plt Count 211, MPV 10.6, Immature Gran % (Auto) 0.600, Neut % (Auto) 73.4 H, Lymph % (Auto) 12.7 L, [place] % (Auto) 10.2 H, Eos % (Auto) 2.3, Baso % (Auto) 0.8, Absolute Neuts (auto) 3.8, Absolute Lymphs (auto) 0.66 L, Nucleated RBC % 0 Micro: Microbiology 12/17/24 13:35 Urine, Clean Catch Urine Culture - Preliminary Pseudomonas aeruginosa Physical Exam Narrative GENERAL: cooperative HEENT: Atraumatic; normocephalic EYES; Anicteric, Normal Conjunctiva NECK; supple, normal thyroid, RESPIRATORY: Diminished to auscultation CARDIOVASCULAR: Regular S1 S2, GI: soft, normoactive bowel sounds, : No Renal angle tenderness; EXTREMITIES: No edema, no clubbing, MUSCULOSKELETAL: no muscle wasting NEURO: Awake; no lateralizing signs. 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 Subsequently brought to the emergency department 1. Adult failure to thrive in the context of dementia with behavioral agitation ? Admitted to regular nursing floor consult placed to case management to assist with disposition ? 12/19/2024; plan is for patient to be discharged to retirement facility pending insurance approval 2. Suspected gastric cancer ? Recent CT obtained on 11/29/2024 by GI demonstrated moderate diffuse thickening of the gastric fundus likely secondary to gastritis versus neoplastic pathology. Family opted not to pursue invasive procedure 4. Enlarged prostate with elevated PSA ? Family apparently not interested in any aggressive measures for 5. Hypertension ? Blood pressure controlled, home medications continued with dose adjustment as needed 6. Severe protein-calorie malnutrition in the context of chronic disease and debility related to failure to thrive and inadequate oral intake 7. Constipation ? Present on admission treated symptomatically 8. DVT prophylaxis ? Subcu heparin Charges/Coding Visit Charges Inpatient E&M: 69679 Subs Hosp L2
[2024-12-19 09:36] LABS: Anion Gap 9 (5-15); BUN 14 mg/dL (4-19); BUN/Creat Ratio 15.6 RATIO (10-20); Calcium,Total 8.8 mg/dL (7.6-11.0); Carbon Dioxide 27.5 mmol/L (21.0-32.0); Chloride 104 mmol/L (98-108); Estimated Creatinine Clearance 39.23 ml/min (50-250); Glucose 95 mg/dL (70-99); Magnesium 2.2 mg/dL (1.5-2.2); Potassium 3.7 mmol/L (3.3-5.1)
--- NOTE | 2024-12-19 09:43 | CASEMGMT ---
Addendum entered by Erlinda Baltazar 12/19/24 10:44: [facility] declined. SW updated. Erlinda Baltazar DC Planning Asst. Original Note: Discharge Planning Referral sent to [facility]. Erlinda Baltazar DC Planning Asst.
--- NOTE | 2024-12-19 12:05 | CASEMGMT ---
Addendum entered by Erlinda Baltazar 12/19/24 14:29: [facility] has accepted. SW updated. Erlinda Baltazar DC Planning Asst. Original Note: Discharge Planning Referral sent to [facility]. Erlinda Baltazar DC Planning Asst.
[2024-12-19 15:27] VITALS: BP 119/72; PULSE 62; RESP 16; TEMP 36.9; O2SAT 98
[2024-12-19 20:05] VITALS: BP 112/63; PULSE 78; RESP 18; TEMP 36.7; O2SAT 98
[2024-12-20 04:29] VITALS: BP 123/66; PULSE 60; RESP 18; TEMP 36.6; O2SAT 96
[2024-12-20 04:47] VITALS: BMI 16.1
--- NOTE | 2024-12-20 08:49 | PN.HOSP_ITS ---
Reason for Visit Chief Complaint: Dementia, unable to take care at home Subjective Subjective Patient urine cultures resulted with 50,000 CFU. Given his delirium decision was made to treat. Objective Data Objective Data Vital Signs: Vital Signs Temp Pulse Resp BP Pulse Ox O2 Del Method 97.8 F 60 18 123/66 H 96 Room Air 12/20/24 04:29 12/20/24 04:29 12/20/24 04:29 12/20/24 04:29 12/20/24 04:29 12/20/24 04:35 Oxygen Delivery Method Room Air Weight: 51 kg Body Mass Index (BMI) 16.1 Intake & Output: Intake and Output for Last 24 Hours 12/18/24 12/19/24 12/20/24 23:59 23:59 23:59 Intake Total 340 / 340 50 / 50 Balance 340 / 340 50 / 50 Medical Nutrition Assessment Dietitian: Malnutrition Criteria Met Start: 12/18/24 13:17 Freq: Status: Active Protocol: Document 12/18/24 13:17 RMA (Rec: 12/18/24 13:18 RMA [id number]) Nutrition Malnutrition Evidence of Yes Malnutrition Exists Malnutrition (severe Chronic ): Evidenced By Suboptimal Energy Intake (Severe),Weight Loss (Severe), Physical Changes (Severe) Clinical Problem Chronic Disease or Condition Related Malnutrition Etiology Severe protein-calorie malnutrition in the context of chronic disease and debility related to inadequate energy/oral intake due to confusion/dementia Signs/Symptoms as evidenced by BMI 15.4, ~8% unintentional weight loss x past 1-2 months, ~30% unintentional weight loss x past 1-3 years, PO meeting less than 50% estimated nutrition needs x past 1 month and NFPE shows severe muscle wasting/fat depletion in the clavicle, arms and legs. Status Active Problem Recommendation Dietitian Continue liberalized regular diet as tolerated. Recommendations/ Will add 240ml ensure clear w/ breakfast tray as Changes tolerated. Will add magic cup w/ lunch and dinner. Will add 120mL ensure plus HP 3 times per day w/ medpass. Consider enteral nutrition support if PO established suboptimal and weight continues to decline. Lab / Micro Data 12/19/24 08:36 12/19/24 08:36 Labs: Laboratory Results - last 24 hr 12/19/24 08:36: WBC 5.2, RBC 4.30 L, Hgb 13.2, Hct 38.3 L, MCV 89.1, MCH 30.7, MCHC 34.5, RDW Std Deviation 44.7 H, RDW Coeff of Suri 13.8, Plt Count 211, MPV 10.6, Immature Gran % (Auto) 0.600, Neut % (Auto) 73.4 H, Lymph % (Auto) 12.7 L, [place] % (Auto) 10.2 H, Eos % (Auto) 2.3, Baso % (Auto) 0.8, Absolute Neuts (auto) 3.8, Absolute Lymphs (auto) 0.66 L, Nucleated RBC % 0, Sodium 141, Potassium 3.7, Chloride 104, Carbon Dioxide 27.5, Anion Gap 9, BUN 14, Creatinine 0.88, E stim Creat Clear Calc 39.23 L, Est GFR (MDRD) Non-Af 83, BUN/Creatinine Ratio 15.6, Glucose 95, Calcium 8.8, Phosphorus 2.8, Magnesium 2.2 Micro: Microbiology 12/17/24 13:35 Urine, Clean Catch Urine Culture - Final Pseudomonas aeruginosa Physical Exam Narrative GENERAL: cooperative HEENT: Atraumatic; normocephalic EYES; Anicteric, Normal Conjunctiva NECK; supple, normal thyroid, RESPIRATORY: Diminished to auscultation CARDIOVASCULAR: Regular S1 S2, GI: soft, normoactive bowel sounds, : No Renal angle tenderness; EXTREMITIES: No edema, no clubbing, MUSCULOSKELETAL: no muscle wasting NEURO: Awake; no lateralizing signs. 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 Subsequently brought to the emergency department 1. Adult failure to thrive in the context of dementia with behavioral agitation ? Admitted to regular nursing floor consult placed to case management to assist with disposition ? 12/19/2024; plan is for patient to be discharged to [facility] facility pending insurance approval 2. Suspected gastric cancer ? Recent CT obtained on 11/29/2024 by GI demonstrated moderate diffuse thickening of the gastric fundus likely secondary to gastritis versus neoplastic pathology. Family opted not to pursue invasive procedure 4. Enlarged prostate with elevated PSA ? Family apparently not interested in any aggressive measures for 5. Hypertension ? Blood pressure controlled, home medications continued with dose adjustment as needed 6. Severe protein-calorie malnutrition in the context of chronic disease and debility related to failure to thrive and inadequate oral intake 7. Constipation ? Present on admission treated symptomatically 8. DVT prophylaxis ? Subcu heparin 9. Acute cystitis with Pseudomonas ? Patient treated with ciprofloxacin Charges/Coding Visit Charges Inpatient E&M: 14528 Subs Hosp L2
--- NOTE | 2024-12-20 08:51 | TREXTCAR_ITS ---
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 Subsequently brought to the emergency department 1. Adult failure to thrive in the context of dementia with behavioral agitation ? Admitted to regular nursing floor consult placed to case management to assist with disposition ? 12/19/2024; plan is for patient to be discharged to senior care facility pending insurance approval 2. Suspected gastric cancer ? Recent CT obtained on 11/29/2024 by GI demonstrated moderate diffuse thickening of the gastric fundus likely secondary to gastritis versus neoplastic pathology. Family opted not to pursue invasive procedure 4. Enlarged prostate with elevated PSA ? Family apparently not interested in any aggressive measures for 5. Hypertension ? Blood pressure controlled, home medications continued with dose adjustment as needed 6. Severe protein-calorie malnutrition in the context of chronic disease and debility related to failure to thrive and inadequate oral intake 7. Constipation ? Present on admission treated symptomatically 8. DVT prophylaxis ? Subcu heparin 9. Acute cystitis with Pseudomonas ? Patient treated with ciprofloxacin Allergies/Procedures Done in Hospital Allergies amoxicillin Allergy (Intermediate, Verified 12/17/24 12:47) Rash Sulfa (Sulfonamide Antibiotics) Allergy (Mild, Verified 12/17/24 12:47) Rash chlorthalidone Adverse Reaction (Severe, Verified 12/17/24 12:47) dizziness and stomachache Penicillins (PCN) Adverse Reaction (Intermediate, Verified 12/17/24 12:47) unknown amlodipine Adverse Reaction (Mild, Verified 12/17/24 12:47) dizziness guaifenesin (From Mucinex) Adverse Reaction (Mild, Verified 12/17/24 12:47) GI upset Type of Care/Length of Stay Estimated LOS: More Than 30 Days Type of Care Needed: Intermediate Rehab Potential: Fair Prognosis: Fair Additional Orders/Day of Discharge Day of Discharge: 12/20/24 Dietary and Speech Recommendations Dietitian Recommendations/Changes: Continue liberalized regular diet as tolerated. Will add 240ml ensure clear w/ breakfast tray as tolerated. Will add magic cup w/ lunch and dinner. Will add 120mL ensure plus HP 3 times per day w/ medpass. Consider enteral nutrition support if PO established suboptimal and weight continues to decline. Discharge Plan Admission Admit Date/Time: 12/17/24 15:46 Attending Provider: Roberto Carlos Bourne Primary Care Provider: Jared Londono Consulting Providers: Alo Harper Discharge Orders/Prescriptions Prescriptions: New donepezil 5 mg Tablet 5 mg PO QHS Qty: 0 0RF ciprofloxacin HCl 500 mg Tablet 500 mg PO BID 10 Days Qty: 20 0RF Ensure Plus High Protein 0.08 gram-1.5 kcal/mL Liquid 120 ml PO TIDCM Qty: 0 0RF Continued docusate sodium 100 mg capsule 100 mg PO DAILY lisinopril 5 mg tablet 5 mg PO QODAY lactulose 10 gram/15 mL solution 30 ml PO BID acetaminophen 325 mg Tablet 650 mg PO Q6H PRN PRN (Reason: Pain 1-10 Or Fever>100.7) Qty: 0 0RF melatonin 3 mg Tablet 3 mg PO QHS PRN PRN (Reason: Insomnia) Qty: 0 0RF bisacodyl 10 mg Suppository 10 mg ND DAILY PRN (Reason: constipation) Qty: 0 0RF mirtazapine 7.5 mg tablet 7.5 mg PO QHS Referrals / Follow Up: Jared Londono MD [Primary Care Provider] - August Sharma Chi, MD [Med Staff - Active Staff] - Disposition Disposition (needs filled in before D/C Order can be placed): Half-Way Facility
--- NOTE | 2024-12-20 08:54 | PCM.DC.SUM ---
Providers Date of Admission: 12/17/24 Date of Discharge: 12/20/24 Primary Care Physician: Dr. 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 Subsequently brought to the emergency department 1. Adult failure to thrive in the context of dementia with behavioral agitation ? Admitted to regular nursing floor consult placed to case management to assist with disposition ? 12/19/2024; plan is for patient to be discharged to [facility] facility pending insurance approval 2. Suspected gastric cancer ? Recent CT obtained on 11/29/2024 by GI demonstrated moderate diffuse thickening of the gastric fundus likely secondary to gastritis versus neoplastic pathology. Family opted not to pursue invasive procedure 4. Enlarged prostate with elevated PSA ? Family apparently not interested in any aggressive measures for 5. Hypertension ? Blood pressure controlled, home medications continued with dose adjustment as needed 6. Severe protein-calorie malnutrition in the context of chronic disease and debility related to failure to thrive and inadequate oral intake 7. Constipation ? Present on admission treated symptomatically 8. DVT prophylaxis ? Subcu heparin 9. Acute cystitis with Pseudomonas ? Patient treated with ciprofloxacin Medications at Discharge Home Medications mirtazapine 7.5 mg tablet 7.5 mg PO QHS 11/08/24 docusate sodium 100 mg capsule 100 mg PO DAILY 11/25/24 lactulose 10 gram/15 mL oral solution 30 ml PO BID 12/04/24 lisinopril 5 mg tablet 5 mg PO QODAY 12/04/24 acetaminophen 325 mg tablet 650 mg (2 x 325 mg) PO Q6H PRN PRN Pain 1-10 Or Fever>100.7 #0 tabs 12/08/24 bisacodyl 10 mg rectal suppository 10 mg KS DAILY PRN constipation #0 ea 12/08/24 melatonin 3 mg tablet 3 mg PO QHS PRN PRN Insomnia #0 tabs 12/08/24 ciprofloxacin HCl 500 mg tablet 500 mg PO BID 10 days #20 tabs 12/20/24 donepezil 5 mg tablet 5 mg PO QHS #0 tabs 12/20/24 food supplemt, lactose-reduced 0.08 gram-1.5 kcal/mL oral liquid (Ensure Plus High Protein) 120 ml PO TIDCM #0 mL 12/20/24 Hospital Course Summary of Care Provided Minutes Spent on Discharge: 35 Physical Exam Narrative GENERAL: cooperative HEENT: Atraumatic; normocephalic EYES; Anicteric, Normal Conjunctiva NECK; supple, normal thyroid, RESPIRATORY: Diminished to auscultation CARDIOVASCULAR: Regular S1 S2, GI: soft, normoactive bowel sounds, : No Renal angle tenderness; EXTREMITIES: No edema, no clubbing, MUSCULOSKELETAL: no muscle wasting NEURO: Awake; no lateralizing signs. SKIN: No Rash PSYCH; Flat affect Medical Records Data Medical Nutrition Assessment Dietitian: Malnutrition Criteria Met Start: 12/18/24 13:17 Freq: Status: Active Protocol: Document 12/18/24 13:17 RMA (Rec: 12/18/24 13:18 RMA [id number]) Nutrition Malnutrition Evidence of Yes Malnutrition Exists Malnutrition (severe Chronic ): Evidenced By Suboptimal Energy Intake (Severe),Weight Loss (Severe), Physical Changes (Severe) Clinical Problem Chronic Disease or Condition Related Malnutrition Etiology Severe protein-calorie malnutrition in the context of chronic disease and debility related to inadequate energy/oral intake due to confusion/dementia Signs/Symptoms as evidenced by BMI 15.4, ~8% unintentional weight loss x past 1-2 months, ~30% unintentional weight loss x past 1-3 years, PO meeting less than 50% estimated nutrition needs x past 1 month and NFPE shows severe muscle wasting/fat depletion in the clavicle, arms and legs. Status Active Problem Recommendation Dietitian Continue liberalized regular diet as tolerated. Recommendations/ Will add 240ml ensure clear w/ breakfast tray as Changes tolerated. Will add magic cup w/ lunch and dinner. Will add 120mL ensure plus HP 3 times per day w/ medpass. Consider enteral nutrition support if PO established suboptimal and weight continues to decline. Weight / BMI Weight Weight: 51 kg Body Mass Index (BMI) 16.1 ABG / Lab / Microbiology Data 12/19/24 08:36 12/19/24 08:36 Laboratory: Laboratory Results - last 24 hr 12/19/24 08:36: WBC 5.2, RBC 4.30 L, Hgb 13.2, Hct 38.3 L, MCV 89.1, MCH 30.7, MCHC 34.5, RDW Std Deviation 44.7 H, RDW Coeff of Suri 13.8, Plt Count 211, MPV 10.6, Immature Gran % (Auto) 0.600, Neut % (Auto) 73.4 H, Lymph % (Auto) 12.7 L, Teller % (Auto) 10.2 H, Eos % (Auto) 2.3, Baso % (Auto) 0.8, Absolute Neuts (auto) 3.8, Absolute Lymphs (auto) 0.66 L, Nucleated RBC % 0, Sodium 141, Potassium 3.7, Chloride 104, Carbon Dioxide 27.5, Anion Gap 9, BUN 14, Creatinine 0.88, Estim Creat Clear Calc 39.23 L, Est GFR (MDRD) Non-Af 83, BUN/Creatinine Ratio 15.6, Glucose 95, Calcium 8.8, Phosphorus 2.8, Magnesium 2.2 Microbiology: Microbiology 12/17/24 13:35 Urine, Clean Catch Urine Culture - Final Pseudomonas aeruginosa D/C Instructions Discharge Activity: Return to Normal Activity Call your doctor if you observe: Fever of 101 or Higher, Shortness of breath, Fainting spells and Chest pain DC O2, CPAP, BIPAP Needs Home O2 Discharge instructions: No Meaningful Use Info Meaningful Use Meaningful Use Diagnoses (Choose all that apply): None applicable Discharge Plan Admission Admit Date/Time: 12/17/24 15:46 Attending Provider: Roberto Carlos Bourne Primary Care Provider: Jared Londono Consulting Providers: Alo Harper Discharge Orders/Prescriptions Prescriptions: New donepezil 5 mg Tablet 5 mg PO QHS Qty: 0 0RF ciprofloxacin HCl 500 mg Tablet 500 mg PO BID 10 Days Qty: 20 0RF Ensure Plus High Protein 0.08 gram-1.5 kcal/mL Liquid 120 ml PO TIDCM Qty: 0 0RF Continued docusate sodium 100 mg capsule 100 mg PO DAILY lisinopril 5 mg tablet 5 mg PO QODAY lactulose 10 gram/15 mL solution 30 ml PO BID acetaminophen 325 mg Tablet 650 mg PO Q6H PRN PRN (Reason: Pain 1-10 Or Fever>100.7) Qty: 0 0RF melatonin 3 mg Tablet 3 mg PO QHS PRN PRN (Reason: Insomnia) Qty: 0 0RF bisacodyl 10 mg Suppository 10 mg KS DAILY PRN (Reason: constipation) Qty: 0 0RF mirtazapine 7.5 mg tablet 7.5 mg PO QHS Referrals / Follow Up: Jared Londono MD [Primary Care Provider] - August Sharma Chi, MD [Med Staff - Active Staff] - Disposition Disposition (needs filled in before D/C Order can be placed): Residential Facility Charges/Coding Visit Charges Inpatient E&M: 06369 Disch Hosp >30min
--- NOTE | 2024-12-20 09:29 | CASEMGMT ---
Social Work Per physician, pt is ready for discharge today. SW completed PASRR in [facility] for admission to SNF. DC human resource assistant updated and to complete discharge. Message left with pt dgt Mariya to update on discharge time. Disposition: [facility], intermediate level of care in memory unit - private pay BERNICE Buckley
--- NOTE | 2024-12-20 09:32 | CASEMGMT ---
Addendum entered by Erlinda Baltazar 12/20/24 14:10: [facility] notified that pts daughter would like admission cancelled. Transport cancelled. Erlinda Baltazar DC Planning Asst. Original Note: Discharge Planning Discharge orders, signed med list, and transport time sent to [facility]. Physicians will transport pt by cot at 1p. Nursing and SW updated. SW to update pts daughter (Mariya). Erlinda Baltazar DC Planning Asst.
[2024-12-20 09:57] VITALS: BP 128/67; PULSE 74; RESP 12; TEMP 36.5; O2SAT 96
[2024-12-20] MEDS: Ensure Plus High Protein 120 ML LIQUID PO ×3 (10:01→18:45)
[2024-12-20 10:23] LABS: Hematocrit 40.0 % (40-54); Hemoglobin 13.6 g/dL (13.0-16.5); Immature Granulocytes Count 0.020 X10^3/uL (0.0-0.0); Mean Corp Hgb Conc 34.0 g/dL (32-36); Mean Corpuscular Volume 89.5 fL (80-94); Mean Platelet Vol. 10.4 fl (6.2-12.0); NRBC Flagged by Analyzer 0 % (0-5); POSITIVE DIFFERENTIAL YES; Platelet Count 223 K/mm3 (150-450); RBC Distribution Width CV 13.8 % (11.6-14.6); RBC Distribution Width SD 44.9 fl (35.1-43.9); Red Blood Count 4.47 M/mm3 (4.6-6.2); White Blood Count 4.7 K/mm3 (4.4-11.0)
--- NOTE | 2024-12-20 10:37 | PHA.DC.MR.R ---
Pharmacy PA Med Reconciliation Pharmacy Service has performed discharge medication reconciliation for this patient. The patient's discharge medication list was reviewed for discrepancies and discrepancies were resolved. Medications at Discharge Home Medications mirtazapine 7.5 mg tablet 7.5 mg PO QHS 11/08/24 docusate sodium 100 mg capsule 100 mg PO DAILY 11/25/24 lactulose 10 gram/15 mL oral solution 30 ml PO BID 12/04/24 lisinopril 5 mg tablet 5 mg PO QODAY 12/04/24 acetaminophen 325 mg tablet 650 mg (2 x 325 mg) PO Q6H PRN PRN Pain 1-10 Or Fever>100.7 #0 tabs 12/08/24 bisacodyl 10 mg rectal suppository 10 mg [place] DAILY PRN constipation #0 ea 12/08/24 melatonin 3 mg tablet 3 mg PO QHS PRN PRN Insomnia #0 tabs 12/08/24 ciprofloxacin HCl 500 mg tablet 500 mg PO BID 10 days #20 tabs 12/20/24 donepezil 5 mg tablet 5 mg PO QHS #0 tabs 12/20/24 food supplemt, lactose-reduced 0.08 gram-1.5 kcal/mL oral liquid (Ensure Plus High Protein) 120 ml PO TIDCM #0 mL 12/20/24
[2024-12-20 11:29] LABS: Anion Gap 9 (5-15); BUN 14 mg/dL (4-19); BUN/Creat Ratio 17.4 RATIO (10-20); Calcium,Total 8.8 mg/dL (7.6-11.0); Carbon Dioxide 27.5 mmol/L (21.0-32.0); Chloride 105 mmol/L (98-108); Estimated Creatinine Clearance 45.47 ml/min (50-250); Glucose 130 mg/dL (70-99); Potassium 3.7 mmol/L (3.3-5.1)
--- NOTE | 2024-12-20 12:17 | CASEMGMT ---
Discharge Planning Pts daughter requested a referral to [facility]. They have declined d/t pts need for memory care unit. Erlinda Baltazar DC Planning Asst.
--- NOTE | 2024-12-20 14:08 | CASEMGMT ---
Addendum entered by Erlinda Baltazar 12/21/24 08:40: [facility] has declined. Erlinda Baltazar DC Planning Asst. Addendum entered by Erlinda Baltazar 12/20/24 15:44: [facility] declined. Erlinda Baltazar DC Planning Asst. Original Note: Discharge Planning Referral sent to [facility]. Erlinda Baltazar DC Planning Asst.
[2024-12-20 14:16] VITALS: BP 106/63; PULSE 56; RESP 14; TEMP 36.3; O2SAT 99
--- NOTE | 2024-12-20 16:14 | CASEMGMT ---
Social Work Phone call placed to pt dgt Mariya to inform of plan for discharge to [facility] today with car pick up driver at 1pm as discussed yesterday afternoon and pt's dgt was agreeable to. Dgt stating that she will not allow her father to go to [facility] as the room he will go to has a shared bathroom and pt will not like this and pt should not be in a memory care unit (although dgt was aware of this yesterday). Leona states that she spoke with Jay at [facility] and and requested pt be placed in [facility] and Jay agreed to admission. CHELA left for Jay at [facility] on work phone and cell phone with no return call. Call to Cassie Osuna, director of [facility] admissions and referral discussed with her. Cassie states the [facility] is unable to accept pt as pt will not be safe in AL and requires memory care which they do not have and do not have any intermediate level beds available. Call placed to dgt Mariya and informed that [facility] cannot accept. Mariya voicing much frustration. ARDEN informed Mariya that pt is medically ready for discharge and discharge plan needs to move forward. Per Robin request, SW checked with [facility] and they are unable to provide a private room in the memory care unit and are unable to accept [facility] care [facility] due to pt's cognition. ARDEN updated Mariya who continues to voice frustration and states that pt does not required memory care. ARDEN explained that facilities make decisions on what unit a pt will be accepted into. Mariya informed ARDEN that SW cannot force pt to go to a SNF. ARDEN confirmed that this is correct and that ARDEN has been working with Mariya to assist with SNF placement as Mariya has stated she cannot care for pt at home. ARDEN informed Mariya that she can take pt home if she would like as pt is ready for discharge. After speaking with her brother, Mariya is requesting referrals to [facility] for a private room and not in memory care. Mariya maintains that pt does not wander but that he enjoys being fit and walks a lot. Mariya does not believe pt is a flight risk or that he would leave a facility. ARDEN discussed reports at time of admission that pt was found outside wandering the streets over the weekend and Mariya adamantly denies this happening stating pt never left the house. Mariya states that she is not able to take pt home and care for him. Referrals set to [facility] with Mariya's request. [facility] is unable to accept. Referral is pending with [facility]. Physician is notified that pt is not ready for discharge today. SW will continue to follow for SNF placement. BERNICE Alfredo
[2024-12-20 20:07] VITALS: BP 122/77; PULSE 52; RESP 18; TEMP 36.7; O2SAT 97
[2024-12-20] MEDS: Heparin Injection (Vial) 5,000 UNIT/ML VIAL 5000 UNIT SC (20:15)
[2024-12-20] MEDS: Senna/Docusate Sodium 1 Tablet 2 TABLET PO (21:32)
[2024-12-21 03:02] VITALS: BMI 16.2
[2024-12-21 05:08] VITALS: BP 120/54; PULSE 64; RESP 18; TEMP 36.5; O2SAT 98
[2024-12-21 07:26] LABS: Hematocrit 37.6 % (40-54); Hemoglobin 12.8 g/dL (13.0-16.5); Immature Granulocytes Count 0.020 X10^3/uL (0.0-0.0); Mean Corp Hgb Conc 34.0 g/dL (32-36); Mean Corpuscular Volume 90.0 fL (80-94); Mean Platelet Vol. 11.0 fl (6.2-12.0); NRBC Flagged by Analyzer 0 % (0-5); Platelet Count 203 K/mm3 (150-450); RBC Distribution Width CV 13.9 % (11.6-14.6); RBC Distribution Width SD 45.7 fl (35.1-43.9); Red Blood Count 4.18 M/mm3 (4.6-6.2); White Blood Count 4.4 K/mm3 (4.4-11.0)
[2024-12-21 08:25] LABS: Anion Gap 10 (5-15); BUN 17 mg/dL (4-19); BUN/Creat Ratio 21.6 RATIO (10-20); Calcium,Total 8.6 mg/dL (7.6-11.0); Carbon Dioxide 25.5 mmol/L (21.0-32.0); Chloride 106 mmol/L (98-108); Estimated Creatinine Clearance 46.22 ml/min (50-250); Glucose 88 mg/dL (70-99); Potassium 3.9 mmol/L (3.3-5.1)
[2024-12-21] MEDS: Senna/Docusate Sodium 1 Tablet 2 TABLET PO (09:04)
[2024-12-21] MEDS: Heparin Injection (Vial) 5,000 UNIT/ML VIAL 5000 UNIT SC (09:04)
[2024-12-21] MEDS: Ensure Plus High Protein 120 ML LIQUID PO ×2 (09:04→12:20)
--- NOTE | 2024-12-21 09:38 | CASEMGMT ---
Addendum entered by Hawa Luciano 12/21/24 10:58: Social Work Phone call to pt dgt Mariya and updated that pt will be moss picker at 1130 today. BERNICE Buckley Original Note: Social Work [facility] and [facility] have denied acceptance. Phone call to pt's dgt Mariya and extensive discussion regarding discharge plan. After much discussion, support and options presented, pt dgt requesting pt be placed at [facility] in the memory care unit with [facility] assessing him for appropriateness for a private room in the nursing unit after pt has been there for a bit. SW reached out to [facility] and they are able to accept pt today. Physician notified. DC lens assistant notified and to complete discharge. Disposition: [facility], [facility], private pay BERNICE Alfredo
--- NOTE | 2024-12-21 10:59 | CASEMGMT ---
Discharge Planning Discharge orders, signed med list, and transport time sent to [facility]. Physicians will transport pt by cot at 11:30a. Nursing and SW updated. SW will update pts daughter (Mariya). Erlinda Baltazar DC Planning Asst.
[2024-12-21 11:31] VITALS: BP 139/69; PULSE 69; RESP 14; TEMP 36.4; O2SAT 98
[2024-12-21 15:08] VITALS: BP 131/65; PULSE 76; RESP 16; TEMP 36.7; O2SAT 98
--- NOTE | 2024-12-22 07:32 | CASEMGMT ---
Social Work Messages left on phone from pt's son and SW at the [facility], [facility]. Pt's son had reached out to Narinder, and Narinder was then reaching out to [facility] with son's questions. SW read through the SW notes, it does appear son and daughter had been in communication on discharge plan. SW did call Narinder at the [facility] back, message left letting him know pt went to [facility]. SW also did let Narinder know that pt's daughter Mariya is actually the POA for healthcare, not pt's son. DEANA Hyde
== END 2024-12-21 10:09 | disposition skilled nursing facility (03) ==
LOC: ED 15:48 → PCU 18:14
PROVIDERS: Admitting Provider Internal Medicine; Emergency Provider Emergency Medicine; PCP Family Medicine; Visit Provider Internal Medicine
DX: N30.00 Acute cystitis without hematuria (principal); F03.918 Unspecified dementia, unspecified severity, with other behavioral disturbance; R62.7 Adult failure to thrive; R53.81 Other malaise; I10 Essential (primary) hypertension; E43 Unspecified severe protein-calorie malnutrition; Z79.899 Other long term (current) drug therapy; N40.0 Benign prostatic hyperplasia without lower urinary tract symptoms; R10.13 Epigastric pain; Z66 Do not resuscitate; K59.00 Constipation, unspecified; Z68.1 Body mass index [BMI] 19.9 or less, adult; Z91.83 Wandering in diseases classified elsewhere; B96.5 Pseudomonas (aeruginosa) (mallei) (pseudomallei) as the cause of diseases classified elsewhere
CPT/HCPCS: 36415; 71046; 80048; 81001; 83735; 84100; 85025; 87077; 87086; 87088; 87184; 87186; 93005; 96365; 96372; 97161; 97165; 97802; 99221; 99285; A4216; G0378

== ENCOUNTER → 2025-01-09 | Outpatient (CLI) | payer BC, SELFPAY ==
[2025-01-09 18:03] LABS: Hematocrit 51.0 % (40-54); Hemoglobin 16.4 g/dL (13.0-16.5); Immature Granulocytes Count 0.040 X10^3/uL (0.0-0.0); Mean Corp Hgb Conc 32.2 g/dL (32-36); Mean Corpuscular Volume 93.1 fL (80-94); Mean Platelet Vol. 12.4 fl (6.2-12.0); NRBC Flagged by Analyzer 0 % (0-5); Platelet Count 298 K/mm3 (150-450); RBC Distribution Width CV 14.1 % (11.6-14.6); RBC Distribution Width SD 48.6 fl (35.1-43.9); Red Blood Count 5.48 M/mm3 (4.6-6.2); White Blood Count 9.4 K/mm3 (4.4-11.0)
[2025-01-09 19:13] LABS: AST(SGOT) 32 U/L (<=37); Alanine Aminotransfer ALT/SGPT 20 U/L (<=46); Albumin, Serum 4.0 g/dL (3.4-4.8); Alkaline Phosphatase 55 U/L (40-129); Anion Gap 19 (5-15); BUN 21 mg/dL (4-19); BUN/Creat Ratio 14.8 RATIO (10-20); Calcium,Total 9.4 mg/dL (7.6-11.0); Carbon Dioxide 24.6 mmol/L (21.0-32.0); Chloride 100 mmol/L (98-108); Globulin 2.4 g/dL (2.2-4.2); Glucose 120 mg/dL (70-99); Potassium 3.5 mmol/L (3.3-5.1)
[2025-01-10 00:44] LABS: Xtra Tube Kwok EXTRA TUBE
== END | disposition home or self-care (01) ==
LOC: POLAB3 16:42
PROVIDERS: PCP Family Medicine Geriatric Medicine; Visit Provider Family Medicine Geriatric Medicine
DX: G93.40 Encephalopathy, unspecified (principal)
CPT/HCPCS: 36415; 80053; 85025